=== PATIENT | female | born 1970 | race Caucasian/White ===

== ENCOUNTER 2017-08-30 18:23 | Emergency (ER) | payer MEDICARE, OTHER, SELFPAY ==
[2017-08-30 18:39] VITALS: BP 136/76; PULSE 102; RESP 20; TEMP 37.1; O2SAT 96; BMI 30.1
--- NOTE | 2017-08-30 18:46 | HMH.EDUTC ---
[facility] [place]ression: Ankle pain Qualifiers: Chronicity: unspecified Laterality: left Qualified Code(s): M25.572 - Pain in left ankle and joints of left foot Disposition: Home, Self-Care Condition on Discharge: Good Instructions: DI for Chronic Pain -- Adult Additional Instructions: Follow up with family doctor, call tomorrow for appointment Return if needed Ortho if pain persists Take medication as prescribed If you notice change in color, temperature, pulse or swelling redness or streaks go straight to the ER Prescriptions: Etodolac [Etodolac 200mg Cap] 200 mg PO Q6H PRN #20 cap PRN Reason: Moderate Pain Referrals: Provider,Referral, MD [Primary Care Provider] - Medical Decision Making - Medical Records Medical records reviewed: Yes: I reviewed the patient's medical records. Vital Signs: 08/30/17 18:39 Temperature 98.8 F Temperature Source Temporal Artery Scan Pulse Rate [Right] 102 H Respiratory Rate 20 Blood Pressure [Right Arm] 136/76 Blood Pressure Mean [Right Arm] 96 Blood Pressure Source [Right Arm] Automatic Cuff Blood Pressure Position [Right Arm] Sitting 02 Sat by Pulse Oximetry 96 Oxygen Delivery Method Room Air - Radiology Data #1 Image(s): Ankle Image Reviewed: Yes I have reviewed radiologist's interpretation Preliminary Findings: Normal/NAD Still recommend patient follow up with family doctor for more extensive testing and work up - Po Inquiry Pt receiving controlled substance: No Po was queried for this patient: No - Reevaluation(s) Time: 19:56 Reevaluation #1: No changes States that pain is an achy pain that occurs however patient able to walk on foot, no difference in color, no warmth, no redness, minimal swelling, no discoloration good pulses noted nad good cap refill. Ankle wrapped with john wrap and patient advised to follow up with family doctor in the morning or return to ER tonight if any changes Offer to transfer patient to ER for further workup but refused state that she would follow up as recommended [facility] [place] - General Stated complaint: left ankle and left foot pain Mode of Arrival: Ambulatory Source of Information: Patient Limitations: No Limitations Description of Symptoms (Recalled from Triage Doc. by RN): PAIN IN LEFT LEFT LEG TO LEFT HIP, DENIES INJURY HEENT Symptoms (Recalled from RN notes): No Resp Symptoms (Recalled from RN notes): No Skin Symptoms (Recalled from RN notes): No MS Symptoms (Recalled from RN notes): Yes Functional Status (Recalled from RN notes): N - History of Present Illness Provider Complaint: Patient state that she recently started physical therapy States that she has been having pain in her left ankle that radiates pain up her leg into her knee States that on top of physical therapy she recently seen the material man and they moved her foot around and may have aggrivated her arthritits States that her physical therapy is on her left shoulder but requires her to shift weight freqently onto this foot and put pressure on her lower leg and foot and now she is having pain - Related Data Previous Rx's Medication Instructions Recorded Etodolac [Etodolac 200mg Cap] 200 mg PO Q6H PRN #20 cap 08/30/17 Allergies Allergy/AdvReac Type Severity Reaction Status Date / Time acetaminophen Allergy Mild Verified 08/30/17 18:43 [From DARVOCET-N] diphenhydramine Allergy Mild Verified 08/30/17 18:43 [From BENADRYL] Macrolide Antibiotics Allergy Mild Verified 08/30/17 18:43 [MACROLIDE ANTIBIOTICS] Opioids - Morphine Analogues Allergy Mild Verified 08/30/17 18:43 [OPIOIDS - MORPHINE ANALOGUES] propoxyphene Allergy Mild Verified 08/30/17 18:43 [From DARVOCET-N] codeine [CODEINE] Allergy Unknown Verified 08/30/17 18:43 erythromycin base Allergy Unknown Verified 08/30/17 18:43 [ERYTHROMYCIN BASE] prednisone [PREDNISONE] Allergy Unknown Verified 08/30/17 18:43 Sulfa (Sulfon
--- NOTE | 2017-08-30 18:55 | ED_ITS ---
[facility] [place] Clinical Impression: Ankle pain Qualifiers: Chronicity: unspecified Laterality: left Qualified Code(s): M25.572 - Pain in left ankle and joints of left foot Disposition: Home, Self-Care Condition on Discharge: Good Instructions: DI for Chronic Pain -- Adult Additional Instructions: Follow up with family doctor, call tomorrow for appointment Return if needed Ortho if pain persists Take medication as prescribed If you notice change in color, temperature, pulse or swelling redness or streaks go straight to the ER Prescriptions: Etodolac [Etodolac 200mg Cap] 200 mg PO Q6H PRN #20 cap PRN Reason: Moderate Pain Referrals: Provider,Referral, MD [Primary Care Provider] - Medical Decision Making - Medical Records Medical records reviewed: Yes: I reviewed the patient's medical records. Vital Signs: 08/30/17 18:39 Temperature 98.8 F Temperature Source Temporal Artery Scan Pulse Rate [Right] 102 H Respiratory Rate 20 Blood Pressure [Right Arm] 136/76 Blood Pressure Mean [Right Arm] 96 Blood Pressure Source [Right Arm] Automatic Cuff Blood Pressure Position [Right Arm] Sitting 02 Sat by Pulse Oximetry 96 Oxygen Delivery Method Room Air - Radiology Data #1 Image(s): Ankle Image Reviewed: Yes I have reviewed radiologist's interpretation Preliminary Findings: Normal/NAD Still recommend patient follow up with family doctor for more extensive testing and work up - Po Inquiry Pt receiving controlled substance: No Po was queried for this patient: No - Reevaluation(s) Time: 19:56 Reevaluation #1: No changes States that pain is an achy pain that occurs however patient able to walk on foot, no difference in color, no warmth, no redness, minimal swelling, no discoloration good pulses noted nad good cap refill. Ankle wrapped with john wrap and patient advised to follow up with family doctor in the morning or return to ER tonight if any changes Offer to transfer patient to ER for further workup but refused state that she would follow up as recommended [facility] [place] HPI - General Stated complaint: left ankle and left foot pain Mode of Arrival: Ambulatory Source of Information: Patient Limitations: No Limitations Description of Symptoms (Recalled from Triage Doc. by RN): PAIN IN LEFT LEFT LEG TO LEFT HIP, DENIES INJURY HEENT Symptoms (Recalled from RN notes): No Resp Symptoms (Recalled from RN notes): No Skin Symptoms (Recalled from RN notes): No MS Symptoms (Recalled from RN notes): Yes Functional Status (Recalled from RN notes): N - History of Present Illness Provider Complaint: Patient state that she recently started physical therapy States that she has been having pain in her left ankle that radiates pain up her leg into her knee States that on top of physical therapy she recently seen the filter tender and they moved her foot around and may have aggrivated her arthritits States that her physical therapy is on her left shoulder but requires her to shift weight freqently onto this foot and put pressure on her lower leg and foot and now she is having pain - Related Data Previous Rx's Medication Instructions Recorded Etodolac [Etodolac 200mg Cap] 200 mg PO Q6H PRN #20 cap 08/30/17 Allergies Allergy/AdvReac Type Severity Reaction Status Date / Time acetaminophen Allergy Mild Verified 08/30/17 18:43 [From ALMA] diphe
--- NOTE | 2017-08-30 19:10 | XR_ITS ---
XR ankle LT min 3V HISTORY: ITS.REASON: pain ORDERING PHYSICIAN: Rachel Valiente PATIENT AGE: 47 years COMPARISON: None FINDINGS: No fracture or dislocation. No lytic or blastic change. There is normal mineralization.. The joint spaces are well-preserved. No significant degenerative/arthritic changes. No erosive changes evident. There is a faint opacity at the tip of the medial malleolus well-circumscribed and could be related to an old injury or accessory center of ossification. No soft tissue swelling IMPRESSION: As above, no acute finding
[2017-08-30 20:03] VITALS: BP 132/77; PULSE 90; RESP 20; TEMP 37.1
== END 2017-08-30 20:10 | disposition home or self-care (01) ==
PROVIDERS: Emergency Provider Nurse Practitioner; Family Provider Family Medicine
DX: M25.572 Pain in left ankle and joints of left foot (principal); Z88.0 Allergy status to penicillin; Z88.2 Allergy status to sulfonamides; Z88.6 Allergy status to analgesic agent
CPT/HCPCS: G0463; 73610; 99202

== ENCOUNTER → 2018-02-01 10:51 | Outpatient (CLI) | payer MEDICARE, OTHER, SELFPAY ==
--- NOTE | 2018-02-01 10:57 | MM_ITS ---
MM Dig screening mamm BI w/CAD CAD Screening COMPARISON: Digital mammograms with CAD 09/27/2013 and post biopsy right mammogram 04/08/2010 INDICATION: There is a history of breast cancer in patient's paternal grandmother diagnosed in her 40s and paternal aunt. There is been previous biopsy right breast for benign disease. TECHNIQUE: Standard CC and MLO images were obtained. R2 CAD reviewed. FINDINGS: Moderate heterogenic fibroglandular densities are seen throughout both breast. There is an asymmetric nodular density upper outer quadrant right breast with a biopsy clip adjacent to this density. There is a possible new density deep within the right breast near the chest wall and only definitely seen on the MLO view. Recommend the patient return for attempt at spot compression view in MLO projection and 90 degree lateral view and exaggerated cc views and probably ultrasound as well. There is no other suspicious lesion in either breast and there are no suspicious microcalcifications. IMPRESSION: Moderate heterogenic breast density with possible new asymmetric density right breast BI-RADS Category: 0 Need Additional Imaging Evaluation RECOMMENDED FOLLOW-UP: IMM - IMMEDIATE FOLLOW-UP RECOMMENDED (A letter has been sent to the patient regarding results of the study.)
== END ==
PROVIDERS: Family Provider Family Medicine; PCP Family Medicine; Visit Provider Family Medicine
DX: Z12.31 Encounter for screening mammogram for malignant neoplasm of breast (principal)
CPT/HCPCS: 77067

== ENCOUNTER → 2018-02-16 13:40 | Outpatient (CLI) | payer MEDICARE, OTHER, SELFPAY ==
--- NOTE | 2018-02-16 13:43 | MM_ITS ---
MM Dig mamm DX unilat RT CAD Right breast ultrasound complete with axilla INDICATION: Follow-up screening mammogram ORDERING PHYSICIAN: Osman Medrano MD PATIENT AGE: 47 years COMPARISON: 02/01/2018, 09/27/2013 TECHNIQUE: Problem-solving views of the right breast along with right breast ultrasound FINDINGS: There is average fibroglandular tissue. Postbiopsy changes are present in the upper outer right breast. Screening mammogram showed asymmetric density in the lower aspect of the right breast. Spot compression views confirm the presence of an asymmetric density in this area however, the margins are not just the. This millimeters represent overlying fibroglandular tissue as no ultrasound abnormalities are evident in this region as well. On the exaggerated cc there was some faint density noted in the deep outer right breast. One would expect this however to be in the axilla and not in the inferior aspect of the breast as seen on the ML view. This could correspond to the edge of the lymph node. Right breast ultrasound: There is a 4 mm complex cyst at 10:00 and a 3 mm cyst at 10:00 near the nipple. There is some mild ductal dilatation in the retroareolar region. Small axillary nodes are present. IMPRESSION: Probably benign findings regarding asymmetric density in the lower right breast and in the deep outer right breast. Recommend 6 month mammographic and sonographic follow-up. Also suggest correlation with physical exam BI-RADS Category: 3 Benign Finding Short Term Follow-up RECOMMENDED FOLLOW-UP: 6M - 6 MONTH FOLLOW-UP (A letter has been sent to the patient regarding results of the study.)
== END ==
PROVIDERS: Family Provider Family Medicine; PCP Family Medicine; Visit Provider Family Medicine
DX: R92.8 Other abnormal and inconclusive findings on diagnostic imaging of breast (principal)
CPT/HCPCS: 77065

== ENCOUNTER → 2018-02-23 09:31 | Outpatient (CLI) | payer MEDICARE, OTHER, SELFPAY | PROVIDERS: Family Provider Family Medicine; PCP Family Medicine; Visit Provider Family Medicine | DX: R92.8 Other abnormal and inconclusive findings on diagnostic imaging of breast (principal) | CPT/HCPCS: 76641 ==

== ENCOUNTER → 2018-09-12 08:08 | Outpatient (CLI) | payer MEDICARE, MEDICAID, SELFPAY ==
[2018-09-12 08:13] LABS: Adenovirus F 40/41, stool Not Detected (NotDetected); Astrovirus Not Detected (NotDetected); Campylobacter Not Detected (NotDetected); Clostridium Difficile A/B, PCR Not Detected (NotDetected); Cryptosporidium Not Detected (NotDetected); Cyclospora Cayetanesis Not Detected (NotDetected); Entamoeba histolytica Not Detected (NotDetected); Enteroaggregative E coli Not Detected (NotDetected); Enteropathogenic E coli Not Detected (NotDetected); Enterotoxigenic E coli Not Detected (NotDetected); Giardia lamblia Not Detected (NotDetected); Norovirus Not Detected (NotDetected); Plesimonas Shigalloides, PCR Not Detected (NotDetected); Rotavirus A Not Detected (NotDetected); Salmonella, PCR Not Detected (NotDetected); Sapovirus Not Detected (NotDetected); Shiga-like toxin E coli Not Detected (NotDetected); Shigella Enterovasive E coli Not Detected (NotDetected); Vibrio Cholerae Not Detected (NotDetected); Vibrio, PCR Not Detected (NotDetected); Yersinia Entercolitica, PCR Not Detected (NotDetected)
== END ==
PROVIDERS: PCP Family Medicine; Visit Provider Nurse Practitioner Family
DX: R19.7 Diarrhea, unspecified (principal); Z20.818 Contact with and (suspected) exposure to other bacterial communicable diseases; Z79.2 Long term (current) use of antibiotics
CPT/HCPCS: 87506

== ENCOUNTER → 2018-11-23 15:19 | Outpatient (CLI) | payer MEDICARE, MEDICAID, SELFPAY ==
[2018-11-23 16:26] LABS: Ferritin 172 ng/mL (8-388); Potassium 3.6 mmoL/L (3.5-5.1)
[2018-11-26 07:48] LABS: Vitamin D 25 Hydroxy 48.6 ng/mL (30.0-100.0)
== END ==
PROVIDERS: Visit Provider Nurse Practitioner
DX: Z79.899 Other long term (current) drug therapy (principal); G25.81 Restless legs syndrome
CPT/HCPCS: 36415; 82652; 82728; 83735; 84132

== ENCOUNTER → 2019-09-05 10:58 | Outpatient (CLI) | payer MEDICARE, SELFPAY | PROVIDERS: Visit Provider Nurse Practitioner | DX: J06.9 Acute upper respiratory infection, unspecified (principal) | CPT/HCPCS: 87070; 87077; 87186; 87205 ==

== ENCOUNTER 2019-11-09 14:11 | Emergency (ER) | payer MEDICARE, OTHER, SELFPAY ==
[2019-11-09 14:11] VITALS: BP 153/93; PULSE 87; RESP 16; TEMP 37.3; O2SAT 98; BMI 33.8
--- NOTE | 2019-11-09 14:31 | CT_ITS ---
PROCEDURE: CT ABDOMEN PELVIS WO CON CLINICAL INDICATION: lower abd pain Lower abdominal pain with nausea COMPARISON: ABDPELW/O CT ABD PELVIS W/O CONTRAST from 11/20/2016 TECHNIQUE: Axial images obtained with sagittal and coronal reformats. All CT scans at the facility use one or more dose reduction, viz: automated exposure control, ma/kV adjustment per patient size (including targeted exams where dose is matched to indication, i.e. head), or iterative reconstruction technique. FINDINGS: LOWER THORAX: No acute finding ABDOMEN & PELVIS: There is an 8 mm hypodensity in the right hepatic lobe superiorly nonspecific slightly more prominent from the previous exam. A 3 mm hypodensity is present in the left hepatic lobe and 4 mm hypodensity right hepatic lobe posteriorly. These areas are nonspecific. The spleen, pancreas, the gallbladder, and adrenal glands show no acute finding. There is mild enlargement of the left adrenal gland but is unchanged and may be due to adenomatous involvement. No renal or ureteral calculi. No hydronephrosis. No intestinal obstruction or free air. The appendix is slightly prominent and is larger than when compared to the previous exam of 11/20/2016. There is however, no stranding of the periappendiceal fat. No abscess or perforation is evident. There is no evidence of diverticulitis. There is mild thickening of the sigmoid colon which could be seen with colitis. There are post hysterectomy changes. No pelvic mass or abnormal fluid collection. There are postsurgical changes of the lumbar spine. There is a moderate amount of retained colonic feces. IMPRESSION: 1. There is mild prominence of the appendix measuring up to 7 mm. Previously the appendix measured 4 mm. Early appendicitis is not excluded. There is however no stranding of the periappendiceal fat. Please correlate with clinical parameters. If clinical findings are inconclusive then, would recommend follow-up exam in 12 hours with contrast. 2. Mild thickening of the sigmoid colon which could be due to nondistention or colitis Dictated by: Jamar Murray MD 11/09/2019 15:43 Electronically signed by Jamar Murray MD in [place] 11/09/2019 15:43
[2019-11-09 14:37] LABS: Microscopic, Urine URINE MICROSCOPIC (MICROSCOPIC)
[2019-11-09 14:38] LABS: Appearance,Urine CLEAR (Clear); Bilirubin,Urine Negative (Negative); Blood, Urine Negative (Negative); Color,Urine YELLOW (Yellow); Glucose,Urine (UA) Negative (Negative); Ketones,Urine Negative (Negative); Leukocyte Esterase,Urine Negative (Negative); Nitrate,Urine Negative (Negative); Protein,Urine Negative (Negative); Specific Gravity, Urine >= 1.030 (1.005-1.030); Urobilinogen,Urine 0.2 EU/dl (0.2)
[2019-11-09 14:46] LABS: RBC,Urine Occasional #/hpf (0-3); WBC,Urine Occasional #/hpf (0-3)
--- NOTE | 2019-11-09 14:47 | HMH.EDGENADL ---
ED Disposition Clinical Impression: Pancreatitis Qualifiers: Chronicity: acute Pancreatitis type: unspecified pancreatitis type Acute pancreatitis complication: no infection or necrosis Qualified Code(s): K85.90 - Acute pancreatitis without necrosis or infection, unspecified Disposition: Home, Self-Care Condition on Discharge: Fair Instructions: DI for Pancreatitis Additional Instructions: Clear liquids for 48 hours. Percocet as prescribed for pain. Phenergan as prescribed for nausea. See Dr. Medrano in his office on Monday. Additional instructions for ABDOMINAL PAIN: See your physician as soon as possible for further evaluation. Return immediately if worsening abdominal pain, vomiting, shortness of breath, fever, vomiting of blood or abdominal distention. Additional instructions for CONTROLLED SUBSTANCES: You have been prescribed a medication that is a controlled substance. Controlled substances include pain medications known as opiates and sedative nerve medications known as benzodiazepines. Tramadol, fioricet, and gabapentin are also controlled substances. Some common opiates include: Codeine (such as Tylenol #3) Hydrocodone (Vicodin, Lortab, Lorcet, [place]) Oxycodone (Percocet, Percodan, Oxycodone, Oxy IR) Some common benzodiazepines include: Diazepam (Valium) Lorazepam (Ativan) Alprazolam (Xanax) Clonazepam (Klonopin) Oxazepam (Serax) All of these controlled substances are highly addictive and frequently abused. Misuse can and frequently does lead to addiction as well as overdose and . Medication should be stored in a locked cabinet or other secure storage unit. Do not store the medication in a motor vehicle. Short term supplies, 3 days or less, are prescribed because of the highly addictive nature of the medication. Any of the controlled substance medication NOT taken should be disposed of properly and NOT SAVED. The recommended method of disposing of unused medications is: Place the medicines in a sealable plastic bag. If the medicine is a solid, crush it or add water to dissolve it. Add something undesirable (cat litter, coffee grounds, etc.) Dispose of sealed bag in household trash Do not flush or pour unused medicines down a sink or drain. Controlled substances should not be shared, given away or sold. Because of the addictive nature and frequent abuse, these medications are sometimes stolen. These medications should be kept in a safe place where they cannot be stolen. Do not keep them in your car or purse. Lost or stolen prescriptions for controlled substances WILL NOT BE REFILLED in this emergency department, regardless of whether a police report was filed. Prescriptions: Oxycodone HCl/Acetaminophen [Percocet 5/325mg tablet] 1 tab PO Q6HP PRN #10 tab PRN Reason: Moderate To Severe Pain Transmission Status: Received by [facility] Promethazine HCl [Phenergan 25mg tab] 25 mg PO Q6HP PRN #10 tab PRN Reason: Nausea And Vomiting Transmission Status: Received by [id number] Referrals: Osman Medrano MD [Primary Care Provider] - - Critical Care Critical Care Time: No Attestation: On 11/09/19, the high probability of a clinically significant, sudden or life threatening deterioration of the following system(s) required my full and direct attention, intervention and personal management. The time I documented below is in addition to time spent performing reported procedures but includes the following listed in this critical care notation. Medical Decision Making - Medical Records Medical records reviewed: Yes: I reviewed the patient's medical records. - Po Inquiry Pt receiving controlled substance: Yes Po was queried for this patient: Yes Reference #:: [id number] Risks and benefits of using a controlled substance: were discussed with pt by me Comment: 0 rxs. Vital Signs: 11/09/19 14:11 Temperature 99.2 F Temperature Source Oral Pu
[2019-11-09 15:41] LABS: Basophils # 0.2 K/mm3 (0-0.2); Basophils % 1.7 % (0.1-2.0); Eosinophils # 0.2 K/mm3 (0.0-0.4); Eosinophils % 1.4 % (0.1-12.0); Hematocrit 44.9 % (37.0-47.0); Hemoglobin 14.9 g/dL (12.2-16.2); Lymphocytes # 3.2 K/mm3 (0.7-4.5); Lymphocytes % 28.7 % (10-50); Mean Corpuscular HGB Conc 33.2 g/dL (31.8-35.4); Mean Corpuscular Hemoglobin 30.9 pg (27.0-31.2); Mean Platelet Volume 8.8 fl (7.4-10.4); Monocytes # 0.5 K/mm3 (0.1-1.0); Monocytes % 4.2 % (1.7-9.3); Neutrophils # 7.1 K/mm3 (1.8-7.8); Neutrophils % 64.1 % (37.0-80.0); Platelet Count 290 K/mm3 (142-424); Red Blood Count 4.83 M/mm3 (4.20-5.40); White Blood Count 11.1 K/mm3 (4.8-10.8)
[2019-11-09 15:46] LABS: Chloride 103 mmol/L (98-107); Potassium 4.1 mmoL/L (3.5-5.1); Sodium 140 mmol/L (136-145)
[2019-11-09 15:48] LABS: Amylase 244 U/L (30-110)
[2019-11-09 15:49] LABS: Alanine Aminotransferase 31 U/L (12-78); Albumin Level 4.3 g/dl (3.5-5.0); Albumin/Globulin Ratio 1.4 (1.1-1.8); Alkaline Phosphatase 85 U/L (38-126); Anion Gap 11.1 mEq/L (5-15); Aspartate Amino Transferase 34 U/L (14-36); Bilirubin,Total 0.4 mg/dl (0.2-1.3); Blood Urea Nitrogen 14 mg/dl (7-17); Calcium 9.8 mg/dl (8.4-10.2); Carbon Dioxide 30 mmol/L (22.0-30.0); Creatinine Clearance Estimated 126 mL/min (50-200); Estimated Glomerular Filt Rate 88 ml/min (>60); GFR (African American) 107 ML/MIN (>60); Globulin 3.1 g/dL (1.3-3.2); Glucose 90 mg/dl (74-100); Total Protein,Serum 7.4 g/dl (6.3-8.2)
[2019-11-09 15:51] LABS: Lipase 787 U/L (23-300)
[2019-11-09 16:23] VITALS: BP 132/85; PULSE 100; RESP 16; TEMP 36.6; O2SAT 98
== END 2019-11-09 16:24 | disposition home or self-care (01) ==
PROVIDERS: Emergency Provider Emergency Medicine; PCP Family Medicine
DX: K85.90 Acute pancreatitis without necrosis or infection, unspecified (principal); Z90.09 Acquired absence of other part of head and neck; Z90.79 Acquired absence of other genital organ(s); Z88.1 Allergy status to other antibiotic agents; Z88.2 Allergy status to sulfonamides; Z88.5 Allergy status to narcotic agent
CPT/HCPCS: 74176; 80053; 81001; 82150; 83690; 85025; 96365; 99283

== ENCOUNTER 2019-11-11 12:15 | Observation (INO) | payer MEDICARE, OTHER, SELFPAY ==
[2019-11-11 11:26] LABS: Basophils # 0.1 K/mm3 (0-0.2); Basophils % 0.8 % (0.1-2.0); Eosinophils # 0.1 K/mm3 (0.0-0.4); Eosinophils % 1.1 % (0.1-12.0); Hematocrit 47.3 % (37.0-47.0); Lymphocytes # 2.9 K/mm3 (0.7-4.5); Lymphocytes % 30.9 % (10-50); Mean Corpuscular HGB Conc 31.7 g/dL (31.8-35.4); Mean Corpuscular Hemoglobin 30.7 pg (27.0-31.2); Mean Corpuscular Volume 96.9 fl (81-99); Mean Platelet Volume 8.3 fl (7.4-10.4); Monocytes # 0.4 K/mm3 (0.1-1.0); Monocytes % 4.5 % (1.7-9.3); Neutrophils # 5.9 K/mm3 (1.8-7.8); Neutrophils % 62.8 % (37.0-80.0); Platelet Count 284 K/mm3 (142-424); Red Blood Count 4.88 M/mm3 (4.20-5.40); White Blood Count 9.4 K/mm3 (4.8-10.8)
[2019-11-11 11:54] LABS: Alanine Aminotransferase 24 U/L (12-78); Albumin/Globulin Ratio 1.5 (1.1-1.8); Alkaline Phosphatase 79 U/L (38-126); Amylase 179 U/L (30-110); Anion Gap 8.4 mEq/L (5-15); Aspartate Amino Transferase 28 U/L (14-36); Bilirubin,Total 0.3 mg/dl (0.2-1.3); Blood Urea Nitrogen 14 mg/dl (7-17); Calcium 10.1 mg/dl (8.4-10.2); Carbon Dioxide 31 mmol/L (22.0-30.0); Chloride 102 mmol/L (98-107); Estimated Glomerular Filt Rate 88 ml/min (>60); GFR (African American) 107 ML/MIN (>60); Globulin 2.7 g/dL (1.3-3.2); Glucose 93 mg/dl (74-100); Potassium 4.4 mmoL/L (3.5-5.1); Sodium 137 mmol/L (136-145); Total Protein,Serum 6.7 g/dl (6.3-8.2)
[2019-11-11 11:59] LABS: Lipase 601 U/L (23-300)
--- NOTE | 2019-11-11 12:30 | CT_ITS ---
PROCEDURE: CT ABDOMEN PELVIS W CON CLINICAL INDICATION: abdominal pain, enlarged appendix 11/09/19 Persistent abdominal pain and tenderness with nausea and vomiting, follow-up abnormal CT, right-sided abdominal pain, history of enlarged appendix COMPARISON: CT ABDOMEN PELVIS WO CON from 11/09/2019 TECHNIQUE: IV Contrast: 75ML OPTIRAY 350 Oral Contrast 20ml Gastroview Axial images obtained with sagittal and coronal reformats. All CT scans at the facility use one or more dose reduction, viz: automated exposure control, ma/kV adjustment per patient size (including targeted exams where dose is matched to indication, i.e. head), or iterative reconstruction technique. FINDINGS: LOWER THORAX: There are mild fibrotic changes in the right lung base and mild atelectatic changes in the left lung base. ABDOMEN & PELVIS: There are least 4 hypodensities of the liver the largest in the anterior segment right hepatic lobe at 6 mm. Ill-defined 5 mm hypodensity noted in the left hepatic lobe anteriorly. 4 mm hypodensity right hepatic lobe posteriorly. 3 mm hypodensity right hepatic centrally the spleen, adrenal glands, pancreas, and kidneys have an unremarkable appearance. No intestinal obstruction or free air. Minimal prominence of the appendix once again noted with the distal aspect of the appendix measuring 8 mm in diameter. This is not significantly changed. No stranding of the periappendiceal fat. No intestinal obstruction or free air. No pelvic mass or abnormal fluid collection. Has been a prior hysterectomy. Left ovarian cyst noted at 2.7 cm. There are postsurgical changes of the lumbar spine. IMPRESSION: There is mild prominence of the tip of the appendix however, overall the appendix does not appear significantly changed from 11/09 19 there is no stranding of the periappendiceal fat. Please correlate with clinical parameters. Nonspecific hypodensities of the liver which may be due to up attic cyst. Stability may be confirmed with follow-up. Dictated by: Jamar Murray MD 11/11/2019 21:46 Electronically signed by Jamar Murray MD in [place] 11/11/2019 21:46
--- NOTE | 2019-11-11 13:38 | PC.NURSE ---
called office and spoke with Emilia about consult. patient still has not arrived
--- NOTE | 2019-11-11 16:04 | P.CONPHA_ITS ---
[facility] Pharmacy VTE Monitoring - Patient Demographics Admission date: 11/11/19 Report Date: 11/11/19 Time: 16:04 Allergies/Adverse Reactions: Patient Allergies Macrolide Antibiotics [MACROLIDE ANTIBIOTICS] Allergy (Mild, Verified 11/09/19 14:30) Opioids - Morphine Analogues [OPIOIDS - MORPHINE ANALOGUES] Allergy (Mild, Verified 11/09/19 14:30) propoxyphene [From DARVOCET-N] Allergy (Mild, Verified 11/09/19 14:30) codeine [CODEINE] Allergy (Unknown, Verified 11/09/19 14:30) erythromycin base [ERYTHROMYCIN BASE] Allergy (Unknown, Verified 11/09/19 14:30) Sulfa (Sulfonamide Antibiotics) [SULFA (SULFONAMIDE ANTIBIOTICS)] Allergy (Unk nown, Verified 11/09/19 14:30) Penicillins Allergy (Verified 11/09/19 14:30) - VTE Risk Labs: VTE Related Lab Results Hgb 15.0 g/dL (12.2-16.2) 11/11/19 10:39 Hct 47.3 % (37.0-47.0) H 11/11/19 10:39 Plt Count 284 K/mm3 (142-424) 11/11/19 10:39 BUN 14 mg/dl (7-17) 11/11/19 10:39 Creatinine 0.70 mg/dl (0.52-1.04) 11/11/19 10:39 - Prophylaxis VTE Prophylaxis Ordered?: Yes Types of VTE Prophylaxis: TEDS Knee High Location of Applied Device: Bilateral Lower Extremeties
--- NOTE | 2019-11-11 16:32 | HMH.HP ---
*Admission Date: 11/11/19 *Chief complaint: Abdominal pain, nausea vomiting *History of present illness: 49-year-old female presented to the office today for follow-up of an ER visit secondary to abdominal pain. Patient reports on the evening of November 07 she developed abdominal pain that was reminiscent of a prior bout of pancreatitis diagnosed in 2017 at an outside facility. Patient tried to sleep through the pain but was awoken early Monday morning at 2 AM. When her pain persisted she ultimately sought treatment through our emergency department. In the emergency department a CT scan revealed an enlarged appendix, but no pancreatic inflammation. Labs revealed a mildly elevated white blood cell count with abnormal amylase and lipase. Patient was encouraged to stay for an observation admission to receive IV fluids and to have her CT scan repeated. Patient declined and chose to go home. She was treated with antiemetics and pain medication. Patient followed up in the office today stating she had inability to keep down solids and liquids except for water. She appeared dehydrated and on repeat labs had persistent elevation of amylase and lipase although slightly improved from 48 hours prior. There was concern about appendicitis due to her persistent abdominal pain and decision was made to admit the patient for IV fluids, repeat CT scan, pain control. Patient reports since leaving the office this morning and finally arriving at the hospital at around 4 PM she has tolerated water and some gummy bears to eat but drinking a Coca-Cola made her nauseous and ultimately she vomited. [facility] History I have reviewed the patient's past medical history: Yes *Have you ever received a pneumonia vaccine?: No *Have you received a flu vaccine this season?: No Laterality Cases: Bilateral: Tonsillectomy Other Surgeries: Yes: Hysterectomy-Partial - *Social History Smoking Status: Never smoker Alcohol Intake: never *Occupational Status:: other Housing: house *Travel in the last 8 weeks: None Family Hx:: Coronary Artery Disease, Hypertension Review of Systems - Review of Systems Review of systems:: pertinent systems reviewed and negative unless documented below - Constitutional Denies body ache(s), Denies chills, Denies fever(s) - *Cardiovascular Denies chest pain, Denies chest pain at rest - *Respiratory Denies cough - *Gastrointestinal Reports abdominal pain, Reports bloating, Reports heartburn, Denies bright, red blood in stools, Denies black, tarry stools Meds Home Medications Medication Instructions Recorded Confirmed Type Oxycodone HCl/Acetaminophen 1 tab PO Q6HP PRN #10 tab 11/09/19 11/11/19 Rx [Percocet 5/325mg tablet] Promethazine HCl [Phenergan 25mg 25 mg PO Q6HP PRN #10 tab 11/09/19 11/11/19 Rx tab] ondansetron HCL [Ondansetron HCl] 4 mg PO Q6HP PRN 11/11/19 11/11/19 History Allergies Allergy/AdvReac Type Severity Reaction Status Date / Time Macrolide Antibiotics Allergy Mild Verified 11/09/19 14:30 [MACROLIDE ANTIBIOTICS] Opioids - Morphine Analogues Allergy Mild Verified 11/09/19 14:30 [OPIOIDS - MORPHINE ANALOGUES] propoxyphene Allergy Mild Verified 11/09/19 14:30 [From DARVOCET-N] codeine [CODEINE] Allergy Unknown Verified 11/09/19 14:30 erythromycin base Allergy Unknown Verified 11/09/19 14:30 [ERYTHROMYCIN BASE] Sulfa (Sulfonamide Allergy Unknown Verified 11/09/19 14:30 Antibiotics) [SULFA (SULFONAMIDE ANTIBIOTICS)] Penicillins Allergy Verified 11/09/19 14:30 Exam Vital signs and Labs for Last 24 Hours: Laboratory Results - last 24 hr 11/11/19 10:39: WBC 9.4, RBC 4.88, Hgb 15.0, Hct 47.3 H, MCV 96.9, MCH 30.7, MCHC 31.7 L, RDW 14.0, Plt Count 284, MPV 8.3, Neut % (Auto) 62.8, Lymph % (Auto) 30.9, [place] % (Auto) 4.5, Eos % (Auto) 1.1, Baso % (Auto) 0.8, Neut # (Auto) 5.9, Lymph # (Auto) 2.9, [place] # (Auto) 0.4, Eos # (Auto) 0.1, Baso # (Auto) 0.1
--- NOTE | 2019-11-11 16:47 | HMH.GSCON ---
*Admission Date: 11/11/19 *Reason for consult:: Abdominal pain *History of present illness: Asked by Dr. Osman Medrano to evaluate this patient for her abdominal pain. She reports on the evening of November 07 she developed abdominal pain similar to a prior bout of pancreatitis diagnosed several years ago at an outside facility. She states that work-up for an etiology of her pancreatitis at that time was inconclusive but she states they did not evaluate her gallbladder reportedly. Due to the persistence of her pain she sought treatment in the emergency department. Her work-up included a noncontrast CT scan revealed a 7mm appendix, but no pancreatic inflammation. Labs revealed a mildly elevated white blood cell count with above normal amylase and lipase. Patient was encouraged to stay for an observation admission to receive IV fluids and to have her CT scan repeated with contrast. Patient declined and chose to go home. She was treated with antiemetics and narcotics. Patient followed up in her primary care providers office today stating she had inability to keep down solids and liquids except for water. Decision was made to admit the patient for IV fluids, repeat CT scan, pain control. Review of Systems - Review of Systems Review of systems:: pertinent systems reviewed and negative unless documented below [facility] History *Have you ever received a pneumonia vaccine?: No *Have you received a flu vaccine this season?: No Laterality Cases: Bilateral: Tonsillectomy Other Surgeries: Yes: Hysterectomy-Partial - *Social History Smoking Status: Never smoker Alcohol Intake: never *Occupational Status:: other Housing: house *Travel in the last 8 weeks: None Family Hx:: Coronary Artery Disease, Hypertension Meds Home Medications Medication Instructions Recorded Confirmed Type Oxycodone HCl/Acetaminophen 1 tab PO Q6HP PRN #10 tab 11/09/19 11/11/19 Rx [Percocet 5/325mg tablet] Promethazine HCl [Phenergan 25mg 25 mg PO Q6HP PRN #10 tab 11/09/19 11/11/19 Rx tab] ondansetron HCL [Ondansetron HCl] 4 mg PO Q6HP PRN 11/11/19 11/11/19 History Allergies Allergy/AdvReac Type Severity Reaction Status Date / Time Macrolide Antibiotics Allergy Mild Verified 11/09/19 14:30 [MACROLIDE ANTIBIOTICS] Opioids - Morphine Analogues Allergy Mild Verified 11/09/19 14:30 [OPIOIDS - MORPHINE ANALOGUES] propoxyphene Allergy Mild Verified 11/09/19 14:30 [From DARVOCET-N] codeine [CODEINE] Allergy Unknown Verified 11/09/19 14:30 erythromycin base Allergy Unknown Verified 11/09/19 14:30 [ERYTHROMYCIN BASE] Sulfa (Sulfonamide Allergy Unknown Verified 11/09/19 14:30 Antibiotics) [SULFA (SULFONAMIDE ANTIBIOTICS)] Penicillins Allergy Verified 11/09/19 14:30 Exam Vital signs and Labs for Last 24 Hours: Laboratory Results - last 24 hr 11/11/19 10:39: WBC 9.4, RBC 4.88, Hgb 15.0, Hct 47.3 H, MCV 96.9, MCH 30.7, MCHC 31.7 L, RDW 14.0, Plt Count 284, MPV 8.3, Neut % (Auto) 62.8, Lymph % (Auto) 30.9, [place] % (Auto) 4.5, Eos % (Auto) 1.1, Baso % (Auto) 0.8, Neut # (Auto) 5.9, Lymph # (Auto) 2.9, [place] # (Auto) 0.4, Eos # (Auto) 0.1, Baso # (Auto) 0.1 11/11/19 10:39: Sodium 137, Potassium 4.4, Chloride 102, Carbon Dioxide 31 H, Anion Gap 8.4, BUN 14, Creatinine 0.70, Estimated GFR 88, Est GFR ( Amer) 107, Glucose 93, Calcium 10.1, Total Bilirubin 0.3, AST 28, ALT 24, Alkaline Phosphatase 79, Total Protein 6.7, Albumin 4.0, Globulin 2.7, Albumin/Globulin Ratio 1.5, Amylase 179 H, Lipase 601 H - *Routine HEENT Exam Head: Present: normocephalic Eye: Present: EOMI, PERRL ENT: Present: mucous membranes moist - *Routine Neck Exam Present: supple. Absent: lymphadenopathy - *Routine Respiratory Exam Present: CTA bilaterally - *Routine Cardiovascular Exam Present: RRR - *Routine Abdominal Exam Present: soft, normoactive bowel sounds, tenderness Comments: She does have some diffuse tendern
[2019-11-11 16:59] VITALS: BP 145/75; PULSE 73; RESP 17; TEMP 36.5; O2SAT 95; BMI 36.0
--- NOTE | 2019-11-11 19:25 | PC.NURSE ---
report given to yoana
[2019-11-11 20:00] VITALS: BP 125/84; PULSE 65; RESP 16; TEMP 36.8; O2SAT 95
--- NOTE | 2019-11-11 21:24 | PC.NURSE ---
ct results received, verified with radiology that physcians notified of results
[2019-11-12 04:00] VITALS: BP 124/69; PULSE 64; RESP 16; TEMP 36.6; O2SAT 94
[2019-11-12 05:28] VITALS: BMI 36.2
[2019-11-12 06:59] LABS: Alanine Aminotransferase 22 U/L (12-78); Albumin Level 3.8 g/dl (3.5-5.0); Albumin/Globulin Ratio 1.4 (1.1-1.8); Alkaline Phosphatase 70 U/L (38-126); Anion Gap 7.2 mEq/L (5-15); Aspartate Amino Transferase 30 U/L (14-36); Bilirubin,Total 0.3 mg/dl (0.2-1.3); Blood Urea Nitrogen 11 mg/dl (7-17); Calcium 9.3 mg/dl (8.4-10.2); Carbon Dioxide 27 mmol/L (22.0-30.0); Chloride 106 mmol/L (98-107); Creatinine Clearance Estimated 188 mL/min (50-200); Estimated Glomerular Filt Rate 130 ml/min (>60); GFR (African American) 157 ML/MIN (>60); Globulin 2.7 g/dL (1.3-3.2); Glucose 82 mg/dl (74-100); Potassium 4.2 mmoL/L (3.5-5.1); Sodium 136 mmol/L (136-145); Total Protein,Serum 6.5 g/dl (6.3-8.2)
--- NOTE | 2019-11-12 07:35 | US_ITS ---
PROCEDURE: US GALLBLADDER CLINICAL INDICATION: recurring pancreatitis , Liver lesions on CT scan COMPARISON: CT ABDOMEN PELVIS W CON from 11/11/2019 FINDINGS: Pancreas: Pancreatic tail is not well demonstrated. The body and head of the pancreas have an unremarkable appearance. Liver: There is a 7 mm hypoechoic area in the right hepatic lobe posteriorly and a 6 mm hypoechoic nodule in the right hepatic lobe anteriorly. There is 4 mm hypoechoic nodule in the left hepatic and a 5 mm hypoechoic nodule in the right hepatic lobe anteriorly. These may represent cysts the and are somewhat too small to categorize.. There is appropriate direction of blood flow within a non dilated portal vein. Right kidney: Unremarkable appearing. No hydronephrosis. Gallbladder: No stones are evident. There is no gallbladder wall thickening. Common duct is normal in diameter. IMPRESSION: Unremarkable gallbladder ultrasound. Multiple hypoechoic lesions of the liver corresponding to the CT abnormalities and may represent small cyst. Stability may be confirmed with follow-up Dictated by: Jamar Murray MD 11/12/2019 15:37 Electronically signed by Jamar Murray MD in [place] 11/12/2019 15:37
--- NOTE | 2019-11-12 07:36 | HMH.ACPN2 ---
Internal Medicine - PN: Subj *Date: 11/12/19 *Time: 07:36 Interval history: Patient complains of having additional episodes of pain overnight that were controlled with IV Dilaudid. Patient has not had any further vomiting. CT of the abdomen and pelvis with IV and oral contrast showed changes of the distal esophagus consistent with esophagitis. No evidence of pancreatic nor appendiceal inflammation on CT scan. Exam Vital signs and Labs for Last 24 Hours: Temp Pulse Resp BP Pulse Ox 97.9 F 64 16 124/69 94 L 11/12/19 04:00 11/12/19 04:00 11/12/19 04:00 11/12/19 04:00 11/12/19 04:00 Laboratory Results - last 24 hr 11/11/19 10:39: WBC 9.4, RBC 4.88, Hgb 15.0, Hct 47.3 H, MCV 96.9, MCH 30.7, MCHC 31.7 L, RDW 14.0, Plt Count 284, MPV 8.3, Neut % (Auto) 62.8, Lymph % (Auto) 30.9, [place] % (Auto) 4.5, Eos % (Auto) 1.1, Baso % (Auto) 0.8, Neut # (Auto) 5.9, Lymph # (Auto) 2.9, [place] # (Auto) 0.4, Eos # (Auto) 0.1, Baso # (Auto) 0.1 11/11/19 10:39: Sodium 137, Potassium 4.4, Chloride 102, Carbon Dioxide 31 H, Anion Gap 8.4, BUN 14, Creatinine 0.70, Estimated GFR 88, Est GFR ( Amer) 107, Glucose 93, Calcium 10.1, Total Bilirubin 0.3, AST 28, ALT 24, Alkaline Phosphatase 79, Total Protein 6.7, Albumin 4.0, Globulin 2.7, Albumin/Globulin Ratio 1.5, Amylase 179 H, Lipase 601 H 11/12/19 06:23: Sodium 136, Potassium 4.2, Chloride 106, Carbon Dioxide 27, Anion Gap 7.2, BUN 11, Creatinine 0.50 L D, Estimated Creat Clear 188, Estimated GFR 130, Est GFR ( Amer) 157 D, Glucose 82, Calcium 9.3, Total Bilirubin 0.3, AST 30, ALT 22, Alkaline Phosphatase 70, Total Protein 6.5, Albumin 3.8, Globulin 2.7, Albumin/Globulin Ratio 1.4 I & O for Last 24 hours: Intake & Output 11/09/19 11/10/19 11/11/19 11/12/19 11:59 11:59 11:59 11:59 Intake Total 1609 / 1609 Balance 1609 / 1609 Weight 196 lb 13.965 oz Narrative: Patient is laying in bed in the position. Lungs are clear. Heart has a regular rate and rhythm. Abdomen has some left upper quadrant and epigastric tenderness to palpation this morning. No tenderness of the lower quadrants. Bowel sounds are present. Assessment and Plan (1) Acute pancreatitis Current visit: Yes Status: Acute Qualifiers: Pancreatitis type: idiopathic Category: Medical Code(s): K85.90 - Acute pancreatitis without necrosis or infection, unspecified (2) Abdominal pain Current visit: Yes Status: Acute Qualifiers: Abdominal location: generalized Qualified Code(s): R10.84 - Generalized abdominal pain Category: Medical Code(s): R10.9 - Unspecified abdominal pain (3) Appendicitis Current visit: Yes Status: Ruled-out Category: Medical Code(s): K37 - Unspecified appendicitis - Assessment and plan all Dx Assessment and Plan for all problems:: 1. Continue IV fluids and Dilaudid for pain control 2. Ultrasound right upper quadrant this morning 3. Advance to clear liquid diet for lunch 4. Start Protonix IV twice daily
[2019-11-12 07:52] LABS: Basophils # 0.1 K/mm3 (0-0.2); Eosinophils # 0.1 K/mm3 (0.0-0.4); Eosinophils % 1.1 % (0.1-12.0); Hematocrit 44.3 % (37.0-47.0); Hemoglobin 14.3 g/dL (12.2-16.2); Lymphocytes # 3.9 K/mm3 (0.7-4.5); Lymphocytes % 37.3 % (10-50); Mean Corpuscular HGB Conc 32.4 g/dL (31.8-35.4); Mean Corpuscular Volume 95.6 fl (81-99); Mean Platelet Volume 9.8 fl (7.4-10.4); Monocytes # 0.6 K/mm3 (0.1-1.0); Monocytes % 5.6 % (1.7-9.3); Neutrophils # 5.7 K/mm3 (1.8-7.8); Neutrophils % 55.1 % (37.0-80.0); Platelet Count 255 K/mm3 (142-424); Red Blood Count 4.63 M/mm3 (4.20-5.40); White Blood Count 10.4 K/mm3 (4.8-10.8)
[2019-11-12 08:00] VITALS: BP 157/79; PULSE 62; RESP 17; TEMP 36.7; O2SAT 96
--- NOTE | 2019-11-12 08:04 | HMH.GSPN ---
Subjective Narrative: Patient complains of some burning pain, mostly upper abdomen. CT scan relatively unremarkable. Exam Vital signs and Labs for Last 24 Hours: Temp Pulse Resp BP Pulse Ox 97.9 F 64 16 124/69 94 L 11/12/19 04:00 11/12/19 04:00 11/12/19 04:00 11/12/19 04:00 11/12/19 04:00 Laboratory Results - last 24 hr 11/11/19 10:39: WBC 9.4, RBC 4.88, Hgb 15.0, Hct 47.3 H, MCV 96.9, MCH 30.7, MCHC 31.7 L, RDW 14.0, Plt Count 284, MPV 8.3, Neut % (Auto) 62.8, Lymph % (Auto) 30.9, [place] % (Auto) 4.5, Eos % (Auto) 1.1, Baso % (Auto) 0.8, Neut # (Auto) 5.9, Lymph # (Auto) 2.9, [place] # (Auto) 0.4, Eos # (Auto) 0.1, Baso # (Auto) 0.1 11/11/19 10:39: Sodium 137, Potassium 4.4, Chloride 102, Carbon Dioxide 31 H, Anion Gap 8.4, BUN 14, Creatinine 0.70, Estimated GFR 88, Est GFR ( Amer) 107, Glucose 93, Calcium 10.1, Total Bilirubin 0.3, AST 28, ALT 24, Alkaline Phosphatase 79, Total Protein 6.7, Albumin 4.0, Globulin 2.7, Albumin/Globulin Ratio 1.5, Amylase 179 H, Lipase 601 H 11/12/19 06:23: WBC 10.4, RBC 4.63, Hgb 14.3, Hct 44.3, MCV 95.6, MCH 31.0, MCHC 32.4, RDW 14.0, Plt Count 255, MPV 9.8, Neut % (Auto) 55.1, Lymph % (Auto) 37.3, [place] % (Auto) 5.6, Eos % (Auto) 1.1, Baso % (Auto) 1.0, Neut # (Auto) 5.7, Lymph # (Auto) 3.9, [place] # (Auto) 0.6, Eos # (Auto) 0.1, Baso # (Auto) 0.1 11/12/19 06:23: Sodium 136, Potassium 4.2, Chloride 106, Carbon Dioxide 27, Anion Gap 7.2, BUN 11, Creatinine 0.50 L D, Estimated Creat Clear 188, Estimated GFR 130, Est GFR ( Amer) 157 D, Glucose 82, Calcium 9.3, Total Bilirubin 0.3, AST 30, ALT 22, Alkaline Phosphatase 70, Total Protein 6.5, Albumin 3.8, Globulin 2.7, Albumin/Globulin Ratio 1.4 I & O for Last 24 hours: Intake & Output 11/09/19 11/10/19 11/11/19 11/12/19 11:59 11:59 11:59 11:59 Intake Total 1609 / 1609 Balance 1609 / 1609 Weight 196 lb 13.965 oz - *Routine Abdominal Exam Comments: Mild diffuse tenderness Progress Note: A&P (1) Acute pancreatitis Status: Acute Assessment and plan: Gallbladder ultrasound today. Current Visit: Yes (2) Abdominal pain Status: Acute Current Visit: Yes (3) Appendicitis Status: Ruled-out Current Visit: Yes
--- NOTE | 2019-11-12 15:10 | PC.NURSE ---
Pt is alert and oriented and able to make needs known. RR even and unlabored. Pt has had pain med x 1 thus far this shift and hasn't complained of pain since this am. Pt did have a couple episodes of emesis this am after pain med was given- clear stomach content. Pt has took a shower this shift. Lungs are cta. BS x 4 quads. CB in reach. Pt denies c/o at this time. VSS. Will cont to mx this shift.
[2019-11-12 16:00] VITALS: BP 158/76; PULSE 58; RESP 16; TEMP 36.6; O2SAT 95
[2019-11-12 20:00] VITALS: BP 187/86; PULSE 68; RESP 16; TEMP 36.7; O2SAT 96
--- NOTE | 2019-11-12 20:01 | PC.NURSE ---
Pt did have another episode of N/V earlier this shift. Did medicate with pain med and zofran per mar. Resting at this time and states she is feeling better. Did also have episode prior to given pain med of shaking. Pt was afebrile when temp was checked. Have given report on pt.
--- NOTE | 2019-11-13 02:44 | PC.NURSE ---
Pain med x one thus far, pt ate popsicle for bedtime snack, shortly after, she vomited that up. Discussed reducing intake to occasional sips of water, pt agreed. Zofran given with pt sleeping therafter, appears comfortable, rhythmic respirations. IV infusing well with no problems noted. Pt steady when up to bathroom, walked around the room at one time. Nothing acute on assessment, pt rings appropriately, call light w/i reach, presently sleeping with no objective s/s of pain identified, monitoring continues.
[2019-11-13 04:00] VITALS: BP 149/69; PULSE 63; RESP 16; TEMP 36.7; O2SAT 96
[2019-11-13 05:47] VITALS: BMI 37.3
[2019-11-13 08:00] VITALS: BP 147/69; PULSE 59; RESP 16; TEMP 36.8; O2SAT 96
--- NOTE | 2019-11-13 08:01 | HMH.ACPN2 ---
Internal Medicine - PN: Subj *Date: 11/13/19 *Time: 08:01 Interval history: Patient is continued to have episodes of vomiting within 5 to 10 minutes of ingesting liquids. She reports her stomach feels like it is on fire from the inside. Pain is controlled with IV Dilaudid. Exam Vital signs and Labs for Last 24 Hours: Temp Pulse Resp BP Pulse Ox 98.1 F 63 16 149/69 H 96 11/13/19 04:00 11/13/19 04:00 11/13/19 04:00 11/13/19 04:00 11/13/19 04:00 Laboratory Results - last 24 hr 11/12/19 06:23: WBC 10.4, RBC 4.63, Hgb 14.3, Hct 44.3, MCV 95.6, MCH 31.0, MCHC 32.4, RDW 14.0, Plt Count 255, MPV 9.8, Neut % (Auto) 55.1, Lymph % (Auto) 37.3, [place] % (Auto) 5.6, Eos % (Auto) 1.1, Baso % (Auto) 1.0, Neut # (Auto) 5.7, Lymph # (Auto) 3.9, [place] # (Auto) 0.6, Eos # (Auto) 0.1, Baso # (Auto) 0.1 I & O for Last 24 hours: Intake & Output 11/10/19 11/11/19 11/12/19 11/13/19 11:59 11:59 11:59 11:59 Intake Total 1609 / 1609 2425 / 2425 Output Total 200 / 200 Balance 1609 / 1609 2225 / 2225 Weight 196 lb 13.965 oz 202 lb 8 oz Narrative: Patient is anxious appearing. She begins crying during the interview. Lungs are clear. Heart has a regular rate and rhythm. Abdomen is soft with improvement in the epigastric and left upper quadrant tenderness. Bowel sounds are present. Assessment and Plan (1) Acute pancreatitis Current visit: Yes Status: Acute Qualifiers: Pancreatitis type: idiopathic Category: Medical Code(s): K85.90 - Acute pancreatitis without necrosis or infection, unspecified (2) Abdominal pain Current visit: Yes Status: Acute Qualifiers: Abdominal location: generalized Qualified Code(s): R10.84 - Generalized abdominal pain Category: Medical Code(s): R10.9 - Unspecified abdominal pain (3) Appendicitis Current visit: Yes Status: Ruled-out Category: Medical Code(s): K37 - Unspecified appendicitis - Assessment and plan all Dx Assessment and Plan for all problems:: DC clear liquid diet in favor of ice chips for now. Allow for more bowel rest. Continue IV Dilaudid for pain control and IV fluids since patient is essentially n.p.o.
--- NOTE | 2019-11-13 08:11 | HMH.GSPN ---
Subjective Narrative: Patient still has burning upper abdominal pain which may be somewhat improved. However, she has had vomiting with clear liquids. Gallbladder ultrasound unremarkable. Exam Vital signs and Labs for Last 24 Hours: Temp Pulse Resp BP Pulse Ox 98.2 F 59 L 16 147/69 H 96 11/13/19 08:00 11/13/19 08:00 11/13/19 08:00 11/13/19 08:00 11/13/19 08:00 I & O for Last 24 hours: Intake & Output 11/10/19 11/11/19 11/12/19 11/13/19 11:59 11:59 11:59 11:59 Intake Total 1609 / 1609 2425 / 2425 Output Total 200 / 200 Balance 1609 / 1609 2225 / 2225 Weight 196 lb 13.965 oz 202 lb 8 oz - *Routine Abdominal Exam Present: soft, tenderness Comments: Some epigastric and bilateral upper quadrant tenderness. Progress Note: A&P (1) Acute pancreatitis Status: Acute Current Visit: Yes (2) Abdominal pain Status: Acute Current Visit: Yes (3) Appendicitis Status: Ruled-out Current Visit: Yes Assessment and Plan for All Diagnoses:: Uncertain etiology of abdominal pain, vomiting, and elevation of pancreatic enzymes.
[2019-11-13 08:52] LABS: Basophils # 0.1 K/mm3 (0-0.2); Basophils % 0.8 % (0.1-2.0); Eosinophils # 0.2 K/mm3 (0.0-0.4); Eosinophils % 1.4 % (0.1-12.0); Hematocrit 43.5 % (37.0-47.0); Lymphocytes # 2.9 K/mm3 (0.7-4.5); Lymphocytes % 27.6 % (10-50); Mean Corpuscular HGB Conc 32.1 g/dL (31.8-35.4); Mean Corpuscular Hemoglobin 30.4 pg (27.0-31.2); Mean Corpuscular Volume 94.6 fl (81-99); Mean Platelet Volume 8.5 fl (7.4-10.4); Monocytes # 0.5 K/mm3 (0.1-1.0); Monocytes % 4.4 % (1.7-9.3); Neutrophils % 65.8 % (37.0-80.0); Platelet Count 246 K/mm3 (142-424); Red Cell Distribution Width 13.7 % (11.5-17.5); White Blood Count 10.6 K/mm3 (4.8-10.8)
[2019-11-13 09:08] LABS: Chloride 104 mmol/L (98-107); Potassium 3.7 mmoL/L (3.5-5.1); Sodium 138 mmol/L (136-145)
[2019-11-13 09:11] LABS: Alanine Aminotransferase 26 U/L (12-78); Albumin Level 3.8 g/dl (3.5-5.0); Albumin/Globulin Ratio 1.4 (1.1-1.8); Alkaline Phosphatase 76 U/L (38-126); Amylase 60 U/L (30-110); Anion Gap 10.7 mEq/L (5-15); Aspartate Amino Transferase 34 U/L (14-36); Bilirubin,Total 0.4 mg/dl (0.2-1.3); Blood Urea Nitrogen 9 mg/dl (7-17); Calcium 9.3 mg/dl (8.4-10.2); Carbon Dioxide 27 mmol/L (22.0-30.0); Creatinine Clearance Estimated 193 mL/min (50-200); Estimated Glomerular Filt Rate 130 ml/min (>60); GFR (African American) 157 ML/MIN (>60); Globulin 2.8 g/dL (1.3-3.2); Glucose 79 mg/dl (74-100); Total Protein,Serum 6.6 g/dl (6.3-8.2)
[2019-11-13 09:12] LABS: Lipase 20 U/L (23-300)
[2019-11-13 15:51] VITALS: BP 153/76; PULSE 69; RESP 17; TEMP 36.9; O2SAT 97
[2019-11-13 19:49] VITALS: BP 157/76; PULSE 63; RESP 18; TEMP 36.9; O2SAT 96
[2019-11-14 03:46] VITALS: BP 127/69; PULSE 63; RESP 16; TEMP 36.7; O2SAT 95
--- NOTE | 2019-11-14 04:10 | PC.NURSE ---
A&O X4. PT C/O MILD PAIN T/O SHIFT IN ABDOMINAL REGION. RATING PAIN AT MOST 5/10 ON PAIN SCALE. ADMINISTERED DILAUDID X2 PER MAR THUS FAR THIS SHIFT. REPORTS ADEQUATE PAIN RELIEF FROM EACH DOSE. DILAUDID PUSHED OVER 4 MINS AND DILUTED WITH EQUAL PARTS NS PER PT REQUEST. SHE STATES I CAN NOT TOLERATE STRONG PAIN MEDS, THEY MAKE HER LOOPY AND NAUSEOUS . UPON INITIAL ASSESSMENT PT REPORTED HER LAST BM WAS NOTED ON THIS PAST MONDAY. SHE DECLINES TAKING ANYTHING AT HOME TO AID IN BM. CALLED MD [facility] RADIOLOGIST DUE TO PT REQUESTING SOMETHING FOR HER CONSTIPATION. ADMINISTERED DULCOLAX SUPP. UPON REASSESSMENT PT STATES SHE HAD A SMALL BM WITHIN AN HOUR POST SUPP ADMIN. SHE ALSO STATES SOME OF THE SUPP WAS EXPELLED WITH HER STOOL. PT DESCRIBES STOOL HARD LARGE PATRICK . PT REPORTS TO THIS RN THAT YEARS AGO (2003) WHEN SHE HAD BACK SURGERY AND WAS GIVEN LORTAB FOR PAIN SHE BECAME CONSTIPATED AND DID NOT HAVE A BM FOR 46 DAYS. ALSO REPORTS THAT EVER SINCE THAT SURGERY HER BOWELS HAVE NOT MOVED REGULARLY. PT DENIES N/V THIS AM. ADMINISTERED ZOFRAN X1 THIS SHIFT PER REQUEST. UPON REASSESSMENT PT STATES ADEQUATE RELIEF, 0 SYMPTOMS REMAINING. TOLERATES RA WELL. DENIES SOA. REFUSED TEDS. AMB INDEPENDENTLY. VSS. REMAINS SAFE. CALL LIGHT WITHIN REACH. WILL CONTINUE TO MONITOR.
[2019-11-14 05:14] VITALS: BMI 36.5
--- NOTE | 2019-11-14 07:11 | P.PN_ITS ---
Internal Medicine - PN: Subj *Date: 11/14/19 *Time: 07:11 Interval history: Patient reports feeling better this morning. She notes the GI cocktail seemed to provide the most relief. She required 2 doses of IV narcotic overnight. She did not have any vomiting overnight. She reports improvement in abdominal pain this morning. Exam Vital signs and Labs for Last 24 Hours: Temp Pulse Resp BP Pulse Ox 98.1 F 63 16 127/69 95 11/14/19 03:46 11/14/19 03:46 11/14/19 03:46 11/14/19 03:46 11/14/19 03:46 Laboratory Results - last 24 hr 11/13/19 08:38: WBC 10.6, RBC 4.60, Hgb 14.0, Hct 43.5, MCV 94.6, MCH 30.4, MCHC 32.1, RDW 13.7, Plt Count 246, MPV 8.5, Neut % (Auto) 65.8, Lymph % (Auto) 27.6, [place] % (Auto) 4.4, Eos % (Auto) 1.4, Baso % (Auto) 0.8, Neut # (Auto) 7.0, Lymph # (Auto) 2.9, [place] # (Auto) 0.5, Eos # (Auto) 0.2, Baso # (Auto) 0.1 11/13/19 08:38: Amylase 60, Lipase 20 L 11/13/19 08:38: Sodium 138, Potassium 3.7, Chloride 104, Carbon Dioxide 27, Anion Gap 10.7, BUN 9, Creatinine 0.50 L, Estimated Creat Clear 193, Estimated GFR 130, Est GFR ( Amer) 157, Glucose 79, Calcium 9.3, Total Bilirubin 0.4, AST 34, ALT 26, Alkaline Phosphatase 76, Total Protein 6.6, Albumin 3.8, Globulin 2.8, Albumin/Globulin Ratio 1.4 I & O for Last 24 hours: Intake & Output 11/11/19 11/12/19 11/13/19 11/14/19 11:59 11:59 11:59 11:59 Intake Total 1609 / 1609 2545 / 2545 120 / 120 Output Total 200 / 200 2850 / 2850 Balance 1609 / 1609 2345 / 2345 -2730 / -2730 Weight 196 lb 13.965 oz 202 lb 8 oz 198 lb 7 oz Narrative: Patient looks comfortable. Lungs are clear. Heart has a regular rate and rhythm. Abdomen is soft and nontender. Bowel sounds are present. Assessment and Plan (1) Acute pancreatitis Current visit: Yes Status: Acute Qualifiers: Pancreatitis type: idiopathic Category: Medical Code(s): K85.90 - Acute pancreatitis without necrosis or infection, unspecified (2) Abdominal pain Current visit: Yes Status: Acute Qualifiers: Abdominal location: generalized Qualified Code(s): R10.84 - Generalized abdominal pain Category: Medical Code(s): R10.9 - Unspecified abdominal pain (3) Appendicitis Current visit: Yes Status: Ruled-out Category: Medical Code(s): K37 - Unspecified appendicitis - Assessment and plan all Dx Assessment and Plan for all problems:: 1. Advance diet to clear liquids this morning. Patient will be reassessed this afternoon
[2019-11-14 08:00] VITALS: BP 153/79; PULSE 61; RESP 16; TEMP 36.6; O2SAT 95
--- NOTE | 2019-11-14 08:18 | HMH.GSPN ---
Subjective Patient reports: feels better (she states that she is probably going home later today ) Exam Vital signs and Labs for Last 24 Hours: Temp Pulse Resp BP Pulse Ox 97.9 F 61 16 153/79 H 95 11/14/19 08:00 11/14/19 08:00 11/14/19 08:00 11/14/19 08:00 11/14/19 08:00 Laboratory Results - last 24 hr 11/13/19 08:38: WBC 10.6, RBC 4.60, Hgb 14.0, Hct 43.5, MCV 94.6, MCH 30.4, MCHC 32.1, RDW 13.7, Plt Count 246, MPV 8.5, Neut % (Auto) 65.8, Lymph % (Auto) 27.6, Edwards % (Auto) 4.4, Eos % (Auto) 1.4, Baso % (Auto) 0.8, Neut # (Auto) 7.0, Lymph # (Auto) 2.9, Edwards # (Auto) 0.5, Eos # (Auto) 0.2, Baso # (Auto) 0.1 11/13/19 08:38: Amylase 60, Lipase 20 L 11/13/19 08:38: Sodium 138, Potassium 3.7, Chloride 104, Carbon Dioxide 27, Anion Gap 10.7, BUN 9, Creatinine 0.50 L, Estimated Creat Clear 193, Estimated GFR 130, Est GFR ( Amer) 157, Glucose 79, Calcium 9.3, Total Bilirubin 0.4, AST 34, ALT 26, Alkaline Phosphatase 76, Total Protein 6.6, Albumin 3.8, Globulin 2.8, Albumin/Globulin Ratio 1.4 I & O for Last 24 hours: Intake & Output 11/11/19 11/12/19 11/13/19 11/14/19 11:59 11:59 11:59 11:59 Intake Total 1609 / 1609 2545 / 2545 360 / 360 Output Total 200 / 200 2850 / 2850 Balance 1609 / 1609 2345 / 2345 -2490 / -2490 Weight 196 lb 13.965 oz 202 lb 8 oz 198 lb 7 oz - Constitutional no acute distress - *Routine Respiratory Exam Absent: respiratory distress - *Routine Cardiovascular Exam Present: RRR Progress Note: A&P (1) Acute pancreatitis Status: Acute Assessment and plan: Undetermined etiology. She has improved and states that she wants to go home today . Likely discharge home if she tolerates clear liquids with outpatient gastroenterology follow-up. Current Visit: Yes (2) Abdominal pain Status: Acute Assessment and plan: Improved outpatient GI consult pending Current Visit: Yes (3) Appendicitis Status: Ruled-out Current Visit: Yes
[2019-11-14 15:24] VITALS: BP 135/78; PULSE 61; RESP 16; TEMP 36.7; O2SAT 95
--- NOTE | 2019-11-14 17:00 | HMH.DCSUM ---
General - General Admission date:: 11/11/19 Discharge date: 11/14/19 HPI HPI: 49-year-old female presented to the office today for follow-up of an ER visit secondary to abdominal pain. Patient reports on the evening of November 07 she developed abdominal pain that was reminiscent of a prior bout of pancreatitis diagnosed in 2017 at an outside facility. Patient tried to sleep through the pain but was awoken early Monday morning at 2 AM. When her pain persisted she ultimately sought treatment through our emergency department. In the emergency department a CT scan revealed an enlarged appendix, but no pancreatic inflammation. Labs revealed a mildly elevated white blood cell count with abnormal amylase and lipase. Patient was encouraged to stay for an observation admission to receive IV fluids and to have her CT scan repeated. Patient declined and chose to go home. She was treated with antiemetics and pain medication. Patient followed up in the office today stating she had inability to keep down solids and liquids except for water. She appeared dehydrated and on repeat labs had persistent elevation of amylase and lipase although slightly improved from 48 hours prior. There was concern about appendicitis due to her persistent abdominal pain and decision was made to admit the patient for IV fluids, repeat CT scan, pain control. Patient reports since leaving the office this morning and finally arriving at the hospital at around 4 PM she has tolerated water and some gummy bears to eat but drinking a Coca-Cola made her nauseous and ultimately she vomited. Hospital Course Hospital Course: Patient was admitted and started on lactated Ringer's at 125 mL's an hour and given Dilaudid 2 mg IV every 4 hours for abdominal pain. Repeat CT of the abdomen and pelvis with IV and oral contrast was obtained due to enlarged appendix seen on CT scan [address] scanning showed a stable sized appendix. No evidence of radiographic pancreatitis. Pancreatic enzymes however remained mildly elevated although trended down compared to her presentation to the emergency department 48 hours prior. Patient was treated for acute pancreatitis. After some bowel rest initial attempt was made to advance diet to clear liquids which the patient did not tolerate. She was then given an additional 24 hours of being n.p.o. to allow for additional bowel rest. Abdominal ultrasound was performed to rule out gallbladder disease. Gallbladder appeared normal. Dr. Groves of the surgical service had been consulted from the beginning of admission due to suspicion of appendicitis. On November 13 diet was once again advanced first to clear liquids which patient tolerated without vomiting or abdominal pain and then to full liquids which the patient tolerated without vomiting or abdominal pain. Patient was then discharged home where she will follow-up in the office in 1 week. Objective Vital signs: Temp Pulse Resp BP Pulse Ox 98.0 F 61 16 135/78 95 11/14/19 15:24 11/14/19 15:24 11/14/19 15:24 11/14/19 15:24 11/14/19 15:24 DS: Diagnosis - Discharge Diagnosis (1) Acute pancreatitis Status: Acute (2) Abdominal pain Status: Acute (3) Appendicitis Status: Ruled-out Discharge Plan - Patient Discharge Instructions ACTIVITY: Continue current activity DIET: continue same diet Patient Instructions: Acute Pancreatitis - Follow up Plan Disposition: Home, Self-Retirement Medications: Home Medications Medication Instructions Recorded Confirmed Type Oxycodone HCl/Acetaminophen 1 tab PO Q6HP PRN #10 tab 11/09/19 11/11/19 Rx [Percocet 5/325mg tablet] Promethazine HCl [Phenergan 25mg 25 mg PO Q6HP PRN #10 tab 11/09/19 11/11/19 Rx tab] ondansetron HCL [Ondansetron HCl] 4 mg PO Q6HP PRN #30 tab 11/14/19 Rx Prescriptions/Medication Reconciliation: New ondansetron HCL [Ondansetron HCl] 4 mg PO Q6HP PRN #30 ta
== END 2019-11-14 17:45 | disposition home or self-care (01) ==
LOC: 2ND 12:16
PROVIDERS: Nurse Practitioner Family; Surgery; Admitting Provider Family Medicine; PCP Family Medicine; Visit Provider Family Medicine
DX: E86.0 Dehydration (principal); Z79.899 Other long term (current) drug therapy; K85.90 Acute pancreatitis without necrosis or infection, unspecified; Z88.8 Allergy status to other drugs, medicaments and biological substances; Z88.0 Allergy status to penicillin; Z88.1 Allergy status to other antibiotic agents
CPT/HCPCS: G0379; 36415; 74177; 76705; 80053; 82150; 83690; 85025; G0378; J2405; Q9967

== ENCOUNTER → 2019-11-21 08:13 | Outpatient (CLI) | payer MEDICARE, OTHER, SELFPAY ==
--- NOTE | 2019-11-21 08:19 | MR_ITS ---
PROCEDURE: MR ABDOMEN WO CON CLINICAL INDICATION: RECURRENT PANCREATITIS Epigastric pain, pancreatitis with persistent pain COMPARISON: CT ABDOMEN PELVIS W CON from 11/11/2019 TECHNIQUE: Routine multiplanar multi echo sequences are performed without gadolinium enhancement. MRCP images as well FINDINGS: There is a 9 mm cystic lesion involving the right hepatic lobe laterally and a 3 mm cystic area in the left hepatic lobe anteriorly as well as a 5 mm cyst in the right hepatic lobe posteriorly and an additional 4 mm cyst in the left hepatic lobe medially. The left adrenal gland is slightly enlarged demonstrating decreased intensity on the out of phase images consistent with an adenoma at 1.6 cm. The spleen and kidneys have an unremarkable appearance. The pancreas also has an unremarkable unenhanced appearance. No obvious gallstones. There is normal caliber of the common bile duct. There is a small for region cap at the fundus of the gallbladder. No pancreatic ductal dilatation is evident. There is mild degree of motion artifact which somewhat obscures fine detail. Artifact is also present from patient's lumbar hardware IMPRESSION: The 1. Small hepatic cyst. 2. Left adrenal adenoma. 3. Unremarkable in MRCP with exception of motion artifact. Dictated by: Jamar Murray MD 11/27/2019 17:25 Electronically signed by Jamar Murray MD in [place] 11/27/2019 17:25
== END ==
PROVIDERS: PCP Family Medicine; Visit Provider Family Medicine
DX: K85.90 Acute pancreatitis without necrosis or infection, unspecified (principal)
CPT/HCPCS: 74181; 76376

== ENCOUNTER 2020-01-26 21:42 | Emergency (ER) | payer MEDICARE, OTHER, SELFPAY ==
[2020-01-26 21:43] VITALS: BP 168/74; PULSE 73; RESP 16; TEMP 36.6; O2SAT 97; BMI 34.7
[2020-01-26 22:00] VITALS: BP 168/86; PULSE 64; RESP 17; O2SAT 98
[2020-01-26 22:21] LABS: Basophils # 0.1 K/mm3 (0-0.2); Basophils % 0.7 % (0.1-2.0); Eosinophils # 0.3 K/mm3 (0.0-0.4); Eosinophils % 2.8 % (0.1-12.0); Hemoglobin 13.6 g/dL (12.2-16.2); Lymphocytes # 5.3 K/mm3 (0.7-4.5); Lymphocytes % 46.9 % (10-50); Mean Corpuscular Hemoglobin 31.8 pg (27.0-31.2); Mean Corpuscular Volume 93.6 fl (81-99); Mean Platelet Volume 8.8 fl (7.4-10.4); Monocytes # 0.6 K/mm3 (0.1-1.0); Neutrophils % 44.6 % (37.0-80.0); Platelet Count 248 K/mm3 (142-424); Red Blood Count 4.28 M/mm3 (4.20-5.40); Red Cell Distribution Width 13.4 % (11.5-17.5); White Blood Count 11.3 K/mm3 (4.8-10.8)
--- NOTE | 2020-01-26 22:21 | HMH.EDALLER ---
ED Disposition Clinical Impression: Allergic reaction Qualifiers: Encounter type: initial encounter Qualified Code(s): T78.40XA - Allergy, unspecified, initial encounter Disposition: Home, Self-Care Condition on Discharge: Good Instructions: DI for General Allergic Reactions Additional Instructions: call pcp for follow up today Prescriptions: predniSONE [Prednisone 20mg Tab] 20 mg PO BID #10 tab Transmission Status: Pending to [id number] Referrals: Osman Medrano MD [Primary Care Provider] - - Critical Care Critical Care Time: No Attestation: On 01/26/20, the high probability of a clinically significant, sudden or life threatening deterioration of the following system(s) required my full and direct attention, intervention and personal management. The time I documented below is in addition to time spent performing reported procedures but includes the following listed in this critical care notation. Medical Decision Making - Medical Records Medical records reviewed: Yes: I reviewed the patient's medical records. - Po Inquiry Pt receiving controlled substance: No Vital Signs: 01/26/20 21:43 01/26/20 22:00 01/26/20 22:30 Temperature 97.9 F Temperature Source Oral Pulse Rate [Left Radial] 73 64 61 Respiratory Rate 16 17 17 Blood Pressure [Right Arm] 168/74 H 168/86 H 116/70 Blood Pressure Mean [Right Arm] 105 113 85 Blood Pressure Source [Right Arm] Automatic Cuff Automatic Cuff Automatic Cuff Blood Pressure Position [Right Arm] Sitting Supine Supine 02 Sat by Pulse Oximetry 97 98 98 Oxygen Delivery Method Room Air Room Air Room Air 01/26/20 23:00 01/26/20 23:30 01/27/20 00:00 Temperature Temperature Source Pulse Rate [Left Radial] 60 64 61 Respiratory Rate 16 18 17 Blood Pressure [Right Arm] 127/71 135/76 132/83 Blood Pressure Mean [Right Arm] 89 95 99 Blood Pressure Source [Right Arm] Automatic Cuff Automatic Cuff Automatic Cuff Blood Pressure Position [Right Arm] Supine Supine Supine 02 Sat by Pulse Oximetry 98 99 98 Oxygen Delivery Method Room Air Room Air Room Air - Lab Data Lab results reviewed: Yes: I reviewed the patient's lab results. Lab Results 01/26/20 22:10: WBC 11.3 H, RBC 4.28, Hgb 13.6, Hct 40.0, MCV 93.6, MCH 31.8 H, MCHC 34.0, RDW 13.4, Plt Count 248, MPV 8.8, Neut % (Auto) 44.6, Lymph % (Auto) 46.9, George % (Auto) 5.0, Eos % (Auto) 2.8, Baso % (Auto) 0.7, Neut # (Auto) 5.0, Lymph # (Auto) 5.3 H, George # (Auto) 0.6, Eos # (Auto) 0.3, Baso # (Auto) 0.1 01/26/20 22:10: Sodium 137, Potassium 3.6, Chloride 105, Carbon Dioxide 27, Anion Gap 8.6, BUN 20 H, Creatinine 0.60, Estimated Creat Clear 151, Estimated GFR 105, Est GFR ( Amer) 128, Glucose 112 H, Calcium 9.4, Total Bilirubin 0.3, AST 34, ALT 34, Alkaline Phosphatase 72, C-Reactive Protein 19.6 H, Total Protein 6.3, Albumin 3.7, Globulin 2.6, Albumin/Globulin Ratio 1.4 01/26/20 22:10: ESR 20 Result diagrams: 01/26/20 22:10 01/26/20 22:10 Orders (Tests/Meds): ED MEDICATIONS Generic Name Dose Route Start Last Admin Trade Name Freq PRN Reason Stop Dose Admin Sodium Chloride 1,000 mls @ 999 mls/hr 01/26/20 22:00 01/26/20 22:00 Sod Chlor 0.9% 1000ml Bag IV 01/26/20 23:00 999 mls/hr .Q1H1M EDUIN Administration Discontinued Medications Generic Name Dose Route Start Last Admin Trade Name Freq PRN Reason Stop Dose Admin Methylprednisolone Sodium Succinate 125 mg 01/26/20 21:59 01/26/20 22:00 Solu-Medrol 125mg/2ml Vial IV 01/26/20 22:00 125 mg ONCE ONE Administration ORDERS Category Date Time Status CT head/brain wo con Stat Cat Scan 01/27/20 00:01 Taken - CT Data CT Scan: Head Time Received: 00:[address] Reviewed: Yes: I have viewed the radiologist's interpretation Preliminary Findings: Normal/NAD Allergic React/Insect Bite HPI - General Chief complaint: Allergic Reaction Stated complaint: Facial swelling Time Seen by Provider: 01/26/20 22:00
[2020-01-26 22:30] VITALS: BP 116/70; PULSE 61; RESP 17; O2SAT 98
[2020-01-26 22:40] LABS: Chloride 105 mmol/L (98-107); Potassium 3.6 mmoL/L (3.5-5.1); Sodium 137 mmol/L (136-145)
[2020-01-26 22:42] LABS: Blood Urea Nitrogen 20 mg/dl (7-17); Creatinine Clearance Estimated 151 mL/min (50-200); Estimated Glomerular Filt Rate 105 ml/min (>60); GFR (African American) 128 ML/MIN (>60)
[2020-01-26 22:43] LABS: Alanine Aminotransferase 34 U/L (12-78); Albumin Level 3.7 g/dl (3.5-5.0); Albumin/Globulin Ratio 1.4 (1.1-1.8); Alkaline Phosphatase 72 U/L (38-126); Anion Gap 8.6 mEq/L (5-15); Aspartate Amino Transferase 34 U/L (14-36); Bilirubin,Total 0.3 mg/dl (0.2-1.3); Calcium 9.4 mg/dl (8.4-10.2); Carbon Dioxide 27 mmol/L (22.0-30.0); Globulin 2.6 g/dL (1.3-3.2); Glucose 112 mg/dl (74-100); Total Protein,Serum 6.3 g/dl (6.3-8.2)
[2020-01-26 22:46] LABS: Erythrocyte Sedimentation Rate 20 mm/hr (0-30)
[2020-01-26 22:48] LABS: C-Reactive Protein 19.6 mg/L (0-4)
[2020-01-26 23:00] VITALS: BP 127/71; PULSE 60; RESP 16; O2SAT 98
[2020-01-26 23:30] VITALS: BP 135/76; PULSE 64; RESP 18; O2SAT 99
[2020-01-27] VITALS: BP 132/83; PULSE 61; RESP 17; O2SAT 98
--- NOTE | 2020-01-27 00:01 | CT_ITS ---
PROCEDURE: CT HEAD/BRAIN WO CON CLINICAL INDICATION: facial numbness COMPARISON: CT HEAD/BRAIN WO CON from 07/08/2019 TECHNIQUE: Axial images obtained. All CT scans at the facility use one or more dose reduction, viz: automated exposure control, ma/kV adjustment per patient size (including targeted exams where dose is matched to indication, i.e. head), or iterative reconstruction technique. FINDINGS: No midline shift, mass effect, intracranial hemorrhage, hydrocephalus, or extra-axial fluid collection is evident. The calvarium has an unremarkable appearance. No mastoid effusion. No sinus air-fluid level. IMPRESSION: No acute intracranial finding Dictated by: Jamar Murray MD 01/27/2020 08:01 Electronically signed by Jamar Murray MD in [place] 01/27/2020 08:03
--- NOTE | 2020-01-27 00:10 | PC.NURSE ---
pt to RAD
--- NOTE | 2020-01-27 00:28 | PC.NURSE ---
pt back from RAD
[2020-01-27 01:16] VITALS: BP 182/85; PULSE 64; RESP 16; TEMP 36.6; O2SAT 98
== END 2020-01-27 01:20 | disposition home or self-care (01) ==
PROVIDERS: Emergency Provider Emergency Medicine; PCP Family Medicine
DX: T78.40XA Allergy, unspecified, initial encounter (principal); Z88.0 Allergy status to penicillin; Z88.2 Allergy status to sulfonamides; Z88.5 Allergy status to narcotic agent; Z88.8 Allergy status to other drugs, medicaments and biological substances
CPT/HCPCS: 36415; 70450; 80053; 85025; 85651; 86140; 96365; 96375; 99284

== ENCOUNTER → 2020-04-24 09:22 | Outpatient (CLI) | payer MEDICARE, OTHER, SELFPAY ==
--- NOTE | 2020-04-24 09:36 | XR_ITS ---
PROCEDURE: XR KUB CLINICAL INDICATION: CONSTIPATION,LT SIDE ABD PAIN COMPARISON: CT CT ABDOMEN PELVIS W CON from 11/11/2019 FINDINGS: There is a mild amount of retained colonic feces in the right colon. No evidence of intestinal obstruction. Prior posterior fusion at L3-L4. Pelvic phleboliths are present. IMPRESSION: Mild amount of retained colonic feces otherwise negative Dictated by: Jamar Murray MD 04/24/2020 17:16 Jamar Murray MD in [place] 04/24/2020 17:16
== END ==
PROVIDERS: PCP Family Medicine; Visit Provider Nurse Practitioner Family
DX: R10.9 Unspecified abdominal pain (principal); K59.04 Chronic idiopathic constipation
CPT/HCPCS: 74018

== ENCOUNTER → 2020-05-16 12:10 | Outpatient (CLI) | payer MEDICARE, OTHER, SELFPAY ==
[2020-05-16 14:24] LABS: Coronavirus 19 IgG Antibody Negative (Negative); Coronavirus 19 IgM Antibody Negative (Negative)
== END ==
LOC: LAB.DROPOF 12:11 → LAB 05-17 09:06
PROVIDERS: Visit Provider Internal Medicine Gastroenterology
DX: Z01.818 Encounter for other preprocedural examination (principal); Z12.11 Encounter for screening for malignant neoplasm of colon
CPT/HCPCS: 36415; 86328

== ENCOUNTER 2020-05-28 20:22 | Emergency (ER) | payer MEDICARE, OTHER, SELFPAY ==
[2020-05-28 20:33] VITALS: BMI 27.4
--- NOTE | 2020-05-28 20:34 | XR_ITS ---
PROCEDURE: XR HAND LT MIN 3V CLINICAL INDICATION: INJURY Posttraumatic pain COMPARISON: No exams were available for comparison FINDINGS: No fracture or dislocation. No lytic or blastic change. There is normal mineralization. The joint spaces are well-preserved. No significant degenerative/arthritic changes. No erosive changes evident. Other findings:None. IMPRESSION: No acute findings. Dictated by: Jamar Murray MD 05/29/2020 05:12 Jamar Murray MD in [place] 05/29/2020 05:12
--- NOTE | 2020-05-28 20:34 | XR_ITS ---
PROCEDURE: XR WRIST LT MIN 3V CLINICAL INDICATION: INJURY Posttraumatic pain COMPARISON: No exams were available for comparison FINDINGS: No fracture or dislocation. No lytic or blastic change. There is normal mineralization. The joint spaces are well-preserved. No significant degenerative/arthritic changes. No erosive changes evident. Other findings:None. IMPRESSION: No acute findings. Dictated by: Jamar Murray MD 05/29/2020 05:14 Jamar uMrray MD in [place] 05/29/2020 05:14
--- NOTE | 2020-05-28 20:37 | HMH.EDUTC ---
[facility] [place] Clinical Impression: Fall Qualifiers: Encounter type: initial encounter Qualified Code(s): W19.XXXA - Unspecified fall, initial encounter Sprain of left hand Qualifiers: Encounter type: initial encounter Qualified Code(s): S63.92XA - Sprain of unspecified part of left wrist and hand, initial encounter Finger sprain Qualifiers: Encounter type: initial encounter Finger: ring finger Sprain of finger site: unspecified site Laterality: left Qualified Code(s): S63.615A - Unspecified sprain of left ring finger, initial encounter Disposition: Home, Self-Care Condition on Discharge: Good Instructions: DI for Hand Injury Additional Instructions: Rest the extremity, apply ice for 15 minutes as tolerated three or four times per day, Elevate the extremity as tolerated while you are resting. Take ibuprofen for pain. I sent in a prescription to your pharmacy. Follow up with Dr. Garcia (orthopedics). Sometimes there can be fractures that don't show up well on the first set of x-rays. So, you should follow up if you continue to have symptoms. I put in a referral but you need to call his office and schedule an appointment. Follow up with your regular doctor. GO TO THE ER FOR ANY WORSENING SYMPTOMS Prescriptions: Ibuprofen [Ibuprofen 600mg Tablet] 600 mg PO Q6HP PRN #30 tab PRN Reason: Mild Pain Transmission Status: Received by [id number] Referrals: Osman Medrano MD [Primary Care Provider] - Time of Disposition: 21:14 Medical Decision Making - Medical Records Medical records reviewed: No: I reviewed the patient's medical records. - Po Inquiry Pt receiving controlled substance: No Vital Signs: 05/28/20 20:40 05/28/20 21:16 Temperature 97.7 F 97.7 F Temperature Source Oral Pulse Rate 67 Pulse Rate [Right Brachial] 67 Respiratory Rate 14 14 Blood Pressure 161/74 H Blood Pressure [Right Arm] 161/74 H Blood Pressure Mean [Right Arm] 103 Blood Pressure Source [Right Arm] Automatic Cuff Blood Pressure Position [Right Arm] Sitting 02 Sat by Pulse Oximetry 97 Oxygen Delivery Method Room Air Orders (Tests/Meds): ED MEDICATIONS Discontinued Medications Generic Name Dose Route Start Last Admin Trade Name Freq PRN Reason Stop Dose Admin Ibuprofen 800 mg 05/28/20 20:57 05/28/20 21:15 Ibuprofen 400 Mg Tablet PO 05/28/20 20:58 800 mg ONCE ONE Administration - Radiology Data #1 Image(s): Hand Image Reviewed: Yes I reviewed the patient's radiology image, Yes I have reviewed radiologist's interpretation PROCEDURE: XR HAND LT MIN 3V CLINICAL INDICATION: INJURY Posttraumatic pain COMPARISON: No exams were available for comparison FINDINGS: No fracture or dislocation. No lytic or blastic change. There is normal mineralization. The joint spaces are well-preserved. No significant degenerative/arthritic changes. No erosive changes evident. Other findings:None. IMPRESSION: No acute findings. Dictated by: Jamar Murray MD 05/29/2020 05:12 Jamar Murray MD in [place] 05/29/2020 05:12 #2 Image(s): Wrist Image Reviewed: Yes I reviewed the patient's radiology image, Yes I have reviewed radiologist's interpretation Preliminary Findings: Normal/NAD PROCEDURE: XR WRIST LT MIN 3V CLINICAL INDICATION: INJURY Posttraumatic pain COMPARISON: No exams were available for comparison FINDINGS: No fracture or dislocation. No lytic or blastic change. There is normal mineralization. The joint spaces are well-preserved. No significant degenerative/arthritic changes. No erosive changes evident. Other findings:None. IMPRESSION: No acute findings. Dictated by: Jamar Murray MD 05/29/2020 05:14 Jamar Murray MD in [place] 05/29/2020 05:14 [facility] [place] HPI - General Stated complaint: AO 05/28@1947 fell lac to Rhand index finger, l kn Time Seen by Provider: 05/28/20 20:38 - History of Present Illness Provider Complaint: She stat
[2020-05-28 20:40] VITALS: BP 161/74; PULSE 67; RESP 14; TEMP 36.5; O2SAT 97; BMI 27.3
[2020-05-28 21:16] VITALS: BP 161/74; PULSE 67; RESP 14; TEMP 36.5; O2SAT 97
== END 2020-05-28 21:19 | disposition home or self-care (01) ==
PROVIDERS: Emergency Provider Nurse Practitioner Family; PCP Family Medicine
DX: S63.615A Unspecified sprain of left ring finger, initial encounter (principal); W01.0XXA Fall on same level from slipping, tripping and stumbling without subsequent striking against object, initial encounter; Y92.019 Unspecified place in single-family (private) house as the place of occurrence of the external cause; Z88.0 Allergy status to penicillin; Z88.2 Allergy status to sulfonamides; Z88.5 Allergy status to narcotic agent
CPT/HCPCS: 73110; 73130; 99201

== ENCOUNTER → 2020-06-01 15:54 | Outpatient (CLI) | payer MEDICARE, OTHER, SELFPAY ==
--- NOTE | 2020-06-01 16:02 | XR_ITS ---
PROCEDURE: XR KNEE LT 3V CLINICAL INDICATION: INJURY OF LT KNEE, SWELLING OF LT KNEE JOINT COMPARISON: CR [id number] XR knee RT 3V from 12/20/2017 FINDINGS: No fracture or dislocation. No lytic or blastic change. There is normal mineralization. The joint spaces are well-preserved. No significant degenerative/arthritic changes. No erosive changes evident. Other findings:None. IMPRESSION: No acute findings. Dictated by: Jamar Murray MD 06/01/2020 16:17 Jamar Murary MD in [place] 06/01/2020 16:17
== END ==
PROVIDERS: PCP Family Medicine; Visit Provider Nurse Practitioner Family
DX: M25.462 Effusion, left knee (principal); S89.92XA Unspecified injury of left lower leg, initial encounter
CPT/HCPCS: 73562

== ENCOUNTER → 2020-06-13 09:55 | Outpatient (CLI) | payer MEDICARE, OTHER, SELFPAY ==
[2020-06-13 11:56] LABS: Coronavirus 19 IgG Antibody Negative (Negative); Coronavirus 19 IgM Antibody Negative (Negative)
== END ==
PROVIDERS: Visit Provider Internal Medicine Gastroenterology
DX: Z01.812 Encounter for preprocedural laboratory examination (principal)
CPT/HCPCS: 36415; 86328

== ENCOUNTER 2020-06-15 10:05 | Day surgery (SDC) | payer MEDICARE, OTHER, SELFPAY ==
[2020-06-12 08:47] VITALS: BMI 32.0
[2020-06-15 10:43] VITALS: BP 152/84; PULSE 82; RESP 18; TEMP 36.1; O2SAT 98
--- NOTE | 2020-06-15 11:49 | P.PN_ITS ---
[facility] Anesthesia Checklist - Patient Identification Patient Identification: Arm Band, Verbal (Name & ) - Structural Data Admitted From: Home Planned Operative Procedure/s: Colonoscopy Consent for Planned Operative Procedure(s) Verified: Yes Verified Documents: Surgical Consent, History and Physical - NPO Status Verified Time NPO: 00:00 - Chart Verification Results Verified: None - Additional verifications Anesthesia Reactions: No - Airway Assessment C-Spine Mobility Assessed: Yes TMJ Mobility Assessed: Yes Dentition: Poor Dentition (Missing and loose dentition) - Neurological Assessment Level of Consciousness: Awake, Alert, Appropriate, Follows Commands Hx Seizures: No Numbness or tingling in extremities: No - Anesthesia Plan Anesthesia Risk discussed: Yes Anesthesia Plan: Verified ASA Class: II Anesthesia Type: MAC [facility] History I have reviewed the patient's past medical history: Yes Medical History: Reports:: Anxiety, Asthma Denies:: Cancer, Diabetes Mellitus Type 1, Diabetes Mellitus Type 2, Internal Pacemaker, MRSA, Seizures *Have you ever received a pneumonia vaccine?: No *Have you received a flu vaccine this season?: No Comment:: obesity Anesthesia experience/problems:: None Laterality Cases: Bilateral: Tonsillectomy Other Surgeries: Yes: Hysterectomy-Partial. No: Pacemaker Amputation: No Fractures: No - *Social History Last grade of school completed: High school graduate Smoking Status: Never smoker Alcohol Intake: never Alcohol Intake Frequency:: holidays/special occasions only Substance Use Type: denies use *Occupational Status:: other Housing: house Household Members: family *Travel in the last 8 weeks: None Family Hx:: Coronary Artery Disease, Heart Attack, Hyperlipidemia, Hypertension, Stroke
[2020-06-15 12:05] VITALS: BP 131/79; PULSE 83; RESP 16; TEMP 36.6; O2SAT 95
--- NOTE | 2020-06-15 12:05 | P.PCN_ITS ---
[facility] Procedure Note Procedure Note:: Colonoscopy Procedure Report: Colonoscopy Endoscopist: Gunner Delgado II, MD Referring physician: Osman Medrano MD Date of Procedure: June 15, 2020 Equipment: Olympus 180 variable stiffness pediatric colonoscope Sedation: MAC sedation Indication: Mrs. Patterson is a 50-year-old female with chronic constipation. She also reports a prior history of acute pancreatitis earlier this year (October 2019). Her ultrasound of the abdomen and MRCP were normal. The patient has been on Amitiza and Motegrity samples. She did improve with this. She has tried and failed Senokot, milk of magnesia and enemas. She reports no rectal bleeding. This is her first colonoscopy. She reports no family history of col on cancer but her paternal grandfather had colonic polyps. Procedure: Prior to the procedure, a history and physical exam was performed, and patient's medications and allergies were reviewed. The risks, benefits and alternatives of the sedation and procedure were discussed with the patient. All questions were answered and informed consent was obtained. The patient was brought to the procedure room. Patient identification and proposed procedure were verified by the physician and the nurse. The patient was placed in a left lateral decubitus position and the scope was passed under direct vision. Throughout the procedure, the patient's blood pressure, pulse, and oxygen saturations were monitored continuously. The colonoscopy was accomplished without difficulty. The patient tolerated the procedure well. Findings: On digital rectal examination there was normal rectal tone. There were no external hemorrhoids. The colonoscope was introduced through the anal canal to the rectum and advanced to the cecum. The ileocecal valve and appendiceal orifice were identified. The scope was advanced a short distance into the ileum which appeared grossly normal. The scope was then withdrawn into the colon. The cecum, ascending, transverse, descending, sigmoid and rectum were grossly normal. There were no mucosal abnormalities identified. Upon retroflexion within the rectum there were grade 1 internal hemorrhoids.The preparation was good throughout with [place] Preparation Score of 8 out of 9. The cecal time was 10 minutes. Impression: 1. Normal colonoscopy with intubation of the terminal ileum Plan: The patient will not require screening/surveillance colonoscopy again for 10 years by ACS guidelines. I would encourage continued use of Linzess and/or fiber bowel regimen. I will discuss the findings with the patient and family.
[2020-06-15 12:15] VITALS: BP 131/79; PULSE 77; RESP 16; O2SAT 95
[2020-06-15 12:25] VITALS: BP 150/89; PULSE 68; RESP 16; O2SAT 96
[2020-06-15 12:35] VITALS: BP 140/75; PULSE 68; RESP 16; TEMP 36.6; O2SAT 95
== END 2020-06-15 12:35 | disposition home or self-care (01) ==
LOC: OUTP 10:07
PROVIDERS: PCP Family Medicine; Visit Provider Internal Medicine Gastroenterology
PROC: 0DJD8ZZ Inspection of Lower Intestinal Tract, Via Natural or Artificial Opening Endoscopic (ICD-10-PCS; CPT 45378; principal; 2020-06-15 11:00)
DX: Z87.19 Personal history of other diseases of the digestive system (principal); K59.09 Other constipation; K64.0 First degree hemorrhoids; F41.9 Anxiety disorder, unspecified; J45.909 Unspecified asthma, uncomplicated; Z88.6 Allergy status to analgesic agent; Z88.1 Allergy status to other antibiotic agents; Z88.2 Allergy status to sulfonamides; Z79.899 Other long term (current) drug therapy
CPT/HCPCS: 45378

== ENCOUNTER 2020-07-05 09:01 | Emergency (ER) | payer MEDICARE, OTHER, SELFPAY ==
[2020-07-05 09:14] VITALS: BP 117/70; PULSE 80; RESP 16; TEMP 36.6; O2SAT 98; BMI 32.9
--- NOTE | 2020-07-05 09:27 | HMH.EDUTC ---
[facility] [place] Clinical Impression: Low back pain Qualifiers: Chronicity: acute Back pain laterality: bilateral Sciatica presence: with sciatica Sciatica laterality: sciatica of left side Qualified Code(s): M54.42 - Lumbago with sciatica, left side Radiculopathy Qualifiers: Spinal region: lumbosacral Qualified Code(s): M54.17 - Radiculopathy, lumbosacral region Disposition: Home, Self-Care Condition on Discharge: Good Instructions: DI for Low Back Pain, DI for Sciatica Additional Instructions: Go home and rest. It would be best if you rested tomorrow too. No heavy lifting. No twisting. Take the oral medications as directed. The muscle relaxer (robaxin) will make you drowsy, so don't drive or operate heavy machinery after taking it. Don't start the oral steroids (medrol dose pack) until tomorrow, since you had the shots in here today. Follow up with your regular doctor. GO TO THE ER FOR ANY WORSENING SYMPTOMS OR CONCERN, ESPECIALLY BOWEL OR BLADDER ISSUES, SADDLE AREA NUMBNESS, FEVER, ETC Prescriptions: methylPREDNISolone [Medrol] 4 mg PO DIRECTED 6 Days #21 tab.ds.pk Transmission Status: Received by [id number] Methocarbamol [Robaxin 500mg Tab] 500 mg PO BIDP PRN #30 tab PRN Reason: Muscle Spasm Transmission Status: Received by [id number] Referrals: Viry Retana APRN [Primary Care Provider] - Time of Disposition: 09:48 Medical Decision Making - Medical Records Medical records reviewed: No: I reviewed the patient's medical records. - Po Inquiry Pt receiving controlled substance: No Vital Signs: 07/05/20 09:14 07/05/20 10:02 Temperature 98 F 98 F Temperature Source Oral Oral Pulse Rate 80 Pulse Rate [Radial] 80 Respiratory Rate 16 16 Blood Pressure 117/70 Blood Pressure [Right Arm] 117/70 Blood Pressure Mean [Right Arm] 85 Blood Pressure Source Manual Cuff/ Doppler Blood Pressure Source [Right Arm] Automatic Cuff Blood Pressure Position Sitting Blood Pressure Position [Right Arm] Sitting 02 Sat by Pulse Oximetry 98 Oxygen Delivery Method Room Air Room Air Orders (Tests/Meds): ED MEDICATIONS Discontinued Medications Generic Name Dose Route Start Last Admin Trade Name Freq PRN Reason Stop Dose Admin Ketorolac Tromethamine 60 mg 07/05/20 09:31 07/05/20 09:42 Ketorolac 60mg/2ml Vial IM 07/05/20 09:32 60 mg ONCE ONE Administration Methylprednisolone Sodium Succinate 125 mg 07/05/20 09:31 07/05/20 09:42 Methylprednisolone Sod Succ 125mg Vial IM 07/05/20 09:32 125 mg ONCE ONE Administration [facility] - General Stated complaint: muscle spasms Time Seen by Provider: 07/05/20 09:27 Mode of Arrival: Ambulatory Source of Information: Patient Limitations: No Limitations Description of Symptoms (Recalled from Triage Doc. by RN): Seen at Dr. Medrano office last week, given flexaril- lower back and hip pain, had tordol shot- no help HEENT Symptoms (Recalled from RN notes): No Resp Symptoms (Recalled from RN notes): No Skin Symptoms (Recalled from RN notes): No MS Symptoms (Recalled from RN notes): Yes Functional Status (Recalled from RN notes): wnl - History of Present Illness Provider Complaint: She c/o low back pain that radiates down her left leg. She denies any recent injury. She has a long history of low back issues. She has had surgery on her low back in the past (approx 20 years ago). She states that over the past 1 week or so, she has had low back pain, low back muscle spasms, and pain that radiates down her left leg. - Related Data Home Medications Medication Instructions Recorded Confirmed Linaclotide [Linzess] 72 mcg PO DAILY 05/13/20 06/15/20 Multivit-Min/Folic Acid/Vit K1 1 each PO DAILY 06/12/20 06/15/20 [Multi For Her 50 Plus Softgel] Prucalopride Succinate [Motegrity] 2 mg PO DAILY 06/12/20 06/15/20 Vit B12/Intrinsic Fact/Folate 1 each PO DAILY 06/12/20 06/15/20 [Intrinsi [id number] Table
[2020-07-05 10:02] VITALS: BP 117/70; PULSE 80; RESP 16; TEMP 36.6; O2SAT 98
== END 2020-07-05 10:03 | disposition home or self-care (01) ==
PROVIDERS: Emergency Provider Nurse Practitioner Family; PCP Nurse Practitioner Family
DX: M54.42 Lumbago with sciatica, left side (principal); M54.17 Radiculopathy, lumbosacral region; M62.830 Muscle spasm of back; F41.9 Anxiety disorder, unspecified; Z79.899 Other long term (current) drug therapy; Z88.0 Allergy status to penicillin; Z88.2 Allergy status to sulfonamides; Z88.6 Allergy status to analgesic agent
CPT/HCPCS: 96372; 99201

== ENCOUNTER → 2020-07-08 10:45 | Outpatient (CLI) | payer MEDICARE, OTHER, SELFPAY ==
--- NOTE | 2020-07-08 10:50 | XR_ITS ---
PROCEDURE: XR LUMBAR SPINE MIN 4V CLINICAL INDICATION: LOW BACK PAIN,S/P LUMBAR SURGERY COMPARISON: CT ABDPELW/O CT ABD PELVIS W/O CONTRAST from 11/20/2016 FINDINGS: There is normal curvature of the lumbar spine. All lumbar vertebrae appear intact. There is a transitional vertebrae at the lumbosacral junction with partial lumbarization of S1 bilaterally. There metallic brackets and pedicle screws fusing L4 and L5. There is no evidence of loosening or fracture of the screws or brackets. There appears to be no interval change in the metallic brackets and screws from the previous CT scan abdomen pelvis 11/20/2016. Minor anterior osteophytic spurring is seen in the anterior superior borders of T12 and L1 and L2 similar in appearance to the previous CT scan. There is arthrosclerotic calcification of the abdominal aorta but there is no evidence of aneurysm. The SI joints appear normal. IMPRESSION: Stable fusion L4 and L5 with no evidence of fracture or loosening of the metallic brackets or pedicle screws. Dictated by: Dr. Raji Chang MD 07/08/2020 11:38 Dr. Raji Chang MD in [place] 07/08/2020 11:38
== END ==
PROVIDERS: PCP Nurse Practitioner Family; Visit Provider Nurse Practitioner Family
DX: M54.5 Low back pain (principal); Z98.890 Other specified postprocedural states
CPT/HCPCS: 72110

== ENCOUNTER → 2020-08-20 09:07 | Outpatient (CLI) | payer MEDICARE, OTHER, SELFPAY ==
--- NOTE | 2020-08-20 09:54 | ECG_ITS ---
APPROVED REPORT Exam: Resting ECG HR:64 bpm ECG Measurements Heart Rate 64 AXES AL 166 P 66 QRSd 94 QRS -13 QT 396 T 39 QTc 408 Conclusion Normal sinus rhythm Possible Left atrial enlargement Borderline ECG Electronically signed by : Osman Huerta, 08/20/2020 21:04:27
[2020-08-20 09:55] LABS: Basophils # 0.1 K/mm3 (0-0.2); Basophils % 0.9 % (0.1-2.0); Eosinophils # 0.2 K/mm3 (0.0-0.4); Eosinophils % 1.9 % (0.1-12.0); Hemoglobin 14.1 g/dL (12.2-16.2); Lymphocytes # 3.6 K/mm3 (0.7-4.5); Lymphocytes % 43.7 % (10-50); Mean Corpuscular Hemoglobin 29.9 pg (27.0-31.2); Mean Corpuscular Volume 93.4 fl (81-99); Mean Platelet Volume 9.1 fl (7.4-10.4); Monocytes # 0.3 K/mm3 (0.1-1.0); Monocytes % 3.6 % (1.7-9.3); Neutrophils # 4.1 K/mm3 (1.8-7.8); Neutrophils % 49.9 % (37.0-80.0); Platelet Count 265 K/mm3 (142-424); Red Blood Count 4.71 M/mm3 (4.20-5.40); Red Cell Distribution Width 13.2 % (11.5-17.5); White Blood Count 8.2 K/mm3 (4.8-10.8)
[2020-08-20 10:35] LABS: Alanine Aminotransferase 28 U/L (12-78); Albumin Level 4.5 g/dl (3.5-5.0); Albumin/Globulin Ratio 1.5 (1.1-1.8); Alkaline Phosphatase 89 U/L (38-126); Anion Gap 10.3 mEq/L (5-15); Aspartate Amino Transferase 30 U/L (14-36); Bilirubin,Total 0.5 mg/dl (0.2-1.3); Blood Urea Nitrogen 18 mg/dl (7-17); Calcium 10.3 mg/dl (8.4-10.2); Carbon Dioxide 24 mmol/L (22.0-30.0); Chloride 107 mmol/L (98-107); Chol/HDL Ratio 4.4 (1-3.5); Cholesterol 246 mg/dl (140-200); Estimated Glomerular Filt Rate 105 ml/min (>60); GFR (African American) 127 ML/MIN (>60); Glucose 94 mg/dl (74-100); HDL Cholesterol 56 mg/dl (40-60); Magnesium 2.2 mg/dl (1.6-2.3); Potassium 4.3 mmoL/L (3.5-5.1); Sodium 137 mmol/L (136-145); Total Protein,Serum 7.5 g/dl (6.3-8.2); Triglycerides 94 mg/dl (30-150); VLDL Cholesterol 19 mg/dL (0-40)
[2020-08-20 10:47] LABS: Direct LDL Cholesterol 168.51 mg/dL (100-129); Troponin I < 0.01 ng/ml (0.00-0.034)
== END ==
PROVIDERS: Visit Provider Nurse Practitioner Family
DX: R07.9 Chest pain, unspecified (principal)
CPT/HCPCS: 36415; 80053; 80061; 83735; 84484; 85025; 93005

== ENCOUNTER → 2020-09-12 08:12 | Outpatient (CLI) | payer MEDICARE, OTHER, SELFPAY ==
[2020-09-12 12:32] LABS: Coronavirus 19 IgG Antibody Negative (Negative); Coronavirus 19 IgM Antibody Negative (Negative)
== END ==
PROVIDERS: Visit Provider Internal Medicine Gastroenterology
DX: Z01.812 Encounter for preprocedural laboratory examination (principal); Z20.822 Contact with and (suspected) exposure to COVID-19; Z13.810 Encounter for screening for upper gastrointestinal disorder; K30 Functional dyspepsia
CPT/HCPCS: 36415; 86328

== ENCOUNTER 2020-09-14 07:59 | Day surgery (SDC) | payer MEDICARE, OTHER, SELFPAY ==
[2020-09-08 12:53] VITALS: BMI 31.6
[2020-09-14 08:29] VITALS: BP 133/83; PULSE 70; RESP 18; TEMP 36.1; O2SAT 98
[2020-09-14 08:56] VITALS: O2SAT 99
--- NOTE | 2020-09-14 08:58 | P.PN_ITS ---
[facility] Anesthesia Checklist - Patient Identification Patient Identification: Arm Band - Structural Data Admitted From: Home Planned Operative Procedure/s: EGD Consent for Planned Operative Procedure(s) Verified: Yes Verified Documents: Surgical Consent, History and Physical - NPO Status Verified Time NPO: 00:00 - Additional verifications Anesthesia Reactions: No - Airway Assessment C-Spine Mobility Assessed: Yes (mp2) TMJ Mobility Assessed: Yes Dentition: Poor Dentition - Neurological Assessment Level of Consciousness: Awake, Alert - Anesthesia Plan Anesthesia Risk discussed: Yes Anesthesia Plan: Verified ASA Class: II Anesthesia Type: MAC [facility] History I have reviewed the patient's past medical history: Yes Medical History: Reports:: Anxiety, Asthma, Hyperlipidemia, Hypertension Denies:: Cancer, Diabetes Mellitus Type 1, Diabetes Mellitus Type 2, Internal Pacemaker, MRSA, Seizures *Have you ever received a pneumonia vaccine?: No *Have you received a flu vaccine this season?: Yes Anesthesia experience/problems:: nac Laterality Cases: Bilateral: Tonsillectomy Other Surgeries: Yes: Hysterectomy-Partial. No: Pacemaker Amputation: No Fractures: No - *Social History Last grade of school completed: High school graduate Smoking Status: Current every day smoker Tobacco Type: cigarettes # Packs/Day (cigarettes): 1 Alcohol Intake: current Alcohol Intake Frequency:: holidays/special occasions only Substance Use Type: denies use *Occupational Status:: disabled Housing: house Household Members: none *Travel in the last 8 weeks: None - Psychiatric History Pschychiatric History:: Reports:: Anxiety Family Hx:: Anemia, Cancer, Coronary Artery Disease, Diabetes, Heart Attack, Hypertension
--- NOTE | 2020-09-14 09:23 | P.PCN_ITS ---
[facility] Procedure Note Procedure Note:: Upper Endoscopy Procedure Report: Esophagogastroduodenoscopy with cold biopsies Endoscopost: Gunner Delgado II, MD Referring Physician: Osman Medrano MD Date of Procedure: September 14, 2020 Equipment: Olympus GIF 180 standard upper endoscope Sedation: MAC sedation Indications: Mrs. Patterson is a 50-year-old female with dyspepsia. She does have epigastric abdominal burning pain and discomfort. She does have a prior history of pancreatitis in October 2019. The patient also had some chronic constipation which improved with Motegrity and Linzess. The patient does report some heartburn and reflux. She takes [id number] Pepcid. She has some nausea for which she takes Zofran. She has had some early satiety and bloating. She reports no belching or dysphagia. She has had some increased stress (mother 7 weeks ago). The patient did have a CT scan of the abdomen in October 2019 that showed pancreas, gallbladder and spleen. There were a couple of small hypodensities in the right lobe of the liver on this CAT scan. A subsequent MRI of the abdomen on November 21, 2019 showed 3 small hepatic cysts. Procedure: Prior to the procedure, a history and physical exam was performed, and patient's medications and allergies were reviewed. The risks, benefits and alternatives of the sedation and procedure were discussed with the patient. All questions were answered and informed consent was obtained. The patient was brought to the procedure room. Patient identification and proposed procedure were verified by the physician and the nurse. The patient was placed in a left lateral decubitus position and the scope was passed under direct vision. Throughout the procedure, the patient's blood pressure, pulse, and oxygen saturations were monitored continuously. The upper GI endoscopy was accomplished without difficulty. The patient tolerated the procedure well. Findings: The scope was passed directly into the upper esophagus and advanced to the third portion of the duodenum. The post bulbar duodenum and duodenal bulb were normal with normal mucosa and conniventes. The scope was withdrawn through a normal duodenal bulb and pylorus into the stomach. The remainder of the there was bile reflux with some mild linear reactive gastropathy of the antrum. Body and fundus of the stomach were grossly normal. Upon retroflexion there was a 2 cm small hiatal hernia. 2 biopsies were taken in the antrum and along the lesser curvature for histology to rule out gastritis and/or H pylori. The scope was then withdrawn into the esophagus. There was no evidence of reflux esophagitis or Reid's. There was a serrated Z-line and biopsies were taken at the squamocolumnar junction to rule out intestinal metaplasia. There were some tertiary contractions and mild esophageal dysmotility. The remainder of the esophageal mucosa was normal. Impression: 1. Nonerosive GERD with mild esophageal dysmotility and small 2 cm hiatal hernia 2. Bile reflux with mild linear reactive gastropathy Plan: I will follow-up the biopsies and discuss dietary measures and treatment with the patient and family. The patient does have functional dyspepsia. I will consider to additional treatment options (buspirone and FDgard). I would also consider short-term PPI therapy (omeprazole x3 months).
[2020-09-14 09:26] VITALS: BP 138/81; PULSE 78; RESP 16; TEMP 36.2; O2SAT 100
[2020-09-14 09:36] VITALS: BP 143/88; PULSE 55; RESP 16; O2SAT 98
[2020-09-14 09:46] VITALS: BP 146/83; PULSE 54; RESP 16; O2SAT 98
[2020-09-14 09:56] VITALS: BP 146/75; PULSE 55; RESP 16; TEMP 36.2; O2SAT 99
== END 2020-09-14 10:20 | disposition home or self-care (01) ==
LOC: OUTP 08:02
PROVIDERS: PCP Nurse Practitioner Family; Visit Provider Internal Medicine Gastroenterology
PROC: 0DJ08ZZ Inspection of Upper Intestinal Tract, Via Natural or Artificial Opening Endoscopic (ICD-10-PCS; CPT 43235; principal; 2020-09-14 08:30)
DX: K31.9 Disease of stomach and duodenum, unspecified (principal); K21.9 Gastro-esophageal reflux disease without esophagitis; K44.9 Diaphragmatic hernia without obstruction or gangrene; K22.4 Dyskinesia of esophagus; Z87.19 Personal history of other diseases of the digestive system; F41.9 Anxiety disorder, unspecified; J45.909 Unspecified asthma, uncomplicated; E78.5 Hyperlipidemia, unspecified; I10 Essential (primary) hypertension; Z72.0 Tobacco use; Z80.9 Family history of malignant neoplasm, unspecified; Z83.3 Family history of diabetes mellitus
CPT/HCPCS: 43239; 88305; 88342

== ENCOUNTER → 2020-11-30 08:17 | Outpatient (CLI) | payer MEDICARE, OTHER, SELFPAY ==
--- NOTE | 2020-11-30 08:21 | XR_ITS ---
PROCEDURE: XR LUMBAR SPINE MIN 4V CLINICAL INDICATION: LOW BACK PAIN,S/P LUMBAR SURGERY [facility] DR TEVIN MURRAY COMPARISON: CR XR LUMBAR SPINE MIN 4V from 07/08/2020 FINDINGS: There are postsurgical changes with inter pedicular screws and connecting rods at L4-L5 with degenerative disc disease at that level. Osteophytosis noted of the lower the thoracic spine T12-L1 and L1-L2 as well as L5-S1. No acute fracture or dislocation. There is generalized vascular calcification and a moderate amount of retained colonic feces. Unremarkable appearing SI joints. IMPRESSION: Postsurgical and degenerative changes as described above. No change with no acute finding. Dictated by: Jamar Murray MD 11/30/2020 08:53 Jamar Murray MD in [place] 11/30/2020 08:53
== END ==
PROVIDERS: PCP Nurse Practitioner Family; Visit Provider Nurse Practitioner Family
DX: M54.42 Lumbago with sciatica, left side (principal); Z98.890 Other specified postprocedural states
CPT/HCPCS: 72110

== ENCOUNTER → 2020-12-25 11:08 | Outpatient (CLI) | payer MEDICARE, OTHER, SELFPAY ==
--- NOTE | 2020-12-25 11:12 | MR_ITS ---
PROCEDURE INFORMATION: Exam: MR Lumbar Spine Without Contrast Exam date and time: 12/25/2020 11:12 AM Age: 50 years old Clinical indication: Low back pain; Prior surgery; Surgery date: 6+ months; Patient HX: PT C/O lbp with left leg pain with HX of lumbar surgery x 2. PT denies injury or trauma. Pr lumbar xray done 11/30/2020 TECHNIQUE: Imaging protocol: Multiplanar magnetic resonance images of the lumbar spine without intravenous contrast. COMPARISON: CR XR LUMBAR SPINE MIN 4V 11/30/2020 8:26 AM FINDINGS: Vertebrae: Unremarkable. Spinal cord: Normal signal. No cord compression. T12-L1: There is disc space narrowing and desiccation. There are moderate degenerative end plate changes at this level. There is moderate disc bulging. L1-L2: There is disc space narrowing and desiccation. There are moderate degenerative end plate changes at this level. There is a moderate disc bulge with a small superimposed central disc herniation. Disc bulging extends into both neural foramen causing moderate bilateral neural foraminal narrowing. There is facet arthropathy and ligamentum flavum hypertrophy. There is mild spinal canal stenosis. L2-L3: There is mild disc bulging. There is facet arthropathy and ligamentum flavum hypertrophy. L3-L4: There is disc space narrowing and desiccation. There are moderate degenerative end plate changes at this level. There is a moderate disc bulge with a small superimposed central disc herniation. There is a superimposed left foraminal disc herniation. There is severe left-sided neuroforaminal narrowing. There is moderate right-sided neuroforaminal narrowing. There is exuberant bilateral facet arthropathy and ligamentum flavum hypertrophy. There is severe spinal canal stenosis. L4-L5: Patient is status post lumbar fusion at L4/5. Surgical hardware causes moderate magnetic susceptibility artifact which limits evaluation of the surrounding anatomy. There is disc space narrowing and desiccation. There are moderate degenerative end plate changes at this level. There is a moderate disc/osteophyte complex that flattens the ventral thecal sac. There is moderate bilateral neural foraminal narrowing. L5-S1: There is mild retrolisthesis at this level. There is degenerative disc disease including disc space narrowing and dessication. There is a moderate disc bulge with a small superimposed central disc herniation. Disc bulging extends into both neural foramen causing moderate/severe bilateral neural foraminal narrowing, left worse than right. There is facet arthropathy and ligamentum flavum hypertrophy. Soft tissues: Unremarkable. IMPRESSION: 1. Patient is status post lumbar fusion at L4/5. Surgical hardware causes moderate magnetic susceptibility artifact which limits evaluation of the surrounding anatomy. Please correlate with surgical history. 2. Multilevel degenerative changes causing variable degrees of spinal canal and neuroforaminal narrowing as described above. Severe spinal canal stenosis at L3/4. Please see details above.
== END ==
PROVIDERS: PCP Nurse Practitioner Family; Visit Provider Nurse Practitioner Family
DX: M54.42 Lumbago with sciatica, left side (principal); Z98.890 Other specified postprocedural states
CPT/HCPCS: 72148; 76376

== ENCOUNTER 2021-01-13 17:07 | Emergency (ER) | payer MEDICARE, OTHER, SELFPAY ==
[2021-01-13 17:20] VITALS: BP 152/98; PULSE 67; RESP 18; TEMP 36.7; O2SAT 100; BMI 32.0
[2021-01-13 17:34] VITALS: BMI 32.0
[2021-01-13 17:43] LABS: Appearance,Urine CLEAR (Clear); Blood, Urine TRACE-I (Negative); Color,Urine YELLOW (Yellow); Glucose,Urine (UA) Negative (Negative); Ketones,Urine Negative (Negative); Leukocyte Esterase,Urine Negative (Negative); Microscopic, Urine URINE MICROSCOPIC (MICROSCOPIC); Nitrate,Urine Negative (Negative); PH,Urine 5.5 (5.0-8.5); Protein,Urine Negative (Negative); Specific Gravity, Urine >= 1.030 (1.005-1.030); Urobilinogen,Urine 0.2 EU/dl (0.2)
--- NOTE | 2021-01-13 17:43 | HMH.EDGENADL ---
ED Disposition Clinical Impression: Superficial bruising of abdominal wall Disposition: Home, Self-Care Condition on Discharge: Good Additional Instructions: Follow-up with your primary care physician if needed. Continue home medications. - Critical Care Critical Care Time: No Attestation: On , the high probability of a clinically significant, sudden or life threatening deterioration of the following system(s) required my full and direct attention, intervention and personal management. The time I documented below is in addition to time spent performing reported procedures but includes the following listed in this critical care notation. Medical Decision Making - Medical Records MR Comment: Patient has 2 areas of bruises on the abdominal wall about 1 inch wide due to previous injury which was trivial. She has significant fat on the abdominal wall. Patient was assured. She was looking for assurance only. - Po Inquiry Pt receiving controlled substance: No Po was queried for this patient: No Vital Signs: 01/13/21 17:20 Temperature 98.1 F Temperature Source Oral Pulse Rate [Right] 67 Respiratory Rate 18 Blood Pressure [Right Arm] 152/98 H Blood Pressure Mean [Right Arm] 116 Blood Pressure Source [Right Arm] Automatic Cuff Blood Pressure Position [Right Arm] Sitting 02 Sat by Pulse Oximetry 100 Oxygen Delivery Method Room Air - Lab Data Lab Results 01/13/21 17:35: Urine Color Yellow, Urine Appearance Clear, Urine pH 5.5, Ur Specific [place] >= 1.030, Urine Protein Negative, Urine Glucose (UA) Negative, Urine Ketones Negative, Urine Blood Trace-i, Urine Nitrate Negative, Urine Bilirubin 1+ A, Urine Urobilinogen 0.2, Ur Leukocyte Esterase Negative, Urine RBC None, Urine WBC None, Ur Squamous Epith Cells None, Urine Bacteria None 01/13/21 17:50: WBC 10.2, RBC 5.09, Hgb 15.7, Hct 47.4 H, MCV 93.0, MCH 30.8, MCHC 33.1, RDW 13.6, Plt Count 278, MPV 8.7, Neut % (Auto) 51.5, Lymph % (Auto) 40.2, Coffee % (Auto) 4.6, Eos % (Auto) 2.4, Baso % (Auto) 1.2, Neut # (Auto) 5.3, Lymph # (Auto) 4.1, Coffee # (Auto) 0.5, Eos # (Auto) 0.3, Baso # (Auto) 0.1 01/13/21 17:50: Sodium 138, Potassium 4.1, Chloride 105, Carbon Dioxide 22, Anion Gap 15.1 H, BUN 19 H, Creatinine 0.60, Estimated Creat Clear 137, Estimated GFR 105, Est GFR ( Amer) 127, Glucose 85, Calcium 9.4, Total Bilirubin 0.6, AST 35, ALT 22, Alkaline Phosphatase 94, Total Protein 7.6, Albumin 4.5, Globulin 3.1, Albumin/Globulin Ratio 1.5, Lipase 444 H Result diagrams: 01/13/21 17:50 01/13/21 17:50 General Adult HPI - General Stated complaint: tenderness in stomach area Time Seen by Provider: 01/13/21 17:43 - History of Present Illness HPI narrative: 50-year-old female walk to the emergency room because she noticed to area of bruises on the abdominal wall. She got worried and she came to the emergency room to be checked out. She remember on Father's Day she got some minor injury. She denied any abdominal pain. She denies any nausea or vomiting. She denied any dysuria or urinary frequency. No chest pain. She does not take any blood thinner. He got 2 areas of bruises with 1 inch wide no tenderness or erythema. Onset (ago): hour(s) Location: abdomen - Related Data Home Medications Medication Instructions Recorded Confirmed Linaclotide [Linzess] 290 mcg PO DAILY 05/13/20 09/14/20 Multivit-Min/Folic Acid/Vit K1 1 each PO DAILY 06/12/20 09/14/20 [Multi For Her 50 Plus Softgel] Prucalopride Succinate [Motegrity] 2 mg PO DAILY 06/12/20 09/14/20 Vit B12/Intrinsic Fact/Folate 1 each PO DAILY 06/12/20 09/14/20 [Intrinsi W98-Cobeeu Tablet] Vit D3-Vit K/Berberine/Hops 1 each PO DAILY 06/12/20 09/14/20 [Ostera Tablet] ondansetron HCL [Zofran 4mg Tab*] 4 mg PO DAILYP PRN 06/12/20 09/14/20 Lisinopril/Hydrochlorothiazide 1 each PO DAILY 07/28/20 09/14/20 [Lisinopril-Hctz 10-12.5 mg Tab] Simvastatin 20 mg PO DAILY 09/08/20 09/14/20 diazePAM [
[2021-01-13 17:55] LABS: Bilirubin,Urine 1+ (Negative)
[2021-01-13 18:07] LABS: Basophils # 0.1 K/mm3 (0-0.2); Basophils % 1.2 % (0.1-2.0); Eosinophils # 0.3 K/mm3 (0.0-0.4); Eosinophils % 2.4 % (0.1-12.0); Hematocrit 47.4 % (37.0-47.0); Hemoglobin 15.7 g/dL (12.2-16.2); Lymphocytes # 4.1 K/mm3 (0.7-4.5); Lymphocytes % 40.2 % (10-50); Mean Corpuscular HGB Conc 33.1 g/dL (31.8-35.4); Mean Corpuscular Hemoglobin 30.8 pg (27.0-31.2); Mean Platelet Volume 8.7 fl (7.4-10.4); Monocytes # 0.5 K/mm3 (0.1-1.0); Monocytes % 4.6 % (1.7-9.3); Neutrophils # 5.3 K/mm3 (1.8-7.8); Neutrophils % 51.5 % (37.0-80.0); Platelet Count 278 K/mm3 (142-424); Red Blood Count 5.09 M/mm3 (4.20-5.40); Red Cell Distribution Width 13.6 % (11.5-17.5); White Blood Count 10.2 K/mm3 (4.8-10.8)
[2021-01-13 18:10] LABS: Chloride 105 mmol/L (98-107); Potassium 4.1 mmoL/L (3.5-5.1); Sodium 138 mmol/L (136-145)
[2021-01-13 18:13] LABS: Alanine Aminotransferase 22 U/L (12-78); Albumin Level 4.5 g/dl (3.5-5.0); Albumin/Globulin Ratio 1.5 (1.1-1.8); Alkaline Phosphatase 94 U/L (38-126); Anion Gap 15.1 mEq/L (5-15); Aspartate Amino Transferase 35 U/L (14-36); Bilirubin,Total 0.6 mg/dl (0.2-1.3); Blood Urea Nitrogen 19 mg/dl (7-17); Calcium 9.4 mg/dl (8.4-10.2); Carbon Dioxide 22 mmol/L (22.0-30.0); Creatinine Clearance Estimated 137 mL/min (50-200); Estimated Glomerular Filt Rate 105 ml/min (>60); GFR (African American) 127 ML/MIN (>60); Globulin 3.1 g/dL (1.3-3.2); Glucose 85 mg/dl (74-100); Lipase 444 U/L (23-300); Total Protein,Serum 7.6 g/dl (6.3-8.2)
[2021-01-13 18:59] VITALS: BP 149/81; PULSE 62; RESP 18; TEMP 36.7; O2SAT 99
== END 2021-01-13 19:01 | disposition home or self-care (01) ==
PROVIDERS: Emergency Provider Internal Medicine; PCP Nurse Practitioner Family
DX: S30.1XXA Contusion of abdominal wall, initial encounter (principal); I10 Essential (primary) hypertension; E78.5 Hyperlipidemia, unspecified; F41.9 Anxiety disorder, unspecified; J45.909 Unspecified asthma, uncomplicated; F17.210 Nicotine dependence, cigarettes, uncomplicated; Z88.0 Allergy status to penicillin; Z88.2 Allergy status to sulfonamides
CPT/HCPCS: 80053; 81001; 83690; 85025; 99282

== ENCOUNTER → 2021-01-19 15:19 | Outpatient (CLI) | payer MEDICARE, OTHER, SELFPAY ==
[2021-01-19 16:47] LABS: C-Reactive Protein 8.6 mg/L (0-4)
[2021-01-19 16:57] LABS: Troponin I < 0.01 ng/ml (0.00-0.034)
== END ==
PROVIDERS: Visit Provider Nurse Practitioner Family
DX: R07.9 Chest pain, unspecified (principal)
CPT/HCPCS: 36415; 84484; 86140

== ENCOUNTER → 2021-01-20 10:01 | Outpatient (CLI) | payer MEDICARE, OTHER, SELFPAY ==
--- NOTE | 2021-01-20 10:05 | CT_ITS ---
PROCEDURE: CT ABDOMEN PELVIS W CON CLINICAL INDICATION: LLQ ABD PAIN COMPARISON: CT CT ABDOMEN PELVIS WO CON from 11/09/[address] ABDOMEN PELVIS W CON from 11/11/2019 TECHNIQUE: IV Contrast: 75ML Isovue 370 Oral Contrast None Axial images obtained with sagittal and coronal reformats. All CT scans at the facility use one or more dose reduction, viz: automated exposure control, ma/kV adjustment per patient size (including targeted exams where dose is matched to indication, i.e. head), or iterative reconstruction technique. FINDINGS: LOWER THORAX: No acute finding ABDOMEN & PELVIS: There is scattered hypodensities of the liver the largest in the right hepatic lobe segment 7 at 9 mm. These may represent small hepatic cysts or hemangiomas. Pancreas and gallbladder have an unremarkable appearance. There is a small hypodensity in the superior and posterior aspect of the spleen peripheral in nature at 6 mm nonspecific. There is mild nodularity of the adrenal glands left greater than right unchanged. No renal or ureteral calculi. No hydronephrosis. No intestinal obstruction or free air. Unremarkable appendix. There are few colonic diverticuli but no evidence of diverticulitis. There remains asymmetric prominence of the left adnexal region with lobular area of soft tissue density measuring 2.7 x 2 cm slightly less prominent compared to the previous exams and may be related to a left ovary or asymmetric prominence of the vaginal. There are post hysterectomy changes. The urinary bladder is decompressed. Postsurgical changes are present at L4 and L5 with inter pedicular screws and connecting rods IMPRESSION: 1. No acute finding. 2. Scattered small hypodensities of the liver and may be due to small cyst or hemangiomas. 3. Indeterminate peripheral hypodensity of the spleen contiguous with the peripheral surface of the spleen and could be related to small scar. Follow-up may confirm stability. 4. Colonic diverticulosis but no evidence of diverticulitis. Dictated by: Jamar Murray MD 01/21/2021 08:12 Jamar Murray MD in [place] 01/21/2021 08:12
== END ==
PROVIDERS: PCP Nurse Practitioner Family; Visit Provider Nurse Practitioner Family
DX: R10.32 Left lower quadrant pain (principal)
CPT/HCPCS: 74177; Q9967

== ENCOUNTER 2021-03-02 16:56 | Emergency (ER) | payer MEDICARE, OTHER, SELFPAY ==
[2021-03-02 18:35] VITALS: BP 139/86; PULSE 76; RESP 16; TEMP 37.1; O2SAT 99; BMI 32.5
[2021-03-02 18:47] VITALS: BP 139/86; PULSE 76; RESP 16; TEMP 37.1; O2SAT 99
--- NOTE | 2021-03-02 18:48 | HMH.EDUTC ---
[facility] [place] Clinical Impression: Exposure to COVID-19 virus Disposition: Home, Self-Care Condition on Discharge: Good Instructions: DI for COVID-19 (Suspected or Confirmed ), Coronavirus Disease 2019, Preventing the Spread of Coronavirus Discharge Instructions Additional Instructions: *Monitor Temp, Over the counter Motrin or Tylenol as directed/as needed Tylenol every 4 hours and Motrin every 6 hours (as long as your family doctor has told you that you can take it) for fever or pain. and straight to ER if unable to lower temp less than 101.0 after medication given Follow up IMMEDIATELY for new or worsening symptoms or no Noticeable improvement over the next 48-72 hours. 911 for difficulty breathing or swallowing You were tested for today for COVID19 your test result should be back in the next 24-48 hours, you may call to the [facility] to see if your test results are back in the next 48 hours [phone] [facility] hours are 9am-9pm You was given a handout with instructions for Self Quarantine and Self isolation for while you wait on test results and what to do if they are positive If you are positive the Health Dept will be contacting you also Make sure to take your Vitamins Vit. C Vit D and Zinc if you can take them Referrals: Osman Medrano MD [Primary Care Provider] - As needed Time of Disposition: 18:48 Medical Decision Making - Po Inquiry Pt receiving controlled substance: No Po was queried for this patient: No Vital Signs: 03/02/21 18:35 03/02/21 18:47 Temperature 98.7 F 98.7 F Temperature Source Oral Pulse Rate 76 Pulse Rate [Right Brachial] 76 Respiratory Rate 16 16 Blood Pressure 139/86 Blood Pressure [Right Arm] 139/86 Blood Pressure Mean [Right Arm] 103 Blood Pressure Source [Right Arm] Automatic Cuff Blood Pressure Position [Right Arm] Sitting 02 Sat by Pulse Oximetry 99 Oxygen Delivery Method Room Air Orders (Tests/Meds): ORDERS Category Date Time Status Covid-19 Nasal PCR ([facility]) Routine Lab 03/02/21 18:16 Ordered [facility] [place] HPI - General Stated complaint: covid test Time Seen by Provider: 03/02/21 18:48 Mode of Arrival: Ambulatory Source of Information: Patient Limitations: No Limitations Description of Symptoms (Recalled from Triage Doc. by RN): COVID TEST D/T EXPOSURE. DENIES SYMPTOMS HEENT Symptoms (Recalled from RN notes): No Resp Symptoms (Recalled from RN notes): No Skin Symptoms (Recalled from RN notes): No MS Symptoms (Recalled from RN notes): No Functional Status (Recalled from RN notes): WNL - History of Present Illness Provider Complaint: Patient states that she was recently around her son and grandson that tested positive for COVID States that she is having a bad taste in her mouth but no other symptoms - Related Data Home Medications Medication Instructions Recorded Confirmed Linaclotide [Linzess] 290 mcg PO DAILY 05/13/20 03/02/21 Multivit-Min/Folic Acid/Vit K1 1 each PO DAILY 06/12/20 03/02/21 [Multi For Her 50 Plus Softgel] Prucalopride Succinate [Motegrity] 2 mg PO DAILY 06/12/20 03/02/21 Vit B12/Intrinsic Fact/Folate 1 each PO DAILY 06/12/20 03/02/21 [Intrinsi Y72-Ejngxo Tablet] Vit D3-Vit K/Berberine/Hops 1 each PO DAILY 06/12/20 03/02/21 [Ostera Tablet] ondansetron HCL [Zofran 4mg Tab*] 4 mg PO DAILYP PRN 06/12/20 03/02/21 Lisinopril/Hydrochlorothiazide 1 each PO DAILY 07/28/20 03/02/21 [Lisinopril-Hctz 10-12.5 mg Tab] Simvastatin 20 mg PO DAILY 09/08/20 03/02/21 diazePAM [Diazepam 2mg tablets] 2 mg PO Q12HP PRN 09/08/20 03/02/21 Allergies Allergy/AdvReac Type Severity Reaction Status Date / Time Macrolide Antibiotics Allergy Mild Verified 03/02/21 18:01 [MACROLIDE ANTIBIOTICS] propoxyphene Allergy Mild Verified 03/02/21 18:01 [From DARVOCET-N] codeine [CODEINE] Allergy Unknown Verified 03/02/21 18:01 erythromycin base Allergy Unknown Verified 03/02/21 18:01 [ERYTHROMYCIN BASE] Sulfa (Sulfonamide Allergy U
== END 2021-03-02 18:55 | disposition home or self-care (01) ==
PROVIDERS: Emergency Provider Nurse Practitioner; PCP Family Medicine
DX: Z20.822 Contact with and (suspected) exposure to COVID-19 (principal); F41.9 Anxiety disorder, unspecified; E78.5 Hyperlipidemia, unspecified; I10 Essential (primary) hypertension; F17.210 Nicotine dependence, cigarettes, uncomplicated; Z88.0 Allergy status to penicillin; Z88.2 Allergy status to sulfonamides
CPT/HCPCS: 99202; G0463; U0003

== ENCOUNTER → 2021-03-30 14:32 | Outpatient (CLI) | payer MEDICARE, OTHER, SELFPAY | PROVIDERS: PCP Family Medicine; Visit Provider Nurse Practitioner | DX: Z20.822 Contact with and (suspected) exposure to COVID-19 (principal) | CPT/HCPCS: C9803; U0003; U0005 ==

== ENCOUNTER → 2021-04-14 14:54 | Outpatient (CLI) | payer MEDICARE, OTHER, SELFPAY ==
--- NOTE | 2021-04-14 15:20 | XR_ITS ---
PROCEDURE: XR KUB CLINICAL INDICATION: UPPER ABD PAIN, ABN BLOATING, FLANK PAIN COMPARISON: CR XR KUB from 04/24/2020 FINDINGS: There is a mild amount of retained colonic feces in the right colon. No evidence of small-bowel obstruction. Postsurgical changes of the lumbar spine with mild lumbar scoliosis convex right. Pelvic calcifications are present consistent with phleboliths. IMPRESSION: Mild amount of retained colonic feces in the right colon. No acute finding apparent Dictated by: Jamar Murray MD 04/14/2021 17:17 Jamar Murray MD in [place] 04/14/2021 17:17
[2021-04-14 15:23] LABS: Basophils # 0.1 K/mm3 (0-0.2); Basophils % 1.4 % (0.1-2.0); Eosinophils # 0.2 K/mm3 (0.0-0.4); Eosinophils % 1.8 % (0.1-12.0); Hematocrit 45.8 % (37.0-47.0); Hemoglobin 14.6 g/dL (12.2-16.2); Lymphocytes # 4.3 K/mm3 (0.7-4.5); Lymphocytes % 43.3 % (10-50); Mean Corpuscular Hemoglobin 31.5 pg (27.0-31.2); Mean Corpuscular Volume 98.4 fl (81-99); Mean Platelet Volume 9.9 fl (7.4-10.4); Monocytes # 0.7 K/mm3 (0.1-1.0); Monocytes % 6.8 % (1.7-9.3); Neutrophils # 4.6 K/mm3 (1.8-7.8); Neutrophils % 46.8 % (37.0-80.0); Platelet Count 274 K/mm3 (142-424); Red Blood Count 4.65 M/mm3 (4.20-5.40); Red Cell Distribution Width 13.4 % (11.5-17.5); White Blood Count 9.9 K/mm3 (4.8-10.8)
--- NOTE | 2021-04-14 15:53 | ECG_ITS ---
APPROVED REPORT Exam: Resting ECG HR:64 bpm ECG Measurements Heart Rate 64 AXES WY 154 P 36 QRSd 92 QRS -22 QT 396 T 16 QTc 408 Conclusion Normal sinus rhythm Minimal voltage criteria for LVH, may be normal variant Borderline ECG Electronically signed by : Osman Huerta MD 04/14/2021 21:07:10
[2021-04-14 16:03] LABS: Chloride 104 mmol/L (98-107); Potassium 4.4 mmoL/L (3.5-5.1); Sodium 140 mmol/L (136-145)
[2021-04-14 16:05] LABS: Amylase 68 U/L (30-110)
[2021-04-14 16:06] LABS: Alanine Aminotransferase 24 U/L (12-78); Albumin Level 4.6 g/dl (3.5-5.0); Albumin/Globulin Ratio 1.5 (1.1-1.8); Alkaline Phosphatase 99 U/L (38-126); Anion Gap 14.4 mEq/L (5-15); Aspartate Amino Transferase 31 U/L (14-36); Bilirubin,Total 0.2 mg/dl (0.2-1.3); Blood Urea Nitrogen 15 mg/dl (7-17); Calcium 9.9 mg/dl (8.4-10.2); Carbon Dioxide 26 mmol/L (22.0-30.0); Estimated Glomerular Filt Rate 129 ml/min (>60); GFR (African American) 156 ML/MIN (>60); Globulin 3.1 g/dL (1.3-3.2); Glucose 88 mg/dl (74-100); Lipase 73 U/L (23-300); Total Protein,Serum 7.7 g/dl (6.3-8.2)
== END ==
PROVIDERS: PCP Nurse Practitioner Family; Visit Provider Nurse Practitioner Family
DX: R07.9 Chest pain, unspecified (principal); R10.10 Upper abdominal pain, unspecified; R10.9 Unspecified abdominal pain; R14.0 Abdominal distension (gaseous)
CPT/HCPCS: 36415; 74018; 80053; 82150; 83690; 85025; 93005

== ENCOUNTER → 2021-04-22 09:45 | Outpatient (CLI) | payer MEDICARE, OTHER, SELFPAY | PROVIDERS: PCP Family Medicine; Visit Provider Nurse Practitioner | DX: Z20.822 Contact with and (suspected) exposure to COVID-19 (principal) | CPT/HCPCS: C9803; U0003; U0005 ==

== ENCOUNTER → 2021-05-04 14:06 | Outpatient (CLI) | payer MEDICARE, OTHER, SELFPAY | PROVIDERS: PCP Family Medicine; Visit Provider Nurse Practitioner | DX: Z20.822 Contact with and (suspected) exposure to COVID-19 (principal) | CPT/HCPCS: C9803; U0003; U0005 ==

== ENCOUNTER → 2021-05-13 10:58 | Outpatient (CLI) | payer MEDICARE, OTHER, SELFPAY | PROVIDERS: PCP Family Medicine; Visit Provider Nurse Practitioner | DX: Z20.822 Contact with and (suspected) exposure to COVID-19 (principal) | CPT/HCPCS: C9803; U0003; U0005 ==

== ENCOUNTER 2021-07-10 19:28 | Emergency (ER) | payer MEDICARE, OTHER, SELFPAY ==
[2021-07-10 22:54] VITALS: BP 104/58; PULSE 60; RESP 16; TEMP 36.8; O2SAT 93; O2SAT 97; BMI 33.0
[2021-07-10 23:24] VITALS: BP 111/51; PULSE 61; O2SAT 97
[2021-07-10 23:34] LABS: Basophils # 0.2 K/mm3 (0-0.2); Basophils % 1.9 % (0.1-2.0); Eosinophils # 0.2 K/mm3 (0.0-0.4); Eosinophils % 1.9 % (0.1-12.0); Hematocrit 43.6 % (37.0-47.0); Hemoglobin 13.9 g/dL (12.2-16.2); Lymphocytes # 3.8 K/mm3 (0.7-4.5); Mean Corpuscular HGB Conc 31.8 g/dL (31.8-35.4); Mean Corpuscular Hemoglobin 30.9 pg (27.0-31.2); Mean Corpuscular Volume 97.2 fl (81-99); Mean Platelet Volume 9.4 fl (7.4-10.4); Monocytes # 0.5 K/mm3 (0.1-1.0); Platelet Count 285 K/mm3 (142-424); Red Blood Count 4.49 M/mm3 (4.20-5.40); Red Cell Distribution Width 13.7 % (11.5-17.5); White Blood Count 8.7 K/mm3 (4.8-10.8)
[2021-07-10 23:43] LABS: Alanine Aminotransferase 23 U/L (12-78); Albumin Level 4.1 g/dl (3.5-5.0); Albumin/Globulin Ratio 1.5 (1.1-1.8); Alkaline Phosphatase 92 U/L (38-126); Anion Gap 7.7 mEq/L (5-15); Aspartate Amino Transferase 30 U/L (14-36); Bilirubin,Total 0.4 mg/dl (0.2-1.3); Blood Urea Nitrogen 22 mg/dl (7-17); Calcium 9.6 mg/dl (8.4-10.2); Carbon Dioxide 29 mmol/L (22.0-30.0); Chloride 104 mmol/L (98-107); Creatinine Clearance Estimated 141 mL/min (50-200); Estimated Glomerular Filt Rate 105 ml/min (>60); GFR (African American) 127 ML/MIN (>60); Globulin 2.7 g/dL (1.3-3.2); Glucose 106 mg/dl (74-100); Potassium 3.7 mmoL/L (3.5-5.1); Sodium 137 mmol/L (136-145); Total Protein,Serum 6.8 g/dl (6.3-8.2)
[2021-07-10 23:48] LABS: C-Reactive Protein 11.6 mg/L (0-4)
[2021-07-10 23:54] LABS: NT Pro Brain Natriuretic Pep. 41.9 pg/mL (0-125)
[2021-07-11 00:02] LABS: Erythrocyte Sedimentation Rate 21 mm/hr (0-30)
[2021-07-11 00:03] LABS: Procalcitonin 0.047 ng/mL (0.0-2.0)
[2021-07-11 00:09] VITALS: BP 131/61; PULSE 63; O2SAT 99
--- NOTE | 2021-07-11 00:14 | HMH.EDSKAF ---
ED Disposition Clinical Impression: Phlebitis and thrombophlebitis Disposition: Home, Self-Care Condition on Discharge: Good Instructions: DI for Superficial Thrombophlebitis Additional Instructions: will do venous doppler in am and call pcp on monday Referrals: Osman Medrano MD [Primary Care Provider] - - Critical Care Critical Care Time: No Attestation: On 07/10/21, the high probability of a clinically significant, sudden or life threatening deterioration of the following system(s) required my full and direct attention, intervention and personal management. The time I documented below is in addition to time spent performing reported procedures but includes the following listed in this critical care notation. Medical Decision Making - Medical Records Medical records reviewed: Yes: I reviewed the patient's medical records. - Po Inquiry Pt receiving controlled substance: No Vital Signs: 07/10/21 22:54 07/10/21 23:24 07/11/21 00:09 Temperature 98.2 F Temperature Source Oral Pulse Rate 60 61 63 Pulse Rate [Right Radial] 60 Respiratory Rate 16 Blood Pressure 104/58 L 111/51 L 131/61 Blood Pressure [Right Arm] 104/58 L Blood Pressure Mean [Right Arm] 73 Blood Pressure Source Automatic Cuff Automatic Cuff Blood Pressure Position Supine Supine Supine 02 Sat by Pulse Oximetry 97 97 99 Oxygen Delivery Method Room Air Room Air Room Air - Lab Data Lab results reviewed: Yes: I reviewed the patient's lab results. Lab Results 07/10/21 23:26: WBC 8.7, RBC 4.49, Hgb 13.9, Hct 43.6, MCV 97.2, MCH 30.9, MCHC 31.8, RDW 13.7, Plt Count 285, MPV 9.4, Neut % (Auto) 46.0, Lymph % (Auto) 44.0, Cotton % (Auto) 6.0, Eos % (Auto) 1.9, Baso % (Auto) 1.9, Neut # (Auto) 4.0, Lymph # (Auto) 3.8, Cotton # (Auto) 0.5, Eos # (Auto) 0.2, Baso # (Auto) 0.2, ESR 21 07/10/21 23:26: Sodium 137, Potassium 3.7, Chloride 104, Carbon Dioxide 29, Anion Gap 7.7, BUN 22 H, Creatinine 0.60, Estimated Creat Clear 141, Estimated GFR 105, Est GFR ( Amer) 127, Glucose 106 H, Calcium 9.6, Total Bilirubin 0.4, AST 30, ALT 23, Alkaline Phosphatase 92, C-Reactive Protein 11.6 H, Total Protein 6.8, Albumin 4.1, Globulin 2.7, Albumin/Globulin Ratio 1.5, Procalcitonin 0.047 07/10/21 23:26: NT-Pro-B Natriuret Pep 41.9 Result diagrams: 07/10/21 23:26 07/10/21 23:26 Orders (Tests/Meds): ED MEDICATIONS Generic Name Dose Route Start Last Admin Trade Name Freq PRN Reason Stop Dose Admin Sodium Chloride 1,000 mls @ 999 mls/hr 07/10/21 23:45 Sod Chlor 0.9% 1000ml Bag IV 07/11/21 00:45 .Q1H1M EDUIN Discontinued Medications Generic Name Dose Route Start Last Admin Trade Name Freq PRN Reason Stop Dose Admin Enoxaparin Sodium 80 mg 07/11/21 00:08 07/11/21 00:16 Enoxaparin 80mg/0.8ml Syringe SQ 07/11/21 00:09 80 mg ONCE ONE Administration Ketorolac Tromethamine 30 mg 07/11/21 00:08 07/11/21 00:14 Ketorolac 30mg/Ml Vial IV 07/11/21 00:09 30 mg ONCE ONE Administration Methylprednisolone Sodium Succinate 125 mg 07/11/21 00:08 07/11/21 00:14 Methylprednisolone Sod Succ 125mg Vial IV 07/11/21 00:09 125 mg ONCE ONE Administration Medical Decision Narrative: has bilat swelling and rash which i think is phlebitis - stable labs will arrange venous doppler and use nsaif Skin/Abscess/FB HPI - General Chief complaint: Skin/Abscess/Foreign Body Stated complaint: retaing fluid in both legs, red,pain Time Seen by Provider: 07/11/21 00:14 Mode of Arrival: Ambulatory Source of Information: Patient, Medical Record Limitations: No Limitations Description of Symptoms (Recalled from ER Triage Doc. by RN): Pt reports going to the bathroom this morning at 9am and noticed she has BLE redness and swelling. She has no other complaints. - History of Present Illness HPI narrative: during day has bilat lower leg pain - lt >rt with painful rash to lower ext medial aspect and no fever or sob or other
--- NOTE | 2021-07-11 00:19 | PC.NURSE ---
DR. SEALS IN SPEAKING WITH PATIENT.
[2021-07-11 00:25] VITALS: BP 131/61; PULSE 60; RESP 18; TEMP 36.6; O2SAT 97
[2021-07-11 00:35] VITALS: BP 117/59; PULSE 64; O2SAT 98
== END 2021-07-11 00:41 | disposition home or self-care (01) ==
PROVIDERS: Emergency Provider Emergency Medicine; PCP Family Medicine
DX: I80.3 Phlebitis and thrombophlebitis of lower extremities, unspecified (principal); I10 Essential (primary) hypertension; E78.5 Hyperlipidemia, unspecified; Z79.899 Other long term (current) drug therapy; Z88.0 Allergy status to penicillin; Z88.2 Allergy status to sulfonamides; F17.210 Nicotine dependence, cigarettes, uncomplicated; R06.02 Shortness of breath
CPT/HCPCS: 80053; 83880; 84145; 85025; 85651; 86140; 96365; 96372; 96375; 99282

== ENCOUNTER → 2021-07-15 15:46 | Outpatient (CLI) | payer MEDICARE, OTHER, SELFPAY ==
--- NOTE | 2021-07-15 15:50 | CA_ITS ---
APPROVED REPORT Left Lower Extremity Venous Study for DVT. Crew Person: MARTINA Indications Lower Extremity Pain: Left Lower Extremity Edema: Bilateral HTN, Left leg pain, Episode of Bialteral pedal edema 07/09/21 Vein Imaging CFV (L): compressive, spontaneous, phasic, augmentation SFJ (L): compressive, spontaneous, phasic, augmentation FEM (L): compressive, spontaneous, phasic, augmentation POP (L): compressive, spontaneous, phasic, augmentation PTV (L): compressive, spontaneous, phasic, augmentation GSV (L): compressive, spontaneous, phasic, augmentation SSV (L): compressive, spontaneous, phasic, augmentation Peroneals (L):compressive, spontaneous, phasic, augmentation GAS (L): compressive, spontaneous, phasic, augmentation Findings Color flow duplex demonstrates no evidence of DVT of the following left lower extremity Veins:Common Femoral Vein, Femoral Vein, Popliteal Vein, Posterior Tibial Veins, Peroneal Veins Study suggests no evidence of DVT of the left lower extremity. Conclusion Study suggests no evidence of DVT of the left lower extremity. Electronically signed by : Jamar Murray MD 07/16/2021 14:31:03
== END ==
PROVIDERS: PCP Family Medicine; Visit Provider Family Medicine
DX: M79.662 Pain in left lower leg (principal)
CPT/HCPCS: 93971

== ENCOUNTER 2021-08-07 10:11 | Emergency (ER) | payer MEDICARE, OTHER, SELFPAY ==
[2021-08-07 11:03] VITALS: BP 147/89; PULSE 76; RESP 17; TEMP 37.3; O2SAT 98; BMI 35.3
[2021-08-07 11:20] LABS: UTC Influenza A Antigen Negative (Negative); UTC Influenza B Antigen Negative (Negative)
--- NOTE | 2021-08-07 11:25 | HMH.EDUTC ---
[facility] [place] Disposition Clinical Impression: Exposure to COVID-19 virus Disposition: Home, Self-Care Condition on Discharge: Good Instructions: DI for COVID-19 (Suspected or Confirmed ) Additional Instructions: covid swab was sent to lab, call tomorrow for results. self isolate until test results are known to be negative No sign of a bacterial infection. Likely viral. Viruses can take 7-14 days to run their course. Nasal saline and bulb syringe or nose [place] to remove nasal drainage to help with nasal congestion. Hard to eat, drink, sleep with nasal congestion so important to keep this cleaned out. Monitor temp. Tylenol or Motrin as needed for pain or fever Encourage fluids, water, Gatorade, Powerade, Pedialyte if infant/toddler/child Warm salt water gargles Warm fluids Sore throat lozenges Sleep elevated Humidifier/vaporizer Follow-up immediately for new or worsening symptoms or no noticeable improvement over the next 48-72 hours. Referrals: Osman Medrano MD [Primary Care Provider] - Time of Disposition: 11:27 Medical Decision Making - Po Inquiry Pt receiving controlled substance: No Vital Signs: 08/07/21 11:03 Temperature 99.2 F Temperature Source Oral Pulse Rate [Left] 76 Respiratory Rate 17 Blood Pressure [Right Arm] 147/89 H Blood Pressure Mean [Right Arm] 108 02 Sat by Pulse Oximetry 98 - Lab Data Lab Results 08/07/21 10:58: Influenza Type A Ag Negative, Influenza Type B Ag Negative Orders (Tests/Meds): ORDERS Category Date Time Status Covid-19 Nasal PCR ([facility]) Routine Lab 08/07/21 10:58 Ordered [facility] [place] HPI - General Chief complaint: Urgent [facility] Stated complaint: covid exposed, symptoms Time Seen by Provider: 08/07/21 11:25 Mode of Arrival: Ambulatory Source of Information: Patient Limitations: No Limitations Description of Symptoms (Recalled from Triage Doc. by RN): pt c/o a fever, diarrhea, RICO, lethargy and ears aching. daughter is positive for covid. HEENT Symptoms (Recalled from RN notes): Yes (ears ache and RICO) Resp Symptoms (Recalled from RN notes): No Skin Symptoms (Recalled from RN notes): No MS Symptoms (Recalled from RN notes): No Functional Status (Recalled from RN notes): wnl - History of Present Illness Provider Complaint: 51 yr old female c/o a fever, diarrhea, RICO, and ears aching. daughter is positive for covid. - Related Data Home Medications Medication Instructions Recorded Confirmed Linaclotide [Linzess] 290 mcg PO DAILY 05/13/20 03/02/21 Multivit-Min/Folic Acid/Vit K1 1 each PO DAILY 06/12/20 03/02/21 [Multi For Her 50 Plus Softgel] Prucalopride Succinate [Motegrity] 2 mg PO DAILY 06/12/20 03/02/21 Vit B12/Intrinsic Fact/Folate 1 each PO DAILY 06/12/20 03/02/21 [Intrinsi L39-Sfaptk Tablet] Vit D3-Vit K/Berberine/Hops 1 each PO DAILY 06/12/20 03/02/21 [Ostera Tablet] ondansetron HCL [Zofran 4mg Tab*] 4 mg PO DAILYP PRN 06/12/20 03/02/21 Lisinopril/Hydrochlorothiazide 1 each PO DAILY 07/28/20 03/02/21 [Lisinopril-Hctz 10-12.5 mg Tab] Simvastatin 20 mg PO DAILY 09/08/20 03/02/21 diazePAM [Diazepam 2mg tablets] 2 mg PO Q12HP PRN 09/08/20 03/02/21 Allergies Allergy/AdvReac Type Severity Reaction Status Date / Time Macrolide Antibiotics Allergy Mild Verified 03/02/21 18:01 [MACROLIDE ANTIBIOTICS] propoxyphene Allergy Mild Verified 03/02/21 18:01 [From DARVOCET-N] codeine [CODEINE] Allergy Unknown Verified 03/02/21 18:01 erythromycin base Allergy Unknown Verified 03/02/21 18:01 [ERYTHROMYCIN BASE] Sulfa (Sulfonamide Allergy Unknown Verified 03/02/21 18:01 Antibiotics) [SULFA (SULFONAMIDE ANTIBIOTICS)] Penicillins Allergy Verified 03/02/21 18:01 - Worker's Comp Is this a Worker's Comp case?: No [facility] History - Hepatitis A Screen Drug use history?: No High risk sexual behaviors?: No History of sexually transmitted infection?: No Currently employed?: No Childcare worker?: No
[2021-08-07 11:29] VITALS: BP 147/89; PULSE 76; RESP 17; TEMP 37.3
== END 2021-08-07 11:35 | disposition home or self-care (01) ==
PROVIDERS: Emergency Provider Nurse Practitioner Family; PCP Family Medicine
DX: Z20.822 Contact with and (suspected) exposure to COVID-19 (principal); R50.9 Fever, unspecified; I10 Essential (primary) hypertension; E78.5 Hyperlipidemia, unspecified; F41.9 Anxiety disorder, unspecified
CPT/HCPCS: G0463; 87804; 99202; C9803; U0003; U0005

== ENCOUNTER → 2021-08-17 09:39 | Outpatient (CLI) | payer MEDICARE, OTHER, SELFPAY ==
[2021-08-18 06:17] LABS: Covid-19 Nasal PCR Sendout Lex NOT DETECTED
== END ==
PROVIDERS: PCP Family Medicine; Visit Provider Nurse Practitioner
DX: Z20.822 Contact with and (suspected) exposure to COVID-19 (principal)
CPT/HCPCS: C9803; U0004; U0005

== ENCOUNTER → 2021-10-12 09:03 | Outpatient (CLI) | payer MEDICARE, OTHER, SELFPAY ==
--- NOTE | 2021-10-12 09:07 | US_ITS ---
FINAL REPORT CLINICAL HISTORY: LUQ ABD PAIN,N/V FINDINGS: Sonographic images of the abdomen were obtained. The liver has an unremarkable appearance with normal echogenicity. The gallbladder has an unremarkable appearance without evidence of gallstones. There is no evidence of biliary ductal dilatation. The common bile duct measures 2 mm, which is within normal limits. Limited images of the pancreas are unremarkable. The spleen size is normal. The right kidney measures 10.3 cm in length. The left kidney measures 10.0 cm in length. There is normal renal echogenicity. There is no evidence of hydronephrosis. The aorta has an unremarkable appearance. Limited images of the inferior vena cava are unremarkable. IMPRESSION: Unremarkable abdominal ultrasound with no acute abnormality identified. Reviewed, Interpreted and Dictated by Esteban Hicks III, MD Transcribed by Shauna Curran Authenticated by Esteban Hicks III, MD on 10/12/2021 12:48:32 PM [facility]
== END ==
PROVIDERS: PCP Family Medicine; Visit Provider Nurse Practitioner Family
DX: R10.12 Left upper quadrant pain (principal); R11.2 Nausea with vomiting, unspecified
CPT/HCPCS: 76700

== ENCOUNTER → 2021-10-27 10:31 | Outpatient (CLI) | payer MEDICARE, OTHER, SELFPAY ==
--- NOTE | 2021-10-27 10:39 | NM_ITS ---
FINAL REPORT TECHNIQUE: The patient was injected with 8.3 mCi of technetium Choletec. CLINICAL HISTORY: NAUSEA AND VOMITING 11:00AM 8.30MIC TC CHOLETEC INJ INTO LT ANT. FINDINGS: Patient complains of nausea with Ensure. Hepatic uptake is normal. There is gallbladder and small bowel visualize normally. Ejection fraction of 77 %. IMPRESSION: Normal ejection fraction. Reviewed, Interpreted and Dictated by Fidel Drake MD Transcribed by Foster Coello Authenticated by Fidel Drake MD on 10/27/2021 03:26:59 PM [facility]
== END ==
PROVIDERS: PCP Family Medicine; Visit Provider Nurse Practitioner Family
DX: R10.12 Left upper quadrant pain (principal); R11.2 Nausea with vomiting, unspecified; R19.7 Diarrhea, unspecified
CPT/HCPCS: 78226; A9537

== ENCOUNTER → 2021-12-18 12:26 | Outpatient (CLI) | payer MEDICARE, OTHER, SELFPAY ==
--- NOTE | 2021-12-18 12:32 | XR_ITS ---
PROCEDURE INFORMATION: Exam: XR Right Wrist Exam date and time: 12/18/2021 12:34 PM Age: 51 years old Clinical indication: Right; Patient HX: PT states that she has had chronic wrist pain that has worsened since helping her daughter move boxes. ; Additional info: Right wrist pain TECHNIQUE: Imaging protocol: XR Right wrist. Views: 3 or more views. COMPARISON: No relevant prior studies available. FINDINGS: Bones/joints: No evidence of acute osseous injury. Soft tissues: Mild soft tissue swelling dorsal aspect of the wrist. IMPRESSION: 1. No evidence of acute osseous injury. 2. Mild soft tissue swelling dorsal aspect of the wrist.
== END ==
PROVIDERS: PCP Nurse Practitioner Family; Visit Provider Nurse Practitioner Family
DX: M25.531 Pain in right wrist (principal); S69.91XA Unspecified injury of right wrist, hand and finger(s), initial encounter
CPT/HCPCS: 73110

== ENCOUNTER → 2022-04-02 09:40 | Outpatient (CLI) | payer MEDICARE, OTHER, SELFPAY | PROVIDERS: PCP Family Medicine; Visit Provider Nurse Practitioner Family | DX: Z20.822 Contact with and (suspected) exposure to COVID-19 (principal); R05.1 Acute cough | CPT/HCPCS: C9803; U0003; U0005 ==

== ENCOUNTER → 2022-04-05 08:22 | Outpatient (CLI) | payer MEDICARE, OTHER, SELFPAY ==
[2022-04-05 09:47] LABS: Erythrocyte Sedimentation Rate 18 mm/hr (0-30)
[2022-04-05 16:29] LABS: Uric Acid 4.9 mg/dl (2.5-6.2)
[2022-04-05 16:34] LABS: C-Reactive Protein 4.9 mg/L (0-4)
[2022-04-06 11:13] LABS: RA Latex Turbid. <10.0 IU/mL (<14.0)
[2022-04-06 21:08] LABS: Antinuclear Antibodies, IFA Negative (.)
[2022-04-07 08:15] LABS: H. pylori Breath Test Negative (Negative)
== END ==
PROVIDERS: PCP Nurse Practitioner Family; Visit Provider Nurse Practitioner Family
DX: R10.13 Epigastric pain (principal); M25.541 Pain in joints of right hand
CPT/HCPCS: 36415; 83013; 84550; 85651; 86038; 86140; 86431

== ENCOUNTER → 2022-04-20 16:18 | Outpatient (CLI) | payer MEDICARE, OTHER, SELFPAY ==
[2022-04-20 16:29] LABS: Adenovirus F 40/41, stool Not Detected (NotDetected); Astrovirus Not Detected (NotDetected); Campylobacter Not Detected (NotDetected); Clostridium Difficile A/B, PCR Not Detected (NotDetected); Cryptosporidium Not Detected (NotDetected); Cyclospora Cayetanesis Not Detected (NotDetected); Entamoeba histolytica Not Detected (NotDetected); Enteroaggregative E coli Not Detected (NotDetected); Enteropathogenic E coli Not Detected (NotDetected); Enterotoxigenic E coli Not Detected (NotDetected); Giardia lamblia Not Detected (NotDetected); Norovirus Not Detected (NotDetected); Plesimonas Shigalloides, PCR Not Detected (NotDetected); Rotavirus A Not Detected (NotDetected); Salmonella, PCR Not Detected (NotDetected); Sapovirus Not Detected (NotDetected); Shiga-like toxin E coli Not Detected (NotDetected); Shigella Enterovasive E coli Not Detected (NotDetected); Vibrio Cholerae Not Detected (NotDetected); Vibrio, PCR Not Detected (NotDetected); Yersinia Entercolitica, PCR Not Detected (NotDetected)
== END ==
PROVIDERS: PCP Nurse Practitioner Family; Visit Provider Nurse Practitioner Family
DX: R10.84 Generalized abdominal pain (principal); R19.7 Diarrhea, unspecified
CPT/HCPCS: 87506

== ENCOUNTER → 2022-06-17 15:30 | Outpatient (CLI) | payer MEDICARE, OTHER, SELFPAY ==
--- NOTE | 2022-06-17 | CA_ITS ---
FINAL REPORT TECHNIQUE: Left lower extremity venous duplex was performed with augmentation and compression. CLINICAL HISTORY: .Back [id number] ago, Pt c/o pain in lt foot extending to lt calf FINDINGS: Proper flow is seen throughout the deep venous system. There is no evidence of deep venous thrombosis. IMPRESSION: No deep venous thrombosis in the left lower extremity. Reviewed, Interpreted and Dictated by Fidel Drake MD Transcribed by Shauna Curran Authenticated and [facility]
[2022-06-17 16:12] LABS: Basophils # 0.1 K/mm3 (0-0.2); Basophils % 1.5 % (0.1-2.0); Eosinophils # 0.3 K/mm3 (0.0-0.4); Hematocrit 44.8 % (37.0-47.0); Hemoglobin 14.7 g/dL (12.2-16.2); Lymphocytes # 3.9 K/mm3 (0.7-4.5); Lymphocytes % 41.3 % (10-50); Mean Corpuscular HGB Conc 32.7 g/dL (31.8-35.4); Mean Corpuscular Hemoglobin 30.9 pg (27.0-31.2); Mean Corpuscular Volume 94.6 fl (81-99); Mean Platelet Volume 9.3 fl (7.4-10.4); Monocytes # 0.5 K/mm3 (0.1-1.0); Monocytes % 5.4 % (1.7-9.3); Neutrophils # 4.6 K/mm3 (1.8-7.8); Neutrophils % 48.9 % (37.0-80.0); Platelet Count 311 K/mm3 (142-424); Red Blood Count 4.74 M/mm3 (4.20-5.40); Red Cell Distribution Width 13.8 % (11.5-17.5); White Blood Count 9.4 K/mm3 (4.8-10.8)
[2022-06-17 18:40] LABS: Alanine Aminotransferase 33 U/L (12-78); Albumin Level 4.4 g/dl (3.5-5.0); Albumin/Globulin Ratio 1.8 (1.1-1.8); Alkaline Phosphatase 116 U/L (38-126); Anion Gap 12.1 mEq/L (5-15); Aspartate Amino Transferase 37 U/L (14-36); Bilirubin,Total 0.4 mg/dl (0.2-1.3); Blood Urea Nitrogen 18 mg/dl (7-17); Calcium 10.5 mg/dl (8.4-10.2); Carbon Dioxide 25 mmol/L (22.0-30.0); Chloride 105 mmol/L (98-107); Estimated Glomerular Filt Rate 75 ml/min (>60); GFR (African American) 90 ML/MIN (>60); Globulin 2.5 g/dL (1.3-3.2); Glucose 87 mg/dl (74-100); Potassium 4.1 mmoL/L (3.5-5.1); Sodium 138 mmol/L (136-145); Total Protein,Serum 6.9 g/dl (6.3-8.2)
[2022-06-17 18:50] LABS: NT Pro Brain Natriuretic Pep. 119 pg/mL (0-125)
[2022-06-17 19:11] LABS: Thyroid Stimulating Hormone 2.16 uIU/mL (0.465-4.68)
== END ==
PROVIDERS: PCP Nurse Practitioner Family; Visit Provider Nurse Practitioner Family
DX: R06.02 Shortness of breath (principal); R53.83 Other fatigue; M79.605 Pain in left leg; R60.0 Localized edema; L53.9 Erythematous condition, unspecified
CPT/HCPCS: 36415; 80053; 83880; 84443; 85025; 93971

== ENCOUNTER → 2022-09-07 07:44 | Outpatient (CLI) | payer MEDICARE, OTHER, SELFPAY ==
--- NOTE | 2022-09-07 07:47 | MR_ITS ---
FINAL REPORT CLINICAL HISTORY: S/P LUMBAR SURGERY, LEFT SIDED LOW BACK PAIN W/ SCIATICA COMPARISON: 12/25/2021 FINDINGS: Multiplanar MR imaging of the lumbar spine was performed without contrast. There are postoperative changes from fusion of L3 through L5. The fusion of L3-4 is new from prior. On the sagittal T2-weighted images, disc degeneration is seen at multiple levels. There is mild retrolisthesis of L1 on L2. There is no evidence of fracture. No bony mass is identified. The conus has an unremarkable appearance. No significant canal stenosis is identified. L1-2: Annular disc bulge, facet arthropathy, and osteophytes. Moderate right and mild left neural foraminal narrowing. L2-3: No significant central canal stenosis or neuroforaminal narrowing. L3-4: Fusion. Mild bilateral neural foraminal narrowing. Postoperative changes of L3 laminectomies. L4-5: Fusion. Mild right and moderate left neural foraminal narrowing. L5-S1: Annular disc bulge and facet arthropathy. Moderate right and severe left neural foraminal narrowing. IMPRESSION: Interval fusion of L3-4 with L3 laminectomies and improved mild central canal stenosis. Other findings are stable. Reviewed, Interpreted and Dictated by Esteban Hicks III, MD Transcribed by Alaina Lay Authenticated and [facility]
== END ==
PROVIDERS: PCP Nurse Practitioner Family; Visit Provider Nurse Practitioner Family
DX: M54.42 Lumbago with sciatica, left side (principal); Z98.890 Other specified postprocedural states
CPT/HCPCS: 72148; 76376

== ENCOUNTER 2022-09-22 11:05 | Outpatient (RCR) | payer MEDICARE, OTHER, SELFPAY | END 2022-09-22 11:10 | disposition home or self-care (01) | LOC: PT 11:05 | PROVIDERS: PCP Nurse Practitioner Family; Visit Provider Nurse Practitioner Family | DX: M54.6 Pain in thoracic spine (principal); M54.9 Dorsalgia, unspecified; M54.42 Lumbago with sciatica, left side | CPT/HCPCS: 97014; 97110; 97140; 97163; G0283 ==

== ENCOUNTER → 2022-10-13 14:35 | Outpatient (CLI) | payer MEDICARE, OTHER, SELFPAY ==
--- NOTE | 2022-10-13 14:46 | XR_ITS ---
FINAL REPORT CLINICAL HISTORY: COUGH COMPARISON: none FINDINGS: PA and lateral views of the chest were obtained. There is no prior exam for comparison. The cardiac and mediastinal silhouettes are within normal limits. The lungs are clear. There is no pleural effusion or pneumothorax. No acute osseous abnormality is identified. IMPRESSION: No radiographic evidence of acute cardiac or pulmonary disease. Reviewed, Interpreted and Dictated by Lucrecia Hood MD Transcribed by Alaina Lay Authenticated and [facility]
--- NOTE | 2022-10-13 14:47 | XR_ITS ---
FINAL REPORT CLINICAL HISTORY: Pain @ top of t-spine radiating into Lt arm x wks, NKT COMPARISON: none FINDINGS: AP, lateral, and swimmer''s views of the thoracic spine were obtained. There is no prior exam for comparison. There is no acute fracture or malalignment. There is multilevel degenerative disc disease, most pronounced in the mid and lower thoracic spine. Paraspinal soft tissues are within normal limits. IMPRESSION: Degenerative changes with no acute osseous abnormality of the thoracic spine. Reviewed, Interpreted and Dictated by Lucrecia Hood MD Transcribed by Alaina Lay Authenticated and [facility]
== END ==
PROVIDERS: PCP Nurse Practitioner Family; Visit Provider Nurse Practitioner Family
DX: M54.6 Pain in thoracic spine (principal); R05.1 Acute cough
CPT/HCPCS: 71046; 72072

== ENCOUNTER 2023-01-06 06:22 | Emergency (ER) | payer MEDICARE, OTHER, SELFPAY ==
[2023-01-06 06:30] VITALS: BP 162/67; PULSE 79; O2SAT 99
[2023-01-06 06:36] VITALS: BP 162/67; PULSE 77; RESP 18; TEMP 36.6; O2SAT 99; BMI 34.9
--- NOTE | 2023-01-06 06:38 | HMH.EDABDPAI ---
Discharge Plan Disposition Patient Disposition: Home, Self-Care Condition: Good Prescriptions Prescriptions: New clindamycin HCl [Cleocin HCl] 300 mg capsule 300 mg PO Q8H 10 Days Qty: 30 0RF ibuprofen 600 mg tablet 600 mg PO Q8H PRN (Reason: pain) Qty: 30 0RF No Action linaclotide 72 MCG capsule 290 mcg PO DAILY lisinopril-hydrochlorothiazide 1 EACH tablet 1 each PO DAILY diazepam 2 MG tablet 2 mg PO Q12HP PRN (Reason: Anxiety) simvastatin 20 MG tablet 20 mg PO DAILY ondansetron HCl 4 MG tablet 4 mg PO DAILYP PRN (Reason: Nausea) vit D3-vit D-bzarokazy-iacc 1 EACH tablet 1 each PO DAILY vit [id number] fact-FA cmb #2 1 EACH tablet 1 each PO DAILY enhzsjjb-blz-sbebb acid-vit K 1 EACH capsule 1 each PO DAILY prucalopride 2 MG tablet 2 mg PO DAILY Referrals Follow up/Referrals: Viry Retana APRN [Primary Care Provider] - See instructions Clinical Impressions Clinical Impression: Omphalitis in adult Discharge ED Provider: Magy Sharp Abdominal Pain HPI General Stated Complaint: Lower abdominal pain Time Seen by Provider: 01/06/23 06:29 Mode of Arrival: Ambulatory Source of Information: Patient Limitations: No Limitations History of Present Illness HPI narrative: Patient is a 52-year-old female who is here secondary to pain around her bellybutton. Patient stated that she is having pain for the past couple of days. She is having some discharge from there. She put a Q-tip in there to clean it and since then its been hurting. No fevers and chills 1 episode of nausea vomiting yesterday. She has been eating and drinking well no vomiting since then no diarrhea no constipation. No urinary symptoms. MD complaint: abdominal pain Onset (ago): day(s) Consistency: constant Location: periumbilical Severity: moderate Severity scale (1-10): 8 Quality: aching and dull Radiation: none Migration to: no migration Relieving factors: nothing Exacerbating factors: nothing Associated symptoms: nausea and vomiting Related Data Home Medications Medication Instructions Recorded Confirmed linaclotide 72 mcg capsule 290 mcg PO DAILY stomach 05/13/20 03/02/21 ccrqkalhbjoo-nuwygzpa-gydqn acid 1 each PO DAILY Supplement 06/12/20 03/02/21 400 mcg-vitamin K 80 mcg capsule ondansetron HCl 4 mg tablet 4 mg PO DAILYP PRN Nausea 06/12/20 03/02/21 prucalopride 2 mg tablet 2 mg PO DAILY stomach 06/12/20 03/02/21 vit Y67-sjgvgqrmd factor-folic 1 each PO DAILY Supplement 06/12/20 03/02/21 acid cmb#2 500 mcg-20 mg-800 mcg tablet vitamin D3 500 unit-vit K 500 1 each PO DAILY Supplement 06/12/20 03/02/21 mcg-berberine 90 mg-hops 370 mg tablet lisinopril 10 1 each PO DAILY bp 07/28/20 03/02/21 mg-hydrochlorothiazide 12.5 mg tablet diazepam 2 mg tablet 2 mg PO Q12HP PRN Anxiety 09/08/20 03/02/21 simvastatin 20 mg tablet 20 mg PO DAILY Cholesterol 09/08/20 03/02/21 Previous Rx's Medication Instructions Recorded clindamycin HCl 300 mg capsule 300 mg PO Q8H 10 days #30 caps 01/06/23 (Cleocin HCl) ibuprofen 600 mg tablet 600 mg PO Q8H PRN pain #30 tabs 01/06/23 Allergies Allergy/AdvReac Type Severity Reaction Status Date / Time Macrolide Antibiotics Allergy Mild Verified 01/06/23 06:40 [MACROLIDE ANTIBIOTICS] propoxyphene Allergy Mild Verified 01/06/23 06:40 [From DARVOCET-N] codeine [CODEINE] Allergy Unknown Verified 01/06/23 06:40 erythromycin base Allergy Unknown Verified 01/06/23 06:40 [ERYTHROMYCIN BASE] Sulfa (Sulfonamide Allergy Unknown Verified 01/06/23 06:40 Antibiotics) [SULFA (SULFONAMIDE ANTIBIOTICS)] cimetidine [From Tagamet] Allergy Verified 01/06/23 06:40 Penicillins Allergy Verified 01/06/23 06:40 PFS PFS Disclaimer: The information contained in this section may have been updated after the patient was seen, as this information can be updated by othe
[2023-01-06 06:43] VITALS: BP 162/67; PULSE 77; RESP 18; TEMP 36.6
== END 2023-01-06 06:51 | disposition home or self-care (01) ==
LOC: ER 06:43
PROVIDERS: Emergency Provider Emergency Medicine; PCP Nurse Practitioner Family
DX: L08.82 Omphalitis not of newborn (principal); F17.210 Nicotine dependence, cigarettes, uncomplicated; Z23 Encounter for immunization
CPT/HCPCS: 90471; 90715; 96372; 99283; 99284

== ENCOUNTER 2023-01-07 21:41 | Observation (INO) | payer MEDICARE, OTHER, SELFPAY ==
[2023-01-07 21:44] VITALS: BP 170/90; PULSE 85; RESP 20; TEMP 36.8; O2SAT 96; BMI 34.7
--- NOTE | 2023-01-07 22:23 | PC.NURSE ---
Dr. Álvarez at
--- NOTE | 2023-01-07 22:31 | CT_ITS ---
PROCEDURE INFORMATION: Exam: CT Abdomen And Pelvis With Contrast Exam date and time: 01/07/2023 11:21 PM Age: 52 years old Clinical indication: Abdominal pain; Additional info: Abd pain, purulent drainage from umbilicus, tender TECHNIQUE: Imaging protocol: Computed tomography of the abdomen and pelvis with contrast. Total images: 310 Radiation optimization: All CT scans at this facility use at least one of these dose optimization techniques: automated exposure control; mA and/or kV adjustment per patient size (includes targeted exams where dose is matched to clinical indication); or iterative reconstruction. Contrast material: ISOVUE; Contrast volume: 75 ml; Contrast route: IV; REPORTING DATA: Count of CT and Cardiac NM exams in prior 12 months: This patient has received 0 known CTs and 0 known cardiac nuclear medicine studies in the 12 months prior to the current study. COMPARISON: CT ABDOMEN PELVIS W CON 01/20/2021 10:48 AM FINDINGS: Lungs: Right basilar atelectasis. Ground-glass and interstitial opacity left lower lobe concerning for acute infiltrate/pneumonitis. Heart: Normal heart size. Diaphragm: Tiny hiatal hernia. Liver: Similar scattered hepatic hypodensities, too small to characterize but likely cysts or hemangiomas. No concerning liver mass. Slight decreased liver attenuation from phase of contrast versus steatosis. Gallbladder and bile ducts: Mild gallbladder wall thickening from incomplete distention or adenomyomatosis . No secondary signs of acute cholecystitis. No calcified gallstones. No bile duct dilatation. Pancreas: Normal. No ductal dilation. Spleen: Normal. No splenomegaly. Adrenal glands: 15 mm left adrenal nodule in keeping with lipid rich adenoma. Mild right adrenal thickening. Findings are unchanged. Kidneys and ureters: No nephrolithiasis, hydronephrosis, or renal mass. No perinephric fluid. Stomach and bowel: Unremarkable stomach and duodenum. No ileus or bowel obstruction. Small bowel appears within normal limits. Moderate colonic stool burden. Mild sigmoid diverticulosis. No diverticulitis. Suspect rectocele. Appendix: Normal appendix. Intraperitoneal space: Unremarkable. No free air. No significant fluid collection. Vasculature: Atherosclerotic aorta and iliac arteries without aneurysm. Multiple pelvic phleboliths. Lymph nodes: Unremarkable. No enlarged lymph nodes. Urinary bladder: Low lying bladder base/cystocele. Reproductive: Status post hysterectomy. No adnexal mass. Bones/joints: Postoperative changes of the lumbar spine with posterior fusion L3 through L5. Severe degenerative changes thoracolumbar spine. Osteopenia. Mild degenerative changes bilateral hips and SI joints. Soft tissues: Inflammation of the umbilicus including a indistinct 2 cm umbilical fluid collection likely reflecting phlegmon or abscess development. No associated gas lucency. IMPRESSION: 1. Cellulitis of the umbilicus with 2 cm phlegmon or evolving abscess. 2. Left lower lobe infiltrate/pneumonitis. 3. No acute intra-abdominal or pelvic process. 4. Multiple additional chronic and incidental findings.
--- NOTE | 2023-01-07 22:42 | PC.NURSE ---
PT SLEEPING IN BED NOTHING NEEDED AT THIS TIME
[2023-01-07 22:45] LABS: Basophils # 0.1 K/mm3 (0-0.2); Basophils % 0.7 % (0.1-2.0); Eosinophils # 0.3 K/mm3 (0.0-0.4); Eosinophils % 2.8 % (0.1-12.0); Hemoglobin 14.3 g/dL (12.2-16.2); Lymphocytes # 3.4 K/mm3 (0.7-4.5); Lymphocytes % 31.5 % (10-50); Mean Corpuscular HGB Conc 32.6 g/dL (31.8-35.4); Mean Corpuscular Hemoglobin 29.7 pg (27.0-31.2); Mean Corpuscular Volume 91.1 fl (81-99); Mean Platelet Volume 9.2 fl (7.4-10.4); Monocytes # 0.7 K/mm3 (0.1-1.0); Monocytes % 6.4 % (1.7-9.3); Neutrophils # 6.3 K/mm3 (1.8-7.8); Neutrophils % 58.6 % (37.0-80.0); Platelet Count 270 K/mm3 (142-424); Red Blood Count 4.83 M/mm3 (4.20-5.40); Red Cell Distribution Width 13.6 % (11.5-17.5); White Blood Count 10.8 K/mm3 (4.8-10.8)
[2023-01-07 23:01] LABS: Alanine Aminotransferase 29 U/L (12-78); Albumin Level 4.3 g/dl (3.5-5.0); Albumin/Globulin Ratio 1.4 (1.1-1.8); Alkaline Phosphatase 90 U/L (38-126); Anion Gap 13.9 mEq/L (5-15); Aspartate Amino Transferase 41 U/L (14-36); Bilirubin,Total 0.4 mg/dl (0.2-1.3); Blood Urea Nitrogen 19 mg/dl (7-17); Calcium 9.2 mg/dl (8.4-10.2); Carbon Dioxide 28 mmol/L (22.0-30.0); Chloride 99 mmol/L (98-107); Creatinine Clearance Estimated 109 mL/min (50-200); Estimated Glomerular Filt Rate 75 ml/min (>60); GFR (African American) 90 ML/MIN (>60); Glucose 110 mg/dl (74-100); Potassium 3.9 mmoL/L (3.5-5.1); Sodium 137 mmol/L (136-145); Total Protein,Serum 7.3 g/dl (6.3-8.2)
[2023-01-07 23:06] LABS: C-Reactive Protein 24.7 mg/L (0-4)
[2023-01-07 23:18] LABS: Erythrocyte Sedimentation Rate 14 mm/hr (0-30)
[2023-01-07 23:20] LABS: Procalcitonin 0.052 ng/mL (0.0-2.0)
[2023-01-07 23:30] VITALS: BP 116/64; PULSE 73; O2SAT 90
--- NOTE | 2023-01-07 23:38 | HMH.EDGENADL ---
Discharge Plan Disposition Patient Disposition: Admitted Chief Complaint: PAIN Prescriptions Prescriptions: No Action linaclotide 72 MCG capsule 290 mcg PO DAILY lisinopril-hydrochlorothiazide 1 EACH tablet 1 each PO DAILY diazepam 2 MG tablet 2 mg PO Q12HP PRN (Reason: Anxiety) simvastatin 20 MG tablet 20 mg PO DAILY clindamycin HCl [Cleocin HCl] 300 mg capsule 300 mg PO Q8H 10 Days Qty: 30 0RF ibuprofen 600 mg tablet 600 mg PO Q8H PRN (Reason: pain) Qty: 30 0RF ondansetron HCl 4 MG tablet 4 mg PO DAILYP PRN (Reason: Nausea) vit D3-vit S-tvpwqrvdd-kjsj 1 EACH tablet 1 each PO DAILY vit Y49-foctumr fact-FA cmb #2 1 EACH tablet 1 each PO DAILY nthrzzer-xjn-bvpqv acid-vit K 1 EACH capsule 1 each PO DAILY prucalopride 2 MG tablet 2 mg PO DAILY Referrals Follow up/Referrals: Viry Retana APRN [Primary Care Provider] - See instructions Clinical Impressions Clinical Impression: Abscess of umbilicus Discharge ED Provider: Preeti (ED)Elder General Adult HPI General Chief complaint: PAIN Stated complaint: naval red and draining Time Seen by Provider: 01/07/23 22:45 Mode of Arrival: Ambulatory Source of Information: Patient, Spouse and Medical Record Limitations: No Limitations Description of Symptoms (Recalled from ER Triage Doc. by RN): Pt states she has had yellow drianage from her navel for 4 days, was seen here yesterday and given Clindamycin. States today it is worse and feels like she is being ripped apart inside . History of Present Illness HPI narrative: reddness and drainage from umbilical area - was seen prev and on abx but sx have increased Onset (ago): day(s) Location: abdomen Severity: moderate Associated symptoms: denies other symptoms Related Data Home Medications Medication Instructions Recorded Confirmed linaclotide 72 mcg capsule 290 mcg PO DAILY stomach 05/13/20 03/02/21 dnujmgsszzkb-imsiagef-ozgta acid 1 each PO DAILY Supplement 06/12/20 03/02/21 400 mcg-vitamin K 80 mcg capsule ondansetron HCl 4 mg tablet 4 mg PO DAILYP PRN Nausea 06/12/20 03/02/21 prucalopride 2 mg tablet 2 mg PO DAILY stomach 06/12/20 03/02/21 vit H90-ifazdzoqv factor-folic 1 each PO DAILY Supplement 06/12/20 03/02/21 acid cmb#2 500 mcg-20 mg-800 mcg tablet vitamin D3 500 unit-vit K 500 1 each PO DAILY Supplement 06/12/20 03/02/21 mcg-berberine 90 mg-hops 370 mg tablet lisinopril 10 1 each PO DAILY bp 07/28/20 03/02/21 mg-hydrochlorothiazide 12.5 mg tablet diazepam 2 mg tablet 2 mg PO Q12HP PRN Anxiety 09/08/20 03/02/21 simvastatin 20 mg tablet 20 mg PO DAILY Cholesterol 09/08/20 03/02/21 Previous Rx's Medication Instructions Recorded clindamycin HCl 300 mg capsule 300 mg PO Q8H 10 days #30 caps 01/06/23 (Cleocin HCl) ibuprofen 600 mg tablet 600 mg PO Q8H PRN pain #30 tabs 01/06/23 Allergies Allergy/AdvReac Type Severity Reaction Status Date / Time Macrolide Antibiotics Allergy Mild Verified 01/06/23 06:40 [MACROLIDE ANTIBIOTICS] propoxyphene Allergy Mild Verified 01/06/23 06:40 [From DARVOCET-N] codeine [CODEINE] Allergy Unknown Verified 01/06/23 06:40 erythromycin base Allergy Unknown Verified 01/06/23 06:40 [ERYTHROMYCIN BASE] Sulfa (Sulfonamide Allergy Unknown Verified 01/06/23 06:40 Antibiotics) [SULFA (SULFONAMIDE ANTIBIOTICS)] cimetidine [From Tagamet] Allergy Verified 01/06/23 06:40 Penicillins Allergy Verified 01/06/23 06:40 [facility] Disclaimer: The information contained in this section may have been updated after the patient was seen, as this information can be updated by other users. Social History Smoking Status: Light tobacco smoker tobacco type: cigarettes packs per day: 1 second hand exposure: Yes alcohol intake: never substance use type: denies use current occupational status: employ
[2023-01-08] VITALS (8 sets, daily range): BP systolic 99–151; BP diastolic 52–91; PULSE 60–79; RESP 17–28; TEMP 36.8–37.1; O2SAT 94–98; BMI 36.6
--- NOTE | 2023-01-08 00:35 | PC.NURSE ---
pt assisted to the bathroom and then obtained blood cx & lactic
[2023-01-08 01:58] LABS: Coronavirus 19, PCR Not Detected (NotDetected); Influenza A, PCR Not Detected (NotDetected); Influenza B, PCR Not Detected (NotDetected)
--- NOTE | 2023-01-08 02:03 | PC.NURSE ---
hospitalist at bedside
--- NOTE | 2023-01-08 02:27 | EXP.HP ---
History of Present Illness *Admission Date: 01/08/23 *Reason for visit:: umbilicus abscess *History of present illness: 52 year old that presents to ED for c/o pain related to her umbilicus area. PMHX Abscesses and tobacco abuse. Pt states pain started Monday. She attempted to stick a cotton swab in her umbilicus to attempt to drain whatever was causing the pain. Patient states no drainage just blood. After that she reports drainage for four days. Denies fever, cough, CP. She called her PCP. PCP recommended coming to the ED. Pt states she could not find a ride until Monday to come to the ED. She was seen and failed outpatient therapy of umbilicus abscess. She returned to the ED and the CT of her abdomen revealed cellulitis of the umbilicus with 2 cm evolving abscess. The ED physician consult the hospitalist team for admission. The patient will be medically admitted and have a surgical consult placed. [facility] Disclaimer: The information contained in this section may have been updated after the patient was seen, as this information can be updated by other users. Social History Smoking Status: Light tobacco smoker tobacco type: cigarettes packs per day: 1 second hand exposure: Yes alcohol intake: never substance use type: denies use current occupational status: employed Travel in the last 8 weeks: Inside the [place] household members: none housing: house current occupational exposures/hazards: No caffeine: No Review of Systems Review of Systems Review of systems:: pertinent systems reviewed and negative unless documented below Constitutional Constitutional: Reports system reviewed and no additional complaints, except as documented Eyes Eyes: Reports system reviewed and no additional complaints, except as documented ENT Ears, Nose, Mouth, and Throat: Reports system reviewed and no additional complaints, except as documented *Cardiovascular Cardiovascular: Reports system reviewed and no additional complaints, except as documented *Respiratory Respiratory: Reports system reviewed and no additional complaints, except as documented *Gastrointestinal Gastrointestinal: Reports abdominal pain, Reports nausea and Denies vomiting *Genitourinary Genitourinary: Reports system reviewed and no additional complaints, except as documented *Musculoskeletal Musculoskeletal: Reports system reviewed and no additional complaints, except as documented *Neurologic Neurologic: Reports system reviewed and no additional complaints, except as documented Meds Home Medications and Allergies Home Medications Medication Instructions Recorded Confirmed Type linaclotide 72 mcg capsule 290 mcg PO DAILY stomach 05/13/20 03/02/21 History xftazhnpgcre-rrjrwfml-dzugf acid 1 each PO DAILY Supplement 06/12/20 03/02/21 History 400 mcg-vitamin K 80 mcg capsule ondansetron HCl 4 mg tablet 4 mg PO DAILYP PRN Nausea 06/12/20 03/02/21 History prucalopride 2 mg tablet 2 mg PO DAILY stomach 06/12/20 03/02/21 History vit I87-ipfgebwkj factor-folic 1 each PO DAILY Supplement 06/12/20 03/02/21 History acid cmb#2 500 mcg-20 mg-800 mcg tablet vitamin D3 500 unit-vit K 500 1 each PO DAILY Supplement 06/12/20 03/02/21 History mcg-berberine 90 mg-hops 370 mg tablet lisinopril 10 1 each PO DAILY bp 07/28/20 03/02/21 History mg-hydrochlorothiazide 12.5 mg tablet diazepam 2 mg tablet 2 mg PO Q12HP PRN Anxiety 09/08/20 03/02/21 History simvastatin 20 mg tablet 20 mg PO DAILY Cholesterol 09/08/20 03/02/21 History clindamycin HCl 300 mg capsule 300 mg PO Q8H 10 days #30 caps 01/06/23 Rx (Cleocin HCl) ibuprofen 600 mg tablet 600 mg PO Q8H PRN pain #30 tabs 01/06/23 Rx New Prescriptions to Start Prescriptions: Allergies Allergy/AdvReac Type Severity Reaction Status Date / Time Macrolide Antibiotics Allergy Mild Verified 01/06/23 06:40 [MACROLIDE ANTIBIOTICS] propoxy
--- NOTE | 2023-01-08 02:37 | PC.NURSE ---
Pt arrived to floor via wheelchair @ [id number]
--- NOTE | 2023-01-08 06:30 | PC.NURSE ---
pt had c/o abd/navel pain relieved with morphine. rested well throughout the night.
--- NOTE | 2023-01-08 08:49 | EXP.PHA.CONS ---
Pharmacy Consult Date: 01/08/23 Time: 08:49 Referring provider: DR MENDOZA Reason for Consult:: VANCOMYCIN DOSING CONSULT Allergies Allergy/AdvReac Type Severity Reaction Status Date / Time Macrolide Antibiotics Allergy Mild Verified 01/06/23 06:40 [MACROLIDE ANTIBIOTICS] propoxyphene Allergy Mild Verified 01/06/23 06:40 [From DARVOCET-N] codeine [CODEINE] Allergy Unknown Verified 01/06/23 06:40 erythromycin base Allergy Unknown Verified 01/06/23 06:40 [ERYTHROMYCIN BASE] Sulfa (Sulfonamide Allergy Unknown Verified 01/06/23 06:40 Antibiotics) [SULFA (SULFONAMIDE ANTIBIOTICS)] cimetidine [From Tagamet] Allergy Verified 01/06/23 06:40 Penicillins Allergy Verified 01/06/23 06:40 Home Medications Medication Instructions Recorded Confirmed Type ondansetron HCl 4 mg tablet 4 mg PO DAILYP PRN Nausea 06/12/20 01/08/23 History vit X47-tapxryvhd factor-folic 1 each PO DAILY Supplement 06/12/20 01/08/23 History acid cmb#2 500 mcg-20 mg-800 mcg tablet vitamin D3 500 unit-vit K 500 1 each PO DAILY Supplement 06/12/20 01/08/23 History mcg-berberine 90 mg-hops 370 mg tablet clindamycin HCl 300 mg capsule 300 mg PO Q8H Infection 01/08/23 01/08/23 History (Cleocin HCl) New Prescriptions to Start Prescriptions: Height: 1.57 m Weight: 90.129 kg Laboratory Results:: Laboratory Results - last 24 hr 01/07/23 22:30: WBC 10.8, RBC 4.83, Hgb 14.3, Hct 44.0, MCV 91.1, MCH 29.7, MCHC 32.6, RDW 13.6, Plt Count 270, MPV 9.2, Neut % (Auto) 58.6, Lymph % (Auto) 31.5, [place] % (Auto) 6.4, Eos % (Auto) 2.8, Baso % (Auto) 0.7, Neut # (Auto) 6.3, Lymph # (Auto) 3.4, [place] # (Auto) 0.7, Eos # (Auto) 0.3, Baso # (Auto) 0.1, ESR 14 06/24/23 22:30: Sodium 137, Potassium 3.9, Chloride 99, Carbon Dioxide 28, Anion Gap 13.9, BUN 19 H, Creatinine 0.80, Estimated Creat Clear 109, Estimated GFR 75, Est GFR ( Amer) 90, Glucose 110 H, Calcium 9.2, Total Bilirubin 0.4, AST 41 H, ALT 29, Alkaline Phosphatase 90, C-Reactive Protein 24.7 H, Total Protein 7.3, Albumin 4.3, Globulin 3.0, Albumin/Globulin Ratio 1.4, Procalcitonin 0.052 01/08/23 00:40: Lactate 1.0 01/08/23 01:50: SARS-CoV-2 (PCR) Not detected, Influenza A Untype (PCR) Not detected, Influenza Type B (PCR) Not detected Assessment and Plan Assessment and plan all Dx Assessment and Plan for all problems:: Pharmacokinetic dosing service Objective: Age: 52 yo Serum creatinine: 0.8 mg/dL Height: 61.8 Inches Weight (kg): 90.129 Diagnosis: CELLULITIS/ABSCESS Assessment: IBW (kg): 49.64 Dosing wt(kg): 65.8 Estimated Creatinine clearance (ml/min): 83.5 CRCL method: Cockcroft and Gault using adjusted body weight Drug selected: Vancomycin Loading dose (mg): 1500 MG Vd (liters): 46.1 (factor used: 0.7 L/kg) Erik (hr-1): 0.074 Half life (hrs): 9.37 CLvanco=?? 3.411 L/hr Recommended dose: 1000 mg Interval: 12 hrs Infusion time (hrs): 2.0 Predicted peak (mcg/mL): 34.3 Predicted trough (mcg/mL): 16.37 Adjusted body weight was selected for vancomycin dosing. Recommendations: Give Vancomycin 1000 mg q 12 hrs with an expected Cpeak of 34.3 mcg/ml and an expected Ctrough of 16.37 mcg/ml TO START 01/07/23 AT 14:00, GIVEN DOSE OF VANCOMYCIN 1500 MG IV ONCE IN THE ED 01/08/23 AT 02:02. AUC 0-24 /SARA Data: SARA 0.5 mcg/mL:?? AUC/SARA:? 1172.7 SARA 1.0 mcg/mL:?? AUC/SARA:? 586.3 --------- SARA 1.5 mcg/mL:?? AUC/SARA:? 390.9 SARA 2.0 mcg/mL:?? AUC/SARA:? 293.2 Thank you for the consult
--- NOTE | 2023-01-08 09:09 | EXP.SURG.CON ---
History of Present Illness *Admission Date: 01/08/23 *Reason for visit:: Umbilical abscess *History of present illness: This is a 52-year-old female seen in consultation from the primary service for evaluation regarding umbilical abscess. Please see HPI forwarded from admission H&P below. Forwarded from admission H&P: 52 year old that presents to ED for c/o pain related to her umbilicus area. PMHX Abscesses and tobacco abuse. Pt states pain started Monday. She attempted to stick a cotton swab in her umbilicus to attempt to drain whatever was causing the pain. Patient states no drainage just blood. After that she reports drainage for four days. Denies fever, cough, CP. She called her PCP. PCP recommended coming to the ED. Pt states she could not find a ride until Monday to come to the ED. She was seen and failed outpatient therapy of umbilicus abscess. She returned to the ED and the CT of her abdomen revealed cellulitis of the umbilicus with 2 cm evolving abscess. The ED physician consult the hospitalist team for admission. The patient will be medically admitted and have a surgical consult placed. [facility] Disclaimer: The information contained in this section may have been updated after the patient was seen, as this information can be updated by other users. Social History Smoking Status: Light tobacco smoker tobacco type: cigarettes packs per day: 1 second hand exposure: Yes alcohol intake: never substance use type: denies use current occupational status: employed Travel in the last 8 weeks: [place] the [place] household members: none housing: house current occupational exposures/hazards: No caffeine: No Review of Systems *Neurologic Neurologic: Reports system reviewed and no additional complaints, except as documented Meds Home Medications and Allergies Home Medications Medication Instructions Recorded Confirmed Type ondansetron HCl 4 mg tablet 4 mg PO DAILYP PRN Nausea 06/12/20 01/08/23 History vit Y73-riaqtawtq factor-folic 1 each PO DAILY Supplement 06/12/20 01/08/23 History acid cmb#2 500 mcg-20 mg-800 mcg tablet vitamin D3 500 unit-vit K 500 1 each PO DAILY Supplement 06/12/20 01/08/23 History mcg-berberine 90 mg-hops 370 mg tablet clindamycin HCl 300 mg capsule 300 mg PO Q8H Infection 01/08/23 01/08/23 History (Cleocin HCl) New Prescriptions to Start Prescriptions: Allergies Allergy/AdvReac Type Severity Reaction Status Date / Time Macrolide Antibiotics Allergy Mild Verified 01/06/23 06:40 [MACROLIDE ANTIBIOTICS] propoxyphene Allergy Mild Verified 01/06/23 06:40 [From DARVOCET-N] codeine [CODEINE] Allergy Unknown Verified 01/06/23 06:40 erythromycin base Allergy Unknown Verified 01/06/23 06:40 [ERYTHROMYCIN BASE] Sulfa (Sulfonamide Allergy Unknown Verified 01/06/23 06:40 Antibiotics) [SULFA (SULFONAMIDE ANTIBIOTICS)] cimetidine [From Tagamet] Allergy Verified 01/06/23 06:40 Penicillins Allergy Verified 01/06/23 06:40 Exam (Inpt) Vital signs and Labs for Last 24 Hours: Temp Pulse Resp BP Pulse Ox 98.7 F 63 17 139/91 H 97 01/08/23 07:25 01/08/23 07:25 01/08/23 07:25 01/08/23 07:25 01/08/23 07:25 Laboratory Results - last 24 hr 01/07/23 22:30: WBC 10.8, RBC 4.83, Hgb 14.3, Hct 44.0, MCV 91.1, MCH 29.7, MCHC 32.6, RDW 13.6, Plt Count 270, MPV 9.2, Neut % (Auto) 58.6, Lymph % (Auto) 31.5, [place] % (Auto) 6.4, Eos % (Auto) 2.8, Baso % (Auto) 0.7, Neut # (Auto) 6.3, Lymph # (Auto) 3.4, [place] # (Auto) 0.7, Eos # (Auto) 0.3, Baso # (Auto) 0.1, ESR 14 01/07/23 22:30: Sodium 137, Potassium 3.9, Chloride 99, Carbon Dioxide 28, Anion Gap 13.9, BUN 19 H, Creatinine 0.80, Estimated Creat Clear 109, Estimated GFR 75, Est GFR ( Amer) 90, Glucose 110 H, Calcium 9.2, Total Bilirubin 0
--- NOTE | 2023-01-08 09:56 | EXP.ACUTE.PN ---
Subjective *Date: 01/08/23 *Time: 09:56 Interval history: Complains of central abdominal pain worse to touch. Pain described as sharp and constant. Medical Exam Vital signs and Labs for Last 24 Hours: Vital Signs Temp Pulse Pulse Resp BP BP Pulse Ox 01/08/23 07:25 98.7 F 63 17 139/91 H 97 01/08/23 03:07 98.6 F 70 28 H 144/79 H 98 01/08/23 02:15 98.3 F 73 18 118/72 01/08/23 01:30 73 99/52 L 94 L 01/08/23 01:00 67 115/57 L 95 01/08/23 00:00 79 134/70 96 01/07/23 23:30 73 116/64 90 L 01/07/23 21:44 98.3 F 85 20 170/90 H 96 Intake and Output 01/07/23 01/08/23 01/08/23 23:59 07:59 15:59 Intake Total 286 / 286 Output Total 0 / 0 Balance 286 / 286 Intake: Intake, Total IV Amount 286 / 286 Vancomycin HCl 1,000 mg In 0.9 286 / 286 % Sodium Chloride 250 ml @ 125 mls/hr IV Q12H COUNT INCLUDES THE [facility] Rx#:[id number] Output: Output, Urine Amount 0 / 0 Other: Number of Unmeasured Voids 1 Weight 86.183 kg 90.129 kg 90.129 kg Patient Weight 01/08/23 23:59 Weight 90.129 kg Laboratory Results - last 24 hr 01/07/23 22:30: WBC 10.8, RBC 4.83, Hgb 14.3, Hct 44.0, MCV 91.1, MCH 29.7, MCHC 32.6, RDW 13.6, Plt Count 270, MPV 9.2, Neut % (Auto) 58.6, Lymph % (Auto) 31.5, [place] % (Auto) 6.4, Eos % (Auto) 2.8, Baso % (Auto) 0.7, Neut # (Auto) 6.3, Lymph # (Auto) 3.4, [place] # (Auto) 0.7, Eos # (Auto) 0.3, Baso # (Auto) 0.1, ESR 14 01/07/23 22:30: Sodium 137, Potassium 3.9, Chloride 99, Carbon Dioxide 28, Anion Gap 13.9, BUN 19 H, Creatinine 0.80, Estimated Creat Clear 109, Estimated GFR 75, Est GFR ( Amer) 90, Glucose 110 H, Calcium 9.2, Total Bilirubin 0.4, AST 41 H, ALT 29, Alkaline Phosphatase 90, C-Reactive Protein 24.7 H, Total Protein 7.3, Albumin 4.3, Globulin 3.0, Albumin/Globulin Ratio 1.4, Procalcitonin 0.052 01/08/23 00:40: Lactate 1.0 01/08/23 01:50: SARS-CoV-2 (PCR) Not detected, Influenza A Untype (PCR) Not detected, Influenza Type B (PCR) Not detected I & O for Labs for Last 24 Hours: Intake & Output 01/05/23 01/06/23 01/07/23 01/08/23 23:59 23:59 23:59 23:59 Intake Total 286 / 286 Output Total 0 / 0 Balance 286 / 286 Weight 86.183 kg 90.129 kg Microbiology Reports for the Last 24 Hours: Microbiology 01/07/23 22:25 Abdomen Gram Stain - Final Comments:: Central area of erythema around umbilicus area. Tender. Assessment and Plan *Assessment and plan (1) Abscess: Status: Acute Category: Medical Code(s): L02.91 - Cutaneous abscess, unspecified Plan Plan 52 year old that presents to ED for c/o pain related to her umbilicus area.? Pt states pain started Monday. She attempted to stick a cotton swab in her umbilicus to attempt to drain whatever was causing the pain. Patient states no drainage just blood. After that she reports drainage for four days. Denies fever, cough, CP.? She called her PCP. PCP recommended coming to the ED. Pt states she could not find a ride until Monday to come to the ED. She was seen and failed outpatient therapy of umbilicus abscess. She returned to the ED and the CT of her abdomen revealed cellulitis of the umbilicus with 2 cm evolving abscess. The ED physician consult the hospitalist team for admission. The patient will be medically admitted and have a surgical consult placed.? The plan as to follow: ABSCESS OF UMBILICUS -Pain started 01/02. Seen 01/06 and failed outpatient therapy of clindamycin -Returned to ED 01/07 c/o abd pain related to abscess in umbilicus. -CT reviewed and reveals?cellulitis of the umbilicus with 2 cm phlegmon or evolving abscess. ?Discussed with surgery n.p.o. after midnight possible I&D tomorrow. Started on vancomycin overnight we will continue. TOBACCO ABUSE -nicotine patch if needed -Denies COPD hx. Use of inhalers at home -Duoneb q 6 hr as needed -Incidental finding of pneumonitis on abd CT Full code NPO
[2023-01-08 10:52] LABS: Basophils # 0.1 K/mm3 (0-0.2); Basophils % 0.6 % (0.1-2.0); Eosinophils # 0.2 K/mm3 (0.0-0.4); Eosinophils % 2.6 % (0.1-12.0); Hematocrit 30.6 % (37.0-47.0); Lymphocytes # 3.6 K/mm3 (0.7-4.5); Lymphocytes % 39.5 % (10-50); Mean Corpuscular HGB Conc 32.2 g/dL (31.8-35.4); Mean Corpuscular Volume 90.2 fl (81-99); Monocytes # 0.7 K/mm3 (0.1-1.0); Monocytes % 7.6 % (1.7-9.3); Neutrophils # 4.5 K/mm3 (1.8-7.8); Neutrophils % 49.7 % (37.0-80.0); Platelet Count 306 K/mm3 (142-424); Red Blood Count 3.39 M/mm3 (4.20-5.40); Red Cell Distribution Width 13.7 % (11.5-17.5); White Blood Count 9.1 K/mm3 (4.8-10.8)
--- NOTE | 2023-01-08 11:10 | HMH.PHAINT1 ---
Pharmacy Intervention Comments: MEDICATION RECONCILIATION COMPLETE USING LIST FROM MOST RECENT ED VISIT, EXTERNAL PHARMACY FILL HISTORY, AND PATIENT INTERVIEW. PATIENT STATES SHE DOES NOT TAKE ANY MEDICATIONS AT HOME AND CONFIRMED THAT WHEN ASKED IF SHE TAKES HCTZ.
[2023-01-08 11:13] LABS: Hemoglobin 9.9 g/dL (12.2-16.2)
--- NOTE | 2023-01-08 16:06 | PC.NURSE ---
per dr gurrola change dsg to naval as needed. pack naval with dry gauze and use tape to keep in place. no tegaderm. dsg changed once so far this shift with serosanguineous drainage. pt has c/o significant pain at naval at times, especially when ambulating. pt states its a feeling of heaviness in the area and states she has to splint area when going to the br/ coughing ect. daughter at [facility]. pt nor family has any concerns at this time. cb within reach.
--- NOTE | 2023-01-08 19:45 | PC.WOUNDNOTE ---
serosanguinous drainage noted. dsg changed with dry 4x4 and transpore tape
--- NOTE | 2023-01-08 20:00 | PC.NURSE ---
pt c/o navel pain 03/26. gave morphine, relieved pain. noting for reference last bm per pt was 01/07
--- NOTE | 2023-01-08 23:28 | PC.NURSE ---
report critical lab positive blood culture to [facility]
[2023-01-09 04:00] VITALS: BP 117/54; PULSE 61; RESP 20; TEMP 36.9; O2SAT 97; BMI 37.0
[2023-01-09 06:50] LABS: Basophils # 0.1 K/mm3 (0-0.2); Basophils % 0.8 % (0.1-2.0); Lymphocytes # 3.3 K/mm3 (0.7-4.5)
[2023-01-09 06:51] LABS: MANUAL DIFFERENTIAL MANUAL DIFFERENTIAL (MANUAL DIFF)
[2023-01-09 07:20] LABS: Chloride 106 mmol/L (98-107); Sodium 139 mmol/L (136-145)
[2023-01-09 07:21] LABS: Potassium 4.3 mmoL/L (3.5-5.1)
[2023-01-09 07:23] LABS: Blood Urea Nitrogen 12 mg/dl (7-17); Creatinine Clearance Estimated 155 mL/min (50-200); Eosinophils # 0.2 K/mm3 (0.0-0.4); Eosinophils % 2.9 % (0.1-12.0); Estimated Glomerular Filt Rate 104 ml/min (>60); GFR (African American) 126 ML/MIN (>60); Lymphocytes % 41.9 % (10-50); Mean Corpuscular HGB Conc 31.7 g/dL (31.8-35.4); Mean Corpuscular Hemoglobin 30.2 pg (27.0-31.2); Mean Corpuscular Volume 95.3 fl (81-99); Mean Platelet Volume 9.7 fl (7.4-10.4); Monocytes # 0.6 K/mm3 (0.1-1.0); Monocytes % 7.7 % (1.7-9.3); Neutrophils # 3.7 K/mm3 (1.8-7.8); Neutrophils % 46.7 % (37.0-80.0); Platelet Count 237 K/mm3 (142-424); Red Blood Count 4.62 M/mm3 (4.20-5.40); Red Cell Distribution Width 13.5 % (11.5-17.5); White Blood Count 7.8 K/mm3 (4.8-10.8)
[2023-01-09 07:24] LABS: Anion Gap 9.3 mEq/L (5-15); Calcium 8.9 mg/dl (8.4-10.2); Carbon Dioxide 28 mmol/L (22.0-30.0); Glucose 92 mg/dl (74-100)
[2023-01-09 07:26] LABS: Hemoglobin 13.9 g/dL (12.2-16.2)
[2023-01-09 07:33] VITALS: BP 120/84; PULSE 59; RESP 18; TEMP 36.9; O2SAT 99
[2023-01-09 08:27] LABS: Eosinophils % 4 % (0-3); Lymphocytes % 37 % (10-50); Monocytes % 6 % (2-9); Neutrophils % 53 % (42-76); Platelet Estimate Normal; RBC Morphology Normal; Total Cells Counted 100
--- NOTE | 2023-01-09 08:43 | P.PN_ITS ---
Subjective Patient reports: no new complaints Exam Data for Last 24 hours Vital signs and Labs for Last 24 Hours: Temp Pulse Resp BP Pulse Ox 98.4 F 59 L 18 120/84 99 01/09/23 07:33 01/09/23 07:33 01/09/23 07:33 01/09/23 07:33 01/09/23 07:33 Laboratory Results - last 24 hr 01/08/23 07:38: WBC 9.1, RBC 3.39 L D, Hgb 9.9 L D, Hct 30.6 L, MCV 90.2, MCH 29.0, MCHC 32.2, RDW 13.7, Plt Count 306, MPV 11.0 H, Neut % (Auto) 49.7, Lymph % (Auto) 39.5, [place] % (Auto) 7.6, Eos % (Auto) 2.6, Baso % (Auto) 0.6, Neut # (Auto) 4.5, Lymph # (Auto) 3.6, [place] # (Auto) 0.7, Eos # (Auto) 0.2, Baso # (Auto) 0.1 01/09/23 06:26: WBC 7.8, RBC 4.62 D, Hgb 13.9 D, Hct 44.0, MCV 95.3, MCH 30.2, MCHC 31.7 L, RDW 13.5, Plt Count 237, MPV 9.7, Neut % (Auto) 46.7, Lymph % (Auto) 41.9, [place] % (Auto) 7.7, Eos % (Auto) 2.9, Baso % (Auto) 0.8, Neut # (Auto) 3.7, Lymph # (Auto) 3.3, [place] # (Auto) 0.6, Eos # (Auto) 0.2, Baso # (Auto) 0.1, Total Counted 100, Neutrophils % (Manual) 53, Lymphocytes % (Manual) 37, Monocytes % (Manual) 6, Eosinophils % (Manual) 4 H, Platelet Estimate Normal, RBC Morphology Normal 01/09/23 06:26: Sodium 139, Potassium 4.3, Chloride 106, Carbon Dioxide 28, Anion Gap 9.3, BUN 12 D, Creatinine 0.60 D, Estimated Creat Clear 155, Estimated GFR 104, Est GFR ( Amer) 126 D, Glucose 92, Calcium 8.9 I & O for Last 24 hours: Intake & Output 01/06/23 01/07/23 01/08/23 01/09/23 11:59 11:59 11:59 11:59 Intake Total 286 / 286 600 / 600 Output Total 0 / 0 0 / 0 Balance 286 / 286 600 / 600 Weight 198 lb 11.2 oz 201 lb 11.2 oz Microbiology Reports for the Last 24 Hours: Microbiology 01/07/23 22:25 Abdomen Gram Stain - Final 01/07/23 22:25 Abdomen Wound Culture - Preliminary Gram Negative Rods 01/08/23 00:40 Blood Blood Culture - Preliminary Constitutional Constitutional: no acute distress *Routine Respiratory Exam Respiratory: Absent respiratory distress *Routine Cardiovascular Exam Cardiovascular: Absent tachycardia *Routine Abdominal Exam Comments: No spreading cellulitis. Some induration and mild blush remains. Continued purulent drainage from umbilicus. Progress Note: A&P Assessment and plan (1) Abscess: Status: Acute Assessment and plan: Umbilical/periumbilical abscess with spontaneous drainage. No spreading cellulitis. Although she may ultimately require more thorough incision and drainage in the operating room this is not urgently needed. Continue antibiotics (complete short-course of PO) Continue dressing changes Okay from surgical standpoint for discharge home with close outpatient follow-up (01/11/2023).
--- NOTE | 2023-01-09 11:07 | EXP.DC.SUM ---
General Admission date:: 01/08/23 HPI HPI HPI: This is a 52-year-old female seen in consultation from the primary service for evaluation regarding umbilical abscess. Please see HPI forwarded from admission H&P below. Forwarded from admission H&P: 52 year old that presents to ED for c/o pain related to her umbilicus area. PMHX Abscesses and tobacco abuse. Pt states pain started Monday. She attempted to stick a cotton swab in her umbilicus to attempt to drain whatever was causing the pain. Patient states no drainage just blood. After that she reports drainage for four days. Denies fever, cough, CP. She called her PCP. PCP recommended coming to the ED. Pt states she could not find a ride until Monday to come to the ED. She was seen and failed outpatient therapy of umbilicus abscess. She returned to the ED and the CT of her abdomen revealed cellulitis of the umbilicus with 2 cm evolving abscess. The ED physician consult the hospitalist team for admission. The patient will be medically admitted and have a surgical consult placed. Hospital Course Hospital Course Hospital Course: Plan 52 year old that presents to ED for c/o pain related to her umbilicus area.? Pt states pain started Monday. She attempted to stick a cotton swab in her umbilicus to attempt to drain whatever was causing the pain. Patient states no drainage just blood. After that she reports drainage for four days. Denies fever, cough, CP.? She called her PCP. PCP recommended coming to the ED. Pt states she could not find a ride until Monday to come to the ED. She was seen and failed outpatient therapy of umbilicus abscess. She returned to the ED and the CT of her abdomen revealed cellulitis of the umbilicus with 2 cm evolving abscess. The ED physician consult the hospitalist team for admission. The patient will be medically admitted and have a surgical consult placed.? The plan as to follow: ABSCESS OF UMBILICUS Culture growing gram-negative bacilli given patient's multidrug allergy I will discharge patient on 10 days of oral Levaquin with close follow-up with surgery as outpatient. 1 out of 2 blood cultures came back positive for gram-positive cocci most likely contamination clinically patient improved significantly with no fever or white blood cells. Patient to follow-up on final results of blood culture with her primary care physician and surgery as outpatient. TOBACCO ABUSE -nicotine patch if needed -Denies COPD hx. Use of inhalers at home -Duoneb q 6 hr as needed -Incidental finding of pneumonitis on abd CT On discharge the patient denied any chest pain, shortness of breath, nausea, vomiting. Exam Data for Last 24 hours Vital signs and Labs for Last 24 Hours: Temp Pulse Resp BP Pulse Ox 98.4 F 59 L 18 120/84 99 01/09/23 07:33 01/09/23 07:33 01/09/23 07:33 01/09/23 07:33 01/09/23 07:33 Laboratory Results - last 24 hr 01/08/23 07:38: Hgb 9.9 L D 01/09/23 06:26: WBC 7.8, RBC 4.62 D, Hgb 13.9 D, Hct 44.0, MCV 95.3, MCH 30.2, MCHC 31.7 L, RDW 13.5, Plt Count 237, MPV 9.7, Neut % (Auto) 46.7, Lymph % (Auto) 41.9, [place] % (Auto) 7.7, Eos % (Auto) 2.9, Baso % (Auto) 0.8, Neut # (Auto) 3.7, Lymph # (Auto) 3.3, [place] # (Auto) 0.6, Eos # (Auto) 0.2, Baso # (Auto) 0.1, Total Counted 100, Neutrophils % (Manual) 53, Lymphocytes % (Manual) 37, Monocytes % (Manual) 6, Eosinophils % (Manual) 4 H, Platelet Estimate Normal, RBC Morphology Normal 01/09/23 06:26: Sodium 139, Potassium 4.3, Chloride 106, Carbon Dioxide 28, Anion Gap 9.3, BUN 12 D, Creatinine 0.60 D, Estimated Creat Clear 155, Estimated GFR 104, Est GFR ( Amer) 126 D, Glucose 92, Calcium 8.9 I & O for Last 24 hours: Intake & Output 01/06/23 01/07/23 01/08/23 01/09/23 23:59 23:59 23:59 23:59 Intake Total 526 / 886 360 / 360 Output Total 0 / 0 0 / 0 Balance 526 / 886 360 / 360 Weight 86.183 kg 90.129 kg 91.49 kg
--- NOTE | 2023-01-09 11:31 | HMH.PHAINT1 ---
Pharmacy Intervention Comments: DISCHARGE MEDICATION COUNSELING PROVIDED. DISCUSSED STOPPING THE CLINDAMYCIN AND STARTING LEVOFLOXACIN. LEVAQUIN IS DAILY FOR 10 DAYS, THIS IS AN ANTIBIOTIC, TAKE WITH FOOD IT MAY CAUSE UPSET STOMACH N/V/D. NO QUESTIONS AT THIS TIME REGARDING MEDICATION. PATIENT DID ASK IF MD WAS SENDING IN A SECOND ANTIBIOTIC AND PAIN MEDICINE, I ADIVSED THAT PER HER CHART THE BLOOD CULTURE WAS SUSPECTED TO BE CONTAMINATED AND THAT NO PAIN MEDS WERE ORDERED. PATIENT VERBALIZED UNDERSTANDING.
--- NOTE | 2023-01-10 12:48 | CARE MANAGER ---
Called and spoke withpatient to discuss recent discharge. Patient states that she is having issues with changing her dressings, and plans to talk to Dr. Emmanuel this afternoon at her appt. She has picked up and started her antibiotic. No other concerns voiced at time of call.
== END 2023-01-09 12:28 | disposition home or self-care (01) ==
LOC: ER 01-08 02:00 → 2ND 01-08 02:04
PROVIDERS: Nurse Practitioner Critical Care Medicine; Admitting Provider Internal Medicine; Emergency Provider Emergency Medicine; PCP Nurse Practitioner Family; Visit Provider Internal Medicine
DX: L02.216 Cutaneous abscess of umbilicus (principal); F17.210 Nicotine dependence, cigarettes, uncomplicated; Z79.899 Other long term (current) drug therapy; I10 Essential (primary) hypertension; L03.316 Cellulitis of umbilicus; B95.4 Other streptococcus as the cause of diseases classified elsewhere; B96.89 Other specified bacterial agents as the cause of diseases classified elsewhere
CPT/HCPCS: G0378; 74177; 80048; 80053; 83605; 84145; 85007; 85014; 85018; 85025; 85048; 85049; 85651; 86140; 87040; 87070; 87077; 87186; 87205; 87635; 87636; 99285; C9803; J0131; J2405; J3370; Q9967; U0003; U0005

== ENCOUNTER 2023-01-28 20:12 | Emergency (ER) | payer MEDICARE, OTHER, SELFPAY ==
[2023-01-28 20:13] VITALS: BP 184/92; PULSE 93; RESP 18; TEMP 36.8; O2SAT 95; BMI 35.1
--- NOTE | 2023-01-28 20:35 | CT_ITS ---
PROCEDURE INFORMATION: Exam: CT Abdomen And Pelvis With Contrast Exam date and time: 01/28/2023 8:47 PM Age: 52 years old Clinical indication: Abdominal pain; Other: Umbilical pain; Additional info: Diffuse abd pain, recent abscess/cellulitis around umbilical. TECHNIQUE: Imaging protocol: Computed tomography of the abdomen and pelvis with contrast. Radiation optimization: All CT scans at this facility use at least one of these dose optimization techniques: automated exposure control; mA and/or kV adjustment per patient size (includes targeted exams where dose is matched to clinical indication); or iterative reconstruction. Contrast material: ISOVUE; Contrast volume: 75 ml; Contrast route: IV; REPORTING DATA: Count of CT and Cardiac NM exams in prior 12 months: This patient has received [address] and 0 known cardiac nuclear medicine studies in the 12 months prior to the current study. COMPARISON: CT ABDOMEN PELVIS W CON 01/07/2023 11:21 PM FINDINGS: Liver: Mild fatty liver infiltration. Stable right mid hepatic lobar cyst. Gallbladder and bile ducts: Normal. No calcified stones. No ductal dilation. Pancreas: Normal. No ductal dilation. Spleen: Normal. No splenomegaly. Adrenal glands: Normal. No mass. Kidneys and ureters: Normal. No hydronephrosis. Stomach and bowel: Moderate colonic stool burden. Scattered sigmoid colonic diverticula without pericolonic fat stranding. Nonobstructive bowel gas pattern. Appendix: No evidence of appendicitis. Intraperitoneal space: Unremarkable. No free air. No significant fluid collection. Vasculature: Atherosclerotic calcification of aortoiliac arteries. Lymph nodes: Unremarkable. No enlarged lymph nodes. Urinary bladder: Decompression urinary bladder. Reproductive: Unremarkable as visualized. Bones/joints: Stable ORIF of L3-L5 lumbar spine. Vertebral body heights grossly preserved. Cortices intact. Normal density. Soft tissues: Mild but decreased periumbilical subcutaneous fat stranding. No discrete fluid collection. IMPRESSION: 1. Decreased but persistent mild periumbilical inflammation without discrete fluid collection to suggest obviously drainable abscess. 2. Mild fatty infiltration.
--- NOTE | 2023-01-28 20:36 | HMH.EDGENADL ---
Discharge Plan Disposition Patient Disposition: Home, Self-Care Prescriptions Prescriptions: No Action ondansetron HCl 4 MG tablet 4 mg PO TIDP PRN (Reason: Nausea) vit D3-vit A-qtqfilmla-qlfl 1 EACH tablet 1 each PO DAILY vit V12-jgpkjef fact-FA cmb #2 1 EACH tablet 1 each PO DAILY rizatriptan 10 mg tablet 10 mg PO DAILYP PRN (Reason: Migraine Headache) levofloxacin 750 mg Tablet 750 mg PO Q24H 10 Days Qty: 10 0RF Referrals Follow up/Referrals: Viry Retana APRN [Primary Care Provider] - See instructions Activity Restrictions/Add. Instructions Additional Instructions/Restrictions: No evidence of any intra-abdominal pathology. Specifically no evidence of pancreatitis or worsening of your abdominal wall cellulitis or abscess. In fact that should significant improvement. No need to follow-up with Dr. Soliman and he may follow-up with primary care doctor as needed. Return to the emergency department any worsening or symptoms. Clinical Impressions Clinical Impression: Abdominal pain Instructions Patient Instructions: DI for Acute Abdominal Pain Discharge ED Provider: Radha Dwyer General Adult HPI General Chief complaint: Abdominal Pain Stated complaint: pain around bellybutton Time Seen by Provider: 01/28/23 20:25 Mode of Arrival: Ambulatory Source of Information: Patient Limitations: No Limitations Description of Symptoms (Recalled from ER Triage Doc. by RN): Pt ambulatory to ED via POV. Was seen in ED 3 weeks ago where umbilical abcess was discovered and drained. Referrerd to Dr. Soliman who followed up with wound care. Saturday 01/27 patient was seen by PCP for pain at umbilicus when she leaned against counter. Unable to get ahold of Dr. Soliman and told patient if pain persists to go to ER. Patient here with increased umbilical pain described as sharp, and stabbing that is radiating throughout entire abdomen. Denies fever, chills, or vomiting. Nausea present to which patient states that this is a chronic issue. History of Present Illness HPI narrative: Patient is a 52-year-old female presenting with abdominal pain and some chills. She states that she was diagnosed with periumbilical abscess and cellulitis also history was obtained through previous notes where she was admitted and evaluated Dr. Soliman who did a bedside I&D. Her wound culture grew gram-negative organism and she was started on Levaquin. She also had gram-positive positive blood culture but this was 1 of 2 sets and this was considered to be a contaminant. Patient states that she did have some improvement in symptoms and is significant worsening from a diffuse abdominal standpoint which prompted her return visit to the emergency department today. She states the pain is predominantly in the lower abdomen there is no redness there is no purulent drainage or abscess that she can see externally. She has had some chills but no fever. Related Data Home Medications Medication Instructions Recorded Confirmed ondansetron HCl 4 mg tablet 4 mg PO TIDP PRN Nausea 06/12/20 01/18/23 vit A00-edgoyyqgb factor-folic 1 each PO DAILY Supplement 06/12/20 01/18/23 acid cmb#2 500 mcg-20 mg-800 mcg tablet vitamin D3 500 unit-vit K 500 1 each PO DAILY Supplement 06/12/20 01/18/23 mcg-berberine 90 mg-hops 370 mg tablet rizatriptan 10 mg tablet 10 mg PO DAILYP PRN Migraine 01/08/23 01/18/23 Headache Previous Rx's Medication Instructions Recorded levofloxacin 750 mg tablet 750 mg PO Q24H 10 days #10 tabs 01/09/23 Allergies Allergy/AdvReac Type Severity Reaction Status Date / Time Macrolide Antibiotics Allergy Mild Verified 01/18/23 14:50 [MACROLIDE ANTIBIOTICS] propoxyphene Allergy Mild Verified 01/18/23 14:50 [From DARVOCET-N] codeine [CODEINE] Allergy Unknown Verified 01/18/23 14:50 erythromycin base Allergy Unknown Verified 01/18/23 14:50 [ERYTHROMYCIN BASE] Sulfa (Sulfonamide Allergy Unknown Verified 0
[2023-01-28 20:47] LABS: Basophils # 0.1 K/mm3 (0-0.2); Basophils % 0.6 % (0.1-2.0); Eosinophils # 0.2 K/mm3 (0.0-0.4); Eosinophils % 1.9 % (0.1-12.0); Hematocrit 45.9 % (37.0-47.0); Hemoglobin 14.5 g/dL (12.2-16.2); Lymphocytes # 3.8 K/mm3 (0.7-4.5); Mean Corpuscular HGB Conc 31.6 g/dL (31.8-35.4); Mean Corpuscular Hemoglobin 29.7 pg (27.0-31.2); Mean Corpuscular Volume 94.1 fl (81-99); Mean Platelet Volume 8.7 fl (7.4-10.4); Monocytes # 0.6 K/mm3 (0.1-1.0); Monocytes % 5.4 % (1.7-9.3); Neutrophils # 6.2 K/mm3 (1.8-7.8); Platelet Count 277 K/mm3 (142-424); Red Blood Count 4.87 M/mm3 (4.20-5.40); Red Cell Distribution Width 13.7 % (11.5-17.5); White Blood Count 10.8 K/mm3 (4.8-10.8)
[2023-01-28 20:50] LABS: Chloride 104 mmol/L (98-107); Sodium 141 mmol/L (136-145)
[2023-01-28 20:51] LABS: Potassium 3.4 mmoL/L (3.5-5.1)
[2023-01-28 20:53] LABS: Alanine Aminotransferase 32 U/L (12-78); Alkaline Phosphatase 86 U/L (38-126); Anion Gap 12.4 mEq/L (5-15); Aspartate Amino Transferase 38 U/L (14-36); Bilirubin,Total 0.4 mg/dl (0.2-1.3); Blood Urea Nitrogen 16 mg/dl (7-17); Carbon Dioxide 28 mmol/L (22.0-30.0); Creatinine Clearance Estimated 111 mL/min (50-200); Estimated Glomerular Filt Rate 75 ml/min (>60); GFR (African American) 90 ML/MIN (>60); Lipase 242 U/L (23-300)
[2023-01-28 20:54] LABS: Albumin Level 4.2 g/dl (3.5-5.0); Albumin/Globulin Ratio 1.3 (1.1-1.8); Calcium 9.7 mg/dl (8.4-10.2); Globulin 3.2 g/dL (1.3-3.2); Glucose 122 mg/dl (74-100); Total Protein,Serum 7.4 g/dl (6.3-8.2)
--- NOTE | 2023-01-28 21:10 | PC.NURSE ---
Cultures and lactic drawn and sent to lab. No needs voiced at this time.
[2023-01-28 21:25] LABS: Lactic Acid 1.6 mmol/L (0.7-2.1)
[2023-01-28 21:39] VITALS: BP 141/66; PULSE 75; RESP 18; TEMP 36.8; O2SAT 92
== END 2023-01-28 21:43 | disposition home or self-care (01) ==
PROVIDERS: Emergency Provider Student in an Organized Health Care Education/Training Program; PCP Nurse Practitioner Family
DX: R10.33 Periumbilical pain (principal); R68.83 Chills (without fever); F17.210 Nicotine dependence, cigarettes, uncomplicated
CPT/HCPCS: 74177; 80053; 83605; 83690; 85025; 87040; 96361; 96374; 96375; 99285; J2405; Q9967

== ENCOUNTER 2023-03-01 08:27 | Emergency (ER) | payer MEDICARE, OTHER, SELFPAY ==
[2023-03-01 08:44] VITALS: BP 208/95; PULSE 73; RESP 19; TEMP 36.6; O2SAT 97; BMI 34.2
--- NOTE | 2023-03-01 08:50 | HMH.EDGENADL ---
Discharge Plan Disposition Patient Disposition: Home, Self-Care Condition: Good Prescriptions Prescriptions: New pantoprazole 40 mg tablet,delayed release (DR/EC) 40 mg PO DAILY Qty: 30 0RF promethazine 25 mg tablet 25 mg PO TID PRN (Reason: nausea and vomiting) Qty: 14 0RF No Action ondansetron HCl 4 MG tablet 4 mg PO TIDP PRN (Reason: Nausea) vit D3-vit H-eivuowmqb-cmuy 1 EACH tablet 1 each PO DAILY vit Y13-mieptlp fact-FA cmb #2 1 EACH tablet 1 each PO DAILY rizatriptan 10 mg tablet 10 mg PO DAILYP PRN (Reason: Migraine Headache) levofloxacin 750 mg Tablet 750 mg PO Q24H 10 Days Qty: 10 0RF Referrals Follow up/Referrals: Viry Retana APRN [Primary Care Provider] - See instructions Activity Restrictions/Add. Instructions Additional Instructions/Restrictions: You were evaluated in the emergency department today. Please moss picker your prescription at the pharmacy and take as prescribed. Orally hydrate at home is much as possible. Eat a bland diet. Follow-up with your primary care provider over the next 3 days for reassessment. Return to the emergency department for new or worsening symptoms. Clinical Impressions Clinical Impression: Gastroenteritis Acute pancreatitis Qualifiers: Pancreatitis type: unspecified pancreatitis type Acute pancreatitis complication: unspecified Qualified Code(s): K85.90 - Acute pancreatitis without necrosis or infection, unspecified Instructions Patient Instructions: DI for Pancreatitis, Gastroenteritis Diet Discharge ED Provider: Carol Garcia General Adult HPI General Chief complaint: Upper Respiratory Infection Stated complaint: diarrhea,headache, exposure to Covid Time Seen by Provider: 03/01/23 08:30 Mode of Arrival: Ambulatory Source of Information: Patient Limitations: No Limitations Description of Symptoms (Recalled from ER Triage Doc. by RN): 52 yo F presents to ED with c/o COVID exposure. pt reports symptoms began over 1.5 weeks ago. pt reports covid test at pcp office last monday was negative. symptoms include diarrhea, chillls, sweats, headache. History of Present Illness HPI narrative: This patient is a 52-year-old female with a history of IBS and pancreatitis, who takes Zofran and Linzess regularly presenting to the emergency department for evaluation with concern for epigastric discomfort, nausea, and diffuse, watery diarrhea that started over the weekend before last. She has had symptoms for approximately 1.5 weeks now. She notes that family members at home have COVID-19. She denies any significant abdominal pain, but she notes that it feels like she ate something greasy and it is sitting on her stomach. She denies any chest pain, shortness of breath, cough, congestion, rashes, or swelling. She denies any blood in her stools or dark tarry stools. Related Data Home Medications Medication Instructions Recorded Confirmed ondansetron HCl 4 mg tablet 4 mg PO TIDP PRN Nausea 06/12/20 01/18/23 vit G57-rutdnavoz factor-folic 1 each PO DAILY Supplement 06/12/20 01/18/23 acid cmb#2 500 mcg-20 mg-800 mcg tablet vitamin D3 500 unit-vit K 500 1 each PO DAILY Supplement 06/12/20 01/18/23 mcg-berberine 90 mg-hops 370 mg tablet rizatriptan 10 mg tablet 10 mg PO DAILYP PRN Migraine 01/08/23 01/18/23 Headache Previous Rx's Medication Instructions Recorded levofloxacin 750 mg tablet 750 mg PO Q24H 10 days #10 tabs 01/09/23 pantoprazole 40 mg tablet,delayed 40 mg PO DAILY #30 tabs 03/01/23 release promethazine 25 mg tablet 25 mg PO TID PRN nausea and 03/01/23 vomiting #14 tabs Allergies Allergy/AdvReac Type Severity Reaction Status Date / Time Macrolide Antibiotics Allergy Mild Verified 01/18/23 14:50 [MACROLIDE ANTIBIOTICS] propoxyphene Allergy Mild Verified 01/18/23 14:50 [From DARVOCET-N] codeine [CODEINE] Allergy Unknown Verified 01/18/23 14:50 erythromycin base Allergy Unknown
[2023-03-01 08:52] LABS: Coronavirus 19, PCR Not Detected (NotDetected); Influenza A, PCR Not Detected (NotDetected); Influenza B, PCR Not Detected (NotDetected)
[2023-03-01 09:01] VITALS: BP 195/92; PULSE 60; O2SAT 98
--- NOTE | 2023-03-01 09:01 | ECG_ITS ---
APPROVED REPORT Exam: Resting ECG HR:58 bpm ECG Measurements Heart Rate 58 AXES NE 159 P 40 QRSd 96 QRS -16 QT 406 T 32 QTc 404 Conclusion SINUS BRADYCARDIA BORDERLINE ECG UNCONFIRMED REPORT Electronically signed by : Osman Huerta MD 03/03/2023 08:43:46
[2023-03-01 09:30] LABS: Basophils # 0.1 K/mm3 (0-0.2); Basophils % 0.9 % (0.1-2.0); Eosinophils # 0.2 K/mm3 (0.0-0.4); Eosinophils % 2.2 % (0.1-12.0); Hematocrit 46.3 % (37.0-47.0); Hemoglobin 14.9 g/dL (12.2-16.2); Lymphocytes # 3.1 K/mm3 (0.7-4.5); Lymphocytes % 34.8 % (10-50); Mean Corpuscular HGB Conc 32.1 g/dL (31.8-35.4); Mean Corpuscular Hemoglobin 30.2 pg (27.0-31.2); Mean Corpuscular Volume 94.2 fl (81-99); Monocytes # 0.4 K/mm3 (0.1-1.0); Monocytes % 4.8 % (1.7-9.3); Neutrophils % 57.2 % (37.0-80.0); Platelet Count 270 K/mm3 (142-424); Red Blood Count 4.92 M/mm3 (4.20-5.40); Red Cell Distribution Width 13.4 % (11.5-17.5); White Blood Count 8.8 K/mm3 (4.8-10.8)
[2023-03-01 09:37] LABS: Chloride 107 mmol/L (98-107)
[2023-03-01 09:38] LABS: Potassium 4.7 mmoL/L (3.5-5.1); Sodium 142 mmol/L (136-145)
[2023-03-01 09:40] VITALS: BP 186/100; PULSE 58; O2SAT 98
[2023-03-01 09:40] LABS: Alanine Aminotransferase 32 U/L (12-78); Alkaline Phosphatase 75 U/L (38-126); Anion Gap 16.7 mEq/L (5-15); Aspartate Amino Transferase 42 U/L (14-36); Bilirubin,Total 0.7 mg/dl (0.2-1.3); Blood Urea Nitrogen 14 mg/dl (7-17); Carbon Dioxide 23 mmol/L (22.0-30.0); Creatinine Clearance Estimated 144 mL/min (50-200); Estimated Glomerular Filt Rate 104 ml/min (>60); GFR (African American) 126 ML/MIN (>60)
[2023-03-01 09:41] LABS: Albumin Level 4.2 g/dl (3.5-5.0); Albumin/Globulin Ratio 1.2 (1.1-1.8); Calcium 10.1 mg/dl (8.4-10.2); Globulin 3.5 g/dL (1.3-3.2); Glucose 97 mg/dl (74-100); Lipase 320 U/L (23-300); Total Protein,Serum 7.7 g/dl (6.3-8.2)
[2023-03-01 10:15] VITALS: BP 181/87; PULSE 66; O2SAT 100
[2023-03-01 11:15] VITALS: BP 168/90; PULSE 85; RESP 20; TEMP 36.7; O2SAT 98
== END 2023-03-01 11:22 | disposition home or self-care (01) ==
PROVIDERS: Emergency Provider Emergency Medicine; PCP Nurse Practitioner Family
DX: K85.90 Acute pancreatitis without necrosis or infection, unspecified (principal); R19.7 Diarrhea, unspecified; R51.9 Headache, unspecified; Z87.891 Personal history of nicotine dependence; R00.1 Bradycardia, unspecified
CPT/HCPCS: 80053; 83690; 83735; 85025; 87636; 93005; 96361; 96374; 96375; 99285; J2405

== ENCOUNTER → 2023-03-03 11:18 | Outpatient (CLI) | payer MEDICARE, OTHER, SELFPAY ==
--- NOTE | 2023-03-03 11:59 | XR_ITS ---
FINAL REPORT CLINICAL HISTORY: ARTHRALGIA OF RIGHT HAND FINDINGS: Right hand Three views were obtained. There is no acute fracture or dislocation. The joint spaces appear normal. No soft tissue abnormality is identified. IMPRESSION: No acute process. Reviewed, Interpreted and Dictated by Esteban Hicks III, MD Transcribed by Debra Mata Authenticated and [facility]
[2023-03-03 12:15] LABS: Adenovirus F 40/41, stool Not Detected (NotDetected); Astrovirus Not Detected (NotDetected); Campylobacter Not Detected (NotDetected); Cryptosporidium Not Detected (NotDetected); Cyclospora Cayetanesis Not Detected (NotDetected); Entamoeba histolytica Not Detected (NotDetected); Enteroaggregative E coli Not Detected (NotDetected); Enteropathogenic E coli Not Detected (NotDetected); Enterotoxigenic E coli Not Detected (NotDetected); Giardia lamblia Not Detected (NotDetected); Norovirus Not Detected (NotDetected); Plesimonas Shigalloides, PCR Not Detected (NotDetected); Rotavirus A Not Detected (NotDetected); Salmonella, PCR Not Detected (NotDetected); Sapovirus Not Detected (NotDetected); Shiga-like toxin E coli Not Detected (NotDetected); Shigella Enterovasive E coli Not Detected (NotDetected); Vibrio Cholerae Not Detected (NotDetected); Vibrio, PCR Not Detected (NotDetected); Yersinia Entercolitica, PCR Not Detected (NotDetected)
[2023-03-03 12:36] LABS: Basophils # 0.1 K/mm3 (0-0.2); Basophils % 0.8 % (0.1-2.0); Eosinophils # 0.2 K/mm3 (0.0-0.4); Eosinophils % 1.8 % (0.1-12.0); Hematocrit 45.5 % (37.0-47.0); Hemoglobin 14.8 g/dL (12.2-16.2); Lymphocytes # 3.7 K/mm3 (0.7-4.5); Lymphocytes % 41.1 % (10-50); Mean Corpuscular HGB Conc 32.4 g/dL (31.8-35.4); Mean Corpuscular Hemoglobin 30.4 pg (27.0-31.2); Mean Corpuscular Volume 93.6 fl (81-99); Mean Platelet Volume 8.9 fl (7.4-10.4); Monocytes # 0.5 K/mm3 (0.1-1.0); Neutrophils # 4.6 K/mm3 (1.8-7.8); Neutrophils % 50.3 % (37.0-80.0); Platelet Count 249 K/mm3 (142-424); Red Blood Count 4.86 M/mm3 (4.20-5.40); Red Cell Distribution Width 13.4 % (11.5-17.5)
[2023-03-03 13:06] LABS: Alanine Aminotransferase 24 U/L (12-78); Albumin Level 4.1 g/dl (3.5-5.0); Albumin/Globulin Ratio 1.5 (1.1-1.8); Alkaline Phosphatase 70 U/L (38-126); Amylase 74 U/L (30-110); Anion Gap 10.3 mEq/L (5-15); Aspartate Amino Transferase 28 U/L (14-36); Bilirubin,Total 0.4 mg/dl (0.2-1.3); Blood Urea Nitrogen 15 mg/dl (7-17); Calcium 9.5 mg/dl (8.4-10.2); Carbon Dioxide 28 mmol/L (22.0-30.0); Chloride 106 mmol/L (98-107); Estimated Glomerular Filt Rate 87 ml/min (>60); GFR (African American) 106 ML/MIN (>60); Globulin 2.7 g/dL (1.3-3.2); Glucose 86 mg/dl (74-100); Lipase 96 U/L (23-300); Potassium 4.3 mmoL/L (3.5-5.1); Sodium 140 mmol/L (136-145); Total Protein,Serum 6.8 g/dl (6.3-8.2)
[2023-03-03 21:50] LABS: Clostridium Difficile A/B, PCR Detected (NotDetected)
== END ==
PROVIDERS: PCP Nurse Practitioner Family; Visit Provider Nurse Practitioner Family
DX: K85.90 Acute pancreatitis without necrosis or infection, unspecified (principal); R19.7 Diarrhea, unspecified; M25.541 Pain in joints of right hand; A04.72 Enterocolitis due to Clostridium difficile, not specified as recurrent
CPT/HCPCS: 36415; 73130; 80053; 82150; 83690; 85025; 87506

== ENCOUNTER → 2023-05-30 13:35 | Outpatient (CLI) | payer MEDICARE, OTHER, SELFPAY ==
[2023-05-30 12:54] LABS: Coronavirus 19, PCR Not Detected (NotDetected); Influenza A, PCR Not Detected (NotDetected); Influenza B, PCR Not Detected (NotDetected)
== END ==
PROVIDERS: PCP Nurse Practitioner Family; Visit Provider Nurse Practitioner Family
DX: R50.9 Fever, unspecified (principal); J02.9 Acute pharyngitis, unspecified
CPT/HCPCS: 87636

== ENCOUNTER 2023-07-01 17:49 | Emergency (ER) | payer MEDICARE, OTHER, SELFPAY ==
[2023-07-01 17:50] VITALS: BP 167/86; PULSE 64; RESP 18; TEMP 36.7; O2SAT 98; BMI 34.2
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
[2023-07-01 19:19] VITALS: BP 167/86; PULSE 64; RESP 18; TEMP 36.7; O2SAT 98
== END 2023-07-01 19:20 | disposition home or self-care (01) ==
PROVIDERS: Emergency Provider Emergency Medicine; PCP Nurse Practitioner Family
DX: S03.2XXA Dislocation of tooth, initial encounter (principal); W22.8XXA Striking against or struck by other objects, initial encounter; F17.210 Nicotine dependence, cigarettes, uncomplicated
CPT/HCPCS: 99283

== ENCOUNTER 2023-08-04 16:20 | Outpatient (CLI) | payer MEDICARE, OTHER, SELFPAY ==
[2023-08-04 16:49] LABS: Basophils # 0.1 K/mm3 (0-0.2); Eosinophils # 0.2 K/mm3 (0.0-0.4); Eosinophils % 1.9 % (0.1-12.0); Hematocrit 44.2 % (37.0-47.0); Hemoglobin 15.2 g/dL (12.2-16.2); Lymphocytes # 4.9 K/mm3 (0.7-4.5); Lymphocytes % 43.9 % (10-50); Mean Corpuscular HGB Conc 34.5 g/dL (31.8-35.4); Mean Corpuscular Hemoglobin 32.4 pg (27.0-31.2); Mean Corpuscular Volume 93.8 fl (81-99); Mean Platelet Volume 9.6 fl (7.4-10.4); Monocytes # 0.6 K/mm3 (0.1-1.0); Monocytes % 5.2 % (1.7-9.3); Neutrophils # 5.3 K/mm3 (1.8-7.8); Platelet Count 278 K/mm3 (142-424); Red Blood Count 4.71 M/mm3 (4.20-5.40); Red Cell Distribution Width 13.8 % (11.5-17.5); White Blood Count 11.1 K/mm3 (4.8-10.8)
[2023-08-04 17:11] LABS: Chloride 103 mmol/L (98-107); Potassium 4.3 mmoL/L (3.5-5.1); Sodium 137 mmol/L (136-145)
[2023-08-04 17:14] LABS: Alanine Aminotransferase 27 U/L (12-78); Albumin Level 4.4 g/dl (3.5-5.0); Albumin/Globulin Ratio 1.6 (1.1-1.8); Alkaline Phosphatase 93 U/L (38-126); Anion Gap 13.3 mEq/L (5-15); Aspartate Amino Transferase 29 U/L (14-36); Bilirubin,Total 0.5 mg/dl (0.2-1.3); Blood Urea Nitrogen 19 mg/dl (7-17); Calcium 9.5 mg/dl (8.4-10.2); Carbon Dioxide 25 mmol/L (22.0-30.0); Estimated Glomerular Filt Rate 87 ml/min (>60); GFR (African American) 105 ML/MIN (>60); Globulin 2.8 g/dL (1.3-3.2); Glucose 91 mg/dl (74-100); Total Protein,Serum 7.2 g/dl (6.3-8.2)
== END 2023-08-04 23:59 ==
LOC: LAB.DROPOF 16:21
PROVIDERS: PCP Nurse Practitioner Family; Visit Provider Nurse Practitioner Family
DX: R10.33 Periumbilical pain (principal)
CPT/HCPCS: 80053; 85025; 87070; 87205

== ENCOUNTER 2023-08-04 19:55 | Emergency (ER) | payer MEDICARE, OTHER, SELFPAY ==
[2023-08-04 20:05] VITALS: BP 180/104; PULSE 84; RESP 20; TEMP 36.6; O2SAT 97; BMI 34.5
--- NOTE | 2023-08-04 20:20 | HMH.EDGENADL ---
Discharge Plan Disposition Patient Disposition: Home, Self-Care Condition: Good Prescriptions Prescriptions: New doxycycline hyclate 100 mg capsule 100 mg PO BID 7 Days Qty: 14 0RF No Action pantoprazole 40 mg tablet,delayed release (DR/EC) 40 mg PO DAILY Qty: 30 6RF Linzess 290 mcg capsule 290 mcg PO DAILY PRN multivit with min-folic acid [One-A-Day Women's 50 Plus] 0.4 mg tablet PO benzonatate 100 mg capsule 100 mg PO BID PRN cefdinir 300 mg capsule 300 mg PO BID 7 Days Qty: 14 0RF cyclobenzaprine 10 mg tablet 10 mg PO HS PRN (Reason: muscle spasm) Qty: 30 0RF promethazine 25 mg tablet 25 mg PO TID PRN (Reason: nausea and vomiting) Qty: 30 0RF fluconazole 150 mg tablet 150 mg PO DAILY PRN rizatriptan [Maxalt] 10 mg tablet See Rx Instructions PO .COMPLEX Qty: 30 1RF Rx Instructions: take 1 tab at onset of headache; if no relief may repeat 1 tab after at least 2 hrs; max = 3 tabs/24 hr PO ondansetron 4 mg tablet,disintegrating 4 mg PO Q8H PRN (Reason: nausea and vomiting) Qty: 30 0RF promethazine-DM 6.25-15 mg/5 mL syrup 5 ml PO Q4-6H PRN (Reason: cough) Qty: 118 0RF hydroxyzine HCl 25 mg tablet 25 mg PO TID PRN (Reason: itching) 30 Days Qty: 90 0RF Referrals Follow up/Referrals: Viry Retana APRN [Primary Care Provider] - See instructions Activity Restrictions/Add. Instructions Additional Instructions/Restrictions: Call your family doctor to establish care for this visit to the emergency department and schedule follow-up within 48 hours to ensure improvement. If you have any worsening of your condition or any other concerning signs or symptoms, return to the emergency department or your primary care doctor for further evaluation. Repack abdominal abscess on 08/06 with supplies provided. Doxycycline twice daily for 7 days. Clinical Impressions Clinical Impression: Abscess of umbilicus Instructions Patient Instructions: DI for Skin Abscess Discharge ED Provider: David Arevalo General Adult HPI General Chief complaint: Skin/Abscess/Foreign Body Stated complaint: bleeding and puss from belly button w/pain Time Seen by Provider: 08/04/23 19:59 Mode of Arrival: Ambulatory Source of Information: Patient Limitations: No Limitations Description of Symptoms (Recalled from ER Triage Doc. by RN): pt c/o umbilical pain with umbilical blood tinged purulent drainage. pt states this has been ongoing x3d. this is a chronic issue for the pt. pt was seen today by her PCP Bonny LORENZO who cultured the drainage and ran blood work. History of Present Illness HPI narrative: 53-year-old female with abdominal pain and nasal drainage. Previously had periumbilical abscess drained in the past by surgery. Drainage for the past 3 to 4 days. Had labs and swabs done today, continue to get worse, so PCP instructed her to come to the emergency department out of concern for needing possible CT scan. No fevers, chills, redness, but pain is progressive. Has not taken anything for the pain. Related Data Home Medications Medication Instructions Recorded Confirmed fluconazole 150 mg tablet 150 mg PO DAILY PRN 06/30/23 08/04/23 benzonatate 100 mg capsule 100 mg PO BID PRN 08/04/23 08/04/23 linaclotide 290 mcg capsule 290 mcg PO DAILY PRN 08/04/23 08/04/23 (Linzess) multivitamin with minerals-folic tab PO 08/04/23 08/04/23 acid 0.4 mg tablet (One-A-Day Women's 50 Plus) Previous Rx's Medication Instructions Recorded pantoprazole 40 mg tablet,delayed 40 mg PO DAILY #30 tabs 03/21/23 release promethazine 25 mg tablet 25 mg PO TID PRN nausea and 05/30/23 vomiting #30 tabs hydroxyzine HCl 25 mg tablet 25 mg PO TID PRN itching 30 days 06/19/23 #90 tabs ondansetron 4 mg disintegrating 4 mg PO Q8H PRN nausea and 06/19/23 tablet vomiting #30 tabs promethazine-DM 6.25 mg-15 mg/5 mL 5 ml PO Q4-6H PRN cough #118 mL 06/19/23 oral syrup rizatriptan 10 mg tablet (Maxalt) See Rx Instructions PO .COMPLEX 06/19/23 #30 tabs cefdinir 300 mg capsule 300 mg PO BID 7 days #14 caps 08/04/23 cyclobenzaprine 10 mg tablet 10 mg PO HS PRN muscle spasm #30 08/04/23 tabs doxycycline hyclate 100 mg capsule 100 mg PO BID 7 days #14 caps 08/04/23 Allergies Allergy/AdvReac Type Severity Reaction Status Date / Time Macrolide Antibiotics Allergy Mild Verified 08/04/23 14:09 [MACROLIDE ANTIBIOTICS] propoxyphene Allergy Mild Verified 08/04/23 14:09 [From DARVOCET-N] codeine [CODEINE] Allergy Unknown Verified 08/04/23 14:09 erythromycin base Allergy Unknown Verified 08/04/23 14:09 [ERYTHROMYCIN BASE] Sulfa (Sulfonamide Allergy Unknown Verified 08/04/23 14:09 Antibiotics) [SULFA (SULFONAMIDE ANTIBIOTICS)] cimetidine [From Tagamet] Allergy Verified 08/04/23 14:09 Penicillins Allergy Verified 08/04/23 14:09 PFSH PFS Disclaimer: The information contained in this section may have been updated after the patient was seen, as this information can be updated by other users. Surgical History History of colonoscopy Social History Smoking Status: Current every day smoker tobacco type: cigarettes packs per day: 1 second hand exposure: Yes alcohol intake: never substance use type: denies use current occupational status: employed Travel in the last 8 weeks: Inside the [place] household members: none housing: house current occupational exposures/hazards: No caffeine: No ROS Obtained: Yes All systems reviewed & no additional complaints except as documented Physical Exam General General appearance: alert and in no apparent distress Head Head exam: atraumatic and normocephalic Eye Eye exam: Present normal appearance, PERRL and EOMI ENT ENT exam: Present mucous membranes moist Neck Neck exam: Present normal inspection, full ROM and trachea midline Respiratory Respiratory exam: Absent respiratory distress, wheezes, stridor, accessory muscle use or prolonged expiratory phase Cardiovascular Cardiovascular exam: Present normal rhythm Abdominal Exam Abdominal exam: Present soft, tenderness and other (thick, purulent umbilical drainage. Periumbilical tenderness without redness, induration, guarding, or any other concerns.); Absent distention, guarding, rebound or rigidity Extremities Exam Extremities exam: Absent edema Neurological Exam Neurological exam: Present alert, oriented X3, CN II-XII intact and normal gait; Absent motor sensory deficit Skin Skin exam: Present warm and dry; Absent diaphoresis or erythema Medical Decision Making Medical Records Medical records reviewed: Yes I reviewed the patient's medical records. Po Inquiry Pt receiving controlled substance: No Po was queried for this patient: No Vital Signs: 08/04/23 20:05 08/04/23 21:34 Temperature 97.8 F 98 F Temperature Source Oral Pulse Rate 78 Pulse Rate [Left] 84 Respiratory Rate 20 18 Blood Pressure 169/97 H Blood Pressure [Right Arm] 180/104 H Blood Pressure Mean [Right Arm] 129 Blood Pressure Source [Right Arm] Automatic Cuff Blood Pressure Position [Right Arm] Sitting 02 Sat by Pulse Oximetry 97 Oxygen Delivery Method Room Air Lab Data Lab Results 08/04/23 20:32: WBC 10.6, RBC 4.07 L, Hgb 14.6, Hct 38.0, MCV 93.5, MCH 36.0 H, MCHC 38.5 H, RDW 13.8, Plt Count 218, MPV 8.8, Neut % (Auto) 51.6, Lymph % (Auto) 39.8, [place] % (Auto) 5.8, Eos % (Auto) 1.8, Baso % (Auto) 1.1, Neut # (Auto) 5.5, Lymph # (Auto) 4.2, [place] # (Auto) 0.6, Eos # (Auto) 0.2, Baso # (Auto) 0.1, Sodium 138, Potassium 3.7, Chloride 105, Carbon Dioxide 29, Anion Gap 7.7, BUN 20 H, Creatinine 0.80, Estimated Creat Clear 108, Estimated GFR 74, Est GFR ( Amer) 90, Glucose 119 H D, Calcium 9.1, Total Bilirubin 0.5, AST 29, ALT 28, Alkaline Phosphatase 72, Total Protein 6.9, Albumin 4.1, Globulin 2.8, Albumin/Globulin Ratio 1.5 08/04/23 20:32 08/04/23 20:32 Orders (Tests/Meds): ED MEDICATIONS Discontinued Medications Generic Name Dose Route Start Last Admin Trade Name Freq PRN Reason Stop Dose Admin Doxycycline Hyclate 100 mg 08/04/23 21:26 08/04/23 21:27 Doxycycline Hycl 100 Mg Tablet PO 08/04/23 21:27 100 mg ONCE ONE Administration Doxycycline Hyclate 100 mg/ 250 mls @ 166.667 mls/hr 08/04/23 21:07 08/04/23 21:33 Sodium Chloride IV 08/04/23 21:08 Not Given ONCE ONE Ketorolac Tromethamine 15 mg 08/04/23 21:18 08/04/23 21:26 Ketorolac 30mg/Ml Vial IV 08/04/23 21:19 15 mg ONCE ONE Administration ORDERS Category Date Time Status POCUS Point of Care (ER Only) Stat Exams 08/04/23 20:12 Completed CBC w/Auto Diff [Complete Blood Count Auto Diff] Stat Lab 08/04/23 20:32 Completed CMP [Comprehensive Metabolic Panel] Stat Lab 08/04/23 20:32 Completed Medical Decision Narrative: 53-year-old female with abdominal pain and nasal drainage. Previously had periumbilical abscess drained in the past by surgery. Drainage for the past 3 to 4 days. Had labs and swabs done today, continue to get worse, so PCP instructed her to come to the emergency department out of concern for needing possible CT scan. No fevers, chills, redness, but pain is progressive. Has not taken anything for the pain. History was obtained via conversation with patient. On arrival, patient hemodynamically stable, alert, oriented x4, appropriate, GCS 15, moving all extremities spontaneously, pupils equal and reactive to light. Full physical exam performed and significant for periumbilical tenderness without signs of peritonitis. Umbilical drainage that is thick, purulent appearing. Redness, warmth, induration, or any other concerns. Differential includes cellulitis, abscess, fistula, among others. Patient was given doxycycline p.o., Toradol for symptomatic management and correction of underlying abnormalities. Workup independently interpreted and significant for nonactionable CBC or chemistry. Bedside ultrasound with 2 cm abscess. On reevaluation, abscess was drained using cotton tip applicators. Given patient presentation, workup, history, this most likely represents periumbilical abscess. Because patient at baseline without signs or symptoms of clinical decompensation, deemed appropriate for discharge. Results were relayed to patient who voiced understanding and were agreeable to outpatient management and follow up. At the time of discharge the patient was hemodynamically stable, tolerating PO, and mobilizing appropriately. Procedures Abscess I/D Site: abdomen Technique: other (Blunt dissection with cotton-tipped applicator) Amount of fluid expressed (mL): 2.5 Irrigation: Yes Packing used?: plain Limited Ultrasound Indication:: Limited soft tissue ultrasound Indication: Abdominal pain, history of abscess Identified structures: Location: Periumbilical soft tissues Findings: 2 cm abscess just deep to the umbilicus Impression: Periumbilical abscess Images were saved to permanent archive The study was technically adequate Soft Tissue CPT Codes: CPT Neck: 98386-66 CPT Upper extremity: 48215-72 CPT Axilla: 80165-53 CPT Chest wall: 87372-95 CPT Breast: 23505-64-XG/LT (complete), 90469-25-IZ/LT (limited), CPT Upper Back: 95742-26 CPT Lower Back: 82305-82 CPT Abdominal Wall: 72737-26 CPT Pelvic Wall: 51051-69 CPT Lower Extremity: 91392-45 CPT Other Soft Tissue: 56964-01 This study was performed by me, and I personally interpreted all images/videos. Based on my clinical judgement, these images were adequate and not necessitate further imaging. Critical Care Critical Care Time Critical Care Time: No
[2023-08-04 20:40] LABS: Basophils # 0.1 K/mm3 (0-0.2); Basophils % 1.1 % (0.1-2.0); Eosinophils # 0.2 K/mm3 (0.0-0.4); Eosinophils % 1.8 % (0.1-12.0); Hemoglobin 14.6 g/dL (12.2-16.2); Lymphocytes # 4.2 K/mm3 (0.7-4.5); Lymphocytes % 39.8 % (10-50); Mean Corpuscular HGB Conc 38.5 g/dL (31.8-35.4); Mean Corpuscular Volume 93.5 fl (81-99); Mean Platelet Volume 8.8 fl (7.4-10.4); Monocytes # 0.6 K/mm3 (0.1-1.0); Monocytes % 5.8 % (1.7-9.3); Neutrophils # 5.5 K/mm3 (1.8-7.8); Neutrophils % 51.6 % (37.0-80.0); Platelet Count 218 K/mm3 (142-424); Red Blood Count 4.07 M/mm3 (4.20-5.40); Red Cell Distribution Width 13.8 % (11.5-17.5); White Blood Count 10.6 K/mm3 (4.8-10.8)
[2023-08-04 20:43] LABS: Chloride 105 mmol/L (98-107)
[2023-08-04 20:44] LABS: Potassium 3.7 mmoL/L (3.5-5.1); Sodium 138 mmol/L (136-145)
[2023-08-04 20:46] LABS: Alanine Aminotransferase 28 U/L (12-78); Aspartate Amino Transferase 29 U/L (14-36); Bilirubin,Total 0.5 mg/dl (0.2-1.3); Blood Urea Nitrogen 20 mg/dl (7-17); Creatinine Clearance Estimated 108 mL/min (50-200); Estimated Glomerular Filt Rate 74 ml/min (>60); GFR (African American) 90 ML/MIN (>60)
[2023-08-04 20:47] LABS: Albumin Level 4.1 g/dl (3.5-5.0); Albumin/Globulin Ratio 1.5 (1.1-1.8); Alkaline Phosphatase 72 U/L (38-126); Anion Gap 7.7 mEq/L (5-15); Calcium 9.1 mg/dl (8.4-10.2); Carbon Dioxide 29 mmol/L (22.0-30.0); Globulin 2.8 g/dL (1.3-3.2); Glucose 119 mg/dl (74-100); Total Protein,Serum 6.9 g/dl (6.3-8.2)
[2023-08-04] MEDS: KETOROLAC 30MG/ML VIAL 15 MG IV (21:26)
[2023-08-04] MEDS: DOXYCYCLINE HYCL 100 MG TABLET PO (21:27)
[2023-08-04 21:34] VITALS: BP 169/97; PULSE 78; RESP 18; TEMP 36.6; O2SAT 96
== END 2023-08-04 21:34 | disposition home or self-care (01) ==
PROVIDERS: Emergency Provider Emergency Medicine; PCP Nurse Practitioner Family
DX: L02.216 Cutaneous abscess of umbilicus (principal); R10.9 Unspecified abdominal pain; F17.210 Nicotine dependence, cigarettes, uncomplicated
CPT/HCPCS: 10060; 80053; 85025; 87070; 87205; 96374; 99284

== ENCOUNTER 2023-08-07 13:35 | Outpatient (CLI) | payer MEDICARE, OTHER, SELFPAY | END 2023-08-07 23:59 | LOC: LAB.DROPOF 13:36 | PROVIDERS: PCP Nurse Practitioner Family; Visit Provider Nurse Practitioner Family | DX: L02.216 Cutaneous abscess of umbilicus (principal); B96.89 Other specified bacterial agents as the cause of diseases classified elsewhere | CPT/HCPCS: 87070; 87205 ==

== ENCOUNTER 2023-08-11 10:27 | Outpatient (CLI) | payer MEDICARE, OTHER, SELFPAY ==
--- NOTE | 2023-08-11 10:27 | CT_ITS ---
FINAL REPORT TECHNIQUE: After the administration of oral and intravenous contrast, axial images were obtained through the abdomen and pelvis by computed tomography. The study was performed with techniques to keep radiation dose as low as reasonably achievable, (ALARA). Individual dose reduction techniques using automated exposure control or adjustment of mA and/or kV according to the patient's size were employed. CLINICAL HISTORY: umbilical abscess COMPARISON: 01/07/2023 and 01/28/2023 FINDINGS: Abdomen: Scarring is present in the lingula. There is fatty infiltration of the liver, as well as a cyst in the right lobe of the liver which measures up to 11 mm in size, and is stable. The gallbladder is present, and may contain a small amount of sludge.. The spleen, pancreas and kidneys appear unremarkable. There are bilateral adrenal nodules, showing up to 1.4 cm in size, that have an appearance consistent with adenomas and are unchanged since the prior CT examinations. The aorta is normal in caliber. There is no free fluid or adenopathy. There is streak artifact from posterior fusion hardware at the L3-4 and L4-5 levels. There is soft tissue density in the subcutaneous soft tissues anterior to the umbilicus, similar to that seen on the CT of January 2023. No fluid collection to suggest an abscess or active inflammation is seen. Pelvis: The appendix is not identified. The urinary bladder is unremarkable. There is no free fluid or adenopathy. IMPRESSION: There is soft tissue density in the subcutaneous soft tissues at the level of the umbilicus, similar to that seen on the CT of January 2023. There is no evidence of a new abscess or active inflammatory process. Bilateral adrenal nodules, stable when compared to the prior CT examinations, likely adenomas. Fatty infiltration of the liver with a small cyst in the right lobe of the liver, stable. Reviewed, Interpreted and Dictated by Fidel Drake MD Transcribed by Noni Post Authenticated and [facility]
[2023-08-11] MEDS: IOPAMIDOL-370 (76%);100ML BOTTLE 75 ML IV (10:45)
[2023-08-11] MEDS: SODIUM CHLORIDE 0.9% 10ML SYR (RAD ONLY) 10 ML IV (10:45)
[2023-08-11] MEDS: BARIUM SULFATE(READI-CAT2);450ML BOTTLE 450 ML PO (10:45)
== END 2023-08-11 23:59 ==
LOC: RAD 10:27
PROVIDERS: PCP Nurse Practitioner Family; Visit Provider Surgery
DX: L02.216 Cutaneous abscess of umbilicus (principal)
CPT/HCPCS: 36415; 74177; Q9967

== ENCOUNTER 2023-08-14 14:58 | Outpatient (CLI) | payer MEDICARE, OTHER, SELFPAY ==
[2023-08-14 15:21] LABS: Basophils # 0.1 K/mm3 (0-0.2); Basophils % 1.2 % (0.1-2.0); Eosinophils # 0.2 K/mm3 (0.0-0.4); Eosinophils % 1.8 % (0.1-12.0); Hematocrit 44.2 % (37.0-47.0); Hemoglobin 14.9 g/dL (12.2-16.2); Lymphocytes # 3.5 K/mm3 (0.7-4.5); Lymphocytes % 41.7 % (10-50); Mean Corpuscular HGB Conc 33.8 g/dL (31.8-35.4); Mean Corpuscular Hemoglobin 31.4 pg (27.0-31.2); Mean Corpuscular Volume 93.1 fl (81-99); Mean Platelet Volume 9.3 fl (7.4-10.4); Monocytes # 0.5 K/mm3 (0.1-1.0); Monocytes % 5.3 % (1.7-9.3); Neutrophils # 4.2 K/mm3 (1.8-7.8); Neutrophils % 49.9 % (37.0-80.0); Platelet Count 237 K/mm3 (142-424); Red Blood Count 4.75 M/mm3 (4.20-5.40); Red Cell Distribution Width 13.8 % (11.5-17.5); White Blood Count 8.5 K/mm3 (4.8-10.8)
[2023-08-14 15:37] LABS: Alanine Aminotransferase 25 U/L (12-78); Albumin Level 4.1 g/dl (3.5-5.0); Albumin/Globulin Ratio 1.6 (1.1-1.8); Alkaline Phosphatase 68 U/L (38-126); Anion Gap 10.8 mEq/L (5-15); Aspartate Amino Transferase 30 U/L (14-36); Bilirubin,Total 0.4 mg/dl (0.2-1.3); Blood Urea Nitrogen 15 mg/dl (7-17); Calcium 9.7 mg/dl (8.4-10.2); Carbon Dioxide 25 mmol/L (22.0-30.0); Chloride 105 mmol/L (98-107); Estimated Glomerular Filt Rate 87 ml/min (>60); GFR (African American) 105 ML/MIN (>60); Globulin 2.5 g/dL (1.3-3.2); Glucose 135 mg/dl (74-100); Potassium 3.8 mmoL/L (3.5-5.1); Sodium 137 mmol/L (136-145); Total Protein,Serum 6.6 g/dl (6.3-8.2)
== END 2023-08-14 23:59 ==
LOC: LAB 14:59
PROVIDERS: PCP Nurse Practitioner Family; Visit Provider Surgery
DX: L02.216 Cutaneous abscess of umbilicus (principal)
CPT/HCPCS: 36415; 80053; 85025

== ENCOUNTER 2023-08-22 13:21 | Outpatient (CLI) | payer MEDICARE, OTHER, SELFPAY ==
[2023-08-22 13:31] LABS: Adenovirus,PCR Not Detected (NotDetected); Coronavirus 19, PCR Not Detected (NotDetected); Coronavirus 229E Not Detected (NotDetected); Coronavirus NL63 Not Detected (NotDetected); Coronavirus OC43 Not Detected (NotDetected); Coronovirus HKU1,PCR Not Detected (NotDetected); Human Metapneumovirus Not Detected (NotDetected); Influenza A, PCR Not Detected (NotDetected); Influenza AH1, 2009 Not Detected (NotDetected); Influenza AH1, PCR Not Detected (NotDetected); Influenza AH3,PCR Not Detected (NotDetected); Influenza B, PCR Not Detected (NotDetected); Parainfluenza 1, PCR Not Detected (NotDetected); Parainfluenza 2, PCR Not Detected (NotDetected); Parainfluenza 3, PCR Not Detected (NotDetected); Parainfluenza 4, PCR Not Detected (NotDetected); Respiratory Syncytial Virus Not Detected (NotDetected); Rhinovirus/Enterovirus Not Detected (NotDetected)
== END 2023-08-22 23:59 ==
LOC: LAB.DROPOF 13:22
PROVIDERS: PCP Nurse Practitioner Family; Visit Provider Nurse Practitioner Family
DX: R50.9 Fever, unspecified (principal); H92.03 Otalgia, bilateral; R51.9 Headache, unspecified; R07.89 Other chest pain; R09.81 Nasal congestion; R09.89 Other specified symptoms and signs involving the circulatory and respiratory systems
CPT/HCPCS: 87632; 87635

== ENCOUNTER 2023-08-26 08:13 | Outpatient (CLI) | payer MEDICARE, OTHER, SELFPAY ==
--- NOTE | 2023-08-26 08:52 | XR_ITS ---
PROCEDURE INFORMATION: Exam: XR Left Shoulder Exam date and time: 08/26/2023 8:54 AM Age: 53 years old Clinical indication: Pain; Numbness; Other: Whole L extremity; Shoulder; Left; Additional info: Left shoulder pain, left arm numbness TECHNIQUE: Imaging protocol: Radiologic exam of the left shoulder. Views: 2 or more views. COMPARISON: CR XR CHEST 2V 10/13/2022 2:51 PM FINDINGS: Bones/joints: There is no evidence for acute fracture or dislocation. There is minimal spurring along the inferior aspect of the humeral head. Soft tissues: Normal. IMPRESSION: Degenerative change in the left shoulder.
[2023-08-26 09:29] LABS: Basophils # 0.1 K/mm3 (0-0.2); Eosinophils # 0.2 K/mm3 (0.0-0.4); Eosinophils % 2.3 % (0.1-12.0); Hematocrit 47.8 % (37.0-47.0); Hemoglobin 15.7 g/dL (12.2-16.2); Lymphocytes # 3.2 K/mm3 (0.7-4.5); Lymphocytes % 40.5 % (10-50); Mean Corpuscular HGB Conc 32.8 g/dL (31.8-35.4); Mean Corpuscular Hemoglobin 31.2 pg (27.0-31.2); Mean Corpuscular Volume 95.2 fl (81-99); Mean Platelet Volume 9.1 fl (7.4-10.4); Monocytes # 0.5 K/mm3 (0.1-1.0); Monocytes % 5.8 % (1.7-9.3); Neutrophils # 3.9 K/mm3 (1.8-7.8); Neutrophils % 50.4 % (37.0-80.0); Platelet Count 256 K/mm3 (142-424); Red Blood Count 5.02 M/mm3 (4.20-5.40); Red Cell Distribution Width 13.6 % (11.5-17.5); White Blood Count 7.8 K/mm3 (4.8-10.8)
[2023-08-26 09:35] LABS: Chloride 107 mmol/L (98-107); Potassium 4.6 mmoL/L (3.5-5.1); Sodium 139 mmol/L (136-145)
[2023-08-26 09:38] LABS: Alanine Aminotransferase 24 U/L (12-78); Albumin Level 4.4 g/dl (3.5-5.0); Albumin/Globulin Ratio 1.6 (1.1-1.8); Alkaline Phosphatase 97 U/L (38-126); Anion Gap 11.6 mEq/L (5-15); Aspartate Amino Transferase 33 U/L (14-36); Bilirubin,Total 0.6 mg/dl (0.2-1.3); Blood Urea Nitrogen 15 mg/dl (7-17); Calcium 9.8 mg/dl (8.4-10.2); Carbon Dioxide 25 mmol/L (22.0-30.0); Estimated Glomerular Filt Rate 87 ml/min (>60); GFR (African American) 105 ML/MIN (>60); Globulin 2.7 g/dL (1.3-3.2); Glucose 87 mg/dl (74-100); Total Protein,Serum 7.1 g/dl (6.3-8.2)
[2023-08-26 10:12] LABS: Ferritin 60.4 ng/ml (11.1-264)
[2023-08-28 14:10] LABS: Adrenocorticotropic Hormone 6.3 pg/mL (7.2-63.3)
== END 2023-08-26 23:59 ==
LOC: LAB 08:15
PROVIDERS: PCP Nurse Practitioner Family; Visit Provider Nurse Practitioner Family
DX: E27.8 Other specified disorders of adrenal gland (principal); K75.81 Nonalcoholic steatohepatitis (NASH); R23.2 Flushing; M25.512 Pain in left shoulder
CPT/HCPCS: 36415; 73030; 80053; 82024; 82728; 85025

== ENCOUNTER 2023-08-29 11:39 | Outpatient (CLI) | payer MEDICARE, OTHER, SELFPAY ==
--- NOTE | 2023-08-29 11:44 | XR_ITS ---
FINAL REPORT CLINICAL HISTORY: cervicalgia FINDINGS: CERVICAL SPINE Three views demonstrate no acute fracture. The disc spaces are well preserved. There is no malalignment. IMPRESSION: No acute process. Reviewed, Interpreted and Dictated by Esteban Hicks III, MD Transcribed by Debra Mata Authenticated and [facility]
== END 2023-08-29 23:59 ==
PROVIDERS: PCP Nurse Practitioner Family; Visit Provider Nurse Practitioner Family
DX: M54.2 Cervicalgia (principal); R20.0 Anesthesia of skin
CPT/HCPCS: 72040

== ENCOUNTER 2023-09-14 15:29 | Outpatient (CLI) | payer MEDICARE, OTHER, SELFPAY ==
--- NOTE | 2023-09-14 15:30 | MR_ITS ---
PROCEDURE INFORMATION: Exam: MR Left Upper Extremity Joint Without Contrast; Shoulder Exam date and time: 09/14/2023 3:55 PM Age: 53 years old Clinical indication: Pain; Shoulder; Left; Additional info: Left shoulder pain TECHNIQUE: Imaging protocol: Magnetic resonance imaging of the left upper extremity without contrast. Exam focused on the shoulder. COMPARISON: CR XR SHOULDER LT MIN 2V 08/26/2023 8:54 AM FINDINGS: Bones/joints: Small subchondral cyst humeral head posteriorly. No fracture or suspicious marrow signal. Mild osteoarthritis. Glenoid labrum: Limited degenerative change glenoid labrum without focal tear. Supraspinatus tendon: Severe tendinopathy distal posterior fibers of the supraspinatus tendon with minimal interstitial tearing. No retracted tear or atrophy. Infraspinatus tendon: Similar appearance to the distal anterior fibers of the infraspinatus tendon. Subscapularis tendon: Unremarkable. No evidence of tear. Teres minor tendon: Unremarkable. No evidence of tear. Tendon of biceps brachii: Unremarkable. No evidence of tear. Glenohumeral ligaments: Unremarkable. Soft tissues: Unremarkable. IMPRESSION: 1. Severe tendinopathy distal posterior fibers of the supraspinatus tendon with minimal interstitial tearing. No retracted tear or atrophy. 2. Similar appearance to the distal anterior fibers of the infraspinatus tendon. 3. Mild osteoarthritis.
--- NOTE | 2023-09-14 15:30 | MR_ITS ---
PROCEDURE INFORMATION: Exam: MR Cervical Spine Without Contrast Exam date and time: 09/14/2023 4:28 PM Age: 53 years old Clinical indication: Neck pain; Additional info: Cervical algia, left arm numbness TECHNIQUE: Imaging protocol: Magnetic resonance imaging of the cervical spine without contrast. COMPARISON: CT CERVICAL SPINE WO CON 07/08/2019 4:39 PM FINDINGS: Bones/joints: Minimal cervical spondylosis. Mild bulging C3-C4 C5-C6 and C6-C7 discs without focal disc herniation or significant stenosis at any level. Spinal cord: Normal signal. No cord compression. C2-C3: No significant disc bulge or herniation. No severe spinal canal stenosis. No significant neural foraminal narrowing. C3-C4: See Bones/joints finding. C4-C5: No significant disc bulge or herniation. No severe spinal canal stenosis. No significant neural foraminal narrowing. C5-C6: See Bones/joints finding. C6-C7: See bone joints finding. C7-T1: No significant disc bulge or herniation. No severe spinal canal stenosis. No significant neural foraminal narrowing. Soft tissues: Unremarkable. Vasculature: Expected flow voids in the vertebral arteries. IMPRESSION: Minimal cervical spondylosis. Mild bulging C3-C4 C5-C6 and C6-C7 discs without focal disc herniation or significant stenosis at any level.
== END 2023-09-14 23:59 ==
LOC: RAD 15:29
PROVIDERS: PCP Nurse Practitioner Family; Visit Provider Nurse Practitioner Family
DX: M25.512 Pain in left shoulder (principal); R20.0 Anesthesia of skin; M54.2 Cervicalgia
CPT/HCPCS: 72141; 73221; 76376

== ENCOUNTER 2023-09-28 13:31 | Outpatient (CLI) | payer MEDICARE, OTHER, SELFPAY ==
--- NOTE | 2023-09-28 13:31 | MM_ITS ---
PROCEDURE INFORMATION: Exam: MG Bilateral Screening 3D Mammography Exam date and time: 09/28/2023 1:25 PM Age: 53 years old Clinical indication: Screening examination TECHNIQUE: Imaging protocol: Bilateral Screening tomosynthesis and 2D mammography including computer-aided detection (CAD) when performed. COMPARISON: 1. MG DXRT MM Dig mamm DX unilat RT CAD 02/16/2018 1:54 PM 2. MG SCBI MM Dig screening mamm BI w/CAD 02/01/2018 11:05 AM FINDINGS: MAMMOGRAPHY: Breast composition: There are scattered areas of fibroglandular density. Mass: None. Architectural distortion: None. Calcifications: No suspicious calcifications. Asymmetric density: None. Skin thickening: None. Axillary adenopathy: None. IMPRESSION: No mammographic evidence of malignancy. Annual screening is recommended unless otherwise clinically indicated. ASSESSMENT: BI-RADS Category 1: Negative
--- NOTE | 2023-09-28 13:31 | US_ITS ---
PROCEDURE INFORMATION: Exam: US Left Non-Vascular Joint or Other Extremity Structure Exam date and time: 09/28/2023 2:10 PM Age: 53 years old Clinical indication: Lymphadenopathy; Arm, upper; Bilateral; Additional info: Axillary lymphadenopathy TECHNIQUE: Imaging protocol: Left US joint or other nonvascular extremity structure or structures. Real-time ultrasound with image documentation. Limited study. Exam focused on the upper extremity in the region of clinical interest. COMPARISON: No relevant prior studies available. FINDINGS: Soft tissues: See Lymph nodes finding. Lymph nodes: High resolution sonography of the soft tissues of the LEFT axilla demonstrates morphologically normal lymph nodes with a fatty hilum, largest measuring 1.4 cm in the long axis. No other cystic/solid mass or fluid collection at the site of clinical interest. IMPRESSION: 1. Morphologically normal lymph nodes in the LEFT axilla. 2. No suspicious cystic/solid mass or fluid collection.
--- NOTE | 2023-09-28 13:31 | US_ITS ---
PROCEDURE INFORMATION: Exam: US Right Non-Vascular Joint or Other Extremity Structure Exam date and time: 09/28/2023 1:57 PM Age: 53 years old Clinical indication: Lymphadenopathy; Arm, upper; Bilateral; Additional info: Axillary lymphadenopathy TECHNIQUE: Imaging protocol: Right US joint or other nonvascular extremity structure or structures. Real-time ultrasound with image documentation. Limited study. Exam focused on the upper extremity in the region of clinical interest. COMPARISON: No relevant prior studies available. FINDINGS: Soft tissues: See Lymph nodes finding. Lymph nodes: High resolution sonography of the soft tissues of the RIGHT axilla demonstrates morphologically normal lymph nodes with a fatty hilum, largest measuring 1.5 cm in the long axis. No other cystic/solid mass or fluid collection at the site of clinical interest. IMPRESSION: 1. Morphologically normal lymph nodes in the RIGHT axilla. 2. No suspicious cystic/solid mass or fluid collection.
== END 2023-09-28 23:59 ==
PROVIDERS: PCP Nurse Practitioner Family; Visit Provider Nurse Practitioner Family
DX: R59.0 Localized enlarged lymph nodes (principal); Z12.31 Encounter for screening mammogram for malignant neoplasm of breast
CPT/HCPCS: 76882; 77063; 77067

== ENCOUNTER 2023-10-09 12:52 | Outpatient (CLI) | payer MEDICARE, OTHER, SELFPAY | END 2023-10-09 23:59 | PROVIDERS: PCP Nurse Practitioner Family; Visit Provider Nurse Practitioner Family | DX: R31.9 Hematuria, unspecified (principal); B96.89 Other specified bacterial agents as the cause of diseases classified elsewhere | CPT/HCPCS: 87086 ==

== ENCOUNTER 2023-12-12 15:58 | Outpatient (CLI) | payer MEDICARE, OTHER, SELFPAY ==
[2023-12-17 08:21] LABS: Trichomonas Vaginalis, NAA Negative
== END 2023-12-12 23:59 | disposition home or self-care (01) ==
LOC: LAB 15:59
PROVIDERS: PCP Nurse Practitioner Family; Visit Provider Nurse Practitioner Family
DX: R30.0 Dysuria (principal); R39.15 Urgency of urination; R35.0 Frequency of micturition; Z20.2 Contact with and (suspected) exposure to infections with a predominantly sexual mode of transmission
CPT/HCPCS: 87086; 87661

== ENCOUNTER 2024-01-16 10:29 | Outpatient (CLI) | payer MEDICARE, OTHER, SELFPAY ==
--- NOTE | 2024-01-16 10:33 | XR_ITS ---
FINAL REPORT CLINICAL HISTORY: LBP with bilateral LE numbness COMPARISON: None FINDINGS: AP and lateral views of the lumbar spine were obtained. There is no prior exam for comparison. There is no acute fracture or malalignment. Vertebral body height is preserved. Moderate and severe degenerative changes are present involving the lower thoracic and lumbar spine. There is vacuum phenomenon present at the L5-S1 level. The L3-L5 levels have been fused. Vascular calcifications are identified.. IMPRESSION: Moderate and severe degenerative change, with prior fusion of the L3-4 and L4-5 disc space levels. No acute bony abnormality identified. Reviewed, Interpreted and Dictated by Esteban Hicks III, MD Transcribed by Noni Post Authenticated and [facility]
== END 2024-01-16 23:59 | disposition home or self-care (01) ==
LOC: RAD 10:30
PROVIDERS: PCP Nurse Practitioner Family; Visit Provider Nurse Practitioner Family
DX: M51.36 Other intervertebral disc degeneration, lumbar region (principal); R20.0 Anesthesia of skin
CPT/HCPCS: 72100

== ENCOUNTER 2024-01-30 16:07 | Outpatient (CLI) | payer MEDICARE, OTHER, SELFPAY ==
--- NOTE | 2024-01-30 16:07 | MR_ITS ---
FINAL REPORT TECHNIQUE: Multiplanar and multisequence imaging of the lumbar spine was obtained without contrast. CLINICAL HISTORY: Bilateral lower extremity numbness, vaginal numbneSS. LEFT LEG NUMBNESS COMPARISON: 12/25/2020 FINDINGS: There is normal alignment of the lumbar vertebral bodies. There are postoperative changes from fusion of L3-L5. Vertebral body height is preserved. The spinal cord ends at the level of L2. There is normal signal intensity within the substance of the distal spinal cord. No acute bone marrow edema or pathologic marrow replacement. No acute paraspinal abnormality is identified. L1-2: An annular disc bulge is present with degenerative endplate changes and facet osteoarthropathy. Mild central stenosis and mild bilateral neural foraminal narrowing, unchanged. L2-3: Mild bilateral neural foraminal narrowing related to facet osteoarthropathy. Stable bilateral neural foraminal narrowing. L3-4: This level is fused with mild bilateral neural foraminal narrowing. L4-5: This level is fused with moderate left neural foraminal narrowing, unchanged. L5-S1: An annular disc bulge is present with degenerative endplate changes and facet osteoarthropathy. Mild central stenosis and severe bilateral neural foraminal narrowing, stable. IMPRESSION: Multilevel degenerative and postoperative changes with areas of canal stenosis. No significant change from previous. Reviewed, Interpreted and Dictated by Lucrecia Hood MD Transcribed by Debra Mata Authenticated and [facility]
== END 2024-01-30 23:59 | disposition home or self-care (01) ==
LOC: RAD 16:07
PROVIDERS: PCP Nurse Practitioner Family; Visit Provider Nurse Practitioner Family
DX: R20.0 Anesthesia of skin (principal); M51.36 Other intervertebral disc degeneration, lumbar region; Z98.890 Other specified postprocedural states
CPT/HCPCS: 72148

== ENCOUNTER 2024-02-06 16:07 | Outpatient (CLI) | payer MEDICARE, OTHER, SELFPAY ==
--- NOTE | 2024-02-06 16:11 | XR_ITS ---
FINAL REPORT CLINICAL HISTORY: acute cough FINDINGS: No acute pulmonary density is evident. There is no evidence of effusion or other pleural disease. The mediastinum has a normal appearance. The cardiac silhouette is unremarkable. IMPRESSION: Unremarkable chest exam. Reviewed, Interpreted and Dictated by Abdon Thomas MD Transcribed by Debra Mata Authenticated and [facility]
== END 2024-02-06 23:59 | disposition home or self-care (01) ==
LOC: RAD 16:09
PROVIDERS: PCP Nurse Practitioner Family; Visit Provider Nurse Practitioner Family
DX: R05.1 Acute cough (principal)
CPT/HCPCS: 71046

== ENCOUNTER 2024-04-02 14:20 | Outpatient (CLI) | payer MEDICARE, OTHER, SELFPAY ==
[2024-04-02 16:39] LABS: Coronavirus 19, PCR Not Detected (NotDetected); Influenza A, PCR Not Detected (NotDetected); Influenza B, PCR Not Detected (NotDetected)
== END 2024-04-02 23:59 | disposition home or self-care (01) ==
LOC: LAB.DROPOF 04-03 12:29
PROVIDERS: PCP Nurse Practitioner Family; Visit Provider Nurse Practitioner Family
DX: R50.9 Fever, unspecified (principal); R19.7 Diarrhea, unspecified; R68.89 Other general symptoms and signs; R06.02 Shortness of breath
CPT/HCPCS: 87636

== ENCOUNTER 2024-04-22 16:45 | Outpatient (CLI) | payer MEDICARE, OTHER, SELFPAY ==
[2024-04-22 17:18] LABS: Microscopic, Urine URINE MICROSCOPIC (MICROSCOPIC)
[2024-04-22 18:40] LABS: Appearance,Urine CLEAR (Clear); Bilirubin,Urine Negative (Negative); Blood, Urine Negative (Negative); Color,Urine YELLOW (Yellow); Glucose,Urine (UA) Negative (Negative); Ketones,Urine Negative (Negative); Leukocyte Esterase,Urine Negative (Negative); Nitrate,Urine Negative (Negative); PH,Urine 5.5 (5.0-8.5); Protein,Urine Negative (Negative); Specific Gravity, Urine >= 1.030 (1.005-1.030); Urobilinogen,Urine 0.2 EU/dl (0.2)
[2024-04-22 18:50] LABS: Bacteria,Urine Trace /lpf; RBC,Urine Occasional #/hpf (0-3)
== END 2024-04-22 23:59 | disposition home or self-care (01) ==
LOC: LAB.DROPOF 04-23 09:08
PROVIDERS: PCP Nurse Practitioner Family; Visit Provider Nurse Practitioner Family
DX: R30.0 Dysuria (principal); J02.9 Acute pharyngitis, unspecified; R35.0 Frequency of micturition; R30.9 Painful micturition, unspecified
CPT/HCPCS: 81001; 87086; 87635

== ENCOUNTER 2024-07-05 11:00 | Outpatient (CLI) | payer MEDICARE, OTHER, SELFPAY ==
--- NOTE | 2024-07-05 11:08 | CA_ITS ---
FINAL REPORT TECHNIQUE: Compression solomon scale and Doppler evaluation CLINICAL HISTORY: PAIN,SWELLING LT ANKLE INTO CALF,NKI FINDINGS: Femoral and popliteal veins show normal compressibility and flow. Visualized portion of the calf veins are patent by Doppler exam. IMPRESSION: No evidence of left lower extremity deep venous thrombosis Reviewed, Interpreted and Dictated by Abdon Thomas MD Transcribed by Debra Mata Authenticated and [facility]
--- NOTE | 2024-07-05 11:11 | XR_ITS ---
FINAL REPORT CLINICAL HISTORY: left ankle pain and swelling FINDINGS: Left ankle Three views were obtained. There is no fracture or dislocation. The joint spaces appear normal. No soft tissue abnormality is identified. IMPRESSION: No acute process. Reviewed, Interpreted and Dictated by Abdon Thomas MD Transcribed by Debra Mata Authenticated and [facility]
== END 2024-07-05 23:59 | disposition home or self-care (01) ==
LOC: RT 11:01
PROVIDERS: PCP Nurse Practitioner Family; Visit Provider Nurse Practitioner Family
DX: M79.89 Other specified soft tissue disorders (principal); M79.662 Pain in left lower leg; M25.572 Pain in left ankle and joints of left foot; M25.472 Effusion, left ankle
CPT/HCPCS: 73610; 93971

== ENCOUNTER 2024-07-30 14:55 | Outpatient (CLI) | payer MEDICARE, OTHER, SELFPAY ==
[2024-07-30 16:35] LABS: Human Rhinovirus Not Detected (NotDetected); Influenza A, PCR Not Detected (NotDetected)
[2024-07-30 16:36] LABS: Influenza B, PCR Not Detected (NotDetected); Respiratory Syncytial Virus Not Detected (NotDetected)
[2024-07-31 08:14] LABS: Coronavirus 19, PCR Detected (NotDetected)
== END 2024-07-30 23:59 | disposition home or self-care (01) ==
LOC: LAB.DROPOF 07-31 11:09
PROVIDERS: PCP Nurse Practitioner Family; Visit Provider Nurse Practitioner Family
DX: R05.9 Cough, unspecified (principal); R06.00 Dyspnea, unspecified; J02.9 Acute pharyngitis, unspecified; M79.10 Myalgia, unspecified site; R51.9 Headache, unspecified
CPT/HCPCS: 87631

== ENCOUNTER 2024-08-23 13:38 | Outpatient (CLI) | payer MEDICARE, OTHER, SELFPAY ==
[2024-08-23 16:29] LABS: Coronavirus 19, PCR Not Detected (NotDetected); Human Rhinovirus Not Detected (NotDetected); Influenza A, PCR Not Detected (NotDetected); Influenza B, PCR Not Detected (NotDetected); Respiratory Syncytial Virus Not Detected (NotDetected)
== END 2024-08-23 23:59 | disposition home or self-care (01) ==
LOC: LAB.DROPOF 08-24 09:54
PROVIDERS: PCP Nurse Practitioner Family; Visit Provider Nurse Practitioner Family
DX: R68.89 Other general symptoms and signs (principal); U07.1 COVID-19; R11.0 Nausea
CPT/HCPCS: 87631

== ENCOUNTER 2024-09-09 08:40 | Outpatient (CLI) | payer MEDICARE, OTHER, SELFPAY ==
[2024-09-09 21:41] LABS: Coronavirus 19, PCR Not Detected (NotDetected); Influenza A, PCR Not Detected (NotDetected); Influenza B, PCR Not Detected (NotDetected); Respiratory Syncytial Virus Not Detected (NotDetected)
[2024-09-10 09:16] LABS: Human Rhinovirus Detected (NotDetected)
== END 2024-09-09 23:59 | disposition home or self-care (01) ==
LOC: LAB.DROPOF 09-10 18:16
PROVIDERS: PCP Nurse Practitioner; Visit Provider Nurse Practitioner
DX: R50.9 Fever, unspecified (principal); R11.10 Vomiting, unspecified; R19.7 Diarrhea, unspecified
CPT/HCPCS: 87631

== ENCOUNTER 2024-11-20 14:01 | Outpatient (CLI) | payer MEDICARE, OTHER, SELFPAY ==
--- NOTE | 2024-11-20 14:07 | XR_ITS ---
FINAL REPORT CLINICAL HISTORY: Lower abdominal pain, constipation COMPARISON: 04/14/2021 FINDINGS: Two views of the abdomen were obtained. There is a moderate to large amount of retained stool. There is no small bowel obstruction. No renal stones are identified. Pelvic calcifications are stable and are likely phleboliths. No acute osseous abnormality. IMPRESSION: Moderate to large amount of retained stool. Reviewed, Interpreted and Dictated by Lucrecia Hood MD Transcribed by Beth Stanford Authenticated and . [facility]
== END 2024-11-20 23:59 | disposition home or self-care (01) ==
LOC: RAD 14:02
PROVIDERS: PCP Nurse Practitioner Family; Visit Provider Nurse Practitioner Family
DX: K59.04 Chronic idiopathic constipation (principal); R10.30 Lower abdominal pain, unspecified
CPT/HCPCS: 74019

== ENCOUNTER 2024-11-27 15:56 | Outpatient (CLI) | payer MEDICARE, OTHER, SELFPAY ==
--- OUTSIDE RECORDS SUMMARY | 2024-11-27 15:58 | XMS_ITS | Data Portability ---
Author Organization [facility] [place] [facility] ADMIN Address [address] [place] [id number] Assessment Encounter Date Assessment Date Assessment LastModified by Organization Details LastModified Time 01/10/2024 01/10/2024 53-year-old sebastian gooden referred for evaluation of generalized abdominal pain, chronic nausea, and chronic constipation. She has a history of diverticulitis x1 a few years ago and history of recurrent idiopathic acute pancreatitis x3 occasions from 2009 to 2020. She denies alcohol use. 1) Abdominal pain: Will obtain EGD/EUS and colonoscopy for further evaluation of abdominal pain, nausea, constipation, and to evaluate for possible chronic pancreatitis. -Treatment of constipation per below 2) Chronic nausea/history of recurrent idiopathic pancreatitis: EGD/EUS ordered. Continue Zofran. 3) Chronic constipation: I have provided the patient with samples of Trulance to trial. If she has minimal effect, she may take once daily with Motegrity. Colonoscopy scheduled for evaluation of constipation and abdominal pain f/u 4 weeks. [email or web address] Not available 01/10/2024 22:43:49 03/01/2024 03/01/2024 53-year-old sebastian gooden previously referred for evaluation of generalized abdominal pain, chronic nausea, and chronic constipation. She has a history of diverticulitis x1 a few years ago and history of recurrent idiopathic acute pancreatitis x3 occasions from 2009 to 2020. She denies alcohol use. She uses marijuana and cannabis gummies regularly. 1) Abdominal pain: EUS showed fatty infilatration of the liver, normal pancreas, and normal biliary tree. -I suspect constipation as the primary cause of her abdominal pain. Treat per below. 2) Chronic nausea/history of recurrent idiopathic pancreatitis: No evidence of chronic pancreatitis on EUS. Excessive use of Zofran is likely contributing to constipation. -Stop Zofran -Start prochlorperazine 5 mg p.o. q6hr prn. -I have discussed possible cannabis hyperemesis syndrome contributing to her nausea. She is not interested in cessation. She has a medical marijuana card and obtains it from [place] 3) Chronic constipation: Continue Motegrity plus Linzess, but will decrease her Linzess dose to 145 mcg daily due to explosive BMs. -She has multiple risk factors for pelvic floor dysfunction. Will refer for PT evaluation, possible pelvic floor therapy. f/u 3 months The patient relayed some concerns she had regarding her recent hospital stay. I provided the crystalizer the patient's name and contact information to discuss. [email or web address] Not available 03/01/2024 15:35:30 Plan of Treatment Reminders Order Date Submit Date Provider Last Modified By Organization Details Last Modified Time Details Appointments None recorded. Lab None recorded. Referral pelvic floor therapy referral 2023 [email or web address] [facility], [address], [place], [address], 15:34:24 Procedures None recorded. Surgeries None recorded. Imaging None recorded. Medication Orders Linzess 145 mcg capsule 2023 [facility], [address], [address], 15:26:33 prochlorper azine maleate 5 mg tablet 2023 [facility], [address], [address], 09:30:27 Patient TargetsNo targets recorded. Patient InstructionsNo instructions recorded. Reason for Referral Pelvic Floor Therapy Referra l for Female pelvic floor dysfunction Referring Physician: Miguel Post, Gastroenterology, Encounter Date: 03/01/2024 Results Created Date Observation Date Name Description Value Unit Range Abnormal Flag Note LastModifiedBy Organization Detail LastModifiedTime Result Notes None recorded. Problems Name Problem SNOMED Code Status Onset Date Resolution Date Notes Provider Name and Address Organization Details Recorded Time Generalized abdominal pain 685244314 Active 2023 Miguel Post PA-C [address], [place], [address] , [facility] & [place] 4 11:23:45 Burning epigastric pain 63925329 Active 2023 Miguel Post PA-C [address], [place], [address] , [facility] & [place] 4 11:23:53 Chronic idiopathic constipation 92666638 Active 2023 Miguel Post PA-C [address], [place], [address] , [facility] & [place] 4 11:23:59 Nausea 171935093 Active 2023 Miguel Post PA-C [address], [place], [address] , [facility] & [place] 4 11:24:03 Increased blood pressure 35414540 Active 2023 Miguel Post PA-C [address], [place], [address] , [facility] & [place] 4 11:25:40 Female pelvic floor dysfunction 351708041 Active 2023 Miguel Post PA-C [address], [place], [address] , [place] [facility] & [place] 4 09:40:24 Problem Notes None recorded. Medical Equipment None Reported. Allergies Allergen ID Allergen Name Allergen Category Reaction Reaction Severity Criticality Documentation Date Start Date Code Code System Note Provider Name and Address Organization Details Recorded Time 641146 erythromy angela medicatio n Not available Not available Not available 01/10/2024 4053 RxNorm Miguel Post PA-C [address], [place], [address], [place] [facility] & [place] 4 22:39:38 053176 propoxyph eric medicatio n Not available Not available Not available 01/10/2024 8785 RxNorm Miguel BRIAN Post [address], [place], [address], [facility] & [place] 4 22:39:55 851410 codeine medicatio n Not available Not available Not available 01/10/2024 2670 RxNorm Miguel BRIAN Post [address], [place], [address], [place] [facility] & [place] 4 22:40:02 157890 Medicinal product containin g macrolide and acting as antibacte rial agent (product) medicatio n Not available Not available Not available 01/10/2024 80353 8007 SNOMED Migueldamon Post PA-C [address], [place], [address], [facility] & [place] 4 22:40:10 575947 Substance with sulfonami de structure and antibacte rial mechanism of action (substanc e) medicatio n Not available Not available Not available 01/10/2024 28910 8003 SNOMED Migueldamon Post PA-C [address], [place], [address], [facility] & [place] 4 22:40:21 161503 Product containin g penicilli n (product) medicatio n Not available Not available Not available 01/10/2024 96065 8001 SNOMED Migueldamon Post PA-C [address], [place], [address], [facility] & [place] 4 22:40:29 517929 cimetidin e medicatio n Not available Not available Not available 01/10/2024 2541 RxNorm Migueldamon Post PA-C [address], [place], [address], [place] [facility] & [place] 22:40:35 Medications Name Sig Start Date Stop Date Status Note LastModified by Organization Details LastModified Time fluconazole 100 mg tablet active Not Available Not Available Not Available promethazine -DM 6.25 mg-15 mg/5 mL oral syrup TAKE 1 TEASPOONFUL (5 ML) BY MOUTH EVERY 4 TO 6 HOURS NEEDED FOR cough MAY CAUSE DROWSINESS active Not Available Not Available N ot Available nystatin 100,000 unit/mL oral suspension active Not Available Not Available N ot Available ipratropium 0.5 mg-albuterol 3 mg (2.5 mg base)/3 mL nebulization soln active Not Available Not Available Not Available lisinopril 20 mg-hydrochlo rothiazide 12.5 mg tablet active Not Available Not Available Not Available fluconazole 150 mg tablet active Not Available Not Available Not Available valacyclovir 1 gram tablet active Not Available Not Available Not Available prochlorpera zine maleate 5 mg tablet Take 1 tablet every 6 hours by oral route for 30 days, for nausea. active Not Available Not Available No t Available prednisone 20 mg tablet active Not Available Not Available Not Available rizatriptan 10 mg tablet Take by oral route. active Not Available Not Available Not Available gabapentin 400 mg capsule active Not Available Not Available Not Available Zofran 4 mg tablet Take 2 tablets twice a day by oral route. active Not Available Not Available No t Available hydrocortiso ne 2.5 % topical cream with perineal applicator active Not Available Not Available N ot Available dexamethason e 1 mg tablet active Not Available Not Available Not Available benzonatate 100 mg capsule Take 1 capsule 3 times a day by oral route. active Not Available Not Available No t Available acyclovir 5 % topical ointment active Not Available Not Available Not Available sertraline 25 mg tablet active Not Available Not Available Not Available hydroxyzine HCl 25 mg tablet active Not Available Not Available Not Available levofloxacin 500 mg tablet active Not Available Not Available Not Available ondansetron 4 mg disintegrati ng tablet active Not Available Not Available No t Available Ventolin HFA 90 mcg/actuatio n aerosol inhaler active Not Available Not Available Not Available Suprep Bowel Prep Kit 17.5 gram-3.13 gram-1.6 gram oral solution Take 6 ounces twice a day by oral route as directed for 1 day, for colonoscopy prep. 2023 active Not Available Not Available Not Avai lable Linzess 145 mcg capsule Take 1 capsule every day by oral route for 30 days. active Not Available Not Available No t Available Linzess 290 mcg capsule Take 1 capsule every day by oral route. active Not Available Not Available No t Available Motegrity 2 mg tablet Take 1 tablet every day by oral route. active Not Available Not Available No t Available Vitals Date Recorded Body weight Body mass index (BMI) Body height Body temperature Oxygen saturation Oxygen saturation in Arterial blood by Pulse oximetry Heart rate Heart rate Systolic blood pressure Diastolic blood pressure Provider Name and Address Organization Details Last Updated DateTime 4 00651.0 8 g 34.4 kg/m2 157.48 cm 97.9 [degF] 99 % 99 % 68 /min 66 /min 176 mm[Hg] 101 mm[Hg] Ashleigh Quintana [facility] & [place] 10:29:18 Date Recorded Body height Body mass index (BMI) Body weight Oxygen saturation Oxygen saturation in Arterial blood by Pulse oximetry Heart rate Body temperature Heart rate Systolic blood pressure Diastolic blood pressure Provider Name and Address Organization Details Last Updated DateTime 4 157.48 cm 36 kg/m2 98867.7 g 96 % 96 % 65 /min 97.3 [degF] 63 /min 116 mm[Hg] 77 mm[Hg] Renetta Roldan [facility] & [place] 08:52:26 Social History Question Answer Notes LastModified by [employer] Details LastModified Time Tobacco Smoking Status Former Smoker Renetta Roldan [facility] & [place] 03/01/2024 08:56:03 What Is Your Level Of Caffeine Consumption? Heavy Information not available 03/01/2024 Which Illicit Or Recreational Drugs Have You Used? Marijuana [email or web address] Information not available 03/01/2024 Have You Used IV Drugs? No [email or web address] Information not available 03/01/2024 Sex: Unknown Functional Status Question Answer Note LastModified by Navendis[employer]at ion Details LastModified Time Do you use any illicit or recreational drugs? Yes [email or web address] Information not available 03/01/2024 What is your level of alcohol consumption? Occasional [email or web address] Information not available 03/01/2024 Mental Status None recorded. Family History Nothing Reported. Medical History No medical history recorded. Gynecological HistoryNo gynecological history recorded. Obstetrics History GPAL:G 0 P 0 0 0 0 Past Encounters Encounter ID Performer Location Encounter Start Date Encounter Closed Date Diagnosis/Indication Diagnosis SNOMED-CT Code Diagnosis ICD10 Code Diagnosis Note [id number] Miguel Post PA-C [facility] [place] 9843224-967 2 01/10/2024 10:15:57 01/10/2024 11:32:20 Generalized abdominal pain 375302136 R10.84 Burning ep igastric pain 94056003 R10.13 Chronic id iopathic constipation 77870318 K59.04 Nausea 001742822 R11.0 Increased blood pressure 28533762 R03.0 History of pancreatitis 5425296339 9107 Z87.19 History of diverticulitis 0761313913 71058 Z87.19 [id number] Miguel Post [facility] [address] [address] 03/01/2024 08:33:38 03/01/2024 09:50:53 Generalized abdominal pain 338001181 R10.84 Burning ep igastric pain 58558340 R10.13 Chronic id iopathic constipation 12202506 K59.04 Nausea 721620509 R11.0 Increased blood pressure 56570395 R03.0 History of pancreatitis 6551835312 9107 Z87.19 History of diverticulitis 8783797894 14527 Z87.19 Female pel linda floor dysfunction 416798743 M99.05 Health Concerns Section Related Observation LastModified by Organization Detai ls LastModified Time None Recorded Concern Status LastModified by Organization Details LastModified Time None Recorded Advance Directives Directive None Recorded Payers Insurance Date Sequence Insurance Name Policy Number Policy Braxton Covered Member ID Braxton Member ID Guarantor Name 01/10/2024 1 *SELF PAY* Grady Patterson 06/04/2024 2 [employer] [facility] [place] [facility] [place] Trina Patterson [id number] Trina Patterson 06/04/2024 1 [place] Trina Patterson [id number] Trina Patterson Notes Date Note Type Note Provider Name and Address Organization Details Recorded Time 01/10/2024 text/html Ms. Patterson is a pleasant 53-year-old female who was referred by Viry Retana APRN for evaluation of burning abdominal pain. She reports a history of chronic GI issues including constipation, history of diverticulitis x1 episode around 2020, and a history of idiopathic pancreatitis on 3 separate occasions between approximately 2013 and 2020. She has chronic nausea for which she takes Zofran multiple times daily. She reports going up to 2 weeks between BMs at a time. She takes Motegrity and Linzess both as needed, but not daily. She states that if she takes either of the medications alone, they have no effect. In combination, they help her produce multiple BMs, which briefly helps her feel better. She has taken Protonix and sucralfate in the past, but did not feel that they improved her symptoms much. She is currently experiencing low back pain and left leg numbness/left leg swelling and has an xray ordered of the leg for later today with her PCP. She states she had a very high BP at her PCPs office this morning and had an EKG performed. She denies chest pain or dyspnea currently. She has a remote history of colonoscopy, but states that she is due this year for repeat. Miguel Post PA-C [address] , [place], [address], [facility] [place] & [place] 01/10/2024 22:44:05 03/01/2024 text/html PREVIOUS: Ms. Patrick riley is a pleasant 53-year-old female who was referred by Viry Retana APRN for evaluation of burning abdominal pain. She reports a history of chronic GI issues including constipation, history of diverticulitis x1 episode around 2020, and a history of idiopathic pancreatitis on 3 separate occasions between approximately 2013 and 2020. She has chronic nausea for which she takes Zofran multiple times daily. She reports going up to 2 weeks between BMs at a time. She takes Motegrity and Linzess both as needed, but not daily. She states that if she takes either of the medications alone, they have no effect. In combination, they help her produce multiple BMs, which briefly helps her feel better. She has taken Protonix and sucralfate in the past, but did not feel that they improved her symptoms much. She is currently experiencing low back pain and left leg numbness/left leg swelling and has an xray ordered of the leg for later today with her PCP. She states she had a very high BP at her PCPs office this morning and had an EKG performed. She denies chest pain or dyspnea currently. She has a remote history of colonoscopy, but states that she is due this year for repeat. CURRENT (03/01/24): Ms. Patterson presents to the office today for procedure follow-up. She underwent EGD and colonoscopy on 02/02/24 in evaluation of chronic constipation and nausea. EGD showed a Schatzki ring (dilated), gastric erythema, and a 4 cm hiatal hernia. Solid stool was seen in the colon. Colonoscopy was not adequate for screening purposes. She states she was admitted following the procedure due to respiratory distress. Currently, she endorses continued signficant constipation. When she takes Motegrity plus Linzess, it causes explosive BMs, but she states she cannot have a BM by taking either of the medications alone. Recent samples of Trulance were ineffective for her. She states she is taking several Zofran daily. She smokes marijuana regularly and takes cannabis gummies. She states she has a medical marijuana card and obtains these from [place]. Miguel Post PA-C [address], [place], [address], [facility] [place] & [place] 03/01/2024 15:35:36 OBGyn Episode No OBEpisode recorded.
--- NOTE | 2024-11-27 15:59 | XR_ITS ---
FINAL REPORT CLINICAL HISTORY: left sided neck pain FINDINGS: CERVICAL SPINE Five views were obtained. There is no acute fracture. The disc spaces are well-preserved. The facets are properly aligned. The neural foramina are adequately patent. There is no malalignment. IMPRESSION: No acute process. Reviewed, Interpreted and Dictated by Fidel Drake MD Transcribed by Debra Mata Authenticated and . [facility]
== END 2024-11-27 23:59 | disposition home or self-care (01) ==
LOC: RAD 15:57
PROVIDERS: PCP Nurse Practitioner Family; Visit Provider Nurse Practitioner Family
DX: M54.2 Cervicalgia (principal); R20.0 Anesthesia of skin; R20.2 Paresthesia of skin
CPT/HCPCS: 72050

== ENCOUNTER 2024-12-11 14:00 | Outpatient (RCR) | payer MEDICARE, OTHER, SELFPAY | END 2024-12-13 23:59 | disposition home or self-care (01) | LOC: OT 14:00 | PROVIDERS: PCP Nurse Practitioner Family; Visit Provider Nurse Practitioner Family | DX: M25.512 Pain in left shoulder (principal) | CPT/HCPCS: 97166 ==

== ENCOUNTER 2024-12-16 12:08 | Outpatient (CLI) | payer MEDICARE, SELFPAY ==
[2024-12-16 14:22] LABS: Coronavirus 19, PCR Not Detected (NotDetected); Human Rhinovirus Not Detected (NotDetected); Influenza A, PCR Not Detected (NotDetected); Influenza B, PCR Not Detected (NotDetected); Respiratory Syncytial Virus Not Detected (NotDetected)
--- OUTSIDE RECORDS SUMMARY | 2024-12-17 11:37 | XMS_ITS | Data Portability ---
Author Organization [facility] [place] [facility] ADMIN Address [address] [place] [id number] Assessment Encounter Date Assessment Date Assessment LastModified [...] constipation and abdominal pain f/u 4 weeks. [email or web address] Not available 01/10/2024 22:43:49 03/01/2024 03/01/2024 53-year-old [...] medical marijuana card and obtains it from [place] 3) Chronic constipation: Continue Motegrity plus Linzess, but will decrease her Linzess dose to 145 mcg daily due to explosive BMs. -She has multiple risk factors for pelvic floor dysfunction. Will refer for PT evaluation, possible pelvic floor therapy. f/u 3 months The patient relayed some concerns she had regarding her recent hospital stay. I provided the oleo hasher and renderer the patient's name and contact information to discuss. [email or web address] Not available 03/01/2024 15:35:30 Plan of Treatment Reminders Order Date Submit Date Provider Last Modified By Organization Details Last Modified Time Details Appointments None recorded. Lab None recorded. Referral pelvic floor therapy referral 2023 [email or web address] [facility], [address], [place], [address], 15:34:24 Procedures None recorded. Surgeries None recorded. Imaging None recorded. Medication Orders Linzess 145 mcg capsule 2023 [email or web address] [facility], [address], [address], 15:26:33 prochlorper azine maleate 5 mg tablet 2023 [facility], [address], [address], 09:30:27 Patient TargetsNo targets recorded. Patient InstructionsNo [...] Organization Details Recorded Time Generalized abdominal pain 539502685 Active 2023 Miguel Post PA-C [address], [place], [address] , [facility] & [place] 4 11:23:45 Burning epigastric pain 27997745 Active 2023 Miguel Post PA-C [address], [place], [address] , [facility] & [place] 4 11:23:53 Chronic idiopathic constipation 65178553 Active 2023 Miguel Post PA-C [address], [place], [address] , [facility] [place] 4 11:23:59 Nausea 346794381 Active 2023 Miguel Post PA-C [address], [place], [address] , [facility] & [place] 4 11:24:03 Increased blood pressure 03175275 Active 2023 Miguel Post PA-C [address], [place], [address] , [facility] & [place] 4 11:25:40 Female pelvic floor dysfunction 656835507 Active 2023 Miguel Post PA-C [address], [place], [address] , [place] [facility] & [place] 4 09:40:24 Problem Notes None recorded. Medical Equipment None Reported. Allergies Allergen ID Allergen Name Allergen Category Reaction Reaction Severity Criticality Documentation Date Start Date Code Code System Note Provider Name and Address Organization Details Recorded Time 050355 erythromy angela medicatio n Not available Not available Not available 01/10/2024 4053 RxNorm Miguel Post PA-C [address], [place], [address], [place] [facility] & [place] 4 22:39:38 744668 propoxyph eric medicatio n Not available Not available Not available 01/10/2024 8785 RxNorm Miguel BRIAN Post [address], [place], [address], [facility] - [facility] & [place] 4 22:39:55 916334 codeine medicatio n Not available Not available Not available 01/10/2024 2670 RxNorm Miguel BRIAN Post [address], [place], [address], [place] [facility] & [place] 4 22:40:02 563685 Medicinal product containin g macrolide and acting as antibacte rial agent (product) medicatio n Not available Not available Not available 01/10/2024 22165 8007 SNOMED Migueldamon Post PA-C [address], [place], [address], [facility] & [place] 4 22:40:10 686589 Substance with sulfonami de structure and antibacte rial mechanism of action (substanc e) medicatio n Not available Not available Not available 01/10/2024 04758 8003 SNOMED Migueldamon Post PA-C [address], [place], [address], [facility] & [place] 4 22:40:21 977813 Product containin g penicilli n (product) medicatio n Not available Not available Not available 01/10/2024 50233 8001 SNOMED Migueldamon Post PA-C [address], [place], [address], [facility] & [place] 4 22:40:29 395022 cimetidin e medicatio n Not available Not available Not available 01/10/2024 2541 RxNorm Migueldamon Post PA-C [address], [place], [address], [place] [facility] & [place] 22:40:35 Medications Name Sig Start Date [...] Address Organization Details Last Updated DateTime 4 71894.0 8 g 34.4 kg/m2 157.48 cm 97.9 [degF] 99 % 99 % 68 /min 66 /min 176 mm[Hg] 101 mm[Hg] Ashleigh Quintana [facility] & [place] 10:29:18 Date Recorded Body height Body mass index (BMI) Body weight Oxygen saturation Oxygen saturation in Arterial blood by Pulse oximetry Heart rate Body temperature Heart rate Systolic blood pressure Diastolic blood pressure Provider Name and Address Organization Details Last Updated DateTime 4 157.48 cm 36 kg/m2 65851.7 g 96 % 96 % 65 /min 97.3 [degF] 63 /min 116 mm[Hg] 77 mm[Hg] Renetta Roldan [facility] & [place] 08:52:26 Social History Question Answer Notes LastModified by [employer] Details LastModified Time Tobacco Smoking Status Former Smoker Renetta Roldan [facility] & [place] 03/01/2024 08:56:03 What Is Your Level Of Caffeine Consumption? Heavy [email or web address] Information not available 03/01/2024 Which Illicit Or Recreational Drugs Have You Used? Marijuana [email or web address] Information not available 03/01/2024 Have You Used IV Drugs? No [email or web address] Information not available 03/01/2024 Sex: Unknown Functional Status Question Answer Note LastModified by [email or web address] Details LastModified Time Do you use any illicit or recreational drugs? Yes Information not available 03/01/2024 What is your level of alcohol consumption? Occasional [email or web address] Information not available 03/01/2024 Mental Status None recorded. Family History Nothing Reported. Medical History No medical history recorded. Gynecological HistoryNo gynecological history recorded. Obstetrics History GPAL:G 0 P 0 0 0 0 Past Encounters Encounter ID Performer Location Encounter Start Date Encounter Closed Date Diagnosis/Indication Diagnosis SNOMED-CT Code Diagnosis ICD10 Code Diagnosis Note [id number] Mgiuel Post PA-C [facility] [place] 1396124-967 2 01/10/2024 10:15:57 01/10/2024 11:32:20 Generalized abdominal pain 062832311 R10.84 Burning ep igastric pain 19393073 R10.13 Chronic id iopathic constipation 58932376 K59.04 Nausea 694586324 R11.0 Increased blood pressure 97925890 R03.0 History of pancreatitis 9577511634 9107 Z87.19 History of diverticulitis 5030823400 45469 Z87.19 [id number] Miguel Post PA-[facility] [address] [address] 03/01/2024 08:33:38 03/01/2024 09:50:53 Generalized abdominal pain 819114938 R10.84 Burning ep igastric pain 23789962 R10.13 Chronic id iopathic constipation 22032379 K59.04 Nausea 840294674 R11.0 Increased blood pressure 56513534 R03.0 History of pancreatitis 3504571553 9107 Z87.19 History of diverticulitis 9217688511 31248 Z87.19 Female pel linda floor dysfunction 584811575 M99.05 Health Concerns Section Related Observation LastModified by Organization Detai ls LastModified Time None Recorded Concern Status LastModified by Organization Details LastModified Time None Recorded Advance Directives Directive None Recorded Payers Insurance Date Sequence Insurance Name Policy Number Policy Braxton Covered Member ID Braxton Member ID Guarantor Name 01/10/2024 1 *SELF PAY* Grady Patterson 06/04/2024 2 [employer]NA [facility] (MEDICAID [facility] [place] [place] Trina Patterson [id number] Trina Patterson 06/04/2024 1 [place]ICARE[place] Trina Patterson [id number] Trina Patterson Notes Date Note Type Note [...] this year for repeat. Miguel Post PA-C [address] , [place], [address], [facility] [place] [facility] [place] 01/10/2024 22:44:05 03/01/2024 text/html PREVIOUS: Ms. [...] medical marijuana card and obtains these from [place]. Miguel Post PA-C [address], [place], [address], [facility] [place] [facility] [place] 03/01/2024 15:35:36 OBGyn Episode No OBEpisode recorded.
== END 2024-12-16 23:59 | disposition home or self-care (01) ==
LOC: LAB.DROPOF 12-17 11:36
PROVIDERS: PCP Nurse Practitioner Family; Visit Provider Nurse Practitioner Family
DX: R68.89 Other general symptoms and signs (principal)
CPT/HCPCS: 87631

== ENCOUNTER 2024-12-18 06:58 | Outpatient (CLI) | payer MEDICARE, SELFPAY ==
--- NOTE | 2024-12-18 07:00 | MR_ITS ---
FINAL REPORT TECHNIQUE: Multiplanar and multisequence imaging of the cervical spine was obtained. CLINICAL HISTORY: left sided neck pain, numbness and tingling. PAIN TO MID HUMERUS. INTERMITTENT LEFT SIDED HEADACHE. FINDINGS: Alignment is normal. Vertebral body height is preserved. Signal intensity within the substance of the spinal cord is normal. No acute bone marrow edema. No acute paraspinal abnormality. C2/3: There is no focal disc herniation, central stenosis or neural foraminal narrowing. C3/4: There is a small central disc protrusion without central stenosis or neural foraminal narrowing. C4/5: There is no focal disc herniation, central stenosis or neural foraminal narrowing. C5/6: Small central disc protrusion with mild bilateral facet osteoarthropathy. There is mild bilateral neuroforaminal narrowing.. C6/7: Annular disc bulge with mild facet arthropathy. Mild bilateral neuroforaminal narrowing. No significant central canal stenosis.. C7/T1: There is no focal disc herniation, central stenosis or neural foraminal narrowing. IMPRESSION: Central disc retrusion at C3-4. Mild diffuse disc bulges with degenerative disc disease at C5-6 and C6-7. Reviewed, Interpreted and Dictated by Lucrecia Hood MD Transcribed by Andree Kan Authenticated and [facility]
== END 2024-12-18 23:59 | disposition home or self-care (01) ==
LOC: RAD 06:59
PROVIDERS: PCP Nurse Practitioner Family; Visit Provider Nurse Practitioner Family
DX: M50.322 Other cervical disc degeneration at C5-C6 level (principal); M50.323 Other cervical disc degeneration at C6-C7 level; M50.21 Other cervical disc displacement, high cervical region
CPT/HCPCS: 72141

== ENCOUNTER 2025-01-09 08:00 | Outpatient (RCR) | payer MEDICARE, SELFPAY | END 2025-01-09 23:59 | disposition home or self-care (01) | LOC: OT 08:00 | PROVIDERS: PCP Nurse Practitioner Family; Visit Provider Nurse Practitioner Family | DX: M25.512 Pain in left shoulder (principal) | CPT/HCPCS: 97014; 97110; 97140; G0283 ==

== ENCOUNTER 2025-01-29 16:00 | Outpatient (RCR) | payer MEDICARE, SELFPAY | END 2025-01-29 23:59 | disposition home or self-care (01) | LOC: OT 16:00 | PROVIDERS: PCP Nurse Practitioner Family; Visit Provider Nurse Practitioner Family | DX: M25.512 Pain in left shoulder (principal) | CPT/HCPCS: 97010; 97014; 97110; 97140; 97530; G0283 ==

== ENCOUNTER 2025-01-29 17:00 | Outpatient (RCR) | payer MEDICARE, SELFPAY ==
--- NOTE | 2025-01-15 08:52 | HMH.PTOPEV ---
PT Outpatient Evaluation Rehab PT Outpatient Evaluation Start: 01/15/25 08:17 Freq: Status: Active Protocol: Document 01/15/25 08:17 KALYANI (Rec: 01/15/25 08:51 KALYANI [id number]) E-signed By Emery Valles, PT Outpatient Therapy Subjective History Subjective History Pt is a 54 yof who is referred to [facility] outpatient PT with complaints of L sided neck and upper back pain. The pt reports that she also has L shoulder pain, which she has been seeing [facility] OT for. Pt reports that her pain feels like an ache and a stiffness. Pt reports that her neck pain has been ongoing for 2-3 years but worsened this spring. Pt reports that her symptoms are worsened when mowing, weedeating, driving and doing heavier housework. PMH: bulging discs multiple levels of cervical spine, h /o 3 lumbar procedures including L4-5 fusion, GI issues including diverticulitis, pancreatitis, polyps, partial hysterectomy, left 4th toe surgery New diagnosis of No cancer in past 12 months? Chief Complaint Pain,Stiff Symptom Type Ache Symptoms Relieved By Nothing Symptoms Aggravated Physical Activity By Prior Functional None Limitations Current Functional Lifting Limitations Symptom Description Constant but Variable Level of pain today 3 (0-10) Pain scale - at its 1 best (0-10) Pain scale - at its 10 worst (0-10) Cervical Eval Palpation Cervical Muscles L Cervical Paraspinal,L CT Junction,L Upper Trapezius,L Thoracic Paraspinals Cervical/Thoracic Tenderness,Trigger Point Palpation Findings Posture Head/C-Spine Posture Flexed Sitting Position Head/C-Spine Posture Flexed Standing Position Flexibility Deficits Upper Trapezius (R) Moderate Tightness,(L) Moderate Tightness Muscle Length Pectoralis Minor (R) Moderate Tightness,(L) Moderate Tightness Muscle Length Passive Joint Mobility Cervical PIVM Dec: R C5/6 L C5/6 R C6/7 L C6/7 R C7/T1 L C7/T1 AROM Cervical Spine 50% Extension Active Range of Motion ( degrees) Cervical Spine 75% Flexion Active Range of Motion (degrees) Cervical Spine Right 40% Lateral Flexion Active Range of Motion (degrees) Cervical Spine Left 60% Lateral Flexion Active Range of Motion (degrees) Cervical Spine Right 50% Rotation Active Range of Motion ( degrees) Cervical Spine Left 75% Rotation Active Range of Motion ( degrees) DTR Rt Biceps 2+ Lt Biceps 2+ Rt Brachioradialis 2+ Lt Brachioradialis 2+ Rt Triceps 2+ Lt Triceps 2+ Special Test C-spine Verterbral Central P/A [place],Left P/A [place] Accessory Movements that Elicit Symptoms C-Spine Foraminal Negative Distraction Test C-Spine Compression Negative Left Test C-Spine Swallowing Negative Left Test Shoulder Abduction Negative Left Relief Test Shoulder Brachial Negative Left Plexus Stretch Test Neck Disability Index Neck Disability Index Section 1: Pain The pain is moderate at the moment Intensity Section 2: Personal I can look after myself normally without causing extra Care (washing, pain dressing, etc.) Section 3: Lifting I can lift heavy weights but it gives extra pain Section 4: Reading I can't read as much as I want because of moderate pain in my neck Section 5: Headaches I have severe headaches, which come frequently Section 6: I can concentrate fully when I want to with no Concentration difficulty Section 7: Work I can hardly do any work at all Section 8: Driving I can't drive my car as long as I want because of moderate pain in my Section 9: Sleeping My sleep is greatly disturbed (3-5 hrs sleepless) Section 10: I am able to engage in a few of my usual recreation Recreation activities because NDI Score 24 Miscellaneous Dx PT Eval Objective Objective B Rhomboids: 2/5 B LT: 2/5 Outpatient Therapy Assessment Impairments Problems/ Palpation Tenderness,Impaired Range of Motion,Impaired Impairmments Strength,Impaired Household Care,Impaired Work Activities,Subjective C/O Pain,Impaired Self Care/Self Management Prognosis Rehab Potential Good Clinical Impression Consistent with Yes Diagnosis Consistent with Neck Pain with mob. deficits. Additional details: M54.2 Short Term Goals Number of Weeks 4 Decreased Palpation Yes: 2/4 to TTP assessment above Tenderness Increase Range of Yes: 50-75% WNL CROM Motion Increase Strength Yes: 3/5 to B rhomboids and LT Improve Neck Yes: <19 Disability Index Score Decrease Subjective Yes: 5/10 with above assessment C/O Pain Patient to be Ind w/ Yes HEP Intermediate Goals Number of Weeks 8 Decreased Palpation Yes: 0-1/4 to TTP assessment above Tenderness Increase Range of Yes: 75-100% WNL CROM Motion Increase Strength Yes: 4/5 to B rhomboids and LT Improve Ability For Yes: Heavy household cleaning without increasing Household Care symptoms Improve Tolerance to Yes: Weedeat and mow without increasing symptoms Work Activities Improve Neck Yes: <14 Disability Index Score Decrease Subjective Yes: 2-3/10 with above assessment C/O Pain Patient to be Ind w/ Yes Advanced HEP Outpatient Therapy Plan of Care Treatment Plan May Include Therapeutic Exercise Yes Including Home Exercise Program Manual Therapy Yes Techniques Neuromuscular Re- Yes education Therapeutic Yes Activities to Return to Previous Functional/Work Level ADL/Self Care Yes Education Mechanical Traction Yes Dry Needling Yes Thermal Modalities Yes Electrical Yes Stimulation Ultrasound/ Yes Phonophoresis Iontophoresis Yes Manual Lymphatic Yes Drainage Eval/Re-Eval Yes Frequency Times per week 2 Duration Number of Weeks 8 Addendums This patient is a No candidate for social or vocational rehab ? Patient/Guardian Yes verbally acknowledges understanding of treatment program and consents to further treatment? Patient/Guardian Yes verbally acknowledges understanding of diagnosis, prognosis and goals for treatment? Eval Complexity PT Charges 87409 - High Complexity Shoulder/Elbow Eval Shoulder Objective Measurements Elbow Objective Measurements PHYSICIAN CERTIFICATION: I certify the specified therapy services for Trina Patterson are required, authorized, and reviewed every 30 days.
== END 2025-02-04 23:59 | disposition home or self-care (01) ==
LOC: PT 17:00
PROVIDERS: Visit Provider Nurse Practitioner Family
DX: M50.30 Other cervical disc degeneration, unspecified cervical region (principal); R20.0 Anesthesia of skin
CPT/HCPCS: 97014; 97110; 97163; G0283

== ENCOUNTER 2025-03-06 11:30 | Outpatient (CLI) | payer MEDICARE, SELFPAY ==
[2025-03-06 14:53] LABS: Coronavirus 19, PCR Not Detected (NotDetected); Influenza A, PCR Not Detected (NotDetected); Influenza B, PCR Not Detected (NotDetected)
--- OUTSIDE RECORDS SUMMARY | 2025-03-07 13:59 | XMS_ITS | Clinical Summary ---
Author Organization [facility] Address [address] [place] [address] Phone Care Team Providers Care Pocket Setter Lockstitch Name Role Phone Dung Ruffin APRN Primary Care Physician [phone] Conditions or Problems Problem Name Problem Code Onset Date Status Entry Date Provider Comment Standard Description Annotate Counseling for nutrition Z71.3 (ICD-10-CM ) 09/02 Inactive 09/02 Imelda Cid APRN Dietary counseling and surveillance Body mass index (BMI) 36.0-36.9; adult Z68.36 (ICD-10-CM ) 09/02 Active 09/02 Imelda Cid APRN Body mass index [BMI] 36.0-36.9, adult Body mass index (BMI) 36.0-36.9; adult Z68.36 (ICD-10-CM ) 09/04 Correction 09/04 Imelda Cid APRN Body mass index [BMI] 36.0-36.9, adult Ankle swelling 630624796 (SNOMED CT) 09/02 Active 09/02 Imelda Cid APRN Swollen ankle region Counseling for nutrition Z71.3 (ICD-10-CM ) 08/05 Inactive 08/05 Imelda Cid APRN Dietary counseling and surveillance Acute maxillary sinusitis, unspecified 51209842 (SNOMED CT) 08/05 Active 08/05 Imelda Cid APRN Acute bacterial sinusitis Counseling for nutrition Z71.3 (ICD-10-CM ) 09/04 Inactive 09/04 Dung Ruffin APRN Dietary counseling and surveillance Body mass index (BMI) 36.0-36.9; adult Z68.36 (ICD-10-CM ) 09/04 Removed 09/04 Dung Ruffin KARUNA Body mass index [BMI] 36.0-36.9, adult Body mass index (BMI) 35.0-35.9; adult Z68.35 (ICD-10-CM ) Correction Dung Ruffin KARUNA Body mass index [BMI] 35.0-35.9, adult Shoulder joint pain, left 472302892 (SNOMED CT) 09/04 Active 09/04 Dungsabas Ruffin KARUNA Shoulder joint pain Pneumonia 611894967 (SNOMED CT) 03/24 Resolved 03/24 Dungsabas Ruffin NETBACKUP ADMINISTRATOR Pneumonia Counseling for nutrition Z71.3 (ICD-10-CM ) Inactive Della Jackson APRN Dietary counseling and surveillance Body mass index (BMI) 35.0-35.9; adult Z68.35 (ICD-10-CM ) Removed Della Jackson APRN Body mass index [BMI] 35.0-35.9, adult Counseling for nutrition Z71.3 (ICD-10-CM ) Inactive Della Renetta CARIASN Dietary counseling and surveillance Counseling for nutrition Z71.3 (ICD-10-CM ) Inactive Della Renetta NETBACKUP ADMINISTRATOR Dietary counseling and surveillance Body mass index (BMI) 35.0-35.9; adult Z68.35 (ICD-10-CM ) 11/15 Correction 11/15 Della Renetta CARIASN Body mass index [BMI] 35.0-35.9, adult Incontinence, urinary NOS 919096264 (SNOMED CT) Active Della Renetta CARIASN Urinary incontinence U T I 43136574 (SNOMED CT) Inactive Della Renetta CARIASN Urinary tract infectious disease Pneumonia 769335121 (SNOMED CT) 03/24 Removed 03/24 Dung Ruffin APRN Pneumonia Pap smear 967536872 (SNOMED CT) 01/18 Resolved 01/18 Dung Ruffin APRN Cervical smear biopsy taken Breast exam 91326046 (SNOMED CT) 01/18 Resolved 01/18 Dung Ruffin APRN Examination of breast Counseling for nutrition Z71.3 (ICD-10-CM ) 01/18 Inactive 01/18 Dung Ruffin APRN Dietary counseling and surveillance Hand numbness 269042114 (SNOMED CT) 01/18 Active 01/18 Dung Ruffin APRN Numbness of hand Breast exam 34976930 (SNOMED CT) 01/18 Removed 01/18 Dung Ruffin APRN Examination of breast Pap smear 838377780 (SNOMED CT) 01/18 Removed 01/18 Dung Ruffin APRN Cervical smear biopsy taken Abdominal pain 22740691 (SNOMED CT) 11/15 Resolved 11/15 Dung Ruffin APRN Abdominal pain Body mass index (BMI) 35.0-35.9; adult Z68.35 (ICD-10-CM ) 11/15 Removed 11/15 Dung Ruffin APRN Body mass index [BMI] 35.0-35.9, adult Abdominal pain 08754241 (SNOMED CT) 11/15 Removed 11/15 Dung Ruffin APRN Abdominal pain Hypertension, benign 39960603 (SNOMED CT) 11/15 Active 11/15 Dung Ruffin APRN Benign hypertension Headaches 36706028 (SNOMED CT) 11/15 Active 11/15 Dung Ruffin APRN Headache Depression / anxiety 664911783 (SNOMED CT) 11/15 Active 11/15 Dung Ruffin APRN Mixed anxiety and depressive disorder Medications Medication Instructions Start Date Stop Date Generic Name NDC Provider NAPROXEN 500 MG TABS TAKE 1 TABLET BY MOUTH 2 TIMES A DAY NEEDED NAPROXEN 06299441067 Imelda Cid APRN DOXYCYCLINE MONOHYDRATE 100 MG TABS TAKE 1 TABLET BY MOUTH TWICE A DAY FOR 5 DAYS DOXYCYCLINE MONOHYDRATE 64839855582 Imelda Cid APRN NAPROXEN 500 MG TABS TAKE 1 TABLET BY MOUTH 2 TIMES A DAY NEEDED NAPROXEN 31054191331 Imelda Cid APRN NAPROXEN 500 MG TABS TAKE 1 TABLET BY MOUTH 2 TIMES A DAY NEEDED NAPROXEN 97774330042 Dung Ruffin APRN CIPRO 500 MG TABS TAKE 1 TAB TWICE DAILY FOR 10 DAYS CIPROFLOXACIN HCL 44114142101 Della Jackson APRN MACROBID 100 MG CAPS TAKE 1 CAPSULE BY MOUTH 2 TIMES A DAY FOR 10 DAYS NITROFURANTOIN MONOHYD MACRO 77629076755 Della Jackson APRN CIPRO 500 MG TABS TAKE 1 TAB TWICE DAILY FOR 10 DAYS CIPROFLOXACIN HCL 36926817113 Della Jackson APRN VENTOLIN HFA 108 (90 Base) MCG/ACT AERS TAKE 2 INHALATIONS 4 TIMES A DAY NEEDED FOR WHEEZING ALBUTEROL SULFATE 05610844146 Dung Ruffin APRN Medications Administered No information available. Allergies, Adverse Reactions, Alerts Allergy Name Reaction Description Start Date Severity Statu s Provider STEROIDS Critical Active Dung [facility] th NETBACKUP ADMINISTRATOR SULFA Critical Active Dung [facility] NETBACKUP ADMINISTRATOR ERYTHROMYCIN Critical Active Dung Ruffin NETBACKUP ADMINISTRATOR PENICILLIN Critical Active Dung [facility] NETBACKUP ADMINISTRATOR Results Date Name Value Unit Range Flag Description Office Visit: ESTABLISH CARE , SWELLING IN HAND, FEET, LEGS AND ABDOMEN, POSSIB LDL GOAL <100 mg/dL LDL target l evel Lab Report: LIPID PANEL WITH REFLEX TO DIRECT LDL, LIPID PANEL WITH REFL ... TSH 1.74 u[iU]/mL N Thyrotropin [Units/volume] in Serum or Plasma BASO % MANU 0.6 % N basophils as percent of blood leukocytes, manual count EOS % MANU 1.0 % N eosinophil s as percent of blood leukocytes, manual count MONOCYTE % 5.3 % N Monocytes/ 100 leukocytes in Blood by Automated count LYMPH% P BLD 46.0 % N lymphocy horace as percent of blood leukocytes PMN % 47.1 % N Neutrophils/1 00 leukocytes in Blood by Automated count ABS BASOS 53 {Cells}/u L 0-200 N Basophils [#/volume] in Blood ABS EOS 88 {Cells}/u L 15-500 N Eosinophils [#/volume] in Blood ABS MONOS 466 {Cells}/u L 200-950 N Monocytes [#/volume] in Blood ABSLYMPHCT 4048 {Cells}/u L 850-3900 H Lymphocytes [#/volume] in Blood ABS NEUTROPH 4145 CELLS/UL 10*3/uL 0484-7740 N Neutrophils [#/volume] in Blood MPV 9.6 fL 7.5-12.5 N Platelet george n volume [Entitic volume] in Blood by Gopal PLATELETK/UL 236 THOUSAND/UL 10*3/uL 140-400 N platelet count RDW 14.3 % 11.0-15.0 N Erythrocyte distribution width [Ratio] by Automated count OL-MCHC 33.2 g/dL 32.0-36.0 N mean corpus cular hemoglobin concentration, rbc MCH 31.1 pg 27.0-33.0 N MCH [Entiti c mass] by Automated count MCV 93.8 fL 80.0-100. 0 N MCV [Entitic volume] by Automated count HCT 41.6 % 35.0-45.0 N Hematocrit [Volume Fraction] of Blood by Automated count HGB 13.8 g/dL 11.7-15.5 N Hemoglobin [Mass/volume] in Blood RBC M/UL 4.43 MILLION/UL 10*6/uL 3.80-5.10 N re d blood count WBC CT BLOOD 8.8 10*3/uL 3.8-10.8 N leukocy te count, blood SGPT (ALT) 13 U/L 6-29 N Alanine aminotransferase [Enzymatic activity/volume] in Serum or Plasma SGOT (AST) 14 U/L 10-35 N Aspartate aminotransferase [Enzymatic activity/volume] in Serum or Plasma ALK PHOS 66 U/L 33-115 N Alkaline young sphatase [Enzymatic activity/volume] in Blood BILI TOTAL 0.6 mg/dL 0.2-1.2 N Bilirubin. total [Mass/volume] in Serum or Plasma A/G RATIO 1.5 (calc) 1.0-2.5 N Albumin/ Globulin [Mass Ratio] in Serum or Plasma GLOBULIN TOT 2.6 G/DL (CALC) g/dL 1.9-3.7 N Globulin [Mass/volume] in Serum ALBUMIN EOP 4.0 g/dL 3.6-5.1 N Albumin [Mass/volume] in Serum or Plasma by Electrophoresis PROTEIN, TOT 6.6 g/dL 6.1-8.1 N Protein [Mass/volume] in Serum or Plasma CALCIUM 9.5 mg/dL 8.6-10.2 N Calcium [Moles/volume] in Serum or Plasma CO2 23 mmol/L 20-31 N Carbon dioxid e, total [Moles/volume] in Venous blood CHLORIDE BLD 106 mmol/L 98-110 N chloride , blood POTASSIUM 4.3 mmol/L 3.5-5.3 N Potassium [Moles/volume] in Serum or Plasma SODIUM 135 mmol/L 135-146 N Sodium [Moles/volume] in Serum or Plasma BUN/CREAT NOT APPLICABLE (calc) 6-22 Urea nitrogen/Creatinine [Mass Ratio] in Serum or Plasma EGFR IF AFA 121 mL/min/1. 73m2 >OR = 60 N Glomerular filtration rate/1.73 sq M.predicted among blacks [Volume Rate/Area] in Serum, Plasma or Blood by Creatinine-based formula (MDRD) EGFR 104 mL/min/1. 73m2 >OR = 60 N Glomerular filtration rate/1.73 sq M.predicted [Volume Rate/Area] in Serum, Plasma or Blood by Creatinine-based formula (MDRD) CREATININE 0.66 mg/dL 0.50-1.10 N Creatini ne [Mass/volume] in Serum or Plasma BUN 14 mg/dL 7-25 N Urea nitrogen [Mass/volume] in Serum or Plasma GLUCOSE SER 88 mg/dL 65-99 N Glucose [Mass/volume] in Serum or Plasma NON-HDL CHOL 158 MG/DL (CALC) mg/dL N cholesterol, non-HDL, total CHOL/HDL % 3.8 (calc) < OR = 5.0 N cholesterol/HDL ratio, serum, percent LDL 147 MG/DL (CALC) mg/dL <130 H Cholesterol in L DL [Mass/volume] in Serum or Plasma - mg/dL TRIGLYC TOT 57 mg/dL <150 N Triglycer haider [Mass/volume] in Serum or Plasma - mg/dL HDL 56 mg/dL >OR = 46 N Cholesterol in HDL [Mass/volume] in Serum or Plasma - mg/dL CHOLESTEROL 214 mg/dL 125-200 H Cholester ol [Mass/volume] in Serum or Plasma - mg/dL Append: Acute Visit Version 2 using combo CCC & HP forms PH URINE 6.5 pH of Urine by Test strip Office Visit: [facility] Rm# 1 Ready APPEARANCE U cloudy Appearan ce of Urine UA COLOR yellow Color of Uri ne GLUCOSE, URN negative Glucose [Mass/volume] in Urine by Test strip BILIRUBIN UR negative Bilirub in.total [Presence] in Urine by Test strip KETONES URN negative Ketones [Mass/volume] in Urine by Test strip PROTEIN, URN negative protein , urine, semiquantitative (dipstick) NITRITE URN negative Nitrite [Presence] in Urine by Test strip WBC DIPSTK U negative Leukocy te esterase [Presence] in Urine by Test strip UROBILINOGEN 0.2 Urobilin ogen [Presence] in Urine by Test strip SPEC GR URIN 1.030 Specific gravity of Urine by Test strip BLOOD UR DIP hemolyzed trace blood in urine (hemoglobin) by dipstick Plan of Care Type Date Detail Referral [facility], [address], [address], [address], [address], [place], [address] Pending order T1 ThinPrep Pap w HR HPV mRNA E6/E7 Pending order Mammogram Pending Order exclud ed from report: Pending order CBC with diff Pending order CMP Pending order Lipid Panel Pending order TSH reflex to fr ee T4 Pending order Urine Culture Pending order Urine Dip Auto 8 1003 Patient education Patient Educat ion Given Patient education Patient Educat ion Given Patient education Patient Educat ion Given Procedures Code Procedure Name Date Entry Date [facility]-[id number] Medication Reconciliation CPT-3075F Most recent systolic blood pressure 130-139 mm Hg CPT-3079F Most recent diastoli c blood pressure 80-89 mm Hg CPT-3074F Most recent systolic blood pressure <130 mm Hg CPT-3078F Most recent diastoli c blood pressure <80 mm Hg CPT-29011 Fluzone Quadrivalent Preservative Free prefilled syringe (36 mos +) CPT-20775 IMADM >18YR IM [address] VAC/TOXOID 08/05 [id number] Medication Reconciliation Physical Tx Physical Therapy Referral General CPT-3075F Most recent systolic blood pressure 130-139 mm Hg CPT-3079F Most recent diastoli c blood pressure 80-89 mm Hg SCT-[id number] Medication Reconciliation CPT-3074F Most recent systolic blood pressure <130 mm Hg CPT-3079F Most recent diastoli c blood pressure 80-89 mm Hg [id number] Medication Reconciliation SCT-[id number] Medication Reconciliation CPT-3074F Most recent systolic blood pressure <130 mm Hg CPT-3079F Most recent diastoli c blood pressure 80-89 mm Hg Mammo [facility] 69994 T1 ThinPrep Pap w HR HPV mRNA E6/E7 01/18 Neuro Ref [facility]rology [id number] Medication Reconciliation CPT-3074F Most recent systolic blood pressure <130 mm Hg CPT-3078F Most recent diastoli c blood pressure <80 mm Hg CPT-63941 Urine Dip Auto [id number] 395 [facility] # Urine Culture [facility] 6399 CBC with diff [facility] 21894 CMP 80902 [facility] # Lipid Panel 2 33563 [facility] # TSH reflex to free T4 Vital Signs Date Name Value Unit Description BMI (Body Mass Index) 36.71 kg/m2 Bod y Mass Index (Ratio) Body Temperature 98.3 [degF] temperat ure E&M Body Temperature 36.83 Olesya temperat ure in centigrade E&M BP Diastolic 83 mm[Hg] blood pressu re, diastolic BP Systolic 135 mm[Hg] blood pressur e, systolic BSA (Body Surface Area) 1.99 b vivian surface area Heart Rate 63 /min pulse rate Height 62 [in_us] height E&M Height 157.48 cm height in cent imeters E&M Respiratory Rate 16 /min respirat ory rate E&M Weight Measured 90.91 kg weight in kilograms E&M Weight Measured 200 [lb_av] weight E& M Weight Measured 200 [lb_av] weight E& M Immunizations Vaccine Administration Date Standard Description CVX Co de Dose PRIVATE Fluzone Quadrivalent Prefilled Syringe 0.5 ML for 36 mos + PRIVATE Fluzone Quadrivalent Prefilled Syringe 0.5 ML for 36 mos + 150 0.5 mL Advance Directives No information available.
--- OUTSIDE RECORDS SUMMARY | 2025-03-07 14:01 | XMS_ITS | Clinical Summary ---
Author Organization [employer] ([place], [place], [place], [place]) Address [address] [place] [address] Care Team Providers Care Payment Manager Name Role Phone Unavailable Primary Care Provider Unavailabl e Social History Tobacco Use Types Packs/Day Years Used Date Smoking Tobacco: Never Assessed Comments Unknown Sex and Gender Information Value Date Recorded Sex Assigned at Not on file Legal Sex Female 6:36 PM CDT Gender Identity Not on file Sexual Orientation Not on file Plan of Treatment Not on file
--- OUTSIDE RECORDS SUMMARY | 2025-03-07 14:01 | XMS_ITS | Clinical Summary ---
Author Organization [facility] Address [address] [place] [address] Care Team Providers Care Cremator Name Role Phone MazinViry KARUNA Primary Care Provider [phone] Allergies Active Allergy Reactions Criticality Noted Date Comments Erythromycin Hives Medium 02/22/2021 Other Hives,Nausea Only Medium 02/22/2021 Steroids Penicillins Hives,Shortness Of Breath High Sulfa Antibiotics Hives Medium 02/22/2021 Medications Prucalopride Succinate (Motegrity) 2 MG tablet Take 1 tablet by mouth Daily As Needed (constipatio n). Active linaclotide (Linzess) 290 MCG capsule capsule Take 1 capsule by mouth Daily As Needed (constipatio n). Active albuterol sulfate HFA 108 (90 Base) MCG/ACT inhaler Inhale 2 puffs Every 4 (Four) Hours As Needed for Wheezing. Active EPINEPHrine (EPIPEN IJ) Inject 1 dose as directed As Needed (anaphylacti c reaction). Active ondansetron ODT (ZOFRAN-ODT) [address] 1 tablet on the tongue Every 8 (Eight) Hours As Needed for Nausea or Vomiting. Active lisinopril-hydrochl orothiazide (PRINZIDE,ZESTORETI C) 20-12.5 MG per tabletIndications:E levated blood pressure reading Take 1 tablet by mouth Daily. 30 tablet 4 Active Active Problems Problem Noted Date Diagnosed Date Adrenal nodule 01/26/2024 Assessment & Plan (01/26/2024 11:33 AM EDT): -Screening for biochemical activity with PRA/aldosterone and plasma metanephrines today -Patient is not taking estrogen, will check DST to evaluate for cortisol production -Recommend repeating CT adrenal in 6 to 12 months Class 1 obesity due to exces s calories without serious comorbidity with body mass index (BMI) of 33.0 to 33.9 in adult 01/26/2024 Polyuria 01/26/2024 Assessment & Plan (01/26/2024 11:33 AM EDT): -Screen for diabetes with hemoglobin A1c and fasting glucose -Check for hypercalcemia with CMP Elevated blood pressure reading 01/26/2024 Assessment & Plan (01/26/2024 11:34 AM EDT): -Blood pressure today in the office is unacceptably high although patient is asymptomatic -Patient is notifying her PCP for immediate follow-up, in the meantime recommend starting lisinopril 20 mg daily and hydrochlorothiazide 12.5 mg daily Back pain 02/24/2021 S/P lumbar fusion 02/24/2021 Family History Medical History Relation Name Comments Scoliosis Daughter 1 No Known Problems Daughter 2 COPD Father Heart attack Father No Known Problems Son Relation Name Status Comments Daughter 1 Alive Daughter 2 Alive Father Mother Son Alive Social History Tobacco Use Types Packs/Day Years Used Date Smoking Tobacco: Former Cigarettes 1 20 0 02/08/2001 - 02/08/2021 Smokeless Tobacco: Never Tobacco Cessation:Counseling Given: Not Answered Alcohol Use Standard Drinks/Week Comments Yes 0 (1 standard drink = 0.6 oz pur e alcohol) rare Abuse Screen Answer Date Recorded Unsafe at Home or Work/School Not on file Feels Threatened by Someone? Not on file 03/2023 Does Anyone Keep You from Co ntacting Others or Doint Things Outside the Home? Not on file 04/24/2023 Physical Sign of Abuse Present Not on file 1 Housing Stability Answer Date Recorded Current Living Arrangements Not on file 03/2023 Potentially Unsafe Housing Conditions Not on yael e 04/24/2023 Family and Community Support Answer Darrel e Recorded Help with Day-to-Day Activities Not on file 04/24/2023 Lonely or Isolated Not on file 04/24/2023 Employment Answer Date Recorded Do you want help finding or keeping work or a iris b? Not on file 04/24/2023 Disabilities Answer Date Recorded Concentrating, Remembering, or Making Decisions Difficulty Not on file 04/24/2023 Doing Errands Independently Difficulty Not on fi le 04/24/2023 Education Answer Date Recorded Help with school or training? Not on file Preferred Language Not on file 04/24/2023 Comments No Sex and Gender Information Value Date Recorded Sex Assigned at Not on file Legal Sex Female 11:57 AM EDT Gender Identity Not on file Sexual Orientation Not on file Last Filed Vital Signs Vital Sign Reading Time Taken Comments Blood Pressure 180/96 01/26/2024 11:02 AM EDT Pulse 75 01/26/2024 11:02 AM EDT Temperature 36.8 C (98.2 F) 02/26/2021 11:07 AM EDT Respiratory Rate 18 02/26/2021 11:07 AM EDT Oxygen Saturation 99% 01/26/2024 11:02 AM EDT Inhaled Oxygen Concentration - - Weight 83.6 kg (184 lb 6.4 oz) 01/26/2024 11:02 AM EDT Height 157.5 cm (5' 2 ) 01/26/2024 11:02 AM EDT Body Mass Index 33.73 01/26/2024 11:02 AM EDT Plan of Treatment Health Maintenance Due Date Last Done Comments Annual Gynecologic Pelvic an d Breast Exam 1968 Pneumococcal Vaccine 50+ (1 of 2 - PCV) 1987 MAMMOGRAM 2008 COLOGUARD 2013 COLON CANCER SCREENING 5 YEA R SIGMOIDOSCOPY 2013 COLONOSCOPY [address] CANCER SCREENING 2013 CT COLONOGRAPHY 2013 FECAL OCCULT BLOOD TEST 2013 FIT Testing (1 year) 2013 ZOSTER VACCINE (1 of 2) 2018 ANNUAL WELLNESS VISIT 02/22/2021 HEPATITIS C SCREENING 02/22/2021 COVID-19 Vaccine ( season) 2024 07/31/2021, 12/23/2020, 11/24/2020 INFLUENZA VACCINE 04/16/2025 07/19/2023, 03/31/2020 TDAP/TD VACCINES (2 - Td or Tdap) 01/06/2033 023 Medical Devices Implanted Type Area Wood Carving Machine Operator Device Identifier Shelf Expiration Date Model / Serial / Lot Hemost Abs Surgifoam Sz100 8x12 10mm - [id number] Implanted:Qty : 1 on 02/24/2021 by Chencho Alarcon MD at [facility] Implant N/A: Spine Lumbar [employer] J [employer] J 1973 / / Allogr Bone Vivigen Celluar Matrx Formable 10cc - [id number] - [id number] Implanted:Qty : 1 on 02/24/2021 by Chencho Alarcon MD at [facility] Implant N/A: Spine Lumbar [facility] 01/07/2022 [id number] / [id number] / NA Cage Ib Plif/Tlif Conduit Str 8deg [id number] - [id number] Implanted:Qty : 1 on 02/24/2021 by Chencho Alarcon MD at [facility] Implant N/A: Spine Lumbar [employer] 06/15/2025 [id number] / / [id number] Scrw Philip Viper Pls5.5 Ti Fix 6x40mm - [id number] Implanted:Qty : 2 on 02/24/2021 by Chencho Alarcon MD at [facility] Implant N/A: Spine Lumbar DEPUY SPINE [id number] / / Scrw Viper [address] - [id number] Implanted:Qty : 6 on 02/24/2021 by Chencho Alarcon MD at [facility] Implant N/A: Spine Lumbar DEPUY SPINE [id number] / / Den Prelrd Spine Expedium W/Line 65mm - [id number] Implanted:Qty : 1 on 02/24/2021 by Chencho Alarcon MD at [facility] Implant N/A: Spine Lumbar DEPU[employer] SPINE [id number] / / Den Prebnt Spine Expedium W/Line Ti 5.5x70mm - [id number] Implanted:Qty : 1 on 02/24/2021 by Chencho Alarcon MD at [facility] Implant N/A: Spine Lumbar DEPUY SPINE [id number] / / Lumbar Fusion Insurance MEDICARE A & B Member Subscriber Plan / Payer (Ef fective 2009-Present) Name:Trina Patterson Member ID:[id number] Relation to Subscriber:Self Name:Trina Patterson Subscriber ID:[id number] Payer ID:[id number] Group ID:Not on file Type:Not on file Address: [facility] [id number] [id number] [facility] Advance Directives * CPR (Attempt to Resuscitate) (Latest Code Status on File) Date Activated Date Inactivated Comments 02/24/2021 3:55 PM 02/26/2021 7:01 PM Question Answer Comments Code Status (Patient has no pulse and is not breathing): CPR (Attempt to Resuscitate) Medical Interventions (Patie nt has pulse or is breathing): Full Care Teams Cremator Relationship Specialty Start Date End Date Viry Retana APRN PCP - General Internal Medicine 02/22/21
--- OUTSIDE RECORDS SUMMARY | 2025-03-07 14:01 | XMS_ITS | Referral Summary ---
Author Organization [employer] ([place], [place], [place], [place]) Address [address] [place] [address] Care Team Providers Care Medical Staff Director Name Role Phone Unavailable Primary Care Provider [...]
== END 2025-03-06 23:59 | disposition home or self-care (01) ==
LOC: LAB.DROPOF 03-07 13:59
PROVIDERS: PCP Student in an Organized Health Care Education/Training Program; Visit Provider Student in an Organized Health Care Education/Training Program
DX: J06.9 Acute upper respiratory infection, unspecified (principal)
CPT/HCPCS: 87631

== ENCOUNTER 2025-04-03 15:28 | Outpatient (CLI) | payer MEDICARE, SELFPAY ==
[2025-04-03 20:34] LABS: Coronavirus 19, PCR Not Detected (NotDetected); Influenza A, PCR Not Detected (NotDetected); Influenza B, PCR Not Detected (NotDetected)
--- OUTSIDE RECORDS SUMMARY | 2025-04-04 12:00 | XMS_ITS | Clinical Summary ---
Author Organization [facility] Address [address] [place] [address] Care Team Providers Care Agricultural Produce Washer Name Role Phone MaziniVry KARUNA Primary Care Provider + [phone] Allergies Active Allergy Reactions Criticality Noted Date [...] Date Last Done Comments Annual Gynecologic Pelvic and Breast Exam 1968 Pneumococcal Vaccine 50+ (1 of 2 - PCV) 1987 MAMMOGRAM 2008 COLOGUARD 2013 COLON CANCER SCREENING 5 YEA R SIGMOIDOSCOPY 2013 COLONOSCOPY 2013 [address] CANCER SCREENING 2013 CT COLONOGRAPHY 2013 FECAL OCCULT BLOOD TEST 2013 FIT Testing (1 year) 2013 ZOSTER VACCINE (1 of 2) 2018 ANNUAL WELLNESS VISIT 02/22/2021 HEPATITIS C SCREENING 02/22/2021 INFLUENZA VACCINE 02/14/2025 07/19/2023, 03/31/2020 TDAP/TD VACCINES (2 - Td or Tdap) 01/06/2033 023 Medical Devices Implanted Type Area English As A Second Language Teacher Device Identifier Shelf Expiration Date Model / Serial / Lot Hemost Abs Surgifoam Sz100 8x12 10mm - [id number] Implanted:Qty : 1 on 02/24/2021 by Chencho Alarcon MD at [facility] Implant N/A: Spine Lumbar [employer] J [employer] J 1974 / / Allogrft Bone Vivigen Celluar Matrx Formable 10cc - [id number] - [id number] Implanted:Qty : 1 on 02/24/2021 by Chencho Alarcon MD at [facility] Implant N/A: Spine Lumbar [facility] 01/07/2022 [id number] / [id number] / NA Cage Ib Plif/Tlif Conduit Str 8deg [id number] - [id number] Implanted:Qty : 1 on 02/24/2021 by Chencho Alarcon MD at [facility] Implant N/A: Spine Lumbar DEPUY SPINE 06/15/2025 [id number] / / [id number] Scrw Philip Viper Pls5.5 Ti Fix 6x40mm - [id number] Implanted:Qty : 2 on 02/24/2021 by Chencho Alarcon MD at [facility] Implant N/A: Spine Lumbar DEPUY SPINE [id number] / / Scrw Viper [address] - [id number] Implanted:Qty : 6 on 02/24/2021 by Chencho Alarcon MD at [facility] Implant N/A: Spine Lumbar DEPUY SPINE [id number] / / Den Prelrd Spine Expedium W/Line 65mm - [id number] Implanted:Qty : 1 on 02/24/2021 by Chencho Alarcon MD at [facility] Implant N/A: Spine Lumbar DEPUY SPINE [id number] / / Den Prebnt Spine Expedium W/Line Ti 5.5x70mm - [id number] Implanted:Qty : 1 on 02/24/2021 by Chencho Alarcon MD at [facility] Implant N/A: Spine Lumbar DEPUY SPINE [id number] / / Lumbar Fusion Insurance MEDICARE A & B Member Subscriber Plan / Payer (Ef fective 2009-Present) Name:Trina Patterson Member ID:[id number] Relation to Subscriber:Self Name:Trina Patterson Subscriber ID:[id number] Payer ID:[id number] Group ID:Not on file Type:Not on file Address: [facility] [id number] Advance Directives * CPR (Attempt to Resuscitate) (Latest Code Status on File) Date Activated Date Inactivated Comments 02/24/2021 3:55 PM 02/26/2021 7:01 PM Question Answer Comments Code Status (Patient has no pulse and is not breathing): CPR (Attempt to Resuscitate) Medical Interventions (Patie nt has pulse or is breathing): Full Care Teams Agricultural Produce Washer Relationship Specialty Start Date End Date Viry Retana APRN PCP - General Internal Medicine 02/22/21
== END 2025-04-03 23:59 ==
LOC: LAB.DROPOF 04-04 11:58
PROVIDERS: PCP Nurse Practitioner; Visit Provider Nurse Practitioner
DX: J06.9 Acute upper respiratory infection, unspecified (principal)
CPT/HCPCS: 87631

== ENCOUNTER 2025-04-07 13:48 | Outpatient (CLI) | payer MEDICARE, SELFPAY ==
[2025-04-07 13:16] LABS: Coronavirus 19, PCR Not Detected (NotDetected); Influenza A, PCR Not Detected (NotDetected); Influenza B, PCR Not Detected (NotDetected)
--- OUTSIDE RECORDS SUMMARY | 2025-04-07 13:49 | XMS_ITS | Clinical Summary ---
Author Organization [facility] Address [address] [place] [address] Phone Care Team Providers Care Pulmonologist Intensivist Name Role Phone Dung Ruffin APRN Primary Care Physician [phone] Conditions or Problems Problem Name Problem Code [...] mass index [BMI] 36.0-36.9, adult Ankle swelling 861907954 (SNOMED CT) 09/02 Active 09/02 Imelda Cid APRN Swollen ankle region Counseling for nutrition Z71.3 (ICD-10-CM ) 08/05 Inactive 08/05 Imelda Cid APRN Dietary counseling and surveillance Acute maxillary sinusitis, unspecified 91988368 (SNOMED CT) 08/05 Active 08/05 Imelda Cid [...] [BMI] 35.0-35.9, adult Shoulder joint pain, left 785890488 (SNOMED CT) 09/04 Active 09/04 Dungsabas Ruffin KARUNA Shoulder joint pain Pneumonia 416609599 (SNOMED CT) 03/24 Resolved 03/24 Dungsabas Ruffin WHEY DEPARTMENT OPERATOR Pneumonia Counseling for nutrition Z71.3 (ICD-10-CM ) Inactive Della Jackson APRN Dietary counseling and surveillance Body mass index (BMI) 35.0-35.9; adult Z68.35 (ICD-10-CM ) Removed Della Jackson APRN Body mass index [BMI] 35.0-35.9, adult Counseling for nutrition Z71.3 (ICD-10-CM ) Inactive Della Renetta CARIASN Dietary counseling and surveillance Counseling for nutrition Z71.3 (ICD-10-CM ) Inactive Della Renetta WHEY DEPARTMENT OPERATOR Dietary counseling and surveillance Body mass index (BMI) 35.0-35.9; adult Z68.35 (ICD-10-CM ) 11/15 Correction 11/15 Della Renetta CARIASN Body mass index [BMI] 35.0-35.9, adult Incontinence, urinary NOS 027777335 (SNOMED CT) Active Della Renetta CARIASN Urinary incontinence U T I 23413478 (SNOMED CT) Inactive Della Renetta CARIASN Urinary tract infectious disease Pneumonia 534275218 (SNOMED CT) 03/24 Removed 03/24 Dung Ruffin APRN Pneumonia Pap smear 866244071 (SNOMED CT) 01/18 Resolved 01/18 Dung Ruffin APRN Cervical smear biopsy taken Breast exam 72397507 (SNOMED CT) 01/18 Resolved 01/18 Dung Ruffin APRN Examination of breast Counseling for nutrition Z71.3 (ICD-10-CM ) 01/18 Inactive 01/18 Dung Ruffin APRN Dietary counseling and surveillance Hand numbness 031871035 (SNOMED CT) 01/18 Active 01/18 Dung Ruffin APRN Numbness of hand Breast exam 29790964 (SNOMED CT) 01/18 Removed 01/18 Dung Ruffin APRN Examination of breast Pap smear 121565891 (SNOMED CT) 01/18 Removed 01/18 Dung Ruffin APRN Cervical smear biopsy taken Abdominal pain 83301990 (SNOMED CT) 11/15 Resolved 11/15 Dung Ruffin APRN Abdominal pain Body mass index (BMI) 35.0-35.9; adult Z68.35 (ICD-10-CM ) 11/15 Removed 11/15 Dung Ruffin APRN Body mass index [BMI] 35.0-35.9, adult Abdominal pain 37487067 (SNOMED CT) 11/15 Removed 11/15 Dung Ruffin APRN Abdominal pain Hypertension, benign 86019884 (SNOMED CT) 11/15 Active 11/15 Dung Ruffin APRN Benign hypertension Headaches 42967072 (SNOMED CT) 11/15 Active 11/15 Dung Ruffin APRN Headache Depression / anxiety 224409637 (SNOMED CT) 11/15 Active 11/15 Dung Ruffin APRN Mixed anxiety and depressive disorder Medications Medication Instructions Start Date Stop Date Generic Name NDC Provider NAPROXEN 500 MG TABS TAKE 1 TABLET BY MOUTH 2 TIMES A DAY NEEDED NAPROXEN 37884889093 Imelda Cid APRN DOXYCYCLINE MONOHYDRATE 100 MG TABS TAKE 1 TABLET BY MOUTH TWICE A DAY FOR 5 DAYS DOXYCYCLINE MONOHYDRATE 46166864402 Imelda Cid APRN NAPROXEN 500 MG TABS TAKE 1 TABLET BY MOUTH 2 TIMES A DAY NEEDED NAPROXEN 68445267823 Imelda Cid APRN NAPROXEN 500 MG TABS TAKE 1 TABLET BY MOUTH 2 TIMES A DAY NEEDED NAPROXEN 48105569846 Dung Ruffin APRN CIPRO 500 MG TABS TAKE 1 TAB TWICE DAILY FOR 10 DAYS CIPROFLOXACIN HCL 39445109855 Della Jackson APRN MACROBID 100 MG CAPS TAKE 1 CAPSULE BY MOUTH 2 TIMES A DAY FOR 10 DAYS NITROFURANTOIN MONOHYD MACRO 31270399187 Della Jackson APRN CIPRO 500 MG TABS TAKE 1 TAB TWICE DAILY FOR 10 DAYS CIPROFLOXACIN HCL 11079704778 Della Jackson APRN VENTOLIN HFA 108 (90 Base) MCG/ACT AERS TAKE 2 INHALATIONS 4 TIMES A DAY NEEDED FOR WHEEZING ALBUTEROL SULFATE 51707425655 Dnug Ruffin APRN Medications Administered No information available. Allergies, Adverse Reactions, Alerts Allergy Name Reaction Description Start Date Severity Statu s Provider STEROIDS Critical Active Dung [facility] WHEY DEPARTMENT OPERATOR SULFA Critical Active Dung [facility] WHEY DEPARTMENT OPERATOR ERYTHROMYCIN Critical Active Dung Ruffin WHEY DEPARTMENT OPERATOR PENICILLIN Critical Active Dung [facility] WHEY DEPARTMENT OPERATOR Results Date Name Value Unit Range Flag [...] in Blood ABS NEUTROPH 4145 CELLS/UL 10*3/uL 3074-9814 N Neutrophils [#/volume] in Blood MPV 9.6 [...] of Urine by Test strip Office Visit: [facility] Rm# 1 Ready APPEARANCE U cloudy [...] Referral [facility], [address], [address], [address], [address], [place], [address] Pending order T1 ThinPrep Pap w HR [...] Procedures Code Procedure Name Date Entry Date [facility]-[id number] Medication Reconciliation CPT-3075F Most recent systolic blood pressure 130-139 mm Hg CPT-3079F Most recent diastoli c blood pressure 80-89 mm Hg CPT-3074F Most recent systolic blood pressure <130 mm Hg CPT-3078F Most recent diastoli c blood pressure <80 mm Hg CPT-15303 Fluzone Quadrivalent Preservative Free prefilled syringe (36 mos +) CPT-44764 IMADM >18YR IM [address] VAC/TOXOID 08/05 SCT-[id number] Medication Reconciliation Physical Tx Physical Therapy Referral General CPT-3075F Most recent systolic blood pressure 130-139 mm Hg CPT-3079F Most recent diastoli c blood pressure 80-89 mm Hg SCT-[id number] Medication Reconciliation CPT-3074F Most recent systolic blood pressure <130 mm Hg CPT-3079F Most recent diastoli c blood pressure 80-89 mm Hg SCT-[id number] Medication Reconciliation SCT-[id number] Medication Reconciliation CPT-3074F Most recent systolic blood pressure <130 mm Hg CPT-3079F Most recent diastoli c blood pressure 80-89 mm Hg Mammo SANDRA Mammogram [facility] 35889 T1 ThinPrep Pap w HR HPV mRNA E6/E7 01/18 Neuro Ref [facility] Neurology SCT-[id number] Medication Reconciliation CPT-3074F Most recent systolic blood pressure <130 mm Hg CPT-3078F Most recent diastoli c blood pressure <80 mm Hg CPT-97799 Urine Dip Auto [id number] 395 [facility] # Urine Culture [facility] 6399 CBC with diff [facility] 11369 CMP 17669 [facility] # Lipid Panel 2 23476 [facility] # TSH reflex to free T4 Vital Signs Date Name Value Unit Description BMI (Body Mass Index) 36.71 kg/m2 Bod y Mass Index (Ratio) Body Temperature 98.3 [degF] temperat ure E&M Body Temperature 36.83 Olseya temperat ure in centigrade E&M BP Diastolic [...]
--- OUTSIDE RECORDS SUMMARY | 2025-04-07 13:50 | XMS_ITS | Clinical Summary ---
Author Organization [facility] Address [address] [place] [address] Care Team Providers Care Inside Wirer Name Role Phone MazinViry KARUNA Primary Care Provider + [phone] Allergies Active Allergy Reactions Criticality Noted Date [...] 01/06/2033 023 Medical Devices Implanted Type Area Doughnut Icer Machine Device Identifier Shelf Expiration Date Model / Serial / Lot Hemost Abs Surgifoam Sz100 8x12 10mm - [id number] Implanted:Qty : 1 on 02/24/2021 by Chencho Alarcon MD at [facility] Implant N/A: Spine Lumbar [employer] J [employer] J 1974 / / Allogrft Bone Vivigen Celluar Matrx Formable 10cc - [id number] - [id number] Implanted:Qty : 1 on 02/24/2021 by Chencho Alarcon MD at [facility] Implant N/A: Spine Lumbar [facility] 01/07/2022 [id number] / [id number] / NA Cage Ib Plif/Tlif Conduit Str 8deg [id number] - [id number] Implanted:Qty : 1 on 02/24/2021 by Chencho Alarcon MD at [facility] Implant N/A: Spine Lumbar DEPUY SPINE 06/15/2025 [id number] / / [id number] Scrw Philip Viper Pls5.5 Ti Fix 6x40mm - [id number] Implanted:Qty : 2 on 02/24/2021 by Chencho Alarcon MD at [facility] Implant N/A: Spine Lumbar DEPUY SPINE [id number] / / Scrw Viper [address] - [id number] Implanted:Qty : 6 on 02/24/2021 by Chencho Alarcon MD at [facility] Implant N/A: Spine Lumbar DEPUY SPINE [id number] / / Den Prelrd Spine Expedium W/Line 65mm - [id number] Implanted:Qty : 1 on 02/24/2021 by Chencho Alarcon MD at [facility] Implant N/A: Spine Lumbar DEPUY SPINE [id number] / / Den Prebnt Spine Expedium W/Line Ti 5.5x70mm - [id number] Implanted:Qty : 1 on 02/24/2021 by Chencho Alarcon MD at [facility] Implant N/A: Spine Lumbar DEPUY SPINE [id number] / / Lumbar Fusion Insurance MEDICARE A & B Member Subscriber Plan / Payer (Ef fective 2009-Present) Name:Trina Patterson Member ID:[id number] Relation to Subscriber:Self Name:Trina Patterson Subscriber ID:[id number] Payer ID:[id number] Group ID:Not on file Type:Not on file Address: [facility] [id number] Advance Directives * CPR (Attempt to Resuscitate) (Latest Code Status on File) Date Activated Date Inactivated Comments 02/24/2021 3:55 PM 02/26/2021 7:01 PM Question Answer Comments Code Status (Patient has no pulse and is not breathing): CPR (Attempt to Resuscitate) Medical Interventions (Patie nt has pulse or is breathing): Full Care Teams Inside Wirer Relationship Specialty Start Date End Date Viry Retana APRN PCP - General Internal Medicine 02/22/21
== END 2025-04-07 23:59 | disposition home or self-care (01) ==
LOC: LAB.DROPOF 13:48
PROVIDERS: PCP Nurse Practitioner Family; Visit Provider Nurse Practitioner Family
DX: R50.9 Fever, unspecified (principal)
CPT/HCPCS: 87631

== ENCOUNTER 2025-04-30 20:23 | Emergency (ER) | payer MEDICARE, SELFPAY ==
[2025-04-30 20:08] VITALS: BP 204/91; PULSE 65; RESP 18; TEMP 36.9; O2SAT 100; BMI 34.4
--- NOTE | 2025-04-30 20:30 | CT_ITS ---
PROCEDURE INFORMATION: Exam: CT Lumbar Spine Without Contrast Exam date and time: 04/30/2025 8:42 PM Age: 55 years old Clinical indication: Low back pain TECHNIQUE: Imaging protocol: Computed tomography of the lumbar spine without contrast. Radiation optimization: All CT scans at this facility use at least one of these dose optimization techniques: automated exposure control; mA and/or kV adjustment per patient size (includes targeted exams where dose is matched to clinical indication); or iterative reconstruction. COMPARISON: MR LUMBAR SPINE WO CON 01/30/2024 4:25 PM FINDINGS: Bones/joints: Posterior fusion of L3-L5. Hardware appears intact. Multilevel degenerative changes of the lumbar spine producing multiple levels of mild spinal canal stenosis. Stomach and bowel: Moderate sigmoid diverticulosis without diverticulitis. Vasculature: The arteries demonstrate severe atherosclerotic disease. Soft tissues: Unremarkable. IMPRESSION: No acute fracture or malalignment of the lumbar spine.
--- NOTE | 2025-04-30 20:30 | ED_ITS ---
<Statement entered by Laz Ag DO - 05/01/25 02:53> I was consulted by the TOMMY, and we discussed the complexity of problems being addressed. I approved the treatment and management plan for this patient's care in the emergency department, thus performing a substantive portion of the medical decision making. I agree with TOMMY assessment and plan. Patient came in with atraumatic lumbar back pain. She had normal reflexes. Normal strength and normal sensory testing per TOMMY physical exam. We proceeded with a CT scan of the lumbar spine given that she had a history of surgery. CT scan showed no acute findings. Additionally her postvoid residual was 3 mL which suggest against acute urinary retention and more ominous pathology such as spinal cord compression syndromes and cauda equina. Patient symptoms were controlled and she was ultimately discharged home. Laz Ag DO Discharge Plan Disposition Patient Disposition: Home, Self-Care Condition: Good Prescriptions Prescriptions: New ibuprofen 600 mg tablet 600 mg PO TID PRN (Reason: pain) Qty: 30 0RF cyclobenzaprine 10 mg tablet 10 mg PO TID PRN (Reason: muscle spasm) Qty: 15 0RF No Action gabapentin 400 mg capsule 400 mg PO BID PRN promethazine-DM 6.25-15 mg/5 mL syrup 5 ml PO Q4-6H PRN (Reason: cough) Qty: 90 0RF magnesium oxide 500 mg magnesium tablet 500 mg PO DAILY Patient Comments: TAKE ONE TABLET BY MOUTH EVERY DAY cholecalciferol (vitamin D3) 125 mcg (5,000 unit) capsule 125 mcg PO DAILY Patient Comments: TAKE ONE CAPSULE BY MOUTH EVERY DAY mecobalamin (vitamin B12) 1,000 mcg tablet,chewable 1,500 mcg PO DAILY azithromycin [Zithromax Z-Ke] 250 mg tablet See Rx Instructions PO .COMPLEX Qty: 6 0RF Rx Instructions: For 250 mg dose pack: take 500 mg today (day 1), then 250 mg for 4 days (days 2-5) PO ondansetron 4 mg tablet,disintegrating 4 mg PO Q8H PRN (Reason: nausea and vomiting) Qty: 10 0RF benzonatate 100 mg capsule 100 mg PO TID PRN (Reason: cough) Qty: 60 0RF albuterol sulfate [Ventolin HFA] 90 mcg/actuation HFA aerosol inhaler See Rx Instructions .ROUTE .COMPLEX Qty: 18 0RF Dose Instruction: INHALE TWO PUFFS BY MOUTH EVERY 4 TO 6 HOURS NEEDED FOR SHORTNESS OF BREATH OR wheezing Rx Instructions: INHALE TWO PUFFS BY MOUTH EVERY 4 TO 6 HOURS NEEDED FOR SHORTNESS OF BREATH OR wheezing hydroxyzine HCl 25 mg tablet See Rx Instructions .ROUTE .COMPLEX Qty: 90 1RF Dose Instruction: TAKE ONE TABLET BY MOUTH THREE TIMES DAILY NEEDED FOR ANXIETY Rx Instructions: TAKE ONE TABLET BY MOUTH THREE TIMES DAILY NEEDED FOR ANXIETY fluconazole 150 mg tablet 150 mg PO DAILY 5 Days Qty: 5 0RF Activity Restrictions/Add. Instructions Additional Instructions/Restrictions: You were evaluated on an emergency basis. It is very important that you follow- up with your primary care provider and any specialist who we discussed within the next 2 days in order to better assess your health more comprehensively. For example, incidental findings on imaging or laboratory results that were performed today may be discovered, which do not require immediate medical care, but may impact your health in the future. If your symptoms worsen or persist, please return to the emergency department immediately for reassessment. Take all medications as prescribed. In queue for allowing me to participate in your health care, and I hope you feel better soon. Clinical Impressions Clinical Impression: Acute exacerbation of chronic low back pain Instructions Patient Instructions: DI for Low Back Pain Print Language Print Language: Icelandic Discharge ED Provider: Laz Ag Adult HPI General Chief complaint: Back Pain/Injury Stated complaint: Pain Time Seen by Provider: 04/30/25 20:30 Mode of Arrival: EMS Source of Information: Patient and EMS Description of Symptoms (Recalled from ER Triage Doc. by RN): Pt presents to ED via EMS for back pain X 6 hrs. Pt has significant hx w/ her back/spine. Pt states she was pulling decorations out of her tote and now is unable to stand up. Pt rates pain 04/25. Pt is A&O*4. History of Present Illness HPI narrative: 55-year-old female with a history of previous lumbar back surgeries presents to the emergency department complaints of lumbar back pain for the past several hours. She reports that she was moving around totes full of Halloween decorations when the pain began. She denies saddle anesthesias as well as bowel or bladder incontinence. She reports that she does have hardware in her back from her previous surgeries. Related Data Home Medications ?Medication ?Instructions ?Recorded ?Confirmed gabapentin 400 mg capsule 400 mg PO BID PRN 08/30/24 0 04/07/25 cholecalciferol (vitamin D3) 125 125 mcg PO DAILY 09/1004/07/25 mcg (5,000 unit) capsule magnesium oxide 500 mg PO DAILY 12/16/24 mecobalamin (vitamin B12) 1,000 1,500 mcg PO DAILY 09/1004/07/25 mcg chewable tablet Previous Rx's ?Medication ?Instructions ?Recorded albuterol sulfate 90 mcg/actuation See Rx Instructions .Route 11/15/24 aerosol inhaler (Ventolin HFA) .COMPLEX #18 grams hydroxyzine HCl 25 mg tablet See Rx Instructions .Rout e 12/10/24 .COMPLEX #90 tabs promethazine-DM 6.25 mg-15 mg/5 mL 5 ml PO Q4-6H PRN c ough #90 mL 03/06/25 oral syrup azithromycin 250 mg tablet See Rx Instructions PO .COM PLEX #6 04/07/25 (Zithromax Z-Ke) tabs benzonatate 100 mg capsule 100 mg PO TID PRN cough #60 caps 04/07/25 ondansetron 4 mg disintegrating 4 mg PO Q8H PRN nausea and 04/07/25 tablet vomiting #10 tabs fluconazole 150 mg tablet 150 mg PO DAILY 5 days #5 ta bs 04/14/25 cyclobenzaprine 10 mg tablet 10 mg PO TID PRN muscle s pasm #15 04/30/25 tabs ibuprofen 600 mg tablet 600 mg PO TID PRN pain #30 t abs 04/30/25 Allergies Allergy/AdvReac Type Severity Reaction Status Date / Time Macrolide Antibiotics Allergy Mild hives Verified 04/07/25 08:51 (MACROLIDE ANTIBIOTICS) propoxyphene (From Allergy Mild hives Verified 04/07/25 08:51 DARVOCET-N) codeine (CODEINE) Allergy Unknown hives Verified 04/07/25 08:51 erythromycin base Allergy Unknown hives Verified 04/07/25 08:51 (ERYTHROMYCIN BASE) Sulfa (Sulfonamide Allergy Unknown Hives Verified 04/07/25 08:51 Antibiotics) (SULFA (SULFONAMIDE ANTIBIOTICS)) cimetidine (From Tagamet) Allergy hives Verified 04/07/25 08:51 Penicillins Allergy hives Verified 04/07/25 08:51 PFSH [facility] Disclaimer: The information contained in this section may have been updated after the patient was seen, as this information can be updated by other users. Medical History Viral upper respiratory infection GERD (gastroesophageal reflux disease) Surgical History History of colonoscopy Social History Smoking Status: Unknown if ever smoked how long ago did patient quit smokin mo second hand exposure: Yes alcohol intake: current alcohol intake frequency: holidays/special occasions only substance use type: marijuana current occupational status: disabled Travel in the last 8 weeks?: [place] the [place] household members: none housing: house current occupational exposures/hazards: No caffeine: No Have you lived/traveled outside US in past 30 days?: No Contact w/someone who lives/traveled outside US past 30 days?: No Exposure to someone with infectious disease in past 14 days?: No Do you have a fever (greater than 100.4 F or 38 C)?: No Have you tested positive for COVID-19?: No Exposed to someone with COVID-19 in past 14 days?: No Do you have a sore throat?: No Do you have a cough?: No Do you have any weakness?: No Do you have any diarrhea?: No Are you experiencing any unusual bleeding?: No Do you have any muscle aches/pain?: No Do you have any abdominal pain?: No Are you experiencing loss of taste or smell?: No Other Medical History Have you received the Flu Vaccine for this season: No Have you received the Pneumonia Vaccine: No ROS Obtained: Yes other Musculoskeletal Musculoskeletal: Reports back pain Physical Exam Narrative Physical exam: General: Awake, aware, in no acute distress HEENT: Normocephalic, no evidence of trauma CV: RRR, no murmurs, rubs, or gallops Pulm: CTA bilaterally with no rhonchi, rales, wheezes ABD: Nontender, no swelling, guarding, or rebound tenderness Psych, appropriate mood and affect Musculoskeletal: Patient with 5 out of 5 strength in all extremities as well as intact sensation and 2+ pulses. Patient reports tenderness on palpation of her lumbar vertebrae as well as the musculature of her left lumbar back General General appearance: alert Respiratory Respiratory exam: Present normal lung sounds bilaterally Cardiovascular Cardiovascular exam: Present regular rate Neurological Exam Neurological exam: Present alert Medical Decision Making Medical Records Screening: Per USPSTF and CDC recommendations, given the prevalence of disease in our region, it is our hospital?s policy to screen for HIV and viral Hepatitis for all patients aged 18 and over and those with ongoing risk factors. Po Inquiry Pt receiving controlled substance: No Vital Signs: 04/30/25 20:08 04/30/25 21:01 Temperature 98.4 F Temperature Source Oral Pulse Rate 65 Pulse Rate [Left] 65 Respiratory Rate 18 Blood Pressure 133/59 L Blood Pressure [Right Arm] 204/91 H Blood Pressure Mean [Right Arm] 128 02 Sat by Pulse Oximetry 100 95 Oxygen Delivery Method Room Air Orders (Tests/Meds): ED MEDICATIONS Discontinued Medications Generic Name Dose Route Start Last Admin Trade Name Freq PRN Reason Stop Dose Admin Ketorolac Tromethamine 30 mg 04/30/25 20:30 04/30/25 20:43 Ketorolac 30mg/Ml Vial IM 04/30/25 20:31 30 mg ONCE ONE Administration Orphenadrine Citrate 60 mg 04/30/25 20:30 04/30/25 20:43 Orphenadrine Citrate 60mg/2ml Vial IM 04/30/25 20:31 60 mg ONCE ONE Administration ORDERS Category Date Time Status CT lumbar spine wo con Stat Cat Scan 04/30/25 20:30 Completed Medical Decision Narrative: Initial impression of presenting illness: 55-year-old female with a history of chronic low back pain that includes previous lumbar back surgeries presents emergency department complaints of back pain since moving Respiratory Motion earlier today. She denies saddle anesthesias or bowel or bladder incontinence. Differential diagnosis includes but is not limited to: Degenerative disc disease, hardware failure, vertebral fracture, musculoskeletal strain, sciatica Patient arrives hemodynamically stable, afebrile, without respiratory distress with vital signs interpreted by myself. Initial physical exam reveals tenderness on palpation of lumbar vertebrae as well as pain to the left lumbar back area. Sensations intact with 2+ pulses and 5 out of 5 strength in all extremities. Patient with 2+ patellar reflexes. Rest of exam is unremarkable Initial diagnostic plan: Norflex and Toradol IM for pain control as patient states she does not want to have an IV. CT of lumbar spine without contrast, postvoid residual bladder scan Results from initial plan were reviewed and interpreted by myself, pertinent positives include: CT of lumbar spine unremarkable for acute findings. Postvoid bladder scan shows 3 mL left in the bladder Interventions in the ED: Patient was given IM Norflex and Toradol for pain control. Patient was made aware of the results and the findings, upon reevaluation patient has remained stable throughout stay, symptoms have improved. Upon reevaluation patient states that she is feeling better and her pain has improved. Disposition: Reviewed finding today's workup with patient informed no acute abnormalities were noted. Advised her that we will treat for musculoskeletal strain with anti-inflammatories and muscle relaxers. Advised patient to use moist heat with gentle stretching exercises for pain control as well. Instructed patient to contact her primary care provider for referral for physical therapy. Instructed her to return to the emergency department any new or worsening symptoms including bowel or bladder incontinence or saddle anesthesias. Patient was agreeable to plan of care. Patient made aware of findings and had a detailed discussion with symptomatic care and return precautions, patient voiced understanding. Critical Care Critical Care Time Critical Care Time: No
--- OUTSIDE RECORDS SUMMARY | 2025-04-30 20:40 | XMS_ITS | Data Portability ---
Author Organization [facility] & CODIE Lay ADMIN Address [address] [place] [id number] Assessment Encounter Date Assessment Date Assessment LastModified [...] constipation and abdominal pain f/u 4 weeks. [email or web address] Not available 01/10/2024 22:43:49 03/01/2024 03/01/2024 53-year-old [...] medical marijuana card and obtains it from [place] 3) Chronic constipation: Continue Motegrity plus Linzess, but will decrease her Linzess dose to 145 mcg daily due to explosive BMs. -She has multiple risk factors for pelvic floor dysfunction. Will refer for PT evaluation, possible pelvic floor therapy. f/u 3 months The patient relayed some concerns she had regarding her recent hospital stay. I provided the hand stripper the patient's name and contact information to discuss. [email or web address] Not available 03/01/2024 15:35:30 Plan of Treatment Reminders Order Date Submit Date Provider Last Modified By Organization Details Last Modified Time Details Appointments None recorded. Lab None recorded. Referral pelvic floor therapy referral 2023 [email or web address] [facility], [address], [place], [address], 15:34:24 Procedures None recorded. Surgeries None recorded. Imaging None recorded. Medication Orders Linzess 145 mcg capsule 2023 [email or web address] [facility], [address], [address], 15:26:33 prochlorper azine maleate 5 mg tablet [address] [facility], [address], [address], 09:30:27 Patient TargetsNo targets recorded. Patient InstructionsNo [...] Organization Details Recorded Time Generalized abdominal pain 267604726 Active 2023 Miguel Post PA-C [address], [place], [address] , [facility] & [place] 4 11:23:45 Burning epigastric pain 33336528 Active 2023 Miguel Post PA-C [address], [facility] [address] , [facility] & [place] 4 11:23:53 Chronic idiopathic constipation 55637236 Active [address], [place] [address] , [facility] & [place] 4 11:23:59 Nausea 994545793 Active [address], [place] [address] , [facility] & [place] 4 11:24:03 Blood pressure above reference range 31526240 [facility] [facility] [facility] [address] , [facility] & [place] 4 11:25:40 Female pelvic floor dysfunction 807873958 Active [address] [id number] , [facility] & [place] 4 09:40:24 Problem Notes None recorded. Medical Equipment None Reported. Allergies Allergen ID Allergen Name Allergen Category Reaction Reaction Severity Criticality Documentation Date Start Date Code Code System Note Provider Name and Address Organization Details Recorded Time 733096 erythromy angela medicatio n Not available Not available Not available 01/10/2024 4053 RxNorm Miguel Post PA-C [address], [place], [address], [facility] & [place] 4 22:39:38 388550 propoxyph eric medicatio n Not available Not available Not available 01/10/2024 8785 RxNorm Migueldamon Post PA-C [address], [place], [address], [place] - [facility] - [place] & [place] 4 22:39:55 023500 codeine medicatio n Not available Not available Not available 01/10/2024 2670 RxNorm Migueldamon Post PA-C [address], [place], [address], [place] [facility] [place] & [place] 4 22:40:02 220008 Substance with macrolide structure and antibacte rial mechanism of action (substanc e) medicatio n Not available Not available Not available 01/10/2024 26570 0009 SNOMED Migueldamon Post PA-C [address], [place], [address], [place] [facility] & [place] 4 22:40:10 735150 Substance with sulfonami de structure and antibacte rial mechanism of action (substanc e) medicatio n Not available Not available Not available 01/10/2024 45616 8003 SNOMED Miguel Post PA-C [address], [place], [address], [facility] - [facility] & [place] 4 22:40:21 283659 Product containin g penicilli n (product) medicatio n Not available Not available Not available 01/10/2024 65464 8001 SNOMED Migueldamon Post PA-C [address], [place], [address], [place] [facility] & [place] 4 22:40:29 096328 cimetidin e medicatio n Not available Not available Not available 01/10/2024 2541 RxNorm Miguel Post PA-C [address], [place], [address], [place] [facility] & [place] 4 22:40:35 Medications Name Sig Start Date Stop [...] Pulse oximetry Heart rate Heart rate Systolic And Diastolic Provider Name and Address Organization Details Last Updated DateTime 4 81497.0 8 g 34.4 kg/m2 157.48 cm 97.9 [degF] 99 % 99 % 68 /min 66 /min 176/101 mm[Hg] Ashleigh Quintana [facility] & [place] 4 10:29:18 Date Recorded Body height Body mass index (BMI) Body weight Oxygen saturation Oxygen saturation in Arterial blood by Pulse oximetry Heart rate Body temperature Heart rate Systolic And Diastolic Provider Name and Address Organization Details Last Updated DateTime 4 157.48 cm 36 kg/m2 56744.7 g 96 % 96 % 65 /min 97.3 [degF] 63 /min 116/77 mm[Hg] Renetta Roldan [facility] & [place] 4 08:52:26 Social History Question Answer Notes LastModified by True Office ion Details LastModified Time Tobacco Smoking Status Former Smoker Renetta Roldan [facility] & [place] 03/01/2024 08:56:03 What Is Your Level Of Caffeine Consumption? Heavy Information not available 03/01/2024 Which Illicit Or Recreational Drugs Have You Used? Marijuana [email or web address] Information not available 03/01/2024 Have You Used IV Drugs? No Information not available 03/01/2024 Sex: Unknown Functional Status Question Answer Note LastModified by Organizat ion Details LastModified Time Do you use any illicit or recreational drugs? Yes [email or web address] Information not available 03/01/2024 What is your level of alcohol consumption? Occasional [email or web address] Information not available 03/01/2024 Mental Status None recorded. Family History Nothing Reported. Medical History No medical history recorded. Gynecological HistoryNo gynecological history recorded. Obstetrics History GPAL:G 0 P 0 0 0 0 Past Encounters Encounter ID Performer Location Encounter Start Date Encounter Closed Date Diagnosis/Indication Diagnosis SNOMED-CT Code Diagnosis ICD10 Code Diagnosis IMO Codes Diagnosis Note [id number] Miguel Post PA-C [facility] [place] [address] 01/10/2024 10:15:57 01/10/2024 11:32:20 Generalized abdominal pain 227301194 R10.84 Burning ep igastric pain 63219373 R10.13 Chronic id iopathic constipation 00379261 K59.04 Nausea 939140941 R11.0 Blood pres sure above reference range 62069353 R03.0 History of pancreatitis 7045047216 9107 Z87.19 History of diverticulitis 3897154180 73400 Z87.19 [id number] Miguel Post PA-C [facility] [address] [address] 03/01/2024 08:33:38 03/01/2024 09:50:53 Generalized abdominal pain 346660100 R10.84 Burning ep igastric pain 82454010 R10.13 Chronic id iopathic constipation 98086485 K59.04 Nausea 665851174 R11.0 Blood pres sure above reference range 95267201 R03.0 History of pancreatitis 2751186337 9107 Z87.19 History of diverticulitis 1598311009 02354 Z87.19 Female pel linda floor dysfunction 613612321 M99.05 Health Concerns Section Related Observation LastModified by Organization Detai ls LastModified Time None Recorded Concern Status LastModified by Organization Details LastModified Time None Recorded Advance Directives Directive None Recorded Payers Insurance Date Sequence Insurance Name Policy Number Policy Braxton Covered Member ID Braxton Member ID Guarantor Name 01/10/2024 1 *SELF PAY* Grady Patterson 06/04/2024 2 [facility] [facility] (MEDICAID HMO) Trina Patterson [id number] Trina Patterson 06/04/2024 1 [place] Trina Patterson [id number] Trina Patterson Notes Date Note Type Note [...] this year for repeat. Miguel Post PA-C [address], [place], [address], [place] - [facility] - [place] & [place] 01/10/2024 22:44:05 03/01/2024 text/html PREVIOUS: Ms. Patterson is a pleasant 53-year-old female [...] medical marijuana card and obtains these from [place]. Miguel Post PA-C [address] , [place], [address], [facility] - [place] & [place] 03/01/2024 15:35:36 OBGyn Episode No OBEpisode recorded.
--- OUTSIDE RECORDS SUMMARY | 2025-04-30 20:40 | XMS_ITS | Clinical Summary ---
Author Organization [facility] Address [address] [place] [address] Care Team Providers Care Life Advisor Name Role Phone MazinViry KARUNA Primary Care Provider + [phone] Allergies Active Allergy Reactions Criticality Noted Date [...] 01/06/2033 023 Medical Devices Implanted Type Area Dispute Resolution Specialist Device Identifier Shelf Expiration Date Model / Serial / Lot Hemost Abs Surgifoam Sz100 8x12 10mm - [id number] Implanted:Qty : 1 on 02/24/2021 by Chencho Alarcon MD at [facility] Implant N/A: Spine Lumbar [employer] 1974 / / Allogrft Bone Vivigen Celluar Matrx Formable 10cc - [id number] - [id number] Implanted:Qty : 1 on 02/24/2021 by Chencho lAarcon MD at [facility] Implant N/A: Spine Lumbar [facility] 01/07/2022 [id number] / [id number] / NA Cage Ib Plif/Tlif Conduit Str 8deg 2p25p00cf - [id number] Implanted:Qty : 1 on 02/24/2021 by Chencho Alarcon MD at [facility] Implant N/A: Spine Lumbar DEPUY SPINE 06/15/2025 [id number] / / [id number] Scrw Philip Viper Pls5.5 Ti Fix 6x40mm - [id number] Implanted:Qty : 2 on 02/24/2021 by Chencho Alarcon MD at [facility] Implant N/A: Spine Lumbar DEPU[employer] SPINE [id number] / / Scrw Viper [address] - [id number] Implanted:Qty : 6 on 02/24/2021 by Chencho Alarcon MD at [facility] Implant N/A: Spine Lumbar DEPUY SPINE [id number] / / Den Prelrd Spine Expedium W/Line 65mm - [id number] Implanted:Qty : 1 on 02/24/2021 by Chencho Alarcon MD at [facility] Implant N/A: Spine Lumbar DEPUY SPINE [id number] / / Den Prebnt Spine Expedium W/Line Ti 5.5x70mm - [id number] Implanted:Qty : 1 on 02/24/2021 by Chencho Alarcon MD at [facility] Implant N/A: Spine Lumbar DEPUY SPINE [id number] / / Lumbar Fusion Insurance MEDICARE A & B Member Subscriber Plan / Payer (Ef fective 2009-Present) Name:Trina Patterson Member ID:[id number] Relation to Subscriber:Self Name:Trina Patterson Subscriber ID:[id number] Payer ID:[id number] Group ID:Not on file Type:Not on file Address: [facility] [id number] Advance Directives * CPR (Attempt to Resuscitate) (Latest Code Status on File) Date Activated Date Inactivated Comments 02/24/2021 3:55 PM 02/26/2021 7:01 PM Question Answer Comments Code Status (Patient has no pulse and is not breathing): CPR (Attempt to Resuscitate) Medical Interventions (Patie nt has pulse or is breathing): Full Care Teams Life Advisor Relationship Specialty Start Date End Date Viry Retana APRN PCP - General Internal Medicine 02/22/21
[2025-04-30] MEDS: ORPHENADRINE CITRATE 60MG/2ML VIAL 60 MG IM (20:43)
[2025-04-30] MEDS: KETOROLAC 30MG/ML VIAL 30 MG IM (20:43)
[2025-04-30 21:01] VITALS: BP 133/59; PULSE 65; O2SAT 95
--- NOTE | 2025-04-30 21:28 | PC.NURSE ---
pt ambulates with slow steady gait to restroom
[2025-04-30 22:28] VITALS: BP 172/78; PULSE 63; RESP 16; TEMP 36.9; O2SAT 98
== END 2025-04-30 22:29 | disposition home or self-care (01) ==
PROVIDERS: Emergency Provider Student in an Organized Health Care Education/Training Program
DX: M54.59 Other low back pain (principal); G89.29 Other chronic pain
CPT/HCPCS: 51798; 72131; 96372; 99284; 99285; J1885; J2360

== ENCOUNTER 2025-05-13 10:07 | Outpatient (RCR) | payer MEDICARE, OTHER, SELFPAY ==
--- NOTE | 2025-05-13 10:53 | HMH.PTOPEV ---
PT Evaluation Rehab PT Outpatient Evaluation Start: 05/13/25 10:40 Freq: Status: Active Protocol: Document 05/13/25 10:40 RAQUEL (Rec: 05/13/25 10:53 RAQUEL [id number]) E-signed By Juan Luis Johnson, PT Outpatient Therapy Subjective History Subjective History This is the initial PT eval for Bette Patterson, 55 yowf who presents with c/o acute exacerbation of chronic low back pain x ~ 2 wks with insidious onset of symptoms. She reports pain in her L posterior hip and lateral thigh which is not similar to her pervious bouts of LBP . She has hx of 3 total lumbar surgeries with L3-L5 PLIF. She describes pain and sharp, shooting and stabbing, but reports no numbness or tingling associated. She reports initially pain was very severe, but it is no quite a bit decreased overall. She continues to have pain with prolonged standing or walking. She does report she performed an increased amount of lifting during the day prior to her pain starting. Chief Complaint Pain Symptom Type Sharp,Stabbing,Shooting Symptoms Relieved By Rest/Positioning Symptoms Aggravated Standing,Physical Activity,Walking By Prior Functional None Limitations Current Functional Lifting,Housework,Standing,Recreation Activity Limitations Level of pain today 2 (0-10) Pain scale - at its 10 worst (0-10) Lumbopelvic Eval Posture Lumbar Spine Posture Increased Lordosis Standing Position Palapation tenderness left lumbar spinal Yes: 3/4 L5/S1 level tenderness paraspinal Yes: 2/4 lower lumbar tenderness Accessory Movement S1 left Range of Motion Lumbar Spine Active 0-50 Flexion Range of Motion (degrees) Lumbar Spine Active 0-20 Extension Range of Motion (degrees) Left Lumbar Spine 0-5 Lateral Flexion Active Range of Motion (degrees) Right Lumbar Spine 0-15 Lateral Flexion Active Range of Motion (degrees) Manual Muscle Test Left Knee Extension 5 Normal Strength Grade Knee Flexion 5 Normal Strength Grade Hip Flexion Strength 4- Good- Grade Hip Abduction 4 Good Strength Grade Hip Adduction 5 Normal Strength Grade Ankle Dorsiflexion 5 Normal Strength Grade Gastronemius/Soleus 5 Normal Strength Grade Special Tests Hip Scouring ( Negative Left,Negative Right Quadrant) Test Hip Karri (SANJEEV) Negative Left,Negative Right Test Sciatic Nerve Negative Right,Positive Left Tension Test Unilateral Straight Negative Left,Negative Right Leg Raise (Lasegue) Test Lumbar Long Willard Positive Distraction Test/ Manual Traction Oswestry Index Section 1 Pain Intensity The pain is moderate and does not vary much Section 2 Personal Care ( increase the pain and I find it necessary to change my Washing,Dresing) way of doing it Section 3 Lifting lifting heavy weights off the floor, but I can manage light to medium Section 4 Walking I cannot walk more than 1/2 mile without increasing pain Section 5 Sitting Pain prevents me from sitting for more than 1/2 hour Section 6 Standing I cannot stand more than 1/2 hour without increasing pain Section 7 Sleeping Because of my pain, my normal night's sleep is less than 4 hours Section 8 Social Life Pain has no significant effect on my social life apart from limiting Section 9 Traveling Pain restricts me to short necessary journeys under 30 minutes Section 10 Changing Degreee of My pain seems to be getting better, but improvement is Pain slow Score and Risk Level Oswestry Score 30 Oswestry Risk Level Severe Disability Outpatient Therapy Assessment Impairments Problems/ Palpation Tenderness,Impaired Range of Motion,Impaired Impairmments Strength,Impaired Walking,Impaired Standing,Impaired Lifting,Impaired Household Care,Impaired Stair Climbing ,Impaired Recreational Activities,Subjective C/O Pain, Impaired Self Care/Self Management Prognosis Rehab Potential Good Comment Skilled therapy is indicated to reduce pain, improve core stability, increase strength and improve ability to perform all ADLs in order to improve overall QOL. Clinical Impression Consistent with Yes Diagnosis PT Patient Goals PT Patient Goals PT Short Term In 2 wks pt will complete these goals in order to aid Patient Goals improvement in function specifically with all ADLs: 1) Improve L LE MMT to at least 4/5 throughout 2) Improve lumbar AROM in L SB by 5 deg 3) Decrease pain in L LE and low back to 5/10 or less 4) Decrease LUZ score to 26 or less PT Chcf Patient In 4 wks pt will complete these goals in order to aid Goals improvement in function specifically with all ADLs: 1) Improve L LE MMT to at least 4+/5 throughout 2) Improve lumbar AROM in L SB by 10 deg 3) Decrease pain in L LE and low back to 3/10 or less 4) Decrease LUZ score to 23 or less 5) Be independent with all HEP to manage symptoms in order to perform all ADLs Outpatient Therapy Plan of Care Treatment Plan May Include Therapeutic Exercise Yes Including Home Exercise Program Manual Therapy Yes Techniques Neuromuscular Re- Yes education Therapeutic Yes Activities to Return to Previous Functional/Work Level ADL/Self Care Yes Education Thermal Modalities Yes Electrical Yes Stimulation Orthotics/Bracing/ Yes Splinting Eval/Re-Eval Yes Frequency Times per week 2 Duration Number of Weeks 4 Addendums This patient is a No candidate for social or vocational rehab ? Patient/Guardian Yes verbally acknowledges understanding of treatment program and consents to further treatment? Patient/Guardian Yes verbally acknowledges understanding of diagnosis, prognosis and goals for treatment? Eval Complexity PT Charges 98200 - Moderate Complexity Shoulder/Elbow Eval Shoulder Objective Measurements Elbow Objective Measurements PHYSICIAN CERTIFICATION: I certify the specified therapy services for Trina Blakesonal Patterson are required, authorized, and reviewed every 30 days.
== END 2025-05-13 23:59 | disposition home or self-care (01) ==
LOC: PT 10:07
PROVIDERS: PCP Nurse Practitioner Family; Visit Provider Nurse Practitioner Family
DX: M54.50 Low back pain, unspecified (principal); G89.29 Other chronic pain
CPT/HCPCS: 97162

== ENCOUNTER 2025-05-28 11:00 | Outpatient (RCR) | payer MEDICARE, OTHER, SELFPAY | END 2025-05-28 23:59 | disposition home or self-care (01) | LOC: PT 11:00 | PROVIDERS: PCP Nurse Practitioner Family; Visit Provider Nurse Practitioner Family | DX: M54.50 Low back pain, unspecified (principal); G89.29 Other chronic pain; M50.30 Other cervical disc degeneration, unspecified cervical region; M25.512 Pain in left shoulder | CPT/HCPCS: 97110 ==

== ENCOUNTER 2025-06-15 11:07 | Emergency (ER) | payer MEDICARE, OTHER, SELFPAY ==
[2025-06-15 11:17] VITALS: BP 149/73; PULSE 72; RESP 16; TEMP 37.1; O2SAT 97; BMI 34.0
--- OUTSIDE RECORDS SUMMARY | 2025-06-15 11:18 | XMS_ITS | Clinical Summary ---
Author Organization [facility] Address [address] [place] [address] Care Team Providers Care Insole Lip Turner Name Role Phone MazinViry KARUNA Primary Care Provider + [phone] Allergies Active Allergy Reactions Criticality Noted Date [...] 01/06/2033 023 Medical Devices Implanted Type Area Blanket Winder Helper Device Identifier Shelf Expiration Date Model / Serial / Lot Hemost Abs Surgifoam [id number] 8x12 10mm - [id number] Implanted:Qty : 1 on 02/24/2021 by Chencho Alarcon MD at [facility] Implant N/A: Spine Lumbar [employer] 1974 / / Allogrft Bone Vivigen Celluar Matrx Formable 10cc - [id number] - [id number] Implanted:Qty : 1 on 02/24/2021 by Chencho Alarcon MD at [facility] Implant N/A: Spine Lumbar [facility] 01/07/2022 [id number] / [id number] / NA Cage Ib Plif/Tlif Conduit Str 8deg [id number] - [id number] Implanted:Qty : 1 on 02/24/2021 by Chencho Alarcon MD at [facility] Implant N/A: Spine Lumbar [employer] 06/15/2025 [id number] / / [id number] Scrw Philip Viper Pls5.5 Ti Fix 6x40mm - [id number] Implanted:Qty : 2 on 02/24/2021 by Chencho Alarcon MD at [facility] Implant N/A: Spine Lumbar [employer]INE [id number] / / Scrw Viper [address] - [id number] Implanted:Qty : 6 on 02/24/2021 by Chencho Alarcon MD at [facility] Implant N/A: Spine Lumbar DEPU[employer] SPINE [id number] / / Den Prelrd Spine Expedium W/Line 65mm - [id number] Implanted:Qty : 1 on 02/24/2021 by Chencho Alarcon MD at [facility] Implant N/A: Spine Lumbar DEPU[employer] SPINE [id number] / / Den Prebnt Spine Expedium W/Line Ti 5.5x70mm - [id number] Implanted:Qty : 1 on 02/24/2021 by Chencho Alarcon MD at [facility] Implant N/A: Spine Lumbar DEPU[employer] SPINE [id number] / / Lumbar Fusion Insurance MEDICARE A & B Member Subscriber Plan / Payer (Ef fective 2009-Present) Name:Trina Patterson Member ID:[id number] Relation to Subscriber:Self Name:Trina Patterson Subscriber ID:[id number] Payer ID:[id number] Group ID:Not on file Type:Not on file Address: [facility] [id number] [address] Advance Directives * CPR (Attempt to Resuscitate) (Latest Code Status on File) Date Activated Date Inactivated Comments 02/24/2021 3:55 PM 02/26/2021 7:01 PM Question Answer Comments Code Status (Patient has no pulse and is not breathing): CPR (Attempt to Resuscitate) Medical Interventions (Patie nt has pulse or is breathing): Full Care Teams Insole Lip Turner Relationship Specialty Start Date End Date Viry Retana APRN PCP - General Internal Medicine 02/22/21
--- NOTE | 2025-06-15 11:28 | HMH.EDGENADL ---
Discharge Plan Disposition Patient Disposition: Eloped Chief Complaint: PAIN Prescriptions Prescriptions: No Action cyclobenzaprine 10 mg tablet 10 mg PO TID PRN (Reason: muscle spasm) Qty: 90 0RF magnesium oxide 500 mg magnesium tablet 500 mg PO DAILY Patient Comments: TAKE ONE TABLET BY MOUTH EVERY DAY cholecalciferol (vitamin D3) 125 mcg (5,000 unit) capsule 125 mcg PO DAILY Patient Comments: TAKE ONE CAPSULE BY MOUTH EVERY DAY mecobalamin (vitamin B12) 1,000 mcg tablet,chewable 1,500 mcg PO DAILY albuterol sulfate [Ventolin HFA] 90 mcg/actuation HFA aerosol inhaler See Rx Instructions .ROUTE .COMPLEX Qty: 18 0RF Dose Instruction: INHALE TWO PUFFS BY MOUTH EVERY 4 TO 6 HOURS NEEDED FOR SHORTNESS OF BREATH OR wheezing Rx Instructions: INHALE TWO PUFFS BY MOUTH EVERY 4 TO 6 HOURS NEEDED FOR SHORTNESS OF BREATH OR wheezing hydroxyzine HCl 25 mg tablet See Rx Instructions .ROUTE .COMPLEX Qty: 90 1RF Dose Instruction: TAKE ONE TABLET BY MOUTH THREE TIMES DAILY NEEDED FOR ANXIETY Rx Instructions: TAKE ONE TABLET BY MOUTH THREE TIMES DAILY NEEDED FOR ANXIETY fluconazole 150 mg tablet 150 mg PO DAILY 5 Days Qty: 5 0RF ondansetron 4 mg tablet,disintegrating 4 mg PO Q8H PRN (Reason: nausea and vomiting) Qty: 30 0RF ibuprofen 600 mg tablet 600 mg PO TID PRN (Reason: pain) Qty: 30 0RF Referrals Follow up/Referrals: Viry Retana APRN [Primary Care Provider, Medical] - See instructions Clinical Impressions Clinical Impression: Eloped from emergency department Print Language Print Language: Welsh Discharge ED Provider: Jose Barfield Adult [facility] General Chief complaint: PAIN Stated complaint: Pain, numbness, tingling in Right leg Time Seen by Provider: 06/15/25 11:27 Mode of Arrival: Ambulatory Source of Information: Patient Description of Symptoms (Recalled from ER Triage Doc. by RN): Patient presents to the ED for R Hip pain that started . She reports she has been receiving therapy at this facility the past 5 weeks for pain in her L hip. She describes her pain as numbess and tingling in her hip that radiates down the back of her leg. She has been taking flexeril, tramadol and ibuprofen without any relief. Patient states, The more times I am seen in the ER, the closer I am to getting an MRI . History of Present Illness HPI narrative: No significant change in symptoms, no new traumas. has pain particularly when she rotates her right hip. denies red flag symptoms of urinary or fecal incontinence or weakness. Related Data Home Medications ?Medication ?Instructions ?Recorded ?Confirmed cholecalciferol (vitamin D3) 125 125 mcg PO DAILY 12/16/24 05/09/25 mcg (5,000 unit) capsule magnesium oxide 500 mg PO DAILY 12/16/24 05/09/25 mecobalamin (vitamin B12) 1,000 1,500 mcg PO DAILY 12/16/24 05/09/25 mcg chewable tablet Previous Rx's ?Medication ?Instructions ?Recorded albuterol sulfate 90 mcg/actuation See Rx Instructions .Route 11/15/24 aerosol inhaler (Ventolin HFA) .COMPLEX #18 grams hydroxyzine HCl 25 mg tablet See Rx Instructions .Route 12/10/24 .COMPLEX #90 tabs ibuprofen 600 mg tablet 600 mg PO TID PRN pain #30 tabs 04/30/25 cyclobenzaprine 10 mg tablet 10 mg PO TID PRN muscle spasm #90 05/09/25 tabs fluconazole 150 mg tablet 150 mg PO DAILY 5 days #5 tabs 06/06/25 ondansetron 4 mg disintegrating 4 mg PO Q8H PRN nausea and 06/06/25 tablet vomiting #30 tabs Allergies Allergy/AdvReac Type Severity Reaction Status Date / Time Macrolide Antibiotics Allergy Mild hives Verified 05/09/25 09:05 (MACROLIDE ANTIBIOTICS) propoxyphene (From Allergy Mild hives Verified 05/09/25 09:05 DARVOCET-N) codeine (CODEINE) Allergy Unknown hives Verified 05/09/25 09:05 erythromycin base Allergy Unknown hives Verified 05/09/25 09:05 (ERYTHROMYCIN BASE) Sulfa (Sulfonamide Allergy Unknown Hives Verified 05/09/25 09:05 Antibiotics) (SULFA (SULFONAMIDE ANTIBIOTICS)) cimetidine (From Tagamet) Allergy hives Verified 05/09/25 09:05 Penicillins Allergy hives Verified 05/09/25 09:05 [facility] Disclaimer: The information contained in this section may have been updated after the patient was seen, as this information can be updated by other users. Medical History Viral upper respiratory infection GERD (gastroesophageal reflux disease) Surgical History History of colonoscopy Social History Smoking Status: Never smoker how long ago did patient quit smokin mo second hand exposure: Yes alcohol intake: current alcohol intake frequency: holidays/special occasions only substance use type: marijuana current occupational status: disabled Travel in the last 8 weeks?: Inside the [place] household members: none housing: house current occupational exposures/hazards: No caffeine: No Have you lived/traveled outside [place] in past 30 days?: No Contact w/someone who lives/traveled outside [place] past 30 days?: No Exposure to someone with infectious disease in past 14 days?: No Do you have a fever (greater than 100.4 F or 38 C)?: No Have you tested positive for COVID-19?: No Exposed to someone with COVID-19 in past 14 days?: No Do you have a sore throat?: No Do you have a cough?: No Do you have any weakness?: No Do you have any diarrhea?: No Are you experiencing any unusual bleeding?: No Do you have any muscle aches/pain?: No Do you have any abdominal pain?: No Are you experiencing loss of taste or smell?: No Other Medical History Have you received the Flu Vaccine for this season: No Have you received the Pneumonia Vaccine: No ROS Obtained: Yes All systems reviewed & no additional complaints except as documented Physical Exam General General appearance: alert and in no apparent distress ENT ENT exam: Present normal exam Neck Neck exam: Present normal inspection Chest Chest inspection: Present normal inspection Respiratory Respiratory exam: Present other (normal effort on room air) Cardiovascular Cardiovascular exam: Present regular rate Abdominal Exam Abdominal exam: Present soft Back Exam Back exam: Present normal inspection Neurological Exam Neurological exam: Present other (no weakness, symmetric strength and sensation bilateral lower extremities) Psychiatric Psychiatric exam: Present normal affect Skin Skin exam: Present warm Medical Decision Making Medical Records Screening: Per USPSTF and CDC recommendations, given the prevalence of disease in our region, it is our hospital?s policy to screen for HIV and viral Hepatitis for all patients aged 18 and over and those with ongoing risk factors. Po Inquiry Pt receiving controlled substance: No Vital Signs: 06/15/25 11:17 Temperature 98.7 F Temperature Source Oral Pulse Rate [Right] 72 Respiratory Rate 16 Blood Pressure [Right Arm] 149/73 H Blood Pressure Mean [Right Arm] 98 Blood Pressure Source [Right Arm] Automatic Cuff Blood Pressure Position [Right Arm] Sitting 02 Sat by Pulse Oximetry 97 Oxygen Delivery Method Room Air Orders (Tests/Meds): ED MEDICATIONS Discontinued Medications Generic Name Dose Route Start Last Admin Trade Name Freq PRN Reason Stop Dose Admin Ketorolac Tromethamine 15 mg 06/15/25 11:38 06/15/25 11:59 Ketorolac 15mg/Ml Vial IM 06/15/25 11:39 15 mg ONCE ONE Administration ORDERS Category Date Time Status Hip XR right minimum 2 views [XR hip RT 2-3V w/pelvis] Exams 06/15/25 11:37 Completed Stat Lumbar spine XR 2-3 views [XR lumbar spine 2-3V] Stat Exams 06/15/25 11:37 Completed Medical Decision Narrative: patient presents with chronic back pain. x-rays reviewed and notable for degeneartive changes of the spine, intact spinal hardware, mild degenerative changes of xi, no acute fracture or dislocation. given im toradol. prior to reassessment, patient eloped. Critical Care Critical Care Time Critical Care Time: No
--- NOTE | 2025-06-15 11:37 | XR_ITS ---
PROCEDURE INFORMATION: Exam: XR Right Hip Exam date and time: 06/15/2025 11:40 AM Age: 55 years old Clinical indication: Hip pain; Right hip TECHNIQUE: Imaging protocol: Radiologic exam of the right hip. Views: 2 or 3 views hip with pelvis when performed. COMPARISON: CT ABDOMEN PELVIS W CON 01/28/2023 8:47 PM FINDINGS: Bones/joints: Mild degenerative change of the hips and sacroiliac joints. Posterior spinal fusion at L3/L4/L5 with bilateral pedicle screws and vertically oriented bars. L3/4 disc prosthesis. Soft tissues: Unremarkable. Vasculature: Pelvic phleboliths. IMPRESSION: Mild degenerative change of the hips and sacroiliac joints.
--- NOTE | 2025-06-15 11:37 | XR_ITS ---
PROCEDURE INFORMATION: Exam: XR Lumbosacral Spine Exam date and time: 06/15/2025 11:42 AM Age: 55 years old Clinical indication: Low back pain TECHNIQUE: Imaging protocol: Radiologic exam of the lumbosacral spine. Views: 2 or 3 views. COMPARISON: CR XR HIP RT 2-3V W/PELVIS 06/15/2025 11:40 AM FINDINGS: Bones/joints: Normal variant lumbar spine, with 4 lumbar type vertebral bodies. Posterior spinal fusion at L2/L3/L4 with bilateral pedicle screws and vertically oriented bars. L2/3 disc prosthesis. Multilevel vertebral body spurring and disc space narrowing extending from the visualized thoracic spine through the thoracolumbar junction. Soft tissues: Unremarkable. Vasculature: Atherosclerosis. IMPRESSION: 1. Normal variant lumbar spine, with 4 lumbar type vertebral bodies. 2. Posterior spinal fusion at L2/L3/L4 with bilateral pedicle screws and vertically oriented bars. L2/3 disc prosthesis. 3. Multilevel vertebral body spurring and disc space narrowing extending from the visualized thoracic spine through the thoracolumbar junction. 4. Atherosclerosis.
[2025-06-15] MEDS: KETOROLAC 15MG/ML VIAL 15 MG IM (11:59)
--- NOTE | 2025-06-15 12:43 | PC.NURSE ---
Patient asked about discharge papers, advised that her daughter was here to pick her up. MD informed that patient was ready to leave. He states will put discharge in. Patient asked to wait for discharge paperwork, she refused. Asked her to sign AMA paper, she refused to stay to sign paper. Patient continued to walk out of ER. MD informed.
== END 2025-06-15 12:45 | disposition left against medical advice (07) ==
PROVIDERS: Emergency Provider Student in an Organized Health Care Education/Training Program; PCP Nurse Practitioner Family
DX: M79.604 Pain in right leg (principal)
CPT/HCPCS: 72100; 73502; 96372; 99283; 99284; J1885

== ENCOUNTER 2025-07-07 08:09 | Outpatient (CLI) | payer MEDICARE, OTHER, SELFPAY ==
--- OUTSIDE RECORDS SUMMARY | 2025-07-07 08:11 | XMS_ITS | Clinical Summary ---
Author Organization [facility] Address [address] [place] [address] Phone Care Team Providers Care Sales Contracts Analyst Name Role Phone Dung Ruffin APRN Primary Care Physician [phone] Conditions or Problems Problem Name Problem Code [...] mass index [BMI] 36.0-36.9, adult Ankle swelling 489740528 (SNOMED CT) 09/02 Active 09/02 Imelda Cid APRN Swollen ankle region Counseling for nutrition Z71.3 (ICD-10-CM ) 08/05 Inactive 08/05 Imelda Cid APRN Dietary counseling and surveillance Acute maxillary sinusitis, unspecified 05080352 (SNOMED CT) 08/05 Active 08/05 Imelda Cid [...] [BMI] 35.0-35.9, adult Shoulder joint pain, left 605834194 (SNOMED CT) 09/04 Active 09/04 Dungsabas Ruffin KARUNA Shoulder joint pain Pneumonia 749007662 (SNOMED CT) 03/24 Resolved 03/24 Dungsabas Ruffin CARD TAPE CONVERTER OPERATOR Pneumonia Counseling for nutrition Z71.3 (ICD-10-CM ) Inactive Della Jackson APRN Dietary counseling and surveillance Body mass index (BMI) 35.0-35.9; adult Z68.35 (ICD-10-CM ) Removed Della Jackson APRN Body mass index [BMI] 35.0-35.9, adult Counseling for nutrition Z71.3 (ICD-10-CM ) Inactive Della Renetta CARIASN Dietary counseling and surveillance Counseling for nutrition Z71.3 (ICD-10-CM ) Inactive Della Renetta CARD TAPE CONVERTER OPERATOR Dietary counseling and surveillance Body mass index (BMI) 35.0-35.9; adult Z68.35 (ICD-10-CM ) 11/15 Correction 11/15 Della Renetta CARIASN Body mass index [BMI] 35.0-35.9, adult Incontinence, urinary NOS 588180188 (SNOMED CT) Active Della Renetta CARIASN Urinary incontinence U T I 84411821 (SNOMED CT) Inactive Della Renetta CARIASN Urinary tract infectious disease Pneumonia 224346019 (SNOMED CT) 03/24 Removed 03/24 Dung Ruffin APRN Pneumonia Pap smear 447440498 (SNOMED CT) 01/18 Resolved 01/18 Dung Ruffin APRN Cervical smear biopsy taken Breast exam 97654781 (SNOMED CT) 01/18 Resolved 01/18 Dung Ruffin APRN Examination of breast Counseling for nutrition Z71.3 (ICD-10-CM ) 01/18 Inactive 01/18 Dung Ruffin APRN Dietary counseling and surveillance Hand numbness 746739004 (SNOMED CT) 01/18 Active 01/18 Dung Ruffin APRN Numbness of hand Breast exam 18741367 (SNOMED CT) 01/18 Removed 01/18 Dung Ruffin APRN Examination of breast Pap smear 092013895 (SNOMED CT) 01/18 Removed 01/18 Dung Ruffin APRN Cervical smear biopsy taken Abdominal pain 25602955 (SNOMED CT) 11/15 Resolved 11/15 Dung Ruffin APRN Abdominal pain Body mass index (BMI) 35.0-35.9; adult Z68.35 (ICD-10-CM ) 11/15 Removed 11/15 Dung Ruffin APRN Body mass index [BMI] 35.0-35.9, adult Abdominal pain 50449640 (SNOMED CT) 11/15 Removed 11/15 Dung Ruffin APRN Abdominal pain Hypertension, benign 41250482 (SNOMED CT) 11/15 Active 11/15 Dung Ruffin APRN Benign hypertension Headaches 26233412 (SNOMED CT) 11/15 Active 11/15 Dung Ruffin APRN Headache Depression / anxiety 935964764 (SNOMED CT) 11/15 Active 11/15 Dung Ruffin APRN Mixed anxiety and depressive disorder Medications Medication Instructions Start Date Stop Date Generic Name NDC Provider NAPROXEN 500 MG TABS TAKE 1 TABLET BY MOUTH 2 TIMES A DAY NEEDED NAPROXEN 92279747502 Imelda Cid APRN DOXYCYCLINE MONOHYDRATE 100 MG TABS TAKE 1 TABLET BY MOUTH TWICE A DAY FOR 5 DAYS DOXYCYCLINE MONOHYDRATE 57767593611 Imelda Cid APRN NAPROXEN 500 MG TABS TAKE 1 TABLET BY MOUTH 2 TIMES A DAY NEEDED NAPROXEN 56477919990 Imelda Cid APRN NAPROXEN 500 MG TABS TAKE 1 TABLET BY MOUTH 2 TIMES A DAY NEEDED NAPROXEN 13744155271 Dung Ruffin APRN CIPRO 500 MG TABS TAKE 1 TAB TWICE DAILY FOR 10 DAYS CIPROFLOXACIN HCL 77787179123 Della Jackson APRN MACROBID 100 MG CAPS TAKE 1 CAPSULE BY MOUTH 2 TIMES A DAY FOR 10 DAYS NITROFURANTOIN MONOHYD MACRO [id number] Della Jackson APRN CIPRO 500 MG TABS TAKE 1 TAB TWICE DAILY FOR 10 DAYS CIPROFLOXACIN HCL 34206836165 Della Jackson APRN VENTOLIN HFA 108 (90 Base) MCG/ACT AERS TAKE 2 INHALATIONS 4 TIMES A DAY NEEDED FOR WHEEZING ALBUTEROL SULFATE 53073883801 Dung Ruffin APRN Medications Administered No information available. Allergies, Adverse Reactions, Alerts Allergy Name Reaction Description Start Date Severity Statu s Provider STEROIDS Critical Active Dung [facility] th CARD TAPE CONVERTER OPERATOR SULFA Critical Active Dung [facility] CARD TAPE CONVERTER OPERATOR ERYTHROMYCIN Critical Active Dung Ruffin CARD TAPE CONVERTER OPERATOR PENICILLIN Critical Active Dung [facility] CARD TAPE CONVERTER OPERATOR Results Date Name Value Unit Range [...] in Blood ABS NEUTROPH 4145 CELLS/UL 10*3/uL 1372-1111 N Neutrophils [#/volume] in Blood MPV 9.6 [...] of Urine by Test strip Office Visit: [facility] Rm# 1 Ready APPEARANCE U cloudy Appearan [...] Referral [facility], [address], [address], [address], [address], [place], [address] Pending order T1 ThinPrep Pap w HR [...] Procedures Code Procedure Name Date Entry Date [facility]-[id number] Medication Reconciliation CPT-3075F Most recent systolic blood pressure 130-139 mm Hg CPT-3079F Most recent diastoli c blood pressure 80-89 mm Hg CPT-3074F Most recent systolic blood pressure <130 mm Hg CPT-3078F Most recent diastoli c blood pressure <80 mm Hg CPT-86310 Fluzone Quadrivalent Preservative Free prefilled syringe (36 mos +) CPT-89856 IMADM >18YR IM [address] VAC/TOXOID 08/05 SCT-[id number] Medication Reconciliation Physical Tx Physical Therapy Referral General CPT-3075F Most recent systolic blood pressure 130-139 mm Hg CPT-3079F Most recent diastoli c blood pressure 80-89 mm Hg SCT-[id number] Medication Reconciliation CPT-3074F Most recent systolic blood pressure <130 mm Hg CPT-3079F Most recent diastoli c blood pressure 80-89 mm Hg SCT-[id number] Medication Reconciliation SCT-[id number] Medication Reconciliation CPT-3074F Most recent systolic blood pressure <130 mm Hg CPT-3079F Most recent diastoli c blood pressure 80-89 mm Hg Mammo [facility]DR[facility] 92968 T1 ThinPrep Pap w HR HPV mRNA E6/E7 01/18 Neuro Ref [facility] Neurology SCT-[id number] Medication Reconciliation CPT-3074F Most recent systolic blood pressure <130 mm Hg CPT-3078F Most recent diastoli c blood pressure <80 mm Hg CPT-73690 Urine Dip Auto [id number] 395 [facility] # Urine Culture [facility] 6399 CBC with diff [facility] 24376 CMP 80508 [facility] # Lipid Panel 2 62356 [facility] # TSH reflex to free [...]
--- OUTSIDE RECORDS SUMMARY | 2025-07-07 08:12 | XMS_ITS | Clinical Summary ---
Author Organization [facility] Address [address] [place] [address] Care Team Providers Care Patient Account Liaison Name Role Phone MazinViry KARUNA Primary Care Provider [phone] Allergies Active Allergy Reactions Criticality Noted Date [...] 01/06/2033 023 Medical Devices Implanted Type Area Lens Marker Device Identifier Shelf Expiration Date Model / Serial / Lot Hemost Abs Surgifoam Sz100 8x12 10mm - [id number] Implanted:Qty : 1 on 02/24/2021 by Chencho Alarcon MD at [facility] Implant N/A: Spine Lumbar [employer] J 1974 / / Allogrft Bone Vivigen Celluar Matrx Formable 10cc - [id number] - [id number] Implanted:Qty : 1 on 02/24/2021 by Chencho Alarcon MD at [facility] Implant N/A: Spine Lumbar [facility] 01/07/2022 [id number] / [id number] / NA Cage Ib Plif/Tlif Conduit Str 8deg [id number] - [id number] Implanted:Qty : 1 on 02/24/2021 by Chencho Alarcon MD at [facility] Implant N/A: Spine Lumbar [employer] 06/15/2025 [id number] / / [id number] Scrw Philip Viper Pls5.5 Ti Fix 6x40mm - [id number] Implanted:Qty : 2 on 02/24/2021 by Chencho Alarcon MD at [facility] Implant N/A: Spine Lumbar [employer]INE [id number] / / Scrw Viper [address] St - [id number] Implanted:Qty : 6 on 02/24/2021 by Chencho Alarcon MD at [facility] Implant N/A: Spine Lumbar DE[employer]INE [id number] / / Den Prelrd Spine Expedium W/Line 65mm - [id number] Implanted:Qty : 1 on 02/24/2021 by Chencho Alarcon MD at [facility] Implant N/A: Spine Lumbar DE[employer] SPINE [id number] / / Den Prebnt Spine Expedium W/Line Ti 5.5x70mm - [id number] Implanted:Qty : 1 on 02/24/2021 by Chencho Alarcon MD at [facility] Implant N/A: Spine Lumbar DEPU[employer] SPINE [id number] / / Lumbar Fusion Insurance MEDICARE A & B Member Subscriber Plan / Payer (Ef fective 2009-Present) Name:Trina Patterson Member ID:[id number] Relation to Subscriber:Self Name:Trina Patterson Subscriber ID:[id number] Payer ID:[id number] Group ID:Not on file Type:Not on file Address: [facility] [place] [id number] Advance Directives * CPR (Attempt to Resuscitate) (Latest Code Status on File) Date Activated Date Inactivated Comments 02/24/2021 3:55 PM 02/26/2021 7:01 PM Question Answer Comments Code Status (Patient has no pulse and is not breathing): CPR (Attempt to Resuscitate) Medical Interventions (Patie nt has pulse or is breathing): Full Care Teams Patient Account Liaison Relationship Specialty Start Date End Date Viry Retana APRN PCP - General Internal Medicine 02/22/21
--- NOTE | 2025-07-07 08:30 | MR_ITS ---
FINAL REPORT TECHNIQUE: Multiplanar MR, without and with gadolinium enhancement CLINICAL HISTORY: lumbago, BLE numbness lumbar surgery 2020 FINDINGS: Sagittal images show normal vertebral height. Alignment is normal. There is operative changes of fusion from L3-L5. Type I Modic endplate signal changes are seen at L1-2. Otherwise, marrow signal is normal. L1-2: Moderate annular disc bulge with mild bilateral neuroforaminal narrowing. L2-3: Unremarkable. L3-4: Postoperative changes of fusion and laminectomy. No significant central canal stenosis or neuroforaminal narrowing. L4-5: Postoperative changes of fusion and laminectomy. No significant central canal stenosis or neuroforaminal narrowing. L5-S1: Moderate annular disc bulge and facet arthropathy. Mild central canal stenosis with moderate to severe bilateral neuroforaminal narrowing. IMPRESSION: Degenerative changes, most pronounced at L5-S1. Reviewed, Interpreted and Dictated by Abdon Thomas MD Transcribed by Andree Kan Authenticated and [facility]
[2025-07-07] MEDS: SODIUM CHLORIDE 0.9% 10ML SYR (RAD ONLY) 10 ML IV (09:20)
[2025-07-07] MEDS: GADOTERIDOL INJ 20ML SYRINGE 18 ML IV (09:20)
== END 2025-07-07 23:59 | disposition home or self-care (01) ==
PROVIDERS: PCP Nurse Practitioner Family; Visit Provider Nurse Practitioner Family
DX: M47.816 Spondylosis without myelopathy or radiculopathy, lumbar region (principal); M47.817 Spondylosis without myelopathy or radiculopathy, lumbosacral region; M51.369 Other intervertebral disc degeneration, lumbar region without mention of lumbar back pain or lower extremity pain; R20.0 Anesthesia of skin; R20.2 Paresthesia of skin; Z98.890 Other specified postprocedural states
CPT/HCPCS: 72158; A9576